=== PATIENT | female | born 1945 | race Caucasian/White ===

== ENCOUNTER 2017-07-22 10:47 | Inpatient (IN) | payer MEDICAID, MEDICARE ==
[~2017-07-22] VITALS: Ht 157.5 cm; Wt 49.9 kg
[2017-07-22 10:51] VITALS: BP 92/54
--- NOTE | 2017-07-22 11:03 | Emergency Room Report ---
History of Present Illness General Chief Complaint: Generalized Weakness Source: Medical Record, EMS Present Illness HPI 71-year-old female coming from alf history of diabetes, COPD, hypertension, schizoaffective disorder, failure to thrive, with PEG tube, brought in for poor oral intake, refusing G-tube feeding, increasing confusion and weakness. Patient is closing eyes, however following commands, not speaking, not able to provide any history. When asked if she is in pain she shakes her head Allergies: Coded Allergies: No Known Allergies (Unverified , 01/13/15) Patient History Limited by: medical condition Past Medical History: see triage record Past Surgical History: unable to obtain Pertinent Family History: unable to obtain Last Menstrual Period: na Reviewed Nursing Documentation: PMH: Agreed, PSxH: Agreed Nursing Documentation-PMH Past Medical History: No History, Except For Hx COPD: Yes Hx Diabetes: Yes Hx Gastrointestinal Problems: Yes - GERD, GTUBE, History Of Psychiatric Problem: Yes - depression, schizophrenia, FTT Hx Neurological Problems: Yes - encephalopathy Review of Systems All Other Systems: limited - pt not answering questions Physical Exam Vital Signs Date Time Temp Pulse Resp B/P (MAP) Pulse Ox O2 Delivery O2 Flow Rate FiO2 07/22/17 10:39 97.9 80 18 96/61 95 Room Air Sp02 EP Interpretation: reviewed, normal General Appearance: non-toxic, other - Elderly thin chronically ill female, not in acute distress, appears tired Head: normocephalic, atraumatic Eyes: bilateral eye normal inspection, bilateral eye PERRL, bilateral eye EOMI ENT: normal ENT inspection, normal pharynx, dry mucus membranes Neck: normal inspection, full range of motion, supple Respiratory: normal inspection, lungs clear, normal breath sounds, no respiratory distress, no retraction, no wheezing, chest symmetrical Cardiovascular #1: normal inspection, regular rate, rhythm, no edema, normal capillary refill Cardiovascular #2: 2+ radial (R), 2+ radial (L) Gastrointestinal: normal inspection, non tender, soft, non-distended, no guarding, other - +peg tube in place with black residue Musculoskeletal: normal inspection, back normal, normal range of motion, non- tender, other - anterior aspect R knee witha brasino Neurologic: motor strength/tone normal, sensory intact, other - Patient answering questions with yes and no, however not speaking not providing any history, not cooperative with neurological exam Skin: normal inspection, normal color, no rash, warm/dry, normal turgor Medical Decision Making Diagnostic Impression: Primary Impression: Dehydration Additional Impression: Failure to thrive ER Course 71-year-old female, increased confusion, altered mental status, refusing oral intake at alf DDX: Failure to thrive, dehydration, electrolyte disturbance, infectious, UTI/ pneumonia Plan: Obtain labs, ua, EKG, CXR IV fluids ER course: Patient has been monitored during ED stay, borderline hypotensive with map of 65 , given IV fluid BP improved Disposition: Patient is to be admitted to med surg D/W hospitalist Dr Sukh Chu who has accepted patient for admission Please note that this Emergency Department Report was dictated using PredPolpreparer technology software, occasionally this can lead to erroneous entry secondary to interpretation by the dictation equipment. EKG Diagnostic Results EP Interpretation: Yes Rate: normal Rhythm: NSR ST Segments: No acute changes ASA given to patient: No Rhythm Strip EP Interpretation: Yes Rate: 81 Rhythm: NSR, no PVCs, no ectopy Chest X-ray CXR: Ordered: Yes 1 view Indication: Altered mental status EP interpretation: Yes Interpretation: No consolidation, no effusion, no PTX, no acute cardiopulmonary disease Impression: No acute disease Electronically signed by Lindsay Bonds MD Laboratory Tests Test 07/22/17 11:45 07/22/17 12:15 White Blood Count 11.7 K/UL (4.8-10.8) H Red Blood Count 4.69 M/UL (4.20-5.40) Hemoglobin 14.2 G/DL (12.0-16.0) Hematocrit 44.9 % (37.0-47.0) Mean Corpuscular Volume 96 FL (80-99) Mean Corpuscular Hemoglobin 30.3 PG (27.0-31.0) Mean Corpuscular Hemoglobin Concent 31.7 G/DL (32.0-36.0) L Red Cell Distribution Width 13.0 % (11.6-14.8) Platelet Count 397 K/UL (150-450) Mean Platelet Volume 6.0 FL (6.5-10.1) L Neutrophils (%) (Auto) 65.1 % (45.0-75.0) Lymphocytes (%) (Auto) 27.6 % (20.0-45.0) Monocytes (%) (Auto) 6.8 % (1.0-10.0) Eosinophils (%) (Auto) 0.0 % (0.0-3.0) Basophils (%) (Auto) 0.5 % (0.0-2.0) Prothrombin Time 10.5 SEC (9.30-11.50) Prothrombin Time INR 1.0 (0.9-1.1) PTT 26 SEC (23-33) Sodium Level 146 MMOL/L (136-145) H Potassium Level 4.0 MMOL/L (3.5-5.1) Chloride Level 107 MMOL/L (98-107) Carbon Dioxide Level 23 MMOL/L (21-32) Anion Gap 17 mmol/L (5-15) H Blood Urea Nitrogen 10 mg/dL (7-18) Creatinine 0.6 MG/DL (0.55-1.30) Estimate Glomerular Filtration Rate > 60 mL/min (>60) Glucose Level 121 MG/DL (74-106) H Lactic Acid Level 0.70 mmol/L (0.66-2.22) Calcium Level 9.5 MG/DL (8.5-10.1) Total Bilirubin 0.6 MG/DL (0.2-1.0) Aspartate Amino Transferase (AST) 10 U/L (15-37) L Alanine Aminotransferase (ALT) 13 U/L (12-78) Alkaline Phosphatase 80 U/L (46-116) Total Creatine Kinase 16 U/L (26-308) L Creatine Kinase MB < 0.5 NG/ML (0.0-3.6) Creatine Kinase MB Relative Index 3.1 Troponin I 0.017 ng/mL (0.000-0.056) Total Protein 7.1 G/DL (6.4-8.2) Albumin 3.3 G/DL (3.4-5.0) L Globulin 3.8 g/dL Albumin/Globulin Ratio 0.9 (1.0-2.7) L Urine Color Yellow Urine Appearance Clear Urine pH 6 (4.5-8.0) Urine Specific [place] 1.025 (1.005-1.035) Urine Protein 2+ (NEGATIVE) H Urine Glucose (UA) Negative (NEGATIVE) Urine Ketones 4+ (NEGATIVE) H Urine Occult Blood Negative (NEGATIVE) Urine Nitrite Negative (NEGATIVE) Urine Bilirubin 1+ (NEGATIVE) H Urine Ictotest Negative Urine Urobilinogen 1 MG/DL (0.0-1.0) H Urine Leukocyte Esterase 1+ (NEGATIVE) H Urine RBC 2-4 /HPF (0 - 2) H Urine WBC 2-4 /HPF (0 - 2) Urine Squamous Epithelial Cells Few /LPF (NONE/OCC) Urine Bacteria Few /HPF (NONE) Urine Mucus Many /LPF (NONE/OCC) H Last Vital Signs Date Time Temp Pulse Resp B/P (MAP) Pulse Ox O2 Delivery O2 Flow Rate FiO2 07/22/17 10:51 86 17 92/54 92 Room Air 07/22/17 10:39 97.9 Disposition: ADMITTED INPATIENT Condition: Serious AurelianooLindsay M.D. Jul 22, 2017 11:03
[2017-07-22] MEDS ORDERED: LORazepam Inj 2mg/ml 1ml IM ONE (11:30)
--- NOTE | 2017-07-22 11:54 | Diagnostic Imaging Report ---
Indication: Chest pain Technique: One view of the chest Comparison: 01/13/2015 Findings: There is some atelectasis at both lung bases. Left hemidiaphragm remains elevated. There is slight blunting of left costophrenic angle. The right pleural space and remainder of the lungs are clear. Normal heart size. There is a gastrostomy Impression: Bilateral basilar atelectasis Possible small left pleural effusion
[2017-07-22 12:16] LABS: BASOPHILS % (AUTO) 0.5 % (0.0-2.0); LYMPHOCYTES % (AUTO) 27.6 % (20.0-45.0); MEAN CORPUSCULAR HEMOGLOBIN 30.3 PG (27.0-31.0); MEAN CORPUSCULAR HGB CONC 31.7 G/DL (32.0-36.0); MEAN CORPUSCULAR VOLUME 96 FL (80-99); MONOCYTES % (AUTO) 6.8 % (1.0-10.0); NEUTROPHILS % (AUTO) 65.1 % (45.0-75.0); PLATELET COUNT 397 K/UL (150-450); RED BLOOD COUNT 4.69 M/UL (4.20-5.40); WHITE BLOOD COUNT 11.7 K/UL (4.8-10.8)
[2017-07-22 12:27] LABS: APPEARANCE,URINE CLEAR; KETONES,URINE 4+ (NEGATIVE); LEUKOCYTE ESTERASE ,URINE 1+ (NEGATIVE); NITRITE,URINE NEGATIVE (NEGATIVE); PH,URINE 6 (4.5-8.0); PROTEIN,URINE 2+ (NEGATIVE); UROBILINOGEN,URINE 1 MG/DL (0.0-1.0)
[2017-07-22 12:28] LABS: PROTHROMBIN TIME 10.5 SEC (9.30-11.50)
[2017-07-22 12:40] LABS: BACTERIA,URINE FEW /HPF; ICTOTEST NEGATIVE; MUCUS,URINE MANY /LPF (NONE/OCC); SQUAMOUS EPITHELIAL CELL,UR FEW /LPF (NONE/OCC)
[2017-07-22 12:42] LABS: ALANINE AMINOTRANSFERASE 13 U/L (12-78); ANION GAP 17 mmol/L (5-15); ASPARTATE AMINO TRANSFERASE 10 U/L (15-37); CALCIUM 9.5 MG/DL (8.5-10.1); CARBON DIOXIDE 23 MMOL/L (21-32); CHLORIDE 107 MMOL/L (98-107); CKMB < 0.5 NG/ML (0.0-3.6); CREATININE 0.6 MG/DL (0.55-1.30); GLOMERULAR FILTRATION RATE > 60 mL/min (>60); SODIUM 146 MMOL/L (136-145)
[2017-07-22 12:43] LABS: ALBUMIN/GLOBULIN RATIO 0.9 (1.0-2.7); TOTAL PROTEIN 7.1 G/DL (6.4-8.2)
[2017-07-22] MEDS ORDERED: Mylanta II UD 30ml ORAL PRN (13:15)
[2017-07-22] MEDS ORDERED: Miralax 17gm pkt ORAL PRN (13:15)
[2017-07-22] MEDS ORDERED: Morphine Sulfate 2mg/ml Inj IVP PRN (13:15)
[2017-07-22] MEDS ORDERED: Ketorolac 30mg Inj IV PRN (13:15)
[2017-07-22] MEDS ORDERED: Nitroglycerin Subl 0.4mg tab SL PRN (13:15)
[2017-07-22] MEDS ORDERED: AMLODIPINE BESYL5 MG GT (13:21)
[2017-07-22 13:36] VITALS: BP 116/60
[2017-07-22] MEDS ORDERED: ASPIRIN81 MG GT (13:46)
[2017-07-22] MEDS ORDERED: BENZTROPINE MESY1 MG GT (13:46)
[2017-07-22] MEDS ORDERED: GLUCERNA 1.5 C237 ML GT (13:49)
[2017-07-22] MEDS ORDERED: GEODON20 MG GT (13:49)
[2017-07-22] MEDS ORDERED: CLOZARIL25 MG GT (13:49)
[2017-07-22] MEDS ORDERED: INVEGA SUS117 MG/0.7 IM (13:50)
[2017-07-22 14:00] VITALS: BP 104/51
[2017-07-22] MEDS ORDERED: LIPITOR20 MG GT (14:03)
[2017-07-22] MEDS ORDERED: MAGNESIUM OXID500 M2 GT (14:03)
[2017-07-22] MEDS ORDERED: LORAZEPAM1 MG GT (14:03)
[2017-07-22] MEDS ORDERED: METFORMIN HCL1000 M1 GT (14:03)
[2017-07-22] MEDS ORDERED: MIRTAZAPINE7.5 MG GT (14:03)
[2017-07-22] MEDS ORDERED: MULTIVITAMINS1 EA13 GT (14:03)
[2017-07-22] MEDS ORDERED: ZYPREXA5 MG GT (14:06)
[2017-07-22] MEDS ORDERED: TEMAZEPAM7.5 MG GT (14:06)
[2017-07-22] MEDS ORDERED: NOVOLOG100 UNITS1 (14:06)
[2017-07-22] MEDS ORDERED: PRILOSEC10 M1 GT (14:06)
[2017-07-22] MEDS ORDERED: POLYETHYLENE GL17 GM GT (14:06)
[2017-07-22] MEDS ORDERED: D5 1/2NS 1,000 ML IV SCH (15:45)
[2017-07-22 15:57] VITALS: BP 114/95
[2017-07-22] MEDS: NovoLOG Insulin Flexpen SUBQ SCH ×2 (16:17→21:00)
--- NOTE | 2017-07-22 16:28 | GI Initial Consult Note ---
Paez,Yvette Lavon N.P. 07/22/17 1628: History of Present Illness General Date patient seen: Jul 22, 2017 Time patient seen: 16:19 Reason for Hospitalization: Generalized Weakness Referring physician: XAVI LOPEZ Reason for Consultation: FTT Present Illness HPI 71-year-old female coming from shelter history of diabetes, COPD, hypertension, schizoaffective disorder, failure to thrive, with PEG tube, brought in for poor oral intake, refusing G-tube feeding, increasing confusion and weakness. Patient is closing eyes, however following commands, not speaking, not able to provide any history. When asked if she is in pain she shakes her head. GI consulted for FTT/Gtube mgmt. HPI as noted above. Pt seen on floor, awake alert NAD with no active s/sx of N/V/D. Presents today with leukocytosis and hypoalbuminemia. Currently NPO + IVFs. Home Meds Reported Medications Temazepam (TEMAZEPAM*) 7.5 Mg Capsule, 7.5 MG GT BEDTIME, #30 CAP 0 Refills 07/22/17 Polyethylene Glycol 3350* (POLYETHYLENE GLYCOL 3350*) 17 Gm Powd.pack, 17 GM GT DAILY, PACKET 07/22/17 Omeprazole Magnesium (PRILOSEC) 10 Mg Suspdr.pkt, 20.6 MG GT DAILY, PACKET 07/22/17 Olanzapine* (ZYPREXA*) 5 Mg Tablet, 5 MG GT DAILY, TAB 07/22/17 Insulin Aspart (Novolog Flexpen) 100 Unit/1 Ml Insuln.pen 07/22/17 Multivitamin with Minerals (Multivitamins with Minerals) 1 Each Tablet, 1 TAB GT DAILY, TAB 07/22/17 Mirtazapine* (MIRTAZAPINE*) 7.5 Mg Tablet, 7.5 MG GT BEDTIME, TAB 07/22/17 Metformin Hcl* (METFORMIN HCL*) 1,000 Mg Tablet, 1000 MG GT BID, TAB 07/22/17 Magnesium Oxide (MAGNESIUM OXIDE) 500 Mg Capsule, 400 MG GT BID, CAP 07/22/17 Lorazepam* (LORAZEPAM*) 1 Mg Tablet, 1 MG GT Q6HR, TAB 07/22/17 Atorvastatin Calcium* (LIPITOR*) 20 Mg Tablet, 20 MG GT BEDTIME, TAB 07/22/17 Paliperidone Palmitate (Invega Sustenna) 117 Mg/0.75 Ml Syringe, 117 MG IM, EA 07/22/17 Nut.tx.gluc.intoler,Lac-Fr,Soy (Glucerna 1.5 Yo) 237 Ml Liquid, 237 ML GT FIVE TIMES A DAY, ML 07/22/17 Ziprasidone Hcl* (GEODON*) 20 Mg Capsule, 20 MG GT DAILY, #30 CAP 0 Refills 07/22/17 Clozapine* (CLOZARIL*) 25 Mg Tablet, 50 MG GT BID, TAB 07/22/17 Benztropine Mesylate* (BENZTROPINE MESYLATE*) 1 Mg Tablet, 1 MG GT BID, TAB 07/22/17 Aspirin* (ASPIRIN*) 81 Mg Tab.chew, 81 MG GT DAILY, TAB 07/22/17 Amlodipine Besylate* (AMLODIPINE BESYLATE*) 5 Mg Tablet, 5 MG GT DAILY, TAB 07/22/17 Med list reviewed/reconciled: Yes Allergies: Coded Allergies: No Known Allergies (Unverified , 01/13/15) Patient History Limited by: medical condition History Provided By: Medical Record PMH Narrative Limited by: medical condition Past Medical History: see triage record Past Surgical History: unable to obtain Pertinent Family History: unable to obtain Last Menstrual Period: na Reviewed Nursing Documentation: PMH: Agreed, PSxH: Agreed Nursing Documentation-PMH Past Medical History: No History, Except For Hx COPD: Yes Hx Diabetes: Yes Hx Gastrointestinal Problems: Yes - GERD, GTUBE, History Of Psychiatric Problem: Yes - depression, schizophrenia, FTT Hx Neurological Problems: Yes - encephalopathy Review of Systems All Other Systems: limited Physical Exam Vital Signs Date Time Temp Pulse Resp B/P (MAP) Pulse Ox O2 Delivery O2 Flow Rate FiO2 07/22/17 10:39 97.9 80 18 96/61 95 Room Air Sp02 EP Interpretation: reviewed, normal Labs Laboratory Tests Test 07/22/17 11:45 07/22/17 12:15 White Blood Count 11.7 K/UL (4.8-10.8) H Red Blood Count 4.69 M/UL (4.20-5.40) Hemoglobin 14.2 G/DL (12.0-16.0) Hematocrit 44.9 % (37.0-47.0) Mean Corpuscular Volume 96 FL (80-99) Mean Corpuscular Hemoglobin 30.3 PG (27.0-31.0) Mean Corpuscular Hemoglobin Concent 31.7 G/DL (32.0-36.0) L Red Cell Distribution Width 13.0 % (11.6-14.8) Platelet Count 397 K/UL (150-450) Mean Platelet Volume 6.0 FL (6.5-10.1) L Neutrophils (%) (Auto) 65.1 % (45.0-75.0) Lymphocytes (%) (Auto) 27.6 % (20.0-45.0) Monocytes (%) (Auto) 6.8 % (1.0-10.0) Eosinophils (%) (Auto) 0.0 % (0.0-3.0) Basophils (%) (Auto) 0.5 % (0.0-2.0) Prothrombin Time 10.5 SEC (9.30-11.50) Prothromb Time International Ratio 1.0 (0.9-1.1) Activated Partial Thromboplast Time 26 SEC (23-33) Sodium Level 146 MMOL/L (136-145) H Potassium Level 4.0 MMOL/L (3.5-5.1) Chloride Level 107 MMOL/L (98-107) Carbon Dioxide Level 23 MMOL/L (21-32) Anion Gap 17 mmol/L (5-15) H Blood Urea Nitrogen 10 mg/dL (7-18) Creatinine 0.6 MG/DL (0.55-1.30) Estimat Glomerular Filtration Rate > 60 mL/min (>60) Glucose Level 121 MG/DL (74-106) H Lactic Acid Level 0.70 mmol/L (0.66-2.22) Calcium Level 9.5 MG/DL (8.5-10.1) Total Bilirubin 0.6 MG/DL (0.2-1.0) Aspartate Amino Transf (AST/SGOT) 10 U/L (15-37) L Alanine Aminotransferase (ALT/SGPT) 13 U/L (12-78) Alkaline Phosphatase 80 U/L (46-116) Total Creatine Kinase 16 U/L (26-308) L Creatine Kinase MB < 0.5 NG/ML (0.0-3.6) Creatine Kinase MB Relative Index 3.1 Troponin I 0.017 ng/mL (0.000-0.056) Total Protein 7.1 G/DL (6.4-8.2) Albumin 3.3 G/DL (3.4-5.0) L Globulin 3.8 g/dL Albumin/Globulin Ratio 0.9 (1.0-2.7) L Urine Color Yellow Urine Appearance Clear Urine pH 6 (4.5-8.0) Urine Specific [place] 1.025 (1.005-1.035) Urine Protein 2+ (NEGATIVE) H Urine Glucose (UA) Negative (NEGATIVE) Urine Ketones 4+ (NEGATIVE) H Urine Occult Blood Negative (NEGATIVE) Urine Nitrite Negative (NEGATIVE) Urine Bilirubin 1+ (NEGATIVE) H Urine Ictotest Negative Urine Urobilinogen 1 MG/DL (0.0-1.0) H Urine Leukocyte Esterase 1+ (NEGATIVE) H Urine RBC 2-4 /HPF (0 - 2) H Urine WBC 2-4 /HPF (0 - 2) Urine Squamous Epithelial Cells Few /LPF (NONE/OCC) Urine Bacteria Few /HPF (NONE) Urine Mucus Many /LPF (NONE/OCC) H General Appearance: alert Head: normocephalic EENT: PERRL/EOMI, normal ENT inspection Neck: supple Respiratory: normal breath sounds, no respiratory distress Cardiovascular: normal rate Gastrointestinal: normal inspection, non tender, soft, normal bowel sounds, non -distended, gt - C/D/I Rectal: deferred Genitourinary: no CVA tenderness Musculoskeletal: normal inspection, back normal Neurologic: normal inspection, alert Skin: normal inspection, normal color, no rash, warm/dry, palpation normal, well hydrated Lymphatic: normal inspection, no adenopathy Current Medications Current Medications Medications (Trade) Dose Ordered Sig/Cami Route PRN Reason Start Time Stop Time Status Last Admin Dose Admin Acetaminophen (Tylenol) 650 mg Q4H PRN ORAL fever 07/22/17 13:15 08/21/17 13:14 Al Hydroxide/Mg Hydroxide (Mylanta II) 30 ml Q6H PRN ORAL dyspepsia 07/22/17 13:15 08/21/17 13:14 Clozapine (Clozaril) 50 mg DAILY ORAL 07/23/17 09:00 07/30/17 08:59 UNV Dextrose (Dextrose 50%) STAT PRN IV Hypoglycemia 07/22/17 13:15 08/21/17 13:14 Dextrose/Sodium Chloride 1,000 ml @ 50 mls/hr Q20H IV 07/22/17 15:45 08/21/17 15:44 07/22/17 15:48 Diphenhydramine HCl (Benadryl) 25 mg Q6H PRN ORAL Itching/Pruritis 07/22/17 13:15 08/21/17 13:14 Heparin Sodium (Porcine) (Heparin 5000 units/ml) 5,000 units EVERY 12 HOURS SUBQ 07/22/17 21:00 08/21/17 20:59 Insulin Aspart (NovoLOG) BEFORE MEALS AND HS SUBQ 07/22/17 16:30 08/21/17 16:29 Ketorolac Tromethamine (Toradol 30mg) 30 mg Q6H PRN IV moderate pain 4-6 07/22/17 13:15 07/27/17 13:14 Morphine Sulfate (Morphine Sulfate) 2 mg Q4H PRN IVP severe Pain (Pain Scale 7-10) 07/22/17 13:15 07/29/17 13:14 Nitroglycerin (Ntg) 0.4 mg Q5M X 3 DOSES PRN SL Prn Chest Pain 07/22/17 13:15 08/21/17 13:14 Olanzapine (ZyPREXA) 2.5 mg BID ORAL 07/22/17 18:00 08/21/17 17:59 Ondansetron HCl (Zofran) 4 mg Q6H PRN IVP Nausea & Vomiting 07/22/17 13:15 08/21/17 13:14 Polyethylene Glycol (Miralax) 17 gm HSPRN PRN ORAL Constipation 07/22/17 13:15 08/21/17 13:14 Temazepam (Restoril) 15 mg HSPRN PRN ORAL Insomnia 07/22/17 13:15 07/29/17 13:14 GI: Plan Problems: (1) Gastrostomy tube in place (2) Failure to thrive (3) Dehydration (4) Nausea and vomiting in adult patient (5) Nausea in adult patient Plan symptomatic treatment ordered ST evaluation calorie count x 48 hours push PO, will consider Marinol GTFs per dietary abx fu labs Discussed with Dr. Willis. Thank you for this patient referral, we will follow. PETER WILLIS 07/23/17 1518: History of Present Illness General Reason for Hospitalization: Generalized Weakness Present Illness Home Meds Reported Medications Temazepam (TEMAZEPAM*) 7.5 Mg Capsule, 7.5 MG GT BEDTIME, #30 CAP 0 Refills 07/22/17 Polyethylene Glycol 3350* (POLYETHYLENE GLYCOL 3350*) 17 Gm Powd.pack, 17 GM GT DAILY, PACKET 07/22/17 Omeprazole Magnesium (PRILOSEC) 10 Mg Suspdr.pkt, 20.6 MG GT DAILY, PACKET 07/22/17 Olanzapine* (ZYPREXA*) 5 Mg Tablet, 5 MG GT DAILY, TAB 07/22/17 Insulin Aspart (Novolog Flexpen) 100 Unit/1 Ml Insuln.pen 07/22/17 Multivitamin with Minerals (Multivitamins with Minerals) 1 Each Tablet, 1 TAB GT DAILY, TAB 07/22/17 Mirtazapine* (MIRTAZAPINE*) 7.5 Mg Tablet, 7.5 MG GT BEDTIME, TAB 07/22/17 Metformin Hcl* (METFORMIN HCL*) 1,000 Mg Tablet, 1000 MG GT BID, TAB 07/22/17 Magnesium Oxide (MAGNESIUM OXIDE) 500 Mg Capsule, 400 MG GT BID, CAP 07/22/17 Lorazepam* (LORAZEPAM*) 1 Mg Tablet, 1 MG GT Q6HR, TAB 07/22/17 Atorvastatin Calcium* (LIPITOR*) 20 Mg Tablet, 20 MG GT BEDTIME, TAB 07/22/17 Paliperidone Palmitate (Invega Sustenna) 117 Mg/0.75 Ml Syringe, 117 MG IM, EA 07/22/17 Nut.tx.gluc.intoler,Lac-Fr,Soy (Glucerna 1.5 Yo) 237 Ml Liquid, 237 ML GT FIVE TIMES A DAY, ML 07/22/17 Ziprasidone Hcl* (GEODON*) 20 Mg Capsule, 20 MG GT DAILY, #30 CAP 0 Refills 07/22/17 Clozapine* (CLOZARIL*) 25 Mg Tablet, 50 MG GT BID, TAB 07/22/17 Benztropine Mesylate* (BENZTROPINE MESYLATE*) 1 Mg Tablet, 1 MG GT BID, TAB 07/22/17 Aspirin* (ASPIRIN*) 81 Mg Tab.chew, 81 MG GT DAILY, TAB 07/22/17 Amlodipine Besylate* (AMLODIPINE BESYLATE*) 5 Mg Tablet, 5 MG GT DAILY, TAB 07/22/17 Allergies: Coded Allergies: No Known Allergies (Unverified , 01/13/15) Patient History Social History Narrative The patient was seen and examined at bedside and all new and available data was reviewed in the patients chart. I agree with the above findings, impression and plan. (Patient seen earlier today. Signature stamp does not reflect patient encounter time.). - MD Jeannine [facility]seY[facility] Lavon N.PGhada Jul 22, 2017 16:28 PETER WILLIS Jul 23, 2017 15:18
[2017-07-22] MEDS ORDERED: OLANZapine 2.5mg tab ORAL SCH (18:00)
[2017-07-22] MEDS: Heparin 5000 units/ml inj SUBQ SCH (21:00)
--- NOTE | 2017-07-22 21:51 | Consultation ---
History of Present Illness General Date patient seen: Jul 22, 2017 Chief Complaint: Generalized Weakness Referring physician: XAVI LOPEZ Reason for Consultation: FTT Present Illness HPI 71-year-old female coming from [facility] history of diabetes, COPD, hypertension, schizoaffective disorder, failure to thrive, with PEG tube, brought in for poor oral intake, refusing G-tube feeding, increasing confusion and weakness. She is admitted for worsening delirium. Allergies: Coded Allergies: No Known Allergies (Unverified , 01/13/15) Medication History Scheduled Amlodipine Besylate* (Amlodipine Besylate*), 5 MG GT DAILY, (Reported) Aspirin* (Aspirin*), 81 MG GT DAILY, (Reported) Atorvastatin Calcium* (Lipitor*), 20 MG GT BEDTIME, (Reported) Benztropine Mesylate* (Benztropine Mesylate*), 1 MG GT BID, (Reported) Clozapine* (Clozaril*), 50 MG GT BID, (Reported) Lorazepam* (Lorazepam*), 1 MG GT Q6HR, (Reported) Magnesium Oxide (Magnesium Oxide), 400 MG GT BID, (Reported) Metformin Hcl* (Metformin Hcl*), 1,000 MG GT BID, (Reported) Mirtazapine* (Mirtazapine*), 7.5 MG GT BEDTIME, (Reported) Multivitamin with Minerals (Multivitamins with Minerals), 1 TAB GT DAILY, ( Reported) Nut.tx.gluc.intoler,Lac-Fr,Soy (Glucerna 1.5 Yo), 237 ML GT FIVE TIMES A DAY, ( Reported) Olanzapine* (Zyprexa*), 5 MG GT DAILY, (Reported) Omeprazole Magnesium (Prilosec), 20.6 MG GT DAILY, (Reported) Polyethylene Glycol 3350* (Polyethylene Glycol 3350*), 17 GM GT DAILY, (Reported ) Temazepam (Temazepam*), 7.5 MG GT BEDTIME, (Reported) Ziprasidone Hcl* (Geodon*), 20 MG GT DAILY, (Reported) Miscellaneous Medications Insulin Aspart (Novolog Flexpen), (Reported) Paliperidone Palmitate (Invega Sustenna), 117 MG IM, (Reported) Patient History Healthcare decision maker N Resuscitation status Full Code Advanced Directive on File Past Medical/Surgical History Past Medical/Surgical History: (1) Gastrostomy tube in place Review of Systems All Other Systems: negative except mentioned in HPI Physical Exam General Appearance: WD/WN, no apparent distress Lines, tubes and drains: peripheral HEENT: normocephalic, atraumatic Neck: non-tender, normal alignment Respiratory/Chest: chest wall non-tender, lungs clear Breasts: no masses Cardiovascular/Chest: normal peripheral pulses, normal rate Abdomen: normal bowel sounds, non tender Genitourinary/Rectal: normal genital exam Last 24 Hour Vital Signs Date Time Temp Pulse Resp B/P (MAP) Pulse Ox O2 Delivery O2 Flow Rate FiO2 07/22/17 15:57 97.3 99 18 114/95 95 Room Air 07/22/17 14:00 98.2 91 18 104/51 96 Room Air 07/22/17 13:45 98.9 92 15 116/60 95 Room Air 07/22/17 13:36 92 15 116/60 95 Room Air 07/22/17 11:10 98.9 07/22/17 10:51 86 17 92/54 92 Room Air 07/22/17 10:39 97.9 80 18 96/61 95 Room Air Intake and Output 07/22/17 07/23/17 18:59 06:59 Intake Total 2360 ml Output Total 300 ml Balance 2060 ml Intake Oral 360 ml IV Total 2000 ml Output Urine Total 300 ml # Voids 1 Laboratory Tests Test 07/22/17 11:45 07/22/17 12:15 White Blood Count 11.7 K/UL (4.8-10.8) H Red Blood Count 4.69 M/UL (4.20-5.40) Hemoglobin 14.2 G/DL (12.0-16.0) Hematocrit 44.9 % (37.0-47.0) Mean Corpuscular Volume 96 FL (80-99) Mean Corpuscular Hemoglobin 30.3 PG (27.0-31.0) Mean Corpuscular Hemoglobin Concent 31.7 G/DL (32.0-36.0) L Red Cell Distribution Width 13.0 % (11.6-14.8) Platelet Count 397 K/UL (150-450) Mean Platelet Volume 6.0 FL (6.5-10.1) L Neutrophils (%) (Auto) 65.1 % (45.0-75.0) Lymphocytes (%) (Auto) 27.6 % (20.0-45.0) Monocytes (%) (Auto) 6.8 % (1.0-10.0) Eosinophils (%) (Auto) 0.0 % (0.0-3.0) Basophils (%) (Auto) 0.5 % (0.0-2.0) Prothrombin Time 10.5 SEC (9.30-11.50) Prothromb Time International Ratio 1.0 (0.9-1.1) Activated Partial Thromboplast Time 26 SEC (23-33) Sodium Level 146 MMOL/L (136-145) H Potassium Level 4.0 MMOL/L (3.5-5.1) Chloride Level 107 MMOL/L (98-107) Carbon Dioxide Level 23 MMOL/L (21-32) Anion Gap 17 mmol/L (5-15) H Blood Urea Nitrogen 10 mg/dL (7-18) Creatinine 0.6 MG/DL (0.55-1.30) Estimat Glomerular Filtration Rate > 60 mL/min (>60) Glucose Level 121 MG/DL (74-106) H Lactic Acid Level 0.70 mmol/L (0.66-2.22) Calcium Level 9.5 MG/DL (8.5-10.1) Total Bilirubin 0.6 MG/DL (0.2-1.0) Aspartate Amino Transf (AST/SGOT) 10 U/L (15-37) L Alanine Aminotransferase (ALT/SGPT) 13 U/L (12-78) Alkaline Phosphatase 80 U/L (46-116) Total Creatine Kinase 16 U/L (26-308) L Creatine Kinase MB < 0.5 NG/ML (0.0-3.6) Creatine Kinase MB Relative Index 3.1 Troponin I 0.017 ng/mL (0.000-0.056) Total Protein 7.1 G/DL (6.4-8.2) Albumin 3.3 G/DL (3.4-5.0) L Globulin 3.8 g/dL Albumin/Globulin Ratio 0.9 (1.0-2.7) L Urine Color Yellow Urine Appearance Clear Urine pH 6 (4.5-8.0) Urine Specific [place] 1.025 (1.005-1.035) Urine Protein 2+ (NEGATIVE) H Urine Glucose (UA) Negative (NEGATIVE) Urine Ketones 4+ (NEGATIVE) H Urine Occult Blood Negative (NEGATIVE) Urine Nitrite Negative (NEGATIVE) Urine Bilirubin 1+ (NEGATIVE) H Urine Ictotest Negative Urine Urobilinogen 1 MG/DL (0.0-1.0) H Urine Leukocyte Esterase 1+ (NEGATIVE) H Urine RBC 2-4 /HPF (0 - 2) H Urine WBC 2-4 /HPF (0 - 2) Urine Squamous Epithelial Cells Few /LPF (NONE/OCC) Urine Bacteria Few /HPF (NONE) Urine Mucus Many /LPF (NONE/OCC) H Height (Feet): 5 Height (Inches): 2.00 Weight (Pounds): 110 Medications Current Medications Medications (Trade) Dose Ordered Sig/Cami Route PRN Reason Start Time Stop Time Status Last Admin Dose Admin Acetaminophen (Tylenol) 650 mg Q4H PRN ORAL fever 07/22/17 13:15 08/21/17 13:14 Al Hydroxide/Mg Hydroxide (Mylanta II) 30 ml Q6H PRN ORAL dyspepsia 07/22/17 13:15 08/21/17 13:14 Clozapine (Clozaril) 50 mg BID ORAL 07/22/17 21:00 07/29/17 20:59 Dextrose (Dextrose 50%) STAT PRN IV Hypoglycemia 07/22/17 13:15 08/21/17 13:14 Dextrose/Sodium Chloride 1,000 ml @ 50 mls/hr Q20H IV 07/22/17 15:45 08/21/17 15:44 07/22/17 15:48 Diphenhydramine HCl (Benadryl) 25 mg Q6H PRN ORAL Itching/Pruritis 07/22/17 13:15 08/21/17 13:14 Heparin Sodium (Porcine) (Heparin 5000 units/ml) 5,000 units EVERY 12 HOURS SUBQ 07/22/17 21:00 08/21/17 20:59 Insulin Aspart (NovoLOG) BEFORE MEALS AND HS SUBQ 07/22/17 16:30 08/21/17 16:29 Ketorolac Tromethamine (Toradol 30mg) 30 mg Q6H PRN IV moderate pain 4-6 07/22/17 13:15 07/27/17 13:14 Lansoprazole (Prevacid) 30 mg BID GT 07/22/17 18:00 08/21/17 17:59 07/22/17 18:20 Morphine Sulfate (Morphine Sulfate) 2 mg Q4H PRN IVP severe Pain (Pain Scale 7-10) 07/22/17 13:15 07/29/17 13:14 Nitroglycerin (Ntg) 0.4 mg Q5M X 3 DOSES PRN SL Prn Chest Pain 07/22/17 13:15 08/21/17 13:14 Olanzapine (ZyPREXA) 2.5 mg BID ORAL 07/22/17 18:00 08/21/17 17:59 07/22/17 17:30 Ondansetron HCl (Zofran) 4 mg Q6H PRN IVP Nausea & Vomiting 07/22/17 13:15 08/21/17 13:14 Polyethylene Glycol (Miralax) 17 gm HSPRN PRN ORAL Constipation 07/22/17 13:15 08/21/17 13:14 Temazepam (Restoril) 15 mg HSPRN PRN ORAL Insomnia 07/22/17 13:15 07/29/17 13:14 Assessment/Plan Problem List: (1) Failure to thrive SNOMED: 38904244 (2) Nausea in adult patient ICD Codes: R11.0 - Nausea SNOMED: 346639173 (3) Pyuria ICD Codes: N39.0 - Urinary tract infection, site not specified SNOMED: 7693181, 626702484, 210013179 (4) Dehydration ICD Codes: E86.0 - Dehydration SNOMED: 08711460 Assessment/Plan GI and psych evaluation check electrolytes dvt prophyalxis Iv fluiids check urine cultures. BURAK RUANO Jul 22, 2017 21:51
--- NOTE | 2017-07-22 22:22 | Infectious Diseases Prog Note ---
Assessment/Plan Problems: (1) Sepsis Assessment & Plan: Due to UTI? Reactive? (2) Pyuria Assessment & Plan: Rule-out UTI. Empiric cefepime. Follow-up UCx. (3) Dehydration (4) Failure to thrive Subjective Allergies: Coded Allergies: No Known Allergies (Unverified , 01/13/15) Objective Vital Signs Last 24 Hour Vital Signs Date Time Temp Pulse Resp B/P (MAP) Pulse Ox O2 Delivery O2 Flow Rate FiO2 07/22/17 15:57 97.3 99 18 114/95 95 Room Air 07/22/17 14:00 98.2 91 18 104/51 96 Room Air 07/22/17 13:45 98.9 92 15 116/60 95 Room Air 07/22/17 13:36 92 15 116/60 95 Room Air 07/22/17 11:10 98.9 07/22/17 10:51 86 17 92/54 92 Room Air 07/22/17 10:39 97.9 80 18 96/61 95 Room Air Height (Feet): 5 Height (Inches): 2.00 Weight (Pounds): 110 Laboratory Tests Test 07/22/17 11:45 07/22/17 12:15 White Blood Count 11.7 K/UL (4.8-10.8) H Red Blood Count 4.69 M/UL (4.20-5.40) Hemoglobin 14.2 G/DL (12.0-16.0) Hematocrit 44.9 % (37.0-47.0) Mean Corpuscular Volume 96 FL (80-99) Mean Corpuscular Hemoglobin 30.3 PG (27.0-31.0) Mean Corpuscular Hemoglobin Concent 31.7 G/DL (32.0-36.0) L Red Cell Distribution Width 13.0 % (11.6-14.8) Platelet Count 397 K/UL (150-450) Mean Platelet Volume 6.0 FL (6.5-10.1) L Neutrophils (%) (Auto) 65.1 % (45.0-75.0) Lymphocytes (%) (Auto) 27.6 % (20.0-45.0) Monocytes (%) (Auto) 6.8 % (1.0-10.0) Eosinophils (%) (Auto) 0.0 % (0.0-3.0) Basophils (%) (Auto) 0.5 % (0.0-2.0) Prothrombin Time 10.5 SEC (9.30-11.50) Prothromb Time International Ratio 1.0 (0.9-1.1) Activated Partial Thromboplast Time 26 SEC (23-33) Sodium Level 146 MMOL/L (136-145) H Potassium Level 4.0 MMOL/L (3.5-5.1) Chloride Level 107 MMOL/L (98-107) Carbon Dioxide Level 23 MMOL/L (21-32) Anion Gap 17 mmol/L (5-15) H Blood Urea Nitrogen 10 mg/dL (7-18) Creatinine 0.6 MG/DL (0.55-1.30) Estimat Glomerular Filtration Rate > 60 mL/min (>60) Glucose Level 121 MG/DL (74-106) H Lactic Acid Level 0.70 mmol/L (0.66-2.22) Calcium Level 9.5 MG/DL (8.5-10.1) Total Bilirubin 0.6 MG/DL (0.2-1.0) Aspartate Amino Transf (AST/SGOT) 10 U/L (15-37) L Alanine Aminotransferase (ALT/SGPT) 13 U/L (12-78) Alkaline Phosphatase 80 U/L (46-116) Total Creatine Kinase 16 U/L (26-308) L Creatine Kinase MB < 0.5 NG/ML (0.0-3.6) Creatine Kinase MB Relative Index 3.1 Troponin I 0.017 ng/mL (0.000-0.056) Total Protein 7.1 G/DL (6.4-8.2) Albumin 3.3 G/DL (3.4-5.0) L Globulin 3.8 g/dL Albumin/Globulin Ratio 0.9 (1.0-2.7) L Urine Color Yellow Urine Appearance Clear Urine pH 6 (4.5-8.0) Urine Specific [place] 1.025 (1.005-1.035) Urine Protein 2+ (NEGATIVE) H Urine Glucose (UA) Negative (NEGATIVE) Urine Ketones 4+ (NEGATIVE) H Urine Occult Blood Negative (NEGATIVE) Urine Nitrite Negative (NEGATIVE) Urine Bilirubin 1+ (NEGATIVE) H Urine Ictotest Negative Urine Urobilinogen 1 MG/DL (0.0-1.0) H Urine Leukocyte Esterase 1+ (NEGATIVE) H Urine RBC 2-4 /HPF (0 - 2) H Urine WBC 2-4 /HPF (0 - 2) Urine Squamous Epithelial Cells Few /LPF (NONE/OCC) Urine Bacteria Few /HPF (NONE) Urine Mucus Many /LPF (NONE/OCC) H Current Medications Medications (Trade) Dose Ordered Sig/Cami Route PRN Reason Start Time Stop Time Status Last Admin Dose Admin Acetaminophen (Tylenol) 650 mg Q4H PRN ORAL fever 07/22/17 13:15 08/21/17 13:14 Al Hydroxide/Mg Hydroxide (Mylanta II) 30 ml Q6H PRN ORAL dyspepsia 07/22/17 13:15 08/21/17 13:14 Clozapine (Clozaril) 50 mg BID ORAL 07/22/17 21:00 07/29/17 20:59 Dextrose (Dextrose 50%) STAT PRN IV Hypoglycemia 07/22/17 13:15 08/21/17 13:14 Dextrose/Sodium Chloride 1,000 ml @ 50 mls/hr Q20H IV 07/22/17 15:45 08/21/17 15:44 07/22/17 15:48 Diphenhydramine HCl (Benadryl) 25 mg Q6H PRN ORAL Itching/Pruritis 07/22/17 13:15 08/21/17 13:14 Heparin Sodium (Porcine) (Heparin 5000 units/ml) 5,000 units EVERY 12 HOURS SUBQ 07/22/17 21:00 08/21/17 20:59 Insulin Aspart (NovoLOG) BEFORE MEALS AND HS SUBQ 07/22/17 16:30 08/21/17 16:29 Ketorolac Tromethamine (Toradol 30mg) 30 mg Q6H PRN IV moderate pain 4-6 07/22/17 13:15 07/27/17 13:14 Lansoprazole (Prevacid) 30 mg BID GT 07/22/17 18:00 08/21/17 17:59 07/22/17 18:20 Morphine Sulfate (Morphine Sulfate) 2 mg Q4H PRN IVP severe Pain (Pain Scale 7-10) 07/22/17 13:15 07/29/17 13:14 Nitroglycerin (Ntg) 0.4 mg Q5M X 3 DOSES PRN SL Prn Chest Pain 07/22/17 13:15 08/21/17 13:14 Olanzapine (ZyPREXA) 2.5 mg BID ORAL 07/22/17 18:00 08/21/17 17:59 07/22/17 17:30 Ondansetron HCl (Zofran) 4 mg Q6H PRN IVP Nausea & Vomiting 07/22/17 13:15 08/21/17 13:14 Polyethylene Glycol (Miralax) 17 gm HSPRN PRN ORAL Constipation 07/22/17 13:15 08/21/17 13:14 Temazepam (Restoril) 15 mg HSPRN PRN ORAL Insomnia 07/22/17 13:15 07/29/17 13:14 NOEL DAY Jul 22, 2017 22:22
--- NOTE | 2017-07-22 22:55 | Consultation ---
History of Present Illness General Chief Complaint: Generalized Weakness Referring physician: XAVI LOPEZ Reason for Consultation: FTT Present Illness HPI 71-year-old female coming from [facility] history of diabetes, COPD, hypertension, schizoaffective disorder, failure to thrive, with PEG tube, brought in for poor oral intake, refusing G-tube feeding, increasing confusion and weakness. the pt is unable to understand, process nor communicate rationally. the pt lacks capacity to make decisions Allergies: Coded Allergies: No Known Allergies (Unverified , 01/13/15) Medication History Scheduled Amlodipine Besylate* (Amlodipine Besylate*), 5 MG GT DAILY, (Reported) Aspirin* (Aspirin*), 81 MG GT DAILY, (Reported) Atorvastatin Calcium* (Lipitor*), 20 MG GT BEDTIME, (Reported) Benztropine Mesylate* (Benztropine Mesylate*), 1 MG GT BID, (Reported) Clozapine* (Clozaril*), 50 MG GT BID, (Reported) Lorazepam* (Lorazepam*), 1 MG GT Q6HR, (Reported) Magnesium Oxide (Magnesium Oxide), 400 MG GT BID, (Reported) Metformin Hcl* (Metformin Hcl*), 1,000 MG GT BID, (Reported) Mirtazapine* (Mirtazapine*), 7.5 MG GT BEDTIME, (Reported) Multivitamin with Minerals (Multivitamins with Minerals), 1 TAB GT DAILY, ( Reported) Nut.tx.gluc.intoler,Lac-Fr,Soy (Glucerna 1.5 Yo), 237 ML GT FIVE TIMES A DAY, ( Reported) Olanzapine* (Zyprexa*), 5 MG GT DAILY, (Reported) Omeprazole Magnesium (Prilosec), 20.6 MG GT DAILY, (Reported) Polyethylene Glycol 3350* (Polyethylene Glycol 3350*), 17 GM GT DAILY, (Reported ) Temazepam (Temazepam*), 7.5 MG GT BEDTIME, (Reported) Ziprasidone Hcl* (Geodon*), 20 MG GT DAILY, (Reported) Miscellaneous Medications Insulin Aspart (Novolog Flexpen), (Reported) Paliperidone Palmitate (Invega Sustenna), 117 MG IM, (Reported) Patient History History Provided By: Patient, Medical Record, PMD Healthcare decision maker N Resuscitation status Full Code Advanced Directive on File Review of Systems Psychiatric: Reports: depressed feelings, emotional problems, hallucinations Physical Exam General Appearance: no apparent distress, confused, thin Neurologic: disoriented, depressed affect Last 24 Hour Vital Signs Date Time Temp Pulse Resp B/P (MAP) Pulse Ox O2 Delivery O2 Flow Rate FiO2 07/22/17 15:57 97.3 99 18 114/95 95 Room Air 07/22/17 14:00 98.2 91 18 104/51 96 Room Air 07/22/17 13:45 98.9 92 15 116/60 95 Room Air 07/22/17 13:36 92 15 116/60 95 Room Air 07/22/17 11:10 98.9 07/22/17 10:51 86 17 92/54 92 Room Air 07/22/17 10:39 97.9 80 18 96/61 95 Room Air Intake and Output 07/22/17 07/23/17 19:00 07:00 Intake Total 2360 ml Output Total 300 ml Balance 2060 ml Intake Oral 360 ml IV Total 2000 ml Output Urine Total 300 ml # Voids 1 Laboratory Tests Test 07/22/17 11:45 07/22/17 12:15 White Blood Count 11.7 K/UL (4.8-10.8) H Red Blood Count 4.69 M/UL (4.20-5.40) Hemoglobin 14.2 G/DL (12.0-16.0) Hematocrit 44.9 % (37.0-47.0) Mean Corpuscular Volume 96 FL (80-99) Mean Corpuscular Hemoglobin 30.3 PG (27.0-31.0) Mean Corpuscular Hemoglobin Concent 31.7 G/DL (32.0-36.0) L Red Cell Distribution Width 13.0 % (11.6-14.8) Platelet Count 397 K/UL (150-450) Mean Platelet Volume 6.0 FL (6.5-10.1) L Neutrophils (%) (Auto) 65.1 % (45.0-75.0) Lymphocytes (%) (Auto) 27.6 % (20.0-45.0) Monocytes (%) (Auto) 6.8 % (1.0-10.0) Eosinophils (%) (Auto) 0.0 % (0.0-3.0) Basophils (%) (Auto) 0.5 % (0.0-2.0) Prothrombin Time 10.5 SEC (9.30-11.50) Prothromb Time International Ratio 1.0 (0.9-1.1) Activated Partial Thromboplast Time 26 SEC (23-33) Sodium Level 146 MMOL/L (136-145) H Potassium Level 4.0 MMOL/L (3.5-5.1) Chloride Level 107 MMOL/L (98-107) Carbon Dioxide Level 23 MMOL/L (21-32) Anion Gap 17 mmol/L (5-15) H Blood Urea Nitrogen 10 mg/dL (7-18) Creatinine 0.6 MG/DL (0.55-1.30) Estimat Glomerular Filtration Rate > 60 mL/min (>60) Glucose Level 121 MG/DL (74-106) H Lactic Acid Level 0.70 mmol/L (0.66-2.22) Calcium Level 9.5 MG/DL (8.5-10.1) Total Bilirubin 0.6 MG/DL (0.2-1.0) Aspartate Amino Transf (AST/SGOT) 10 U/L (15-37) L Alanine Aminotransferase (ALT/SGPT) 13 U/L (12-78) Alkaline Phosphatase 80 U/L (46-116) Total Creatine Kinase 16 U/L (26-308) L Creatine Kinase MB < 0.5 NG/ML (0.0-3.6) Creatine Kinase MB Relative Index 3.1 Troponin I 0.017 ng/mL (0.000-0.056) Total Protein 7.1 G/DL (6.4-8.2) Albumin 3.3 G/DL (3.4-5.0) L Globulin 3.8 g/dL Albumin/Globulin Ratio 0.9 (1.0-2.7) L Urine Color Yellow Urine Appearance Clear Urine pH 6 (4.5-8.0) Urine Specific [place] 1.025 (1.005-1.035) Urine Protein 2+ (NEGATIVE) H Urine Glucose (UA) Negative (NEGATIVE) Urine Ketones 4+ (NEGATIVE) H Urine Occult Blood Negative (NEGATIVE) Urine Nitrite Negative (NEGATIVE) Urine Bilirubin 1+ (NEGATIVE) H Urine Ictotest Negative Urine Urobilinogen 1 MG/DL (0.0-1.0) H Urine Leukocyte Esterase 1+ (NEGATIVE) H Urine RBC 2-4 /HPF (0 - 2) H Urine WBC 2-4 /HPF (0 - 2) Urine Squamous Epithelial Cells Few /LPF (NONE/OCC) Urine Bacteria Few /HPF (NONE) Urine Mucus Many /LPF (NONE/OCC) H Height (Feet): 5 Height (Inches): 2.00 Weight (Pounds): 110 Medications Current Medications Medications (Trade) Dose Ordered Sig/Cami Route PRN Reason Start Time Stop Time Status Last Admin Dose Admin Acetaminophen (Tylenol) 650 mg Q4H PRN ORAL fever 07/22/17 13:15 08/21/17 13:14 Al Hydroxide/Mg Hydroxide (Mylanta II) 30 ml Q6H PRN ORAL dyspepsia 07/22/17 13:15 08/21/17 13:14 Cefepime HCl 2 gm/ Dextrose 110 ml @ 220 mls/hr Q24H IVPB 07/22/17 23:00 07/29/17 22:59 Clozapine (Clozaril) 50 mg BID ORAL 07/22/17 21:00 07/29/17 20:59 Dextrose (Dextrose 50%) STAT PRN IV Hypoglycemia 07/22/17 13:15 08/21/17 13:14 Dextrose/Sodium Chloride 1,000 ml @ 50 mls/hr Q20H IV 07/22/17 15:45 08/21/17 15:44 07/22/17 15:48 Diphenhydramine HCl (Benadryl) 25 mg Q6H PRN ORAL Itching/Pruritis 07/22/17 13:15 08/21/17 13:14 Heparin Sodium (Porcine) (Heparin 5000 units/ml) 5,000 units EVERY 12 HOURS SUBQ 07/22/17 21:00 08/21/17 20:59 Insulin Aspart (NovoLOG) BEFORE MEALS AND HS SUBQ 07/22/17 16:30 08/21/17 16:29 Ketorolac Tromethamine (Toradol 30mg) 30 mg Q6H PRN IV moderate pain 4-6 07/22/17 13:15 07/27/17 13:14 Lansoprazole (Prevacid) 30 mg BID GT 07/22/17 18:00 08/21/17 17:59 07/22/17 18:20 Morphine Sulfate (Morphine Sulfate) 2 mg Q4H PRN IVP severe Pain (Pain Scale 7-10) 07/22/17 13:15 07/29/17 13:14 Nitroglycerin (Ntg) 0.4 mg Q5M X 3 DOSES PRN SL Prn Chest Pain 07/22/17 13:15 08/21/17 13:14 Olanzapine (ZyPREXA) 2.5 mg BID ORAL 07/22/17 18:00 08/21/17 17:59 07/22/17 17:30 Ondansetron HCl (Zofran) 4 mg Q6H PRN IVP Nausea & Vomiting 07/22/17 13:15 08/21/17 13:14 Polyethylene Glycol (Miralax) 17 gm HSPRN PRN ORAL Constipation 07/22/17 13:15 08/21/17 13:14 Temazepam (Restoril) 15 mg HSPRN PRN ORAL Insomnia 07/22/17 13:15 07/29/17 13:14 Assessment/Plan Status: unchanged Assessment/Plan encephalopathy failure to thrive -the pt lacks capacity to make any decisions -start low dose of olanzapine Maryann Henley M.D. Jul 22, 2017 22:55
[2017-07-22] MEDS ORDERED: Cefepime HCl 2 GM in D5W 110 ML IVPB SCH (23:00)
[2017-07-22 23:17] VITALS: BP 120/74
--- NOTE | 2017-07-23 00:45 | History and Physical Report ---
DATE OF ADMISSION: 07/22/2017 TIME: 1 p.m. CONSULTANTS: 1. Uday Rico MD 2. Ana Casey MD 3. Yariel Rothman MD 4. Wisam Hardin MD CHIEF COMPLAINT: Failure to thrive, weakness, dehydration, encephalopathy. BRIEF HISTORY: The patient is a 71-year-old female from [facility], presented with above-mentioned diagnoses for several weeks, not eating well, not drinking well either. The patient diagnosed with the above and admitted to the medical floor for further treatment. Currently, calm in bed in ER, not talking much. PAST MEDICAL HISTORY: Diabetes and encephalopathy. PAST SURGICAL HISTORY: G-tube. MEDICATIONS: Include heparin, NovoLog, Tylenol, morphine, Restoril, Zofran, MiraLAX, Mylanta, and Toradol. ALLERGIES: Denies. SOCIAL HISTORY: No smoking. No alcohol. No intravenous drug abuse. FAMILY HISTORY: Noncontributory. REVIEW OF SYSTEMS: Unavailable. PHYSICAL EXAMINATION: GENERAL: Calm in bed, oriented x1, no acute distress. VITAL SIGNS: Temperature 98 degrees, pulse 86, respirations 17, and blood pressure 92/54. CARDIOVASCULAR: No murmur. LUNGS: Poor air exchange. ABDOMEN: Bowel sounds are positive. Nontender and nondistended. EXTREMITIES: No cyanosis, clubbing, or edema. NEUROLOGIC: The patient moves all extremities. Slightly weak. LABORATORY AND DIAGNOSTIC DATA: White count 11.7. BMP shows sodium 146, glucose 121. AST 10. Albumin 3.3. INR is 1.0 and PTT is 26. Urinalysis shows 1+ leukocyte esterase. ASSESSMENT: 1. Urinary tract infection. 2. Failure to thrive. 3. Weakness. 4. Leukocytosis. 5. Malnutrition. 6. Dehydration. 7. Sepsis. 8. Encephalopathy. 9. Diabetes. PLAN: Continue pre-medications. OT/PT. Dietary followup. IV fluids. Antibiotics per Infectious Disease. Resume home medications. Blood sugar control. Dietary followup. CBC and BMP in the morning. Dr. Casey, Dr. Rico, Dr. Rothman, Dr. Hardin, and Dr. Malhotra to consult. Sukh Chu D.O. DR: SHAZIA JOB#: [id number] CC:
[2017-07-23] MEDS: NovoLOG Insulin Flexpen SUBQ SCH ×4 (06:27→21:37)
[2017-07-23 06:51] LABS: PROTHROMBIN TIME 10.9 SEC (9.30-11.50)
[2017-07-23 07:06] LABS: BASOPHILS % (AUTO) 0.5 % (0.0-2.0); LYMPHOCYTES % (AUTO) 28.2 % (20.0-45.0); MEAN CORPUSCULAR HEMOGLOBIN 32.4 PG (27.0-31.0); MEAN CORPUSCULAR HGB CONC 34.5 G/DL (32.0-36.0); MEAN CORPUSCULAR VOLUME 94 FL (80-99); MEAN PLATELET VOLUME 6.3 FL (6.5-10.1); MONOCYTES % (AUTO) 7.6 % (1.0-10.0); NEUTROPHILS % (AUTO) 63.8 % (45.0-75.0); PLATELET COUNT 333 K/UL (150-450); RED BLOOD COUNT 3.89 M/UL (4.20-5.40); RED CELL DISTRIBUTION WIDTH 12.7 % (11.6-14.8); WHITE BLOOD COUNT 8.9 K/UL (4.8-10.8)
[2017-07-23 07:21] LABS: ALANINE AMINOTRANSFERASE 12 U/L (12-78); ALBUMIN/GLOBULIN RATIO 0.8 (1.0-2.7); AMYLASE 25 U/L (25-115); ANION GAP 12 mmol/L (5-15); ASPARTATE AMINO TRANSFERASE 8 U/L (15-37); CALCIUM 8.6 MG/DL (8.5-10.1); CARBON DIOXIDE 23 MMOL/L (21-32); CHLORIDE 107 MMOL/L (98-107); CREATININE 0.5 MG/DL (0.55-1.30); GLOMERULAR FILTRATION RATE > 60 mL/min (>60); LIPASE 121 U/L (73-393); POTASSIUM 2.9 MMOL/L (3.5-5.1); SODIUM 142 MMOL/L (136-145); THYROID STIMULATING HORMONE 1.361 uiU/mL (0.360-3.740); TOTAL PROTEIN 6.2 G/DL (6.4-8.2)
[2017-07-23 08:14] VITALS: BP 123/68
[2017-07-23] MEDS: Heparin 5000 units/ml inj SUBQ SCH ×2 (08:16→21:38)
--- NOTE | 2017-07-23 08:24 | General Progress Note ---
Progress Note Progress Note patient seen and examined full note dictated DENA HAN Jul 23, 2017 08:24
--- NOTE | 2017-07-23 09:30 | Consultation ---
DATE OF CONSULTATION: 07/22/2017 HISTORY: The patient is a 71-year-old female patient. She was admitted secondary to moods of secondary to altered mental status and failure to thrive. Apparently, the patient was , has disorganized thought process has been having changes in her cognition, has declined below her baseline. Presentation at bedside today . She has been on the same medications and she has been able to understand command and responds to questioning throughout the interview. [facility] SOCIAL HISTORY: She is financially supported by [employer]. . SUBSTANCE ABUSE HISTORY: Denies drug or alcohol use. MENTAL STATUS EXAMINATION: This is a 71-year-old female, psychomotor retardation, is depressed, restricted, affect is flat. Thought process is disorganized and illogical. Thought content paranoid delusion. Insight and judgment is poor. DIAGNOSES: 1. Paranoid schizophrenia, acute exacerbation. 2. . PLAN: She was treated with current regimen of Zyprexa 2.5 mg . Encourage to , paranoid schizophrenia . Chart reviewed and discussed with staff. Yariel Rothman M.D. DR: DELIA JOB#: [id number] CC:
[2017-07-23] MEDS: 1/2NS w/KCl 20mEq 1000ml 1,000 ML IV SCH (09:45)
--- NOTE | 2017-07-23 10:31 | Diagnostic Imaging Report ---
Indication: ABD PAIN abnormal liver function tests Technique: Payan-scale and duplex images of the upper abdomen were obtained Comparison: None Findings: Gallbladder is unremarkable, without stones, wall thickening, nor pericholecystic fluid. Sonographic Mariscal's sign is negative. Common bile duct measures 4 mm in diameter. No intrahepatic biliary ductal dilatation. Liver demonstrates normal echogenicity, no focal abnormality. Portal vein and hepatic veins are patent. Pancreas is unremarkable. The spleen demonstrates a 16 mm cyst. It is normal in size Left kidney measures 9.8 cm in length. Right kidney measures 10.5 cm length. Both kidneys demonstrate normal echogenicity. There is no hydronephrosis. No focal abnormality . Non-aneurysmal abdominal aorta . Impression: Negative for gallstones, dilated ducts, or other significant abnormalities Incidental finding 16 mm splenic cyst
[2017-07-23 11:51] LABS: HEMOGLOBIN A1C 6.5 % (4.3-6.0)
[2017-07-23 12:26] VITALS: BP 128/73
--- NOTE | 2017-07-23 12:32 | Wound Care Consultation ---
Wound Assessment Wound Assessment #1: Wound Present on Admission: Yes New Wound: No Status Change of Wound: No Wound Location Body Site Modif: left Wound Location Body Site: buttocks Wound Type: pressure ulcer Talya Test: Does not Talya Pressure Ulcer Stage: II Wound Thickness: Partial Thickness Wound Length: 2.0 Wound Width: 1.8 Wound Depth: 0.1 Percent of Wound [place]/Red: 100 Wound Drainage Description: Serosanguineous Wound Drainage Amount: Scant Wound Drainage Odor: None/Absent Tissue Surrounding Wound: Intact Wound General Appearance: Reddened, Draining Wound Assessment #2: Wound Number: 2 Wound Present on Admission: Yes New Wound: No Status Change of Wound: No Wound Location Body Site Modif: left, lower Wound Location Body Site: knee Wound Type: traumatic injury Talya Test: Does not Talya Traumatic Injury Wounds: Skin Tear Wound Thickness: Partial Thickness Wound Length: 2.0 Wound Width: 2.0 Wound Depth: 0.1 Percent of Wound [place]/Red: 100 Wound Drainage Description: Serosanguineous Wound Drainage Amount: Scant Wound Drainage Odor: None/Absent Tissue Surrounding Wound: Erythemic Wound General Appearance: Reddened Wound Assessment #3: Wound Number: 3 Wound Present on Admission: Yes New Wound: No Status Change of Wound: No Wound Location Body Site Modif: right, lower Wound Location Body Site: knee Wound Type: traumatic injury Talya Test: Does not Talya Traumatic Injury Wounds: Skin Tear Wound Thickness: Partial Thickness Wound Length: 2.0 Wound Width: 2.0 Percent of Wound [place]/Red: 100 Wound Drainage Amount: None Wound Drainage Odor: None/Absent Tissue Surrounding Wound: Intact Wound General Appearance: Reddened Wound Comment #1 Left buttock stage II pressure ulcer #2 Left lower knee skin tear #2 Right lower knee skin tear Recommendation -Left buttock stage II pressure ulcer, Left lower knee skin tear and Right lower knee skin tear Cleanse with saline pat dry apply Triad cream cover with Bordered gauze daily and PRN soiled/dislodged -Keep clean and dry -Turn and reposition -Low air loss SPR mattress -Optimize nutrition -Offload both heels -Assess and f/u accordingly for any changes SALMA ELAM RN Jul 23, 2017 12:32
[2017-07-23] MEDS: Vancomycin 750mg/NS 250ml IVPB SCH (13:51)
--- NOTE | 2017-07-23 14:20 | GI Progress Note ---
Assessment/Plan Problems: (1) Gastrostomy tube in place ICD Codes: Z93.1 - Gastrostomy status SNOMED: 819383791, 845669487 (2) Nausea in adult patient ICD Codes: R11.0 - Nausea SNOMED: 279014182 (3) Failure to thrive SNOMED: 95575932 (4) Dehydration ICD Codes: E86.0 - Dehydration SNOMED: 61491504 Status: stable Status Narrative Discussed with Dr. Hardin. Assessment/Plan ST evaluation noted >> SOFT CHEWABLE DIET AND THIN LIQUIDS symptomatic treatment adv diet CCHO LOW calorie count x 48 hours push PO, will consider Marinol GTFs per dietary abx fu labs Subjective Subjective limited Objective Last 24 Hour Vital Signs Date Time Temp Pulse Resp B/P (MAP) Pulse Ox O2 Delivery O2 Flow Rate FiO2 07/23/17 12:26 97.3 86 20 128/73 95 Room Air 07/23/17 08:14 97.5 77 20 123/68 94 Room Air 07/22/17 23:17 96.4 79 20 120/74 94 Room Air 07/22/17 15:57 97.3 99 18 114/95 95 Room Air Intake and Output 07/23/17 07/24/17 19:00 07:00 # Voids 2 Laboratory Tests Test 07/23/17 06:10 White Blood Count 8.9 K/UL (4.8-10.8) Red Blood Count 3.89 M/UL (4.20-5.40) L Hemoglobin 12.6 G/DL (12.0-16.0) Hematocrit 36.5 % (37.0-47.0) L Mean Corpuscular Volume 94 FL (80-99) Mean Corpuscular Hemoglobin 32.4 PG (27.0-31.0) H Mean Corpuscular Hemoglobin Concent 34.5 G/DL (32.0-36.0) Red Cell Distribution Width 12.7 % (11.6-14.8) Platelet Count 333 K/UL (150-450) Mean Platelet Volume 6.3 FL (6.5-10.1) L Neutrophils (%) (Auto) 63.8 % (45.0-75.0) Lymphocytes (%) (Auto) 28.2 % (20.0-45.0) Monocytes (%) (Auto) 7.6 % (1.0-10.0) Eosinophils (%) (Auto) 0.0 % (0.0-3.0) Basophils (%) (Auto) 0.5 % (0.0-2.0) Prothrombin Time 10.9 SEC (9.30-11.50) Prothromb Time International Ratio 1.0 (0.9-1.1) Activated Partial Thromboplast Time 27 SEC (23-33) Sodium Level 142 MMOL/L (136-145) Potassium Level 2.9 MMOL/L (3.5-5.1) L Chloride Level 107 MMOL/L (98-107) Carbon Dioxide Level 23 MMOL/L (21-32) Anion Gap 12 mmol/L (5-15) Blood Urea Nitrogen 5 mg/dL (7-18) L Creatinine 0.5 MG/DL (0.55-1.30) L Estimat Glomerular Filtration Rate > 60 mL/min (>60) Glucose Level 161 MG/DL (74-106) H Hemoglobin A1c 6.5 % (4.3-6.0) H Calcium Level 8.6 MG/DL (8.5-10.1) Magnesium Level 1.4 MG/DL (1.8-2.4) L Total Bilirubin 0.5 MG/DL (0.2-1.0) Aspartate Amino Transf (AST/SGOT) 8 U/L (15-37) L Alanine Aminotransferase (ALT/SGPT) 12 U/L (12-78) Alkaline Phosphatase 67 U/L (46-116) Total Protein 6.2 G/DL (6.4-8.2) L Albumin 2.7 G/DL (3.4-5.0) L Globulin 3.5 g/dL Albumin/Globulin Ratio 0.8 (1.0-2.7) L Amylase Level 25 U/L (25-115) Lipase 121 U/L (73-393) Thyroid Stimulating Hormone (TSH) 1.361 uiU/mL (0.360-3.740) Height (Feet): 5 Height (Inches): 2.00 Weight (Pounds): 110 General Appearance: WD/WN, no apparent distress, alert, confused Cardiovascular: normal rate Respiratory/Chest: normal breath sounds, no respiratory distress Abdominal Exam: normal bowel sounds, non tender, soft, GT site - c/d/i Yvette Paez N.P. Jul 23, 2017 14:20
--- NOTE | 2017-07-23 14:30 | General Progress Note ---
Assessment/Plan Problem List: (1) Dehydration ICD Codes: E86.0 - Dehydration SNOMED: 57713994 (2) Failure to thrive SNOMED: 08077796 (3) Nausea and vomiting in adult patient ICD Codes: R11.0 - Nausea SNOMED: 20200274 (4) Nausea in adult patient ICD Codes: R11.0 - Nausea SNOMED: 789343260 (5) Gastrostomy tube in place ICD Codes: Z93.1 - Gastrostomy status SNOMED: 400711217, 503419459 (6) Pyuria ICD Codes: N39.0 - Urinary tract infection, site not specified SNOMED: 0164887, 320328429, 171643670 Status: stable, progressing Assessment/Plan ot pt diet abx cbc bmp am Subjective Constitutional: Reports: weakness Allergies: Coded Allergies: No Known Allergies (Unverified , 01/13/15) All Systems: reviewed and negative except above Subjective sl confused in bed Objective Last 24 Hour Vital Signs Date Time Temp Pulse Resp B/P (MAP) Pulse Ox O2 Delivery O2 Flow Rate FiO2 07/23/17 12:26 97.3 86 20 128/73 95 Room Air 07/23/17 08:14 97.5 77 20 123/68 94 Room Air 07/22/17 23:17 96.4 79 20 120/74 94 Room Air 07/22/17 15:57 97.3 99 18 114/95 95 Room Air Intake and Output 07/23/17 07/24/17 19:00 07:00 # Voids 2 Laboratory Tests 07/23/17 06:10: White Blood Count 8.9, Red Blood Count 3.89L, Hemoglobin 12.6, Hematocrit 36.5L , Mean Corpuscular Volume 94, Mean Corpuscular Hemoglobin 32.4H, Mean Corpuscular Hemoglobin Concent 34.5, Red Cell Distribution Width 12.7, Platelet Count 333, Mean Platelet Volume 6.3L, Neutrophils (%) (Auto) 63.8, Lymphocytes ( %) (Auto) 28.2, Monocytes (%) (Auto) 7.6, Eosinophils (%) (Auto) 0.0, Basophils (%) (Auto) 0.5, Prothrombin Time 10.9, Prothromb Time International Ratio 1.0, Activated Partial Thromboplast Time 27, Sodium Level 142, Potassium Level 2.9L, Chloride Level 107, Carbon Dioxide Level 23, Anion Gap 12, Blood Urea Nitrogen 5L, Creatinine 0.5L, Estimat Glomerular Filtration Rate > 60, Glucose Level 161H , Hemoglobin A1c 6.5H, Calcium Level 8.6, Magnesium Level 1.4L, Total Bilirubin 0.5, Aspartate Amino Transf (AST/SGOT) 8L, Alanine Aminotransferase (ALT/SGPT) 12, Alkaline Phosphatase 67, Total Protein 6.2L, Albumin 2.7L, Globulin 3.5, Albumin/Globulin Ratio 0.8L, Amylase Level 25, Lipase 121, Thyroid Stimulating Hormone (TSH) 1.361 Height (Feet): 5 Height (Inches): 2.00 Weight (Pounds): 110 General Appearance: confused EENT: normal ENT inspection Neck: normal alignment Cardiovascular: normal peripheral pulses, normal rate, regular rhythm Respiratory/Chest: chest wall non-tender, lungs clear, normal breath sounds Abdomen: normal bowel sounds, non tender, soft Extremities: normal inspection Edema: no edema noted Arm (L), no edema noted Arm (R), no edema noted Leg (L), no edema noted Leg (R), no edema noted Pedal (L), no edema noted Pedal (R), no edema noted Generalized Neurologic: motor weakness Skin: normal pigmentation, warm/dry XAVI LOPEZ Jul 23, 2017 14:30
[2017-07-23 16:01] VITALS: BP 124/73
--- NOTE | 2017-07-23 16:14 | Pulmonology Progress Note ---
Assessment/Plan Problems: (1) Bacteremia (2) Failure to thrive (3) Nausea in adult patient (4) Pyuria (5) Dehydration (6) Gastrostomy tube in place Assessment/Plan abx, check cultures f/uGI and cardio recommendations Subjective ROS Limited/Unobtainable: No Constitutional: Reports: no symptoms HEENT: Repors: no symptoms Allergies: Coded Allergies: No Known Allergies (Unverified , 01/13/15) Objective Last 24 Hour Vital Signs Date Time Temp Pulse Resp B/P (MAP) Pulse Ox O2 Delivery O2 Flow Rate FiO2 07/23/17 16:01 98.0 79 20 124/73 95 Room Air 07/23/17 12:26 97.3 86 20 128/73 95 Room Air 07/23/17 08:14 97.5 77 20 123/68 94 Room Air 07/22/17 23:17 96.4 79 20 120/74 94 Room Air Intake and Output 07/23/17 07/24/17 19:00 07:00 # Voids 3 General Appearance: WD/WN HEENT: normocephalic Respiratory/Chest: chest wall non-tender, normal breath sounds Breasts: no masses Cardiovascular: normal rate Abdomen: normal bowel sounds, soft, non tender, non distended Genitourinary: normal external genitalia Extremities: no cyanosis Skin: no ulcers Neurologic/Psychiatric: chief port director II-XII grossly normal, no motor/sensory deficits Microbiology Date/Time Source Procedure Growth Status 07/22/17 11:55 Blood Blood Culture - Preliminary Resulted Laboratory Tests 07/23/17 06:10: White Blood Count 8.9, Red Blood Count 3.89L, Hemoglobin 12.6, Hematocrit 36.5L , Mean Corpuscular Volume 94, Mean Corpuscular Hemoglobin 32.4H, Mean Corpuscular Hemoglobin Concent 34.5, Red Cell Distribution Width 12.7, Platelet Count 333, Mean Platelet Volume 6.3L, Neutrophils (%) (Auto) 63.8, Lymphocytes ( %) (Auto) 28.2, Monocytes (%) (Auto) 7.6, Eosinophils (%) (Auto) 0.0, Basophils (%) (Auto) 0.5, Prothrombin Time 10.9, Prothromb Time International Ratio 1.0, Activated Partial Thromboplast Time 27, Sodium Level 142, Potassium Level 2.9L, Chloride Level 107, Carbon Dioxide Level 23, Anion Gap 12, Blood Urea Nitrogen 5L, Creatinine 0.5L, Estimat Glomerular Filtration Rate > 60, Glucose Level 161H , Hemoglobin A1c 6.5H, Calcium Level 8.6, Magnesium Level 1.4L, Total Bilirubin 0.5, Aspartate Amino Transf (AST/SGOT) 8L, Alanine Aminotransferase (ALT/SGPT) 12, Alkaline Phosphatase 67, Total Protein 6.2L, Albumin 2.7L, Globulin 3.5, Albumin/Globulin Ratio 0.8L, Amylase Level 25, Lipase 121, Thyroid Stimulating Hormone (TSH) 1.361 Current Medications Medications (Trade) Dose Ordered Sig/Cami Route PRN Reason Start Time Stop Time Status Last Admin Dose Admin Acetaminophen (Tylenol) 650 mg Q4H PRN ORAL fever 07/22/17 13:15 08/21/17 13:14 Al Hydroxide/Mg Hydroxide (Mylanta II) 30 ml Q6H PRN ORAL dyspepsia 07/22/17 13:15 08/21/17 13:14 Cefepime HCl 2 gm/ Sodium Chloride 110 ml @ 220 mls/hr Q24H IVPB 07/23/17 23:00 07/29/17 22:59 Clozapine (Clozaril) 50 mg BID ORAL 07/22/17 21:00 07/29/17 20:59 07/23/17 08:16 Dextrose (Dextrose 50%) STAT PRN IV Hypoglycemia 07/22/17 13:15 08/21/17 13:14 Diphenhydramine HCl (Benadryl) 25 mg Q6H PRN ORAL Itching/Pruritis 07/22/17 13:15 08/21/17 13:14 Heparin Sodium (Porcine) (Heparin 5000 units/ml) 5,000 units EVERY 12 HOURS SUBQ 07/22/17 21:00 08/21/17 20:59 07/23/17 08:16 Insulin Aspart (NovoLOG) BEFORE MEALS AND HS SUBQ 07/22/17 16:30 08/21/17 16:29 07/23/17 11:14 Ketorolac Tromethamine (Toradol 30mg) 30 mg Q6H PRN IV moderate pain 4-6 07/22/17 13:15 07/27/17 13:14 Lansoprazole (Prevacid) 30 mg BID GT 07/22/17 18:00 08/21/17 17:59 07/23/17 08:16 Morphine Sulfate (Morphine Sulfate) 2 mg Q4H PRN IVP severe Pain (Pain Scale 7-10) 07/22/17 13:15 07/29/17 13:14 Nitroglycerin (Ntg) 0.4 mg Q5M X 3 DOSES PRN SL Prn Chest Pain 07/22/17 13:15 08/21/17 13:14 Olanzapine (ZyPREXA) 5 mg BEDTIME ORAL 07/23/17 21:00 08/21/17 17:59 Ondansetron HCl (Zofran) 4 mg Q6H PRN IVP Nausea & Vomiting 07/22/17 13:15 08/21/17 13:14 Polyethylene Glycol (Miralax) 17 gm HSPRN PRN ORAL Constipation 07/22/17 13:15 08/21/17 13:14 Potassium Chloride (K-Dur) 40 meq TWICE A DAY ORAL 07/23/17 09:30 07/24/17 09:29 07/23/17 09:02 Sodium 1,000 ml @ 50 mls/hr Q20H IV 07/23/17 10:00 08/22/17 09:59 07/23/17 09:45 Temazepam (Restoril) 15 mg HSPRN PRN ORAL Insomnia 07/22/17 13:15 07/29/17 13:14 Vancomycin HCl (Vanco rx to dose) 1 ea DAILY PRN MISC Per rx protocol 07/23/17 12:00 08/22/17 11:59 Vancomycin/Sodium Chloride 250 ml @ 166.667 mls/hr Q12H IVPB 07/23/17 13:00 07/28/17 12:59 07/23/17 13:51 BURAK RUANO Jul 23, 2017 16:14
--- NOTE | 2017-07-23 16:48 | Infectious Diseases Prog Note ---
Assessment/Plan Problems: (1) Sepsis Assessment & Plan: Resolved. Due to UTI probably. (2) Pyuria Assessment & Plan: Rule-out UTI. Empiric cefepime. Follow-up UCx. (3) Dehydration (4) Failure to thrive (5) Positive blood culture Assessment & Plan: GPC in one set. Could be contaminant. Start vancomycin IV for now. Subjective Allergies: Coded Allergies: No Known Allergies (Unverified , 01/13/15) Objective Vital Signs Last 24 Hour Vital Signs Date Time Temp Pulse Resp B/P (MAP) Pulse Ox O2 Delivery O2 Flow Rate FiO2 07/23/17 16:01 98.0 79 20 124/73 95 Room Air 07/23/17 12:26 97.3 86 20 128/73 95 Room Air 07/23/17 08:14 97.5 77 20 123/68 94 Room Air 07/22/17 23:17 96.4 79 20 120/74 94 Room Air Height (Feet): 5 Height (Inches): 2.00 Weight (Pounds): 110 Microbiology Date/Time Source Procedure Growth Status 07/22/17 11:55 Blood Blood Culture - Preliminary Resulted Laboratory Tests Test 07/23/17 06:10 White Blood Count 8.9 K/UL (4.8-10.8) Red Blood Count 3.89 M/UL (4.20-5.40) L Hemoglobin 12.6 G/DL (12.0-16.0) Hematocrit 36.5 % (37.0-47.0) L Mean Corpuscular Volume 94 FL (80-99) Mean Corpuscular Hemoglobin 32.4 PG (27.0-31.0) H Mean Corpuscular Hemoglobin Concent 34.5 G/DL (32.0-36.0) Red Cell Distribution Width 12.7 % (11.6-14.8) Platelet Count 333 K/UL (150-450) Mean Platelet Volume 6.3 FL (6.5-10.1) L Neutrophils (%) (Auto) 63.8 % (45.0-75.0) Lymphocytes (%) (Auto) 28.2 % (20.0-45.0) Monocytes (%) (Auto) 7.6 % (1.0-10.0) Eosinophils (%) (Auto) 0.0 % (0.0-3.0) Basophils (%) (Auto) 0.5 % (0.0-2.0) Prothrombin Time 10.9 SEC (9.30-11.50) Prothromb Time International Ratio 1.0 (0.9-1.1) Activated Partial Thromboplast Time 27 SEC (23-33) Sodium Level 142 MMOL/L (136-145) Potassium Level 2.9 MMOL/L (3.5-5.1) L Chloride Level 107 MMOL/L (98-107) Carbon Dioxide Level 23 MMOL/L (21-32) Anion Gap 12 mmol/L (5-15) Blood Urea Nitrogen 5 mg/dL (7-18) L Creatinine 0.5 MG/DL (0.55-1.30) L Estimat Glomerular Filtration Rate > 60 mL/min (>60) Glucose Level 161 MG/DL (74-106) H Hemoglobin A1c 6.5 % (4.3-6.0) H Calcium Level 8.6 MG/DL (8.5-10.1) Magnesium Level 1.4 MG/DL (1.8-2.4) L Total Bilirubin 0.5 MG/DL (0.2-1.0) Aspartate Amino Transf (AST/SGOT) 8 U/L (15-37) L Alanine Aminotransferase (ALT/SGPT) 12 U/L (12-78) Alkaline Phosphatase 67 U/L (46-116) Total Protein 6.2 G/DL (6.4-8.2) L Albumin 2.7 G/DL (3.4-5.0) L Globulin 3.5 g/dL Albumin/Globulin Ratio 0.8 (1.0-2.7) L Amylase Level 25 U/L (25-115) Lipase 121 U/L (73-393) Thyroid Stimulating Hormone (TSH) 1.361 uiU/mL (0.360-3.740) Current Medications Medications (Trade) Dose Ordered Sig/Cami Route PRN Reason Start Time Stop Time Status Last Admin Dose Admin Acetaminophen (Tylenol) 650 mg Q4H PRN ORAL fever 07/22/17 13:15 08/21/17 13:14 Al Hydroxide/Mg Hydroxide (Mylanta II) 30 ml Q6H PRN ORAL dyspepsia 07/22/17 13:15 08/21/17 13:14 Cefepime HCl 2 gm/ Sodium Chloride 110 ml @ 220 mls/hr Q24H IVPB 07/23/17 23:00 07/29/17 22:59 Clozapine (Clozaril) 50 mg BID ORAL 07/22/17 21:00 07/29/17 20:59 07/23/17 08:16 Dextrose (Dextrose 50%) STAT PRN IV Hypoglycemia 07/22/17 13:15 08/21/17 13:14 Diphenhydramine HCl (Benadryl) 25 mg Q6H PRN ORAL Itching/Pruritis 07/22/17 13:15 08/21/17 13:14 Heparin Sodium (Porcine) (Heparin 5000 units/ml) 5,000 units EVERY 12 HOURS SUBQ 07/22/17 21:00 08/21/17 20:59 07/23/17 08:16 Insulin Aspart (NovoLOG) BEFORE MEALS AND HS SUBQ 07/22/17 16:30 08/21/17 16:29 07/23/17 11:14 Ketorolac Tromethamine (Toradol 30mg) 30 mg Q6H PRN IV moderate pain 4-6 07/22/17 13:15 07/27/17 13:14 Lansoprazole (Prevacid) 30 mg BID GT 07/22/17 18:00 08/21/17 17:59 07/23/17 08:16 Morphine Sulfate (Morphine Sulfate) 2 mg Q4H PRN IVP severe Pain (Pain Scale 7-10) 07/22/17 13:15 07/29/17 13:14 Nitroglycerin (Ntg) 0.4 mg Q5M X 3 DOSES PRN SL Prn Chest Pain 07/22/17 13:15 08/21/17 13:14 Olanzapine (ZyPREXA) 5 mg BEDTIME ORAL 07/23/17 21:00 08/21/17 17:59 Ondansetron HCl (Zofran) 4 mg Q6H PRN IVP Nausea & Vomiting 07/22/17 13:15 08/21/17 13:14 Polyethylene Glycol (Miralax) 17 gm HSPRN PRN ORAL Constipation 07/22/17 13:15 08/21/17 13:14 Potassium Chloride (K-Dur) 40 meq TWICE A DAY ORAL 07/23/17 09:30 07/24/17 09:29 07/23/17 09:02 Sodium 1,000 ml @ 50 mls/hr Q20H IV 07/23/17 10:00 08/22/17 09:59 07/23/17 09:45 Temazepam (Restoril) 15 mg HSPRN PRN ORAL Insomnia 07/22/17 13:15 07/29/17 13:14 Vancomycin HCl (Vanco rx to dose) 1 ea DAILY PRN MISC Per rx protocol 07/23/17 12:00 08/22/17 11:59 Vancomycin/Sodium Chloride 250 ml @ 166.667 mls/hr Q12H IVPB 07/23/17 13:00 07/28/17 12:59 07/23/17 13:51 NOEL DAY Jul 23, 2017 16:48
[2017-07-23 19:28] VITALS: BP 132/74
[2017-07-23] MEDS: Cefepime HCl 2 GM in NS 110 ML IVPB SCH (22:43)
[2017-07-23 23:26] VITALS: BP 124/72
[2017-07-24] MEDS: Vancomycin 750mg/NS 250ml IVPB SCH ×2 (01:44→13:00)
[2017-07-24 03:36] VITALS: BP 154/88
--- NOTE | 2017-07-24 04:15 | Consultation ---
DATE OF CONSULTATION: 07/23/2017 NEPHROLOGY CONSULTATION CONSULTING PHYSICIAN: Ana Casey M.D. REFERRING PHYSICIAN: Sukh Chu D.O. REASON FOR CONSULTATION: Hypernatremia, electrolyte imbalance, and malnutrition. HISTORY OF PRESENT ILLNESS: The patient is a 71-year-old female with past medical history significant for history of hypertension, dyslipidemia, history of schizophrenia, and history of GERD, who was sent as referral to [facility] emergency room for evaluation of failure to thrive. Apparently, the patient does have a PEG placement, but she refused G-tube feeding and also any oral feeding. The patient was in the ER, found to have an abnormal electrolyte, consequently was admitted and I was called for management of renal disease and electrolyte imbalance. PAST MEDICAL HISTORY: 1. Hypertension. 2. Diabetes. 3. Dyslipidemia. 4. History of schizoaffective disorder. 5. History of failure to thrive. PAST SURGICAL HISTORY: History of G-tube placement. MEDICATIONS: At home are includin. Amlodipine 5 mg p.o. daily. 2. Aspirin 81 mg p.o. daily. 3. Atorvastatin 20 mg p.o. daily. 4. Clozapine 50 mg p.o. daily. 5. Lorazepam 1 mg p.r.n. 6. Magnesium oxide p.r.n. 7. Metformin 1000 mg p.o. daily. 8. Mirtazapine 7.5 mg at bedtime. 9. MVI one tablet p.o. daily. 10. Olanzapine or Zyprexa 5 mg p.o. daily. 11. Omeprazole 20 mg p.o. at bedtime. 12. Temazepam 7.5 mg at bedtime. 13. Geodon 20 mg p.o. at bedtime. ALLERGIES: No known drug allergies. FAMILY HISTORY: Noncontributory. REVIEW OF SYSTEMS: GENERAL: She complained of generalized weakness. Denies any fever, chills, or night sweats. HEAD AND NECK: Denies any dysphagia, odynophagia, blurry vision, headache, or neck stiffness. PULMONARY: No shortness of breath, cough, or sputum. CARDIOVASCULAR: Denies any chest pain or palpitations. GASTROINTESTINAL: Denies any nausea, vomiting, decreased appetite, or decreased oral intake. GENITOURINARY: No dysuria, frequency, or hematuria. MUSCULOSKELETAL: She denies any weakness or numbness. PHYSICAL EXAMINATION: VITAL SIGNS: The patient has temperature of 97, pulse rate of 91, respiratory rate of 18, and blood pressure of 114/95. HEAD AND NECK: No JVP. No LAD. No thyromegaly. Extraocular movements intact. Pupils are reactive to light and accommodation. LUNGS: Clear to auscultation. CARDIAC: Regular rate and rhythm. S1 and S2. No murmur. No rub. ABDOMEN: Soft. G-tube is in place. Bowel sounds positive. EXTREMITIES: No edema. No clubbing. No cyanosis. LABORATORY AND DIAGNOSTIC DATA: The patient has WBC count of 8.9, hemoglobin of 12.6, and platelets of 333. Chemistry on admission revealed sodium of 146, potassium of 4, chloride 107, bicarbonate 23, BUN of 10, creatinine of 0.6, and glucose of 121. Calcium 9.1. AST of 10, ALT of 13, and alkaline phosphatase of 80. Albumin of 3.3. Globulin of 7.1. Urine revealed specific gravity of 1.025, protein 2+, ketones 4+, bilirubin 1+, leukocyte esterase 1+, WBC of 2 to 4, and RBCs 2 to 4. ASSESSMENT: 1. Hypernatremia. 2. Hypokalemia. 3. Failure to thrive. 4. History of diabetes. 5. History of palpitations, are well controlled at this time. PLAN: Plan for patient is to obtain a random urine [id number] ratio to calculate the proteinuria. Start the patient on IV fluids. Start the patient on feeding and swallowing evaluation. Monitoring renal function and electrolytes closely. Replace electrolytes as needed. Again, I would like to thank, Dr. Sukh Chu, for allowing me to participate in the care of this patient. Ana Casey M.D. DR: ELMER JOB#: [id number] CC:
[2017-07-24] MEDS: NovoLOG Insulin Flexpen SUBQ SCH ×4 (06:46→21:46)
[2017-07-24] MEDS: 1/2NS w/KCl 20mEq 1000ml 1,000 ML IV SCH (06:48)
--- NOTE | 2017-07-24 07:55 | General Progress Note ---
Assessment/Plan Problem List: (1) Dehydration ICD Codes: E86.0 - Dehydration SNOMED: 70224757 (2) Failure to thrive SNOMED: 50427488 (3) Nausea and vomiting in adult patient ICD Codes: R11.0 - Nausea SNOMED: 88294275 (4) Nausea in adult patient ICD Codes: R11.0 - Nausea SNOMED: 344702473 (5) Gastrostomy tube in place ICD Codes: Z93.1 - Gastrostomy status SNOMED: 318330343, 176785374 (6) Pyuria ICD Codes: N39.0 - Urinary tract infection, site not specified SNOMED: 8992118, 088351355, 126852728 Status: stable, progressing, tolerating diet Assessment/Plan ot pt diet abx cbc bmp am Subjective Constitutional: Reports: weakness Allergies: Coded Allergies: No Known Allergies (Unverified , 01/13/15) All Systems: reviewed and negative except above Subjective sl confused in bed Objective Last 24 Hour Vital Signs Date Time Temp Pulse Resp B/P (MAP) Pulse Ox O2 Delivery O2 Flow Rate FiO2 07/24/17 03:36 97.3 94 18 154/88 95 Room Air 07/23/17 23:26 96.0 83 20 124/72 99 Room Air 07/23/17 19:28 96.8 100 20 132/74 95 Room Air 07/23/17 16:01 98.0 79 20 124/73 95 Room Air 07/23/17 12:26 97.3 86 20 128/73 95 Room Air 07/23/17 08:14 97.5 77 20 123/68 94 Room Air Height (Feet): 5 Height (Inches): 2.00 Weight (Pounds): 110 General Appearance: lethargic EENT: normal ENT inspection Neck: normal alignment Cardiovascular: normal peripheral pulses, normal rate, regular rhythm Respiratory/Chest: chest wall non-tender, lungs clear, normal breath sounds Abdomen: normal bowel sounds, non tender, soft Extremities: normal inspection Edema: no edema noted Arm (L), no edema noted Arm (R), no edema noted Leg (L), no edema noted Leg (R), no edema noted Pedal (L), no edema noted Pedal (R), no edema noted Generalized Neurologic: motor weakness Skin: normal pigmentation, warm/dry XAVI LOPEZ Jul 24, 2017 07:55
--- NOTE | 2017-07-24 08:29 | Nephrology Progress Note ---
Assessment/Plan Assessment 1. Hypernatremia. 2. Hypokalemia. 3. Failure to thrive. 4. History of diabetes. Plan plan to continue ivf monitoring renal function avoid NSAID replace electrolyte as schedule Subjective ROS Limited/Unobtainable: Yes Constitutional: Reports: no symptoms HEENT: Reports: no symptoms Genitourinary: Reports: no symptoms Neurologic/Psychiatric: Reports: no symptoms Objective Objective Last 24 Hour Vital Signs Date Time Temp Pulse Resp B/P (MAP) Pulse Ox O2 Delivery O2 Flow Rate FiO2 07/24/17 03:36 97.3 94 18 154/88 95 Room Air 07/23/17 23:26 96.0 83 20 124/72 99 Room Air 07/23/17 19:28 96.8 100 20 132/74 95 Room Air 07/23/17 16:01 98.0 79 20 124/73 95 Room Air 07/23/17 12:26 97.3 86 20 128/73 95 Room Air Height (Feet): 5 Height (Inches): 2.00 Weight (Pounds): 110 Objective HEAD AND NECK: No JVP. No LAD. No thyromegaly. Extraocular movements intact. Pupils are reactive to light and accommodation. LUNGS: Clear to auscultation. CARDIAC: Regular rate and rhythm. S1 and S2. No murmur. No rub. ABDOMEN: Soft. G-tube is in place. Bowel sounds positive. EXTREMITIES: No edema. No clubbing. No cyanosis. DENA HAN Jul 24, 2017 08:29
[2017-07-24 08:32] VITALS: BP 134/70
--- NOTE | 2017-07-24 08:58 | Diagnostic Imaging Report ---
APPROVED REPORT CPT Code: 20161 Present Symptoms Comments: R/O DVT BILATERAL: Imaging reveals a patent deep venous system bilaterally. There is no evidence of thrombus within the femoral, popliteal or tibial segments. The greater saphenous veins are also within normal limits. Doppler indicates normal spontaneous flow within these segments.
[2017-07-24] MEDS: Heparin 5000 units/ml inj SUBQ SCH ×2 (09:18→20:36)
--- NOTE | 2017-07-24 11:37 | GI Progress Note ---
Assessment/Plan Problems: (1) Gastrostomy tube in place ICD Codes: Z93.1 - Gastrostomy status SNOMED: 529683303, 441570464 (2) Nausea in adult patient ICD Codes: R11.0 - Nausea SNOMED: 918980388 (3) Failure to thrive SNOMED: 02527497 (4) Dehydration ICD Codes: E86.0 - Dehydration SNOMED: 47890976 Status: stable, unchanged Status Narrative Discussed with Dr. Hardin. Assessment/Plan ST evaluation noted >> SOFT CHEWABLE DIET AND THIN LIQUIDS symptomatic treatment GT clogged, will change today adv diet CCHO LOW calorie count x 48 hours push PO, will consider Marinol GTFs per dietary abx fu labs The patient was seen and examined at bedside and all new and available data was reviewed in the patients chart. I agree with the above findings, impression and plan. (Patient seen earlier today. Signature stamp does not reflect patient encounter time.). - Herbert Hardin MD Subjective Subjective limited Objective Last 24 Hour Vital Signs Date Time Temp Pulse Resp B/P (MAP) Pulse Ox O2 Delivery O2 Flow Rate FiO2 07/24/17 08:32 98.2 81 20 134/70 94 Room Air 07/24/17 03:36 97.3 94 18 154/88 95 Room Air 07/23/17 23:26 96.0 83 20 124/72 99 Room Air 07/23/17 19:28 96.8 100 20 132/74 95 Room Air 07/23/17 16:01 98.0 79 20 124/73 95 Room Air 07/23/17 12:26 97.3 86 20 128/73 95 Room Air Height (Feet): 5 Height (Inches): 2.00 Weight (Pounds): 110 General Appearance: WD/WN, no apparent distress, alert, confused Cardiovascular: normal rate Respiratory/Chest: normal breath sounds, no respiratory distress Abdominal Exam: normal bowel sounds, non tender, soft, GT site Extremities: normal range of motion, non-tender Yvette Paez N.PGhada Jul 24, 2017 11:37 PETER HARDIN Jul 25, 2017 06:50
[2017-07-24 12:47] VITALS: BP 131/78
[2017-07-24 15:22] LABS: BASOPHILS % (AUTO) 0.5 % (0.0-2.0); LYMPHOCYTES % (AUTO) 20.7 % (20.0-45.0); MEAN CORPUSCULAR HEMOGLOBIN 31.4 PG (27.0-31.0); MEAN CORPUSCULAR HGB CONC 33.1 G/DL (32.0-36.0); MEAN CORPUSCULAR VOLUME 95 FL (80-99); MEAN PLATELET VOLUME 6.6 FL (6.5-10.1); MONOCYTES % (AUTO) 5.7 % (1.0-10.0); PLATELET COUNT 360 K/UL (150-450); RED CELL DISTRIBUTION WIDTH 12.8 % (11.6-14.8); WHITE BLOOD COUNT 8.2 K/UL (4.8-10.8)
--- NOTE | 2017-07-24 15:24 | Cardiology Report ---
APPROVED REPORT EKG Measurement Heart [id number] Normal sinus rhythm Normal ECG
[2017-07-24 15:51] LABS: ANION GAP 10 mmol/L (5-15); CALCIUM 9.5 MG/DL (8.5-10.1); CARBON DIOXIDE 26 MMOL/L (21-32); CHLORIDE 104 MMOL/L (98-107); CREATININE 0.5 MG/DL (0.55-1.30); GLOMERULAR FILTRATION RATE > 60 mL/min (>60); POTASSIUM 4.8 MMOL/L (3.5-5.1); SODIUM 140 MMOL/L (136-145)
[2017-07-24 16:00] VITALS: BP 127/80
[2017-07-24] MEDS ORDERED: Miralax 17gm pkt GT PRN (16:45)
[2017-07-24] MEDS ORDERED: Mylanta II UD 30ml GT PRN (16:45)
--- NOTE | 2017-07-24 18:33 | Pulmonology Progress Note ---
Assessment/Plan Problems: (1) Bacteremia (2) Failure to thrive (3) Nausea in adult patient (4) Pyuria (5) Dehydration (6) Gastrostomy tube in place Assessment/Plan abx, check cultures f/uGI and cardio recommendations repeat cultures check electrolytes advance diet, GI following Subjective ROS Limited/Unobtainable: No Constitutional: Reports: no symptoms HEENT: Repors: no symptoms Respiratory: Reports: no symptoms Allergies: Coded Allergies: No Known Allergies (Unverified , 01/13/15) Objective Last 24 Hour Vital Signs Date Time Temp Pulse Resp B/P (MAP) Pulse Ox O2 Delivery O2 Flow Rate FiO2 07/24/17 16:00 97.2 76 18 127/80 96 Room Air 07/24/17 12:47 97.9 82 20 131/78 99 Room Air 07/24/17 08:32 98.2 81 20 134/70 94 Room Air 07/24/17 03:36 97.3 94 18 154/88 95 Room Air 07/23/17 23:26 96.0 83 20 124/72 99 Room Air 07/23/17 19:28 96.8 100 20 132/74 95 Room Air Intake and Output 07/24/17 07/25/17 19:00 07:00 Intake Total 450 ml Balance 450 ml IV Total 450 ml # Voids 2 General Appearance: WD/WN HEENT: normocephalic, atraumatic Respiratory/Chest: chest wall non-tender, lungs clear Breasts: no masses Cardiovascular: normal peripheral pulses Abdomen: normal bowel sounds, soft, non tender 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 Microbiology Date/Time Source Procedure Growth Status 07/22/17 11:55 Blood Blood Culture - Preliminary Staphylococcus Sp Coag Neg Resulted 07/22/17 11:45 Blood Blood Culture - Preliminary Staphylococcus Sp Coag Neg Resulted 07/22/17 14:05 Nasal Nares MRSA Culture - Preliminary Resulted 07/22/17 14:05 Rectum VRE Culture - Final Enterococcus Faecalis - Vre Complete Laboratory Tests 07/24/17 14:20: White Blood Count 8.2, Red Blood Count 4.20, Hemoglobin 13.2, Hematocrit 39.9, Mean Corpuscular Volume 95, Mean Corpuscular Hemoglobin 31.4H, Mean Corpuscular Hemoglobin Concent 33.1, Red Cell Distribution Width 12.8, Platelet Count 360, Mean Platelet Volume 6.6, Neutrophils (%) (Auto) 73.0, Lymphocytes (%) (Auto) 20.7, Monocytes (%) (Auto) 5.7, Eosinophils (%) (Auto) 0.0, Basophils (%) (Auto ) 0.5, Sodium Level 140, Potassium Level 4.8#, Chloride Level 104, Carbon Dioxide Level 26, Anion Gap 10, Blood Urea Nitrogen 12, Creatinine 0.5L, Estimat Glomerular Filtration Rate > 60, Glucose Level 178H, Calcium Level 9.5, Vancomycin Level Trough 8.3 Current Medications Medications (Trade) Dose Ordered Sig/Cami Route PRN Reason Start Time Stop Time Status Last Admin Dose Admin Acetaminophen (Tylenol) 650 mg Q4H PRN ORAL fever 07/22/17 13:15 08/21/17 13:14 Al Hydroxide/Mg Hydroxide (Mylanta II) 30 ml Q6H PRN GT dyspepsia 07/24/17 16:45 08/21/17 13:14 Cefepime HCl 2 gm/ Sodium Chloride 110 ml @ 220 mls/hr Q24H IVPB 07/23/17 23:00 07/29/17 22:59 07/23/17 22:43 Clozapine (Clozaril) 50 mg BID ORAL 07/22/17 21:00 07/29/17 20:59 07/24/17 08:55 Dextrose (Dextrose 50%) STAT PRN IV Hypoglycemia 07/22/17 13:15 08/21/17 13:14 Diphenhydramine HCl (Benadryl) 25 mg Q6H PRN ORAL Itching/Pruritis 07/22/17 13:15 08/21/17 13:14 Heparin Sodium (Porcine) (Heparin 5000 units/ml) 5,000 units EVERY 12 HOURS SUBQ 07/22/17 21:00 08/21/17 20:59 07/24/17 09:18 Insulin Aspart (NovoLOG) BEFORE MEALS AND HS SUBQ 07/22/17 16:30 08/21/17 16:29 07/24/17 17:19 Ketorolac Tromethamine (Toradol 30mg) 30 mg Q6H PRN IV moderate pain 4-6 07/22/17 13:15 07/27/17 13:14 Lansoprazole (Prevacid) 30 mg BID GT 07/22/17 18:00 08/21/17 17:59 07/24/17 08:54 Morphine Sulfate (Morphine Sulfate) 2 mg Q4H PRN IVP severe Pain (Pain Scale 7-10) 07/22/17 13:15 07/29/17 13:14 Nitroglycerin (Ntg) 0.4 mg Q5M X 3 DOSES PRN SL Prn Chest Pain 07/22/17 13:15 08/21/17 13:14 Olanzapine (ZyPREXA) 5 mg BEDTIME GT 07/24/17 21:00 08/21/17 17:59 Ondansetron HCl (Zofran) 4 mg Q6H PRN IVP Nausea & Vomiting 07/22/17 13:15 08/21/17 13:14 Polyethylene Glycol (Miralax) 17 gm HSPRN PRN GT Constipation 07/24/17 16:45 08/21/17 13:14 Sodium 1,000 ml @ 50 mls/hr Q20H IV 07/23/17 10:00 08/22/17 09:59 07/24/17 06:48 Temazepam (Restoril) 15 mg HSPRN PRN GT Insomnia 07/24/17 16:45 07/29/17 13:14 BURAK RUANO Jul 24, 2017 18:33
[2017-07-24 19:51] VITALS: BP 112/68
--- NOTE | 2017-07-24 22:56 | Infectious Diseases Prog Note ---
Assessment/Plan Problems: (1) Sepsis Assessment & Plan: Due to UTI? Reactive? Resolved. (2) Pyuria Assessment & Plan: Rule-out UTI. Empiric cefepime. Follow-up UCx - not done? Repeat UA. (3) Dehydration (4) Failure to thrive (5) Positive blood culture Assessment & Plan: CoNS in both sets. No indwelling IV. Could still be contaminant. Patient refusing vancomycin IV. Will try to get repeat BCx first. Subjective Allergies: Coded Allergies: No Known Allergies (Unverified , 01/13/15) Objective Vital Signs Last 24 Hour Vital Signs Date Time Temp Pulse Resp B/P (MAP) Pulse Ox O2 Delivery O2 Flow Rate FiO2 07/24/17 19:51 97.3 73 18 112/68 96 Room Air 07/24/17 16:00 97.2 76 18 127/80 96 Room Air 07/24/17 12:47 97.9 82 20 131/78 99 Room Air 07/24/17 08:32 98.2 81 20 134/70 94 Room Air 07/24/17 03:36 97.3 94 18 154/88 95 Room Air 07/23/17 23:26 96.0 83 20 124/72 99 Room Air Height (Feet): 5 Height (Inches): 2.00 Weight (Pounds): 110 Microbiology Date/Time Source Procedure Growth Status 07/22/17 11:55 Blood Blood Culture - Preliminary Staphylococcus Sp Coag Neg Resulted 07/22/17 11:45 Blood Blood Culture - Preliminary Staphylococcus Sp Coag Neg Resulted 07/22/17 14:05 Nasal Nares MRSA Culture - Preliminary Resulted 07/22/17 14:05 Rectum VRE Culture - Final Enterococcus Faecalis - Vre Complete Laboratory Tests Test 07/24/17 14:20 White Blood Count 8.2 K/UL (4.8-10.8) Red Blood Count 4.20 M/UL (4.20-5.40) Hemoglobin 13.2 G/DL (12.0-16.0) Hematocrit 39.9 % (37.0-47.0) Mean Corpuscular Volume 95 FL (80-99) Mean Corpuscular Hemoglobin 31.4 PG (27.0-31.0) H Mean Corpuscular Hemoglobin Concent 33.1 G/DL (32.0-36.0) Red Cell Distribution Width 12.8 % (11.6-14.8) Platelet Count 360 K/UL (150-450) Mean Platelet Volume 6.6 FL (6.5-10.1) Neutrophils (%) (Auto) 73.0 % (45.0-75.0) Lymphocytes (%) (Auto) 20.7 % (20.0-45.0) Monocytes (%) (Auto) 5.7 % (1.0-10.0) Eosinophils (%) (Auto) 0.0 % (0.0-3.0) Basophils (%) (Auto) 0.5 % (0.0-2.0) Sodium Level 140 MMOL/L (136-145) Potassium Level 4.8 MMOL/L (3.5-5.1) # Chloride Level 104 MMOL/L (98-107) Carbon Dioxide Level 26 MMOL/L (21-32) Anion Gap 10 mmol/L (5-15) Blood Urea Nitrogen 12 mg/dL (7-18) Creatinine 0.5 MG/DL (0.55-1.30) L Estimat Glomerular Filtration Rate > 60 mL/min (>60) Glucose Level 178 MG/DL (74-106) H Calcium Level 9.5 MG/DL (8.5-10.1) Vancomycin Level Trough 8.3 ug/mL (5.0-12.0) Current Medications Medications (Trade) Dose Ordered Sig/Cami Route PRN Reason Start Time Stop Time Status Last Admin Dose Admin Acetaminophen (Tylenol) 650 mg Q4H PRN ORAL fever 07/22/17 13:15 08/21/17 13:14 Al Hydroxide/Mg Hydroxide (Mylanta II) 30 ml Q6H PRN GT dyspepsia 07/24/17 16:45 08/21/17 13:14 Cefepime HCl 2 gm/ Sodium Chloride 110 ml @ 220 mls/hr Q24H IVPB 07/23/17 23:00 07/29/17 22:59 07/23/17 22:43 Clozapine (Clozaril) 50 mg BID ORAL 07/22/17 21:00 07/29/17 20:59 07/24/17 18:37 Dextrose (Dextrose 50%) STAT PRN IV Hypoglycemia 07/22/17 13:15 08/21/17 13:14 Diphenhydramine HCl (Benadryl) 25 mg Q6H PRN ORAL Itching/Pruritis 07/22/17 13:15 08/21/17 13:14 Heparin Sodium (Porcine) (Heparin 5000 units/ml) 5,000 units EVERY 12 HOURS SUBQ 07/22/17 21:00 08/21/17 20:59 07/24/17 20:36 Insulin Aspart (NovoLOG) BEFORE MEALS AND HS SUBQ 07/22/17 16:30 08/21/17 16:29 07/24/17 21:46 Ketorolac Tromethamine (Toradol 30mg) 30 mg Q6H PRN IV moderate pain 4-6 07/22/17 13:15 07/27/17 13:14 Lansoprazole (Prevacid) 30 mg BID GT 07/22/17 18:00 08/21/17 17:59 07/24/17 18:37 Morphine Sulfate (Morphine Sulfate) 2 mg Q4H PRN IVP severe Pain (Pain Scale 7-10) 07/22/17 13:15 07/29/17 13:14 Nitroglycerin (Ntg) 0.4 mg Q5M X 3 DOSES PRN SL Prn Chest Pain 07/22/17 13:15 08/21/17 13:14 Olanzapine (ZyPREXA) 5 mg BEDTIME GT 07/24/17 21:00 08/21/17 17:59 07/24/17 20:36 Ondansetron HCl (Zofran) 4 mg Q6H PRN IVP Nausea & Vomiting 07/22/17 13:15 08/21/17 13:14 Polyethylene Glycol (Miralax) 17 gm HSPRN PRN GT Constipation 07/24/17 16:45 08/21/17 13:14 Sodium 1,000 ml @ 50 mls/hr Q20H IV 07/23/17 10:00 08/22/17 09:59 07/24/17 06:48 Temazepam (Restoril) 15 mg HSPRN PRN GT Insomnia 07/24/17 16:45 07/29/17 13:14 NOEL DAY Jul 24, 2017 22:56
[2017-07-24] MEDS: Cefepime HCl 2 GM in NS 110 ML IVPB SCH (23:19)
[2017-07-25] VITALS: BP 110/69
[2017-07-25] MEDS: 1/2NS w/KCl 20mEq 1000ml 1,000 ML IV SCH ×2 (01:26→13:14)
[2017-07-25 04:00] VITALS: BP 106/59
[2017-07-25] MEDS: NovoLOG Insulin Flexpen SUBQ SCH ×4 (06:00→20:33)
--- NOTE | 2017-07-25 06:53 | General Progress Note ---
Assessment/Plan Problem List: (1) Dehydration ICD Codes: E86.0 - Dehydration SNOMED: 36873247 (2) Failure to thrive SNOMED: 41630851 (3) Nausea and vomiting in adult patient ICD Codes: R11.0 - Nausea SNOMED: 25567117 (4) Nausea in adult patient ICD Codes: R11.0 - Nausea SNOMED: 739118436 (5) Gastrostomy tube in place ICD Codes: Z93.1 - Gastrostomy status SNOMED: 534224823, 059964807 (6) Pyuria ICD Codes: N39.0 - Urinary tract infection, site not specified SNOMED: 2509467, 803844159, 522073083 Status: stable, progressing, tolerating diet Assessment/Plan ot pt diet abx gi cleared dc to snf Subjective Constitutional: Reports: weakness Allergies: Coded Allergies: No Known Allergies (Unverified , 01/13/15) All Systems: reviewed and negative except above Subjective sl confused in bed Objective Last 24 Hour Vital Signs Date Time Temp Pulse Resp B/P (MAP) Pulse Ox O2 Delivery O2 Flow Rate FiO2 07/25/17 04:00 96.8 80 18 106/59 93 Room Air 07/25/17 00:00 97.9 83 20 110/69 94 Room Air 07/24/17 19:51 97.3 73 18 112/68 96 Room Air 07/24/17 16:00 97.2 76 18 127/80 96 Room Air 07/24/17 12:47 97.9 82 20 131/78 99 Room Air 07/24/17 08:32 98.2 81 20 134/70 94 Room Air Laboratory Tests 07/24/17 14:20: White Blood Count 8.2, Red Blood Count 4.20, Hemoglobin 13.2, Hematocrit 39.9, Mean Corpuscular Volume 95, Mean Corpuscular Hemoglobin 31.4H, Mean Corpuscular Hemoglobin Concent 33.1, Red Cell Distribution Width 12.8, Platelet Count 360, Mean Platelet Volume 6.6, Neutrophils (%) (Auto) 73.0, Lymphocytes (%) (Auto) 20.7, Monocytes (%) (Auto) 5.7, Eosinophils (%) (Auto) 0.0, Basophils (%) (Auto ) 0.5, Sodium Level 140, Potassium Level 4.8#, Chloride Level 104, Carbon Dioxide Level 26, Anion Gap 10, Blood Urea Nitrogen 12, Creatinine 0.5L, Estimat Glomerular Filtration Rate > 60, Glucose Level 178H, Calcium Level 9.5, Vancomycin Level Trough 8.3 Height (Feet): 5 Height (Inches): 2.00 Weight (Pounds): 110 General Appearance: lethargic EENT: normal ENT inspection Neck: normal alignment Cardiovascular: normal peripheral pulses, normal rate, regular rhythm Respiratory/Chest: chest wall non-tender, lungs clear, normal breath sounds Abdomen: normal bowel sounds, non tender, soft Extremities: normal inspection Edema: no edema noted Arm (L), no edema noted Arm (R), no edema noted Leg (L), no edema noted Leg (R), no edema noted Pedal (L), no edema noted Pedal (R), no edema noted Generalized Neurologic: responsive, motor weakness Skin: normal pigmentation, warm/dry XAVI LOPEZ Jul 25, 2017 06:53
--- NOTE | 2017-07-25 07:50 | Nephrology Progress Note ---
Assessment/Plan Assessment 1. Hypernatremia. 2. Hypokalemia. 3. Failure to thrive. 4. History of diabetes. Plan plan to continue ivf monitoring renal function avoid NSAID replace electrolyte as schedule Subjective ROS Limited/Unobtainable: Yes Constitutional: Reports: no symptoms HEENT: Reports: no symptoms Genitourinary: Reports: no symptoms Neurologic/Psychiatric: Reports: no symptoms Subjective no acute events over night Objective Objective Last 24 Hour Vital Signs Date Time Temp Pulse Resp B/P (MAP) Pulse Ox O2 Delivery O2 Flow Rate FiO2 07/25/17 04:00 96.8 80 18 106/59 93 Room Air 07/25/17 00:00 97.9 83 20 110/69 94 Room Air 07/24/17 19:51 97.3 73 18 112/68 96 Room Air 07/24/17 16:00 97.2 76 18 127/80 96 Room Air 07/24/17 12:47 97.9 82 20 131/78 99 Room Air 07/24/17 08:32 98.2 81 20 134/70 94 Room Air Laboratory Tests 07/24/17 14:20: White Blood Count 8.2, Red Blood Count 4.20, Hemoglobin 13.2, Hematocrit 39.9, Mean Corpuscular Volume 95, Mean Corpuscular Hemoglobin 31.4H, Mean Corpuscular Hemoglobin Concent 33.1, Red Cell Distribution Width 12.8, Platelet Count 360, Mean Platelet Volume 6.6, Neutrophils (%) (Auto) 73.0, Lymphocytes (%) (Auto) 20.7, Monocytes (%) (Auto) 5.7, Eosinophils (%) (Auto) 0.0, Basophils (%) (Auto ) 0.5, Sodium Level 140, Potassium Level 4.8#, Chloride Level 104, Carbon Dioxide Level 26, Anion Gap 10, Blood Urea Nitrogen 12, Creatinine 0.5L, Estimat Glomerular Filtration Rate > 60, Glucose Level 178H, Calcium Level 9.5, Vancomycin Level Trough 8.3 Height (Feet): 5 Height (Inches): 2.00 Weight (Pounds): 110 Objective HEAD AND NECK: No JVP. No LAD. No thyromegaly. Extraocular movements intact. Pupils are reactive to light and accommodation. LUNGS: Clear to auscultation. CARDIAC: Regular rate and rhythm. S1 and S2. No murmur. No rub. ABDOMEN: Soft. G-tube is in place. Bowel sounds positive. EXTREMITIES: No edema. No clubbing. No cyanosis. DENA HAN Jul 25, 2017 07:50
[2017-07-25 08:02] VITALS: BP 113/63
[2017-07-25] MEDS: Heparin 5000 units/ml inj SUBQ SCH ×2 (10:26→20:35)
[2017-07-25] MEDS ORDERED: Tubing IV Secondary IV ONE (10:35)
--- NOTE | 2017-07-25 10:37 | GI Progress Note ---
Assessment/Plan Problems: (1) Gastrostomy tube in place ICD Codes: Z93.1 - Gastrostomy status SNOMED: 395299232, 489612877 (2) Nausea in adult patient ICD Codes: R11.0 - Nausea SNOMED: 737600139 (3) Failure to thrive SNOMED: 76961170 (4) Dehydration ICD Codes: E86.0 - Dehydration SNOMED: 67047592 Status: stable Status Narrative Discussed with Dr. Hardin. Assessment/Plan ST evaluation noted >> SOFT CHEWABLE DIET AND THIN LIQUIDS okay for DC per GI standpoint symptomatic treatment GT changed, tolerating feeding well adv diet CCHO LOW for oral grat calorie count x 48 hours push PO, will consider Marinol GTFs per dietary abx fu labs The patient was seen and examined at bedside and all new and available data was reviewed in the patients chart. I agree with the above findings, impression and plan. (Patient seen earlier today. Signature stamp does not reflect patient encounter time.). - Herbert Hardin MD Subjective Subjective limited Objective Last 24 Hour Vital Signs Date Time Temp Pulse Resp B/P (MAP) Pulse Ox O2 Delivery O2 Flow Rate FiO2 07/25/17 08:02 98.2 84 19 113/63 95 Room Air 07/25/17 04:00 96.8 80 18 106/59 93 Room Air 07/25/17 00:00 97.9 83 20 110/69 94 Room Air 07/24/17 19:51 97.3 73 18 112/68 96 Room Air 07/24/17 16:00 97.2 76 18 127/80 96 Room Air 07/24/17 12:47 97.9 82 20 131/78 99 Room Air Laboratory Tests Test 07/24/17 14:20 White Blood Count 8.2 K/UL (4.8-10.8) Red Blood Count 4.20 M/UL (4.20-5.40) Hemoglobin 13.2 G/DL (12.0-16.0) Hematocrit 39.9 % (37.0-47.0) Mean Corpuscular Volume 95 FL (80-99) Mean Corpuscular Hemoglobin 31.4 PG (27.0-31.0) H Mean Corpuscular Hemoglobin Concent 33.1 G/DL (32.0-36.0) Red Cell Distribution Width 12.8 % (11.6-14.8) Platelet Count 360 K/UL (150-450) Mean Platelet Volume 6.6 FL (6.5-10.1) Neutrophils (%) (Auto) 73.0 % (45.0-75.0) Lymphocytes (%) (Auto) 20.7 % (20.0-45.0) Monocytes (%) (Auto) 5.7 % (1.0-10.0) Eosinophils (%) (Auto) 0.0 % (0.0-3.0) Basophils (%) (Auto) 0.5 % (0.0-2.0) Sodium Level 140 MMOL/L (136-145) Potassium Level 4.8 MMOL/L (3.5-5.1) # Chloride Level 104 MMOL/L (98-107) Carbon Dioxide Level 26 MMOL/L (21-32) Anion Gap 10 mmol/L (5-15) Blood Urea Nitrogen 12 mg/dL (7-18) Creatinine 0.5 MG/DL (0.55-1.30) L Estimat Glomerular Filtration Rate > 60 mL/min (>60) Glucose Level 178 MG/DL (74-106) H Calcium Level 9.5 MG/DL (8.5-10.1) Vancomycin Level Trough 8.3 ug/mL (5.0-12.0) Height (Feet): 5 Height (Inches): 2.00 Weight (Pounds): 110 General Appearance: WD/WN, no apparent distress, alert, thin Cardiovascular: normal rate Respiratory/Chest: normal breath sounds, no respiratory distress Abdominal Exam: normal bowel sounds, non tender, soft, GT site - c/d/i Yvette Paez NMariela Jul 25, 2017 10:37 PETER HARDIN Jul 26, 2017 09:35
[2017-07-25] MEDS ORDERED: D5 1/2NS 1000ml IV ONE (10:59)
[2017-07-25 11:48] VITALS: BP 120/67
[2017-07-25] MEDS ORDERED: ZOFRAN4 M1 GT (12:33)
[2017-07-25] MEDS ORDERED: ZYPREXA7.5 MG GT (12:33)
[2017-07-25] MEDS ORDERED: NOVOLOG100 UNITS1 (12:34)
[2017-07-25] MEDS ORDERED: CLOZARIL25 MG ORAL (12:38)
[2017-07-25] MEDS ORDERED: MIRALAX17 G2 ORAL (12:43)
[2017-07-25] MEDS ORDERED: TEMAZEPAM15 MG ORAL (12:49)
[2017-07-25 16:00] VITALS: BP 123/83
[2017-07-25] MEDS ORDERED: Heparin 2000 units/Ns 1000ml INJ PRN (16:00)
[2017-07-25] MEDS ORDERED: Lidocaine 1% Plain 30 ml INJ PRN (16:00)
--- NOTE | 2017-07-25 17:05 | Infectious Diseases Prog Note ---
Assessment/Plan Problems: (1) Sepsis Assessment & Plan: due to coag negative staph which grew out of four bottles , most likely real, will restart antibiotics , and order PICC line, will repeat blood culture to confirm clearance , will treat for four weeks with vancomycin (2) Failure to thrive Assessment & Plan: will screen for HIV, and syphilis, recommend dietary consult and nutritional support (3) Pyuria Assessment & Plan: S/P cefepime treatment, no culture was done will repeat UA (4) Dehydration Assessment & Plan: continue IVF for hydration Subjective ROS Limited/Unobtainable: Yes Allergies: Coded Allergies: No Known Allergies (Unverified , 01/13/15) Subjective she was awake and up in bed, nonverbal, dosen't follow commands .afebrile, NAD Objective Vital Signs Last 24 Hour Vital Signs Date Time Temp Pulse Resp B/P (MAP) Pulse Ox O2 Delivery O2 Flow Rate FiO2 07/25/17 16:00 97.1 118 19 123/83 95 Room Air 07/25/17 11:48 98.4 82 19 120/67 95 Room Air 07/25/17 08:02 98.2 84 19 113/63 95 Room Air 07/25/17 04:00 96.8 80 18 106/59 93 Room Air 07/25/17 00:00 97.9 83 20 110/69 94 Room Air 07/24/17 19:51 97.3 73 18 112/68 96 Room Air Height (Feet): 5 Height (Inches): 2.00 Weight (Pounds): 110 General Appearance: WD/WN, no acute distress HEENT: normocephalic, atraumatic, anicteric, mucous membranes moist, PERRL Respiratory/Chest: chest wall non-tender, lungs clear, normal breath sounds, no respiratory distress, no accessory muscle use Cardiovascular: normal peripheral pulses, normal rate, regular rhythm, no gallop/murmur, no JVD Abdomen: normal bowel sounds, soft, non tender, no organomegaly, non distended , no mass Extremities: no cyanosis, no clubbing Skin: no rash, no lesions, no ulcers Current Medications Medications (Trade) Dose Ordered Sig/Cami Route PRN Reason Start Time Stop Time Status Last Admin Dose Admin Acetaminophen (Tylenol) 650 mg Q4H PRN ORAL fever 07/22/17 13:15 08/21/17 13:14 Al Hydroxide/Mg Hydroxide (Mylanta II) 30 ml Q6H PRN GT dyspepsia 07/24/17 16:45 08/21/17 13:14 Chlorhexidine Gluconate (Silvia-Hex 2%) 1 applic DAILY@2000 TOPIC 07/25/17 20:00 08/24/17 19:59 Clozapine (Clozaril) 50 mg BID ORAL 07/22/17 21:00 07/29/17 20:59 07/25/17 10:27 Dextrose (Dextrose 50%) STAT PRN IV Hypoglycemia 07/22/17 13:15 08/21/17 13:14 Diphenhydramine HCl (Benadryl) 25 mg Q6H PRN ORAL Itching/Pruritis 07/22/17 13:15 08/21/17 13:14 Heparin Sodium (Porcine) (Heparin 5000 units/ml) 5,000 units EVERY 12 HOURS SUBQ 07/22/17 21:00 08/21/17 20:59 07/25/17 10:26 Heparin Sodium/ Sodium Chloride (Heparin 2000 units/Ns 1000ml premix) 2,000 unit NEEDED PRN INJ for line flush 07/25/17 16:00 Insulin Aspart (NovoLOG) BEFORE MEALS AND HS SUBQ 07/22/17 16:30 08/21/17 16:29 07/25/17 12:05 Ketorolac Tromethamine (Toradol 30mg) 30 mg Q6H PRN IV moderate pain 4-6 07/22/17 13:15 07/27/17 13:14 Lansoprazole (Prevacid) 30 mg BID GT 07/22/17 18:00 08/21/17 17:59 07/25/17 10:26 Lidocaine HCl (Xylocaine 1% 30ml) 30 ml NEEDED PRN INJ for line flush 07/25/17 16:00 Morphine Sulfate (Morphine Sulfate) 2 mg Q4H PRN IVP severe Pain (Pain Scale 7-10) 07/22/17 13:15 07/29/17 13:14 Nitroglycerin (Ntg) 0.4 mg Q5M X 3 DOSES PRN SL Prn Chest Pain 07/22/17 13:15 08/21/17 13:14 Olanzapine (ZyPREXA) 5 mg BEDTIME GT 07/24/17 21:00 08/21/17 17:59 07/24/17 20:36 Ondansetron HCl (Zofran) 4 mg Q6H PRN IVP Nausea & Vomiting 07/22/17 13:15 08/21/17 13:14 Polyethylene Glycol (Miralax) 17 gm HSPRN PRN GT Constipation 07/24/17 16:45 08/21/17 13:14 Sodium 1,000 ml @ 50 mls/hr Q20H IV 07/23/17 10:00 08/22/17 09:59 07/25/17 13:14 Temazepam (Restoril) 15 mg HSPRN PRN GT Insomnia 07/24/17 16:45 07/29/17 13:14 Vancomycin HCl (Vanco rx to dose) 1 ea DAILYPRN PRN MISC Per rx protocol 07/25/17 14:30 08/24/17 14:29 Vancomycin HCl 1 gm/Sodium Chloride 250 ml @ 166.667 mls/hr Q24H IVPB 07/25/17 16:00 07/30/17 15:59 07/25/17 16:03 Safia De Leon M.D. Jul 25, 2017 17:05
--- NOTE | 2017-07-25 17:46 | Pulmonology Progress Note ---
Assessment/Plan Problems: (1) Bacteremia (2) Failure to thrive (3) Nausea in adult patient (4) Pyuria (5) Dehydration (6) Gastrostomy tube in place Assessment/Plan iv abx by Id repeat cultures check electrolytes advance diet, GI following check electrolytes Subjective ROS Limited/Unobtainable: No Constitutional: Reports: no symptoms HEENT: Repors: no symptoms Respiratory: Reports: no symptoms Allergies: Coded Allergies: No Known Allergies (Unverified , 01/13/15) Objective Last 24 Hour Vital Signs Date Time Temp Pulse Resp B/P (MAP) Pulse Ox O2 Delivery O2 Flow Rate FiO2 07/25/17 16:00 97.1 118 19 123/83 95 Room Air 07/25/17 11:48 98.4 82 19 120/67 95 Room Air 07/25/17 08:02 98.2 84 19 113/63 95 Room Air 07/25/17 04:00 96.8 80 18 106/59 93 Room Air 07/25/17 00:00 97.9 83 20 110/69 94 Room Air 07/24/17 19:51 97.3 73 18 112/68 96 Room Air Intake and Output 07/25/17 07/26/17 19:00 07:00 Intake Total 500 ml Balance 500 ml IV Total 200 ml Tube Feeding 300 ml # Voids 2 General Appearance: WD/WN HEENT: normocephalic, atraumatic Respiratory/Chest: chest wall non-tender, normal breath sounds Abdomen: normal bowel sounds, soft, non tender Genitourinary: normal external genitalia Extremities: no cyanosis Neurologic/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: 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 grossly normal, no motor/sensory deficits Lymphatic: no neck adenopathy Current Medications Medications (Trade) Dose Ordered Sig/Cami Route PRN Reason Start Time Stop Time Status Last Admin Dose Admin Acetaminophen (Tylenol) 650 mg Q4H PRN ORAL fever 07/22/17 13:15 08/21/17 13:14 Al Hydroxide/Mg Hydroxide (Mylanta II) 30 ml Q6H PRN GT dyspepsia 07/24/17 16:45 08/21/17 13:14 Chlorhexidine Gluconate (Silvia-Hex 2%) 1 applic DAILY@1999 TOPIC 07/25/17 20:00 08/24/17 19:59 Clozapine (Clozaril) 50 mg BID ORAL 07/22/17 21:00 07/29/17 20:59 07/25/17 10:27 Dextrose (Dextrose 50%) STAT PRN IV Hypoglycemia 07/22/17 13:15 08/21/17 13:14 Diphenhydramine HCl (Benadryl) 25 mg Q6H PRN ORAL Itching/Pruritis 07/22/17 13:15 08/21/17 13:14 Heparin Sodium (Porcine) (Heparin 5000 units/ml) 5,000 units EVERY 12 HOURS SUBQ 07/22/17 21:00 08/21/17 20:59 07/25/17 10:26 Heparin Sodium/ Sodium Chloride (Heparin 2000 units/Ns 1000ml premix) 2,000 unit NEEDED PRN INJ for line flush 07/25/17 16:00 Insulin Aspart (NovoLOG) BEFORE MEALS AND HS SUBQ 07/22/17 16:30 08/21/17 16:29 07/25/17 17:35 Ketorolac Tromethamine (Toradol 30mg) 30 mg Q6H PRN IV moderate pain 4-6 07/22/17 13:15 07/27/17 13:14 Lansoprazole (Prevacid) 30 mg BID GT 07/22/17 18:00 08/21/17 17:59 07/25/17 10:26 Lidocaine HCl (Xylocaine 1% 30ml) 30 ml NEEDED PRN INJ for line flush 07/25/17 16:00 Morphine Sulfate (Morphine Sulfate) 2 mg Q4H PRN IVP severe Pain (Pain Scale 7-10) 07/22/17 13:15 07/29/17 13:14 Nitroglycerin (Ntg) 0.4 mg Q5M X 3 DOSES PRN SL Prn Chest Pain 07/22/17 13:15 08/21/17 13:14 Olanzapine (ZyPREXA) 5 mg BEDTIME GT 07/24/17 21:00 08/21/17 17:59 07/24/17 20:36 Ondansetron HCl (Zofran) 4 mg Q6H PRN IVP Nausea & Vomiting 07/22/17 13:15 08/21/17 13:14 Polyethylene Glycol (Miralax) 17 gm HSPRN PRN GT Constipation 07/24/17 16:45 08/21/17 13:14 Sodium 1,000 ml @ 50 mls/hr Q20H IV 07/23/17 10:00 08/22/17 09:59 07/25/17 13:14 Temazepam (Restoril) 15 mg HSPRN PRN GT Insomnia 07/24/17 16:45 07/29/17 13:14 Vancomycin HCl (Vanco rx to dose) 1 ea DAILYPRN PRN MISC Per rx protocol 07/25/17 14:30 08/24/17 14:29 Vancomycin HCl 1 gm/Sodium Chloride 250 ml @ 166.667 mls/hr Q24H IVPB 07/25/17 16:00 07/30/17 15:59 07/25/17 16:03 BURAK RUANO Jul 25, 2017 17:46
[2017-07-25 18:08] LABS: LYMPHOCYTES % (AUTO) 32.9 % (20.0-45.0); MEAN CORPUSCULAR HEMOGLOBIN 30.1 PG (27.0-31.0); MEAN CORPUSCULAR VOLUME 97 FL (80-99); MEAN PLATELET VOLUME 5.8 FL (6.5-10.1); MONOCYTES % (AUTO) 5.4 % (1.0-10.0); NEUTROPHILS % (AUTO) 60.7 % (45.0-75.0); PLATELET COUNT 350 K/UL (150-450); RED BLOOD COUNT 4.18 M/UL (4.20-5.40); RED CELL DISTRIBUTION WIDTH 12.8 % (11.6-14.8); WHITE BLOOD COUNT 7.6 K/UL (4.8-10.8)
[2017-07-25 18:20] LABS: ANION GAP 11 mmol/L (5-15); CALCIUM 9.6 MG/DL (8.5-10.1); CARBON DIOXIDE 27 MMOL/L (21-32); CHLORIDE 105 MMOL/L (98-107); CREATININE 0.5 MG/DL (0.55-1.30); GLOMERULAR FILTRATION RATE > 60 mL/min (>60); POTASSIUM 4.5 MMOL/L (3.5-5.1); SODIUM 142 MMOL/L (136-145)
[2017-07-25 20:00] VITALS: BP 137/70
[2017-07-25] MEDS ORDERED: Dyna-Hex 2% Top Sol 2oz TOPIC SCH (20:00)
--- NOTE | 2017-07-25 20:25 | General Progress Note ---
Assessment/Plan Status: stable, progressing Subjective Neurologic/Psychiatric: Reports: anxiety, depressed, emotional problems Allergies: Coded Allergies: No Known Allergies (Unverified , 01/13/15) Objective Last 24 Hour Vital Signs Date Time Temp Pulse Resp B/P (MAP) Pulse Ox O2 Delivery O2 Flow Rate FiO2 07/25/17 16:00 97.1 118 19 123/83 95 Room Air 07/25/17 11:48 98.4 82 19 120/67 95 Room Air 07/25/17 08:02 98.2 84 19 113/63 95 Room Air 07/25/17 04:00 96.8 80 18 106/59 93 Room Air 07/25/17 00:00 97.9 83 20 110/69 94 Room Air Intake and Output 07/25/17 07/26/17 19:00 07:00 Intake Total 1080 ml Balance 1080 ml Free Water 100 ml IV Total 500 ml Tube Feeding 480 ml # Voids 2 Laboratory Tests 07/25/17 18:00: White Blood Count 7.6, Red Blood Count 4.18L, Hemoglobin 12.6, Hematocrit 40.5, Mean Corpuscular Volume 97, Mean Corpuscular Hemoglobin 30.1, Mean Corpuscular Hemoglobin Concent 31.0L, Red Cell Distribution Width 12.8, Platelet Count 350, Mean Platelet Volume 5.8L, Neutrophils (%) (Auto) 60.7, Lymphocytes (%) (Auto) 32.9, Monocytes (%) (Auto) 5.4, Eosinophils (%) (Auto) 0.0, Basophils (%) (Auto ) 1.0, Sodium Level 142, Potassium Level 4.5, Chloride Level 105, Carbon Dioxide Level 27, Anion Gap 11, Blood Urea Nitrogen 14, Creatinine 0.5L, Estimat Glomerular Filtration Rate > 60, Glucose Level 199H, Calcium Level 9.6 Height (Feet): 5 Height (Inches): 2.00 Weight (Pounds): 110 General Appearance: WD/WN, no apparent distress, alert Neurologic: responsive, disoriented, depressed affect Maryann Henley M.D. Jul 25, 2017 20:25
--- NOTE | 2017-07-25 22:16 | Consultation ---
DATE OF CONSULTATION: 07/23/2017 PSYCHOTHERAPY CONSULTATION PROGRESS NOTE TREATING ATTENDING PHYSICIAN: Sukh Chu D.O. HISTORY OF PRESENT ILLNESS: This patient is a 71-year-old female patient. The patient is from [facility]. The patient was initially brought into the hospital for failure to thrive, weakness, and dehydration. The patient was very helpless and hopeless, poorly motivated, and depressed. For the reasons, she is referred for psychotherapeutic services. The patient has been very disorganized recently. This clinician assessed the patient. The patient is able to indicate that she has been feeling slightly depressed however was very confused and disorganized. She do not know why she was brought into the hospital. There is no indication of suicidal or homicidal thoughts of ideation. There is no indication of auditory or visual hallucinations at this time. The patient is depressed and disorganized. PAST MEDICAL HISTORY: Includes a history of diabetes and encephalopathy. ALLERGIES: The patient has no known drug allergies. SUBSTANCE ABUSE HISTORY: There is no indication of alcohol use, illicit substance use, or smoking cigarettes. PSYCHIATRIC HISTORY: The patient has a history of mental illness including schizophrenia. The patient has been treated with psychotropic medications in the past. SOCIAL HISTORY: The patient is a 71-year-old female patient from [facility], financially sustained through [email or web address]. MENTAL STATUS EXAMINATION: The patient is alert and oriented x1 to person. Mood is dysphoric. Affect is blunted. Thought process is disorganized. The patient has poor attention and concentration. PLAN: This clinician assessed this patient. Assessed the patient's mental status. Encouraging the patient to participate in treatment milieu, reality orientation, and coping skills. Continue with medication management and behavioral management. This clinician has reviewed the patient's chart and discussed the treatment with treatment team. Kaia Dorantes PsyD. : SACHIN JOB#: [id number] CC:
[2017-07-25 23:36] LABS: APPEARANCE,URINE CLEAR; KETONES,URINE NEGATIVE (NEGATIVE); LEUKOCYTE ESTERASE ,URINE NEGATIVE (NEGATIVE); NITRITE,URINE NEGATIVE (NEGATIVE); PH,URINE 8 (4.5-8.0); PROTEIN,URINE NEGATIVE (NEGATIVE); UROBILINOGEN,URINE NORMAL MG/DL (0.0-1.0)
[2017-07-25 23:43] LABS: RBC,URINE 0-2 /HPF (0 - 2); WBC,URINE 0-2 /HPF (0 - 2)
[2017-07-25 23:44] LABS: BACTERIA,URINE OCCASIONAL /HPF; SQUAMOUS EPITHELIAL CELL,UR OCCASIONAL /LPF (NONE/OCC)
[2017-07-26] VITALS: BP 112/52
[2017-07-26 03:59] VITALS: BP 133/68
[2017-07-26] MEDS: NovoLOG Insulin Flexpen SUBQ SCH ×3 (06:16→17:26)
[2017-07-26 08:00] VITALS: BP 103/66
[2017-07-26] MEDS: Heparin 5000 units/ml inj SUBQ SCH (08:41)
[2017-07-26] MEDS: 1/2NS w/KCl 20mEq 1000ml 1,000 ML IV SCH (08:45)
--- NOTE | 2017-07-26 10:21 | GI Progress Note ---
Assessment/Plan Problems: (1) Gastrostomy tube in place ICD Codes: Z93.1 - Gastrostomy status SNOMED: 437594003, 078293625 (2) Nausea in adult patient ICD Codes: R11.0 - Nausea SNOMED: 224357186 (3) Failure to thrive SNOMED: 89285255 (4) Dehydration ICD Codes: E86.0 - Dehydration SNOMED: 54143095 Status: stable, unchanged Status Narrative Discussed with Dr. Hardin. Assessment/Plan ST evaluation noted >> SOFT CHEWABLE DIET AND THIN LIQUIDS okay for DC per GI standpoint symptomatic treatment GT changed, tolerating feeding well adv diet CCHO LOW for oral grat calorie count x 48 hours push PO, will consider Marinol GTFs per dietary abx fu labs The patient was seen and examined at bedside and all new and available data was reviewed in the patients chart. I agree with the above findings, impression and plan. (Patient seen earlier today. Signature stamp does not reflect patient encounter time.). - Herbert Hardin MD Subjective Subjective limited Objective Last 24 Hour Vital Signs Date Time Temp Pulse Resp B/P (MAP) Pulse Ox O2 Delivery O2 Flow Rate FiO2 07/26/17 08:00 97.3 81 19 103/66 95 Room Air 07/26/17 03:59 98.6 90 20 133/68 95 07/26/17 01:30 89 94 Room Air 07/26/17 00:00 97.3 87 18 112/52 91 07/25/17 20:00 97.5 92 18 137/70 97 Room Air 07/25/17 16:00 97.1 118 19 123/83 95 Room Air 07/25/17 11:48 98.4 82 19 120/67 95 Room Air Laboratory Tests Test 07/25/17 18:00 07/25/17 20:45 White Blood Count 7.6 K/UL (4.8-10.8) Red Blood Count 4.18 M/UL (4.20-5.40) L Hemoglobin 12.6 G/DL (12.0-16.0) Hematocrit 40.5 % (37.0-47.0) Mean Corpuscular Volume 97 FL (80-99) Mean Corpuscular Hemoglobin 30.1 PG (27.0-31.0) Mean Corpuscular Hemoglobin Concent 31.0 G/DL (32.0-36.0) L Red Cell Distribution Width 12.8 % (11.6-14.8) Platelet Count 350 K/UL (150-450) Mean Platelet Volume 5.8 FL (6.5-10.1) L Neutrophils (%) (Auto) 60.7 % (45.0-75.0) Lymphocytes (%) (Auto) 32.9 % (20.0-45.0) Monocytes (%) (Auto) 5.4 % (1.0-10.0) Eosinophils (%) (Auto) 0.0 % (0.0-3.0) Basophils (%) (Auto) 1.0 % (0.0-2.0) Sodium Level 142 MMOL/L (136-145) Potassium Level 4.5 MMOL/L (3.5-5.1) Chloride Level 105 MMOL/L (98-107) Carbon Dioxide Level 27 MMOL/L (21-32) Anion Gap 11 mmol/L (5-15) Blood Urea Nitrogen 14 mg/dL (7-18) Creatinine 0.5 MG/DL (0.55-1.30) L Estimat Glomerular Filtration Rate > 60 mL/min (>60) Glucose Level 199 MG/DL (74-106) H Calcium Level 9.6 MG/DL (8.5-10.1) Urine Color Pale yellow Urine Appearance Clear Urine pH 8 (4.5-8.0) Urine Specific [place] 1.010 (1.005-1.035) Urine Protein Negative (NEGATIVE) Urine Glucose (UA) Negative (NEGATIVE) Urine Ketones Negative (NEGATIVE) Urine Occult Blood Negative (NEGATIVE) Urine Nitrite Negative (NEGATIVE) Urine Bilirubin Negative (NEGATIVE) Urine Urobilinogen Normal MG/DL (0.0-1.0) Urine Leukocyte Esterase Negative (NEGATIVE) Urine RBC 0-2 /HPF (0 - 2) Urine WBC 0-2 /HPF (0 - 2) Urine Squamous Epithelial Cells Occasional /LPF Urine Bacteria Occasional /HPF (NONE) Height (Feet): 5 Height (Inches): 2.00 Weight (Pounds): 110 General Appearance: no apparent distress, alert, confused Cardiovascular: normal rate Respiratory/Chest: normal breath sounds, no respiratory distress Abdominal Exam: normal bowel sounds, non tender, soft, GT site - c/d/i Yvette Paez N.P. Jul 26, 2017 10:21 PETER HARDIN Jul 26, 2017 13:34
[2017-07-26 12:00] VITALS: BP 124/75
--- NOTE | 2017-07-26 12:51 | Nephrology Progress Note ---
Assessment/Plan Assessment 1. Hypernatremia. 2. Hypokalemia. 3. Failure to thrive. 4. History of diabetes. Plan plan to continue ivf monitoring renal function avoid NSAID replace electrolyte as schedule Subjective ROS Limited/Unobtainable: Yes Constitutional: Reports: no symptoms HEENT: Reports: no symptoms Genitourinary: Reports: no symptoms Neurologic/Psychiatric: Reports: no symptoms Subjective no acute events over night Objective Objective Last 24 Hour Vital Signs Date Time Temp Pulse Resp B/P (MAP) Pulse Ox O2 Delivery O2 Flow Rate FiO2 07/26/17 12:00 97.3 89 18 124/75 98 Room Air 07/26/17 08:00 97.3 81 19 103/66 95 Room Air 07/26/17 03:59 98.6 90 20 133/68 95 07/26/17 01:30 89 94 Room Air 07/26/17 00:00 97.3 87 18 112/52 91 07/25/17 20:00 97.5 92 18 137/70 97 Room Air 07/25/17 16:00 97.1 118 19 123/83 95 Room Air Intake and Output 07/26/17 07/27/17 19:00 07:00 Intake Total 50 ml Balance 50 ml IV Total 50 ml Laboratory Tests 07/25/17 18:00: White Blood Count 7.6, Red Blood Count 4.18L, Hemoglobin 12.6, Hematocrit 40.5, Mean Corpuscular Volume 97, Mean Corpuscular Hemoglobin 30.1, Mean Corpuscular Hemoglobin Concent 31.0L, Red Cell Distribution Width 12.8, Platelet Count 350, Mean Platelet Volume 5.8L, Neutrophils (%) (Auto) 60.7, Lymphocytes (%) (Auto) 32.9, Monocytes (%) (Auto) 5.4, Eosinophils (%) (Auto) 0.0, Basophils (%) (Auto ) 1.0, Sodium Level 142, Potassium Level 4.5, Chloride Level 105, Carbon Dioxide Level 27, Anion Gap 11, Blood Urea Nitrogen 14, Creatinine 0.5L, Estimat Glomerular Filtration Rate > 60, Glucose Level 199H, Calcium Level 9.6 07/25/17 20:45: Urine Color Pale yellow, Urine Appearance Clear, Urine pH 8, Urine Specific [place] 1.010, Urine Protein Negative, Urine Glucose (UA) Negative, Urine Ketones Negative, Urine Occult Blood Negative, Urine Nitrite Negative, Urine Bilirubin Negative, Urine Urobilinogen Normal, Urine Leukocyte Esterase Negative , Urine RBC 0-2, Urine WBC 0-2, Urine Squamous Epithelial Cells Occasional, Urine Bacteria Occasional Height (Feet): 5 Height (Inches): 2.00 Weight (Pounds): 110 Objective HEAD AND NECK: No JVP. No LAD. No thyromegaly. Extraocular movements intact. Pupils are reactive to light and accommodation. LUNGS: Clear to auscultation. CARDIAC: Regular rate and rhythm. S1 and S2. No murmur. No rub. ABDOMEN: Soft. G-tube is in place. Bowel sounds positive. EXTREMITIES: No edema. No clubbing. No cyanosis. DENA HAN Jul 26, 2017 12:51
--- NOTE | 2017-07-26 13:45 | Diagnostic Imaging Report ---
Indications: Needs long-term IV access Technique: Ultrasound confirms patent compressible left basilic vein. Total sterile technique, including sterile probe cover and sterile gel, hat, mask,, sterile gown, large sterile drape, and preparation with 2% chlorhexidine utilized. Local anesthesia with 1% lidocaine. Under real-time ultrasound guidance, puncture basilic vein using 21-gauge needle, documented and archived, passage 0.018 guidewire under direct fluoroscopy, which was used to determine appropriate catheter length, exchange for 5 Chinese peel-away sheath. 5 Chinese Bard dual-lumen power PICC cut to 39 cm. It was inserted through the peel-away sheath. Peel-away sheath and guidewire removed. Catheter fixed to the skin. Both catheter ports aspirated and flushed. Patient tolerated procedure well, without immediate complication. Digital radiograph documents satisfactory catheter tip position, at the cavoatrial junction. Total fluoroscopy time 0.3 minutes. Total dose area product 4.8 dGycm2 Impression: Successful placement of left PICC under sonographic and fluoroscopic guidance, as described above.
--- NOTE | 2017-07-26 14:40 | Pulmonology Progress Note ---
Assessment/Plan Assessment/Plan ASSESSMENT likely sepsis bacteremia with SCON pyuria, possible UTI dehydration dysphagia, G tube COPD Hx of HTN DM schizoaffective disorder L buttock st 2 POA e/lyte imbalance ( hypo K, hypo Mg) PLAN OF CARE MS floor gentle IVF monitor renal parameters, lytes avoid nephrotoxics abx , ID follows blood cx + SCON, likely real as per ID surveillance blood cx - as per ID guidance PICC done today will need 4 wks of abx as per ID recommendations O2 HHN prn CXR + basilar atelectasis, no other changes abd US unremarkable venous Duplex BLE negative BS management with SS of insulin, DVT GI prophylaxis psych follows psych medication regimen was optimized as per psych- patient lacks the capacity to make informed decision, has DPOA, started on Zyprexa bowel regimen PT/OT/ST strict aspiration precautions, GT feeding, CT changed GI follows monitor tolerance swallow eval done, diet as per ST recommendations with aspiration precautions GI recommends symptomatic treatment push po wound care as per wound nurse recommendations case discussed and evaluated by supervising physician Subjective Allergies: Coded Allergies: No Known Allergies (Unverified , 01/13/15) Subjective s/p PICC placement earlier this am afebrile, no signs of respiratory distress Objective Last 24 Hour Vital Signs Date Time Temp Pulse Resp B/P (MAP) Pulse Ox O2 Delivery O2 Flow Rate FiO2 07/26/17 12:00 97.3 89 18 124/75 98 Room Air 07/26/17 08:00 97.3 81 19 103/66 95 Room Air 07/26/17 03:59 98.6 90 20 133/68 95 07/26/17 01:30 89 94 Room Air 07/26/17 00:00 97.3 87 18 112/52 91 07/25/17 20:00 97.5 92 18 137/70 97 Room Air 07/25/17 16:00 97.1 118 19 123/83 95 Room Air Intake and Output 07/26/17 07/27/17 19:00 07:00 Intake Total 540 ml Balance 540 ml Free Water 100 ml IV Total 200 ml Tube Feeding 240 ml General Appearance: no acute distress, other - bedridden female HEENT: normocephalic, atraumatic, anicteric Respiratory/Chest: lungs clear, no respiratory distress, no accessory muscle use Cardiovascular: normal peripheral pulses, normal rate, no JVD Abdomen: normal bowel sounds, soft, non tender, other - G tube Extremities: no edema Neurologic/Psychiatric: abnormal gait - bedridden , alert, responsive Musculoskeletal: atrophy - BLE Laboratory Tests 07/25/17 18:00: White Blood Count 7.6, Red Blood Count 4.18L, Hemoglobin 12.6, Hematocrit 40.5, Mean Corpuscular Volume 97, Mean Corpuscular Hemoglobin 30.1, Mean Corpuscular Hemoglobin Concent 31.0L, Red Cell Distribution Width 12.8, Platelet Count 350, Mean Platelet Volume 5.8L, Neutrophils (%) (Auto) 60.7, Lymphocytes (%) (Auto) 32.9, Monocytes (%) (Auto) 5.4, Eosinophils (%) (Auto) 0.0, Basophils (%) (Auto ) 1.0, Sodium Level 142, Potassium Level 4.5, Chloride Level 105, Carbon Dioxide Level 27, Anion Gap 11, Blood Urea Nitrogen 14, Creatinine 0.5L, Estimat Glomerular Filtration Rate > 60, Glucose Level 199H, Calcium Level 9.6 07/25/17 20:45: Urine Color Pale yellow, Urine Appearance Clear, Urine pH 8, Urine Specific [place] 1.010, Urine Protein Negative, Urine Glucose (UA) Negative, Urine Ketones Negative, Urine Occult Blood Negative, Urine Nitrite Negative, Urine Bilirubin Negative, Urine Urobilinogen Normal, Urine Leukocyte Esterase Negative , Urine RBC 0-2, Urine WBC 0-2, Urine Squamous Epithelial Cells Occasional, Urine Bacteria Occasional Current Medications Medications (Trade) Dose Ordered Sig/Cami Route PRN Reason Start Time Stop Time Status Last Admin Dose Admin Acetaminophen (Tylenol) 650 mg Q4H PRN ORAL fever 07/22/17 13:15 08/21/17 13:14 Al Hydroxide/Mg Hydroxide (Mylanta II) 30 ml Q6H PRN GT dyspepsia 07/24/17 16:45 08/21/17 13:14 Chlorhexidine Gluconate (Silvia-Hex 2%) 1 applic DAILY@1999 TOPIC 07/25/17 20:00 08/24/17 19:59 Clozapine (Clozaril) 50 mg BID ORAL 07/22/17 21:00 07/29/17 20:59 07/26/17 08:41 Dextrose (Dextrose 50%) STAT PRN IV Hypoglycemia 07/22/17 13:15 08/21/17 13:14 Diphenhydramine HCl (Benadryl) 25 mg Q6H PRN ORAL Itching/Pruritis 07/22/17 13:15 08/21/17 13:14 Heparin Sodium (Porcine) (Heparin 5000 units/ml) 5,000 units EVERY 12 HOURS SUBQ 07/22/17 21:00 08/21/17 20:59 07/25/17 20:35 Insulin Aspart (NovoLOG) BEFORE MEALS AND HS SUBQ 07/22/17 16:30 08/21/17 16:29 07/26/17 11:58 Ketorolac Tromethamine (Toradol 30mg) 30 mg Q6H PRN IV moderate pain 4-6 07/22/17 13:15 07/27/17 13:14 Lansoprazole (Prevacid) 30 mg BID GT 07/22/17 18:00 08/21/17 17:59 07/26/17 08:38 Morphine Sulfate (Morphine Sulfate) 2 mg Q4H PRN IVP severe Pain (Pain Scale 7-10) 07/22/17 13:15 07/29/17 13:14 Nitroglycerin (Ntg) 0.4 mg Q5M X 3 DOSES PRN SL Prn Chest Pain 07/22/17 13:15 08/21/17 13:14 Olanzapine (ZyPREXA) 5 mg BEDTIME GT 07/24/17 21:00 08/21/17 17:59 07/25/17 20:32 Ondansetron HCl (Zofran) 4 mg Q6H PRN IVP Nausea & Vomiting 07/22/17 13:15 08/21/17 13:14 Polyethylene Glycol (Miralax) 17 gm HSPRN PRN GT Constipation 07/24/17 16:45 08/21/17 13:14 Sodium 1,000 ml @ 50 mls/hr Q20H IV 07/23/17 10:00 08/22/17 09:59 07/26/17 08:45 Temazepam (Restoril) 15 mg HSPRN PRN GT Insomnia 07/24/17 16:45 07/29/17 13:14 Vancomycin HCl (Vanco rx to dose) 1 ea DAILYPRN PRN MISC Per rx protocol 07/25/17 14:30 08/24/17 14:29 Vancomycin HCl 1 gm/Sodium Chloride 250 ml @ 166.667 mls/hr Q24H IVPB 07/25/17 16:00 07/30/17 15:59 07/25/17 16:03 Kayode (Yang)Cesilia NP Jul 26, 2017 14:40
--- NOTE | 2017-07-26 15:32 | General Progress Note ---
Assessment/Plan Problem List: (1) Failure to thrive SNOMED: 72766044 (2) Dehydration ICD Codes: E86.0 - Dehydration SNOMED: 96044613 (3) Sepsis ICD Codes: A41.9 - Sepsis, unspecified organism SNOMED: 67602253 Status: progressing Assessment/Plan afebrile vitals stable FTT obs sepsis abx per id dehyration improved Subjective ROS Limited/Unobtainable: Yes Allergies: Coded Allergies: No Known Allergies (Unverified , 01/13/15) Objective Last 24 Hour Vital Signs Date Time Temp Pulse Resp B/P (MAP) Pulse Ox O2 Delivery O2 Flow Rate FiO2 07/26/17 12:00 97.3 89 18 124/75 98 Room Air 07/26/17 08:00 97.3 81 19 103/66 95 Room Air 07/26/17 03:59 98.6 90 20 133/68 95 07/26/17 01:30 89 94 Room Air 07/26/17 00:00 97.3 87 18 112/52 91 07/25/17 20:00 97.5 92 18 137/70 97 Room Air 07/25/17 16:00 97.1 118 19 123/83 95 Room Air Intake and Output 07/26/17 07/27/17 19:00 07:00 Intake Total 540 ml Balance 540 ml Free Water 100 ml IV Total 200 ml Tube Feeding 240 ml Laboratory Tests 07/25/17 18:00: White Blood Count 7.6, Red Blood Count 4.18L, Hemoglobin 12.6, Hematocrit 40.5, Mean Corpuscular Volume 97, Mean Corpuscular Hemoglobin 30.1, Mean Corpuscular Hemoglobin Concent 31.0L, Red Cell Distribution Width 12.8, Platelet Count 350, Mean Platelet Volume 5.8L, Neutrophils (%) (Auto) 60.7, Lymphocytes (%) (Auto) 32.9, Monocytes (%) (Auto) 5.4, Eosinophils (%) (Auto) 0.0, Basophils (%) (Auto ) 1.0, Sodium Level 142, Potassium Level 4.5, Chloride Level 105, Carbon Dioxide Level 27, Anion Gap 11, Blood Urea Nitrogen 14, Creatinine 0.5L, Estimat Glomerular Filtration Rate > 60, Glucose Level 199H, Calcium Level 9.6 07/25/17 20:45: Urine Color Pale yellow, Urine Appearance Clear, Urine pH 8, Urine Specific [place] 1.010, Urine Protein Negative, Urine Glucose (UA) Negative, Urine Ketones Negative, Urine Occult Blood Negative, Urine Nitrite Negative, Urine Bilirubin Negative, Urine Urobilinogen Normal, Urine Leukocyte Esterase Negative , Urine RBC 0-2, Urine WBC 0-2, Urine Squamous Epithelial Cells Occasional, Urine Bacteria Occasional Height (Feet): 5 Height (Inches): 2.00 Weight (Pounds): 110 General Appearance: confused Respiratory/Chest: lungs clear Abdomen: soft Alexa Dudley MD Jul 26, 2017 15:32
[2017-07-26 16:00] VITALS: BP 117/75
--- NOTE | 2017-07-26 16:04 | Infectious Diseases Prog Note ---
Assessment/Plan Problems: (1) Sepsis Assessment & Plan: due to coag negative staph which grew out of four bottles , most likely real, repeated blood culture to confirm clearance is pending , will treat for four weeks with vancomycin, EOT 08/22/17 (2) Failure to thrive Assessment & Plan: screening for HIV, and syphilis are pending, recommend dietary consult and nutritional support (3) Pyuria Assessment & Plan: S/P cefepime treatment, no culture was done will repeat UA (4) Dehydration Assessment & Plan: continue IVF for hydration Subjective ROS Limited/Unobtainable: Yes Allergies: Coded Allergies: No Known Allergies (Unverified , 01/13/15) Subjective she was awake and up in bed, nonverbal, dosen't follow commands .afebrile, NAD, father and caregiver at the bedside Objective Vital Signs Last 24 Hour Vital Signs Date Time Temp Pulse Resp B/P (MAP) Pulse Ox O2 Delivery O2 Flow Rate FiO2 07/26/17 12:00 97.3 89 18 124/75 98 Room Air 07/26/17 08:00 97.3 81 19 103/66 95 Room Air 07/26/17 03:59 98.6 90 20 133/68 95 07/26/17 01:30 89 94 Room Air 07/26/17 00:00 97.3 87 18 112/52 91 07/25/17 20:00 97.5 92 18 137/70 97 Room Air 07/25/17 16:00 97.1 118 19 123/83 95 Room Air Height (Feet): 5 Height (Inches): 2.00 Weight (Pounds): 110 General Appearance: WD/WN, no acute distress HEENT: normocephalic, atraumatic, anicteric, mucous membranes moist Respiratory/Chest: chest wall non-tender, lungs clear, normal breath sounds, no respiratory distress, no accessory muscle use Cardiovascular: normal peripheral pulses, normal rate, regular rhythm, no gallop/murmur, no JVD Abdomen: normal bowel sounds, soft, non tender, no organomegaly, non distended , no mass, no scars Extremities: no cyanosis, no clubbing Skin: no rash, no lesions, no ulcers Neurologic/Psychiatric: alert, oriented x 3 Lymphatic: no neck adenopathy, no groin adenopathy Laboratory Tests Test 07/25/17 18:00 07/25/17 20:45 White Blood Count 7.6 K/UL (4.8-10.8) Red Blood Count 4.18 M/UL (4.20-5.40) L Hemoglobin 12.6 G/DL (12.0-16.0) Hematocrit 40.5 % (37.0-47.0) Mean Corpuscular Volume 97 FL (80-99) Mean Corpuscular Hemoglobin 30.1 PG (27.0-31.0) Mean Corpuscular Hemoglobin Concent 31.0 G/DL (32.0-36.0) L Red Cell Distribution Width 12.8 % (11.6-14.8) Platelet Count 350 K/UL (150-450) Mean Platelet Volume 5.8 FL (6.5-10.1) L Neutrophils (%) (Auto) 60.7 % (45.0-75.0) Lymphocytes (%) (Auto) 32.9 % (20.0-45.0) Monocytes (%) (Auto) 5.4 % (1.0-10.0) Eosinophils (%) (Auto) 0.0 % (0.0-3.0) Basophils (%) (Auto) 1.0 % (0.0-2.0) Sodium Level 142 MMOL/L (136-145) Potassium Level 4.5 MMOL/L (3.5-5.1) Chloride Level 105 MMOL/L (98-107) Carbon Dioxide Level 27 MMOL/L (21-32) Anion Gap 11 mmol/L (5-15) Blood Urea Nitrogen 14 mg/dL (7-18) Creatinine 0.5 MG/DL (0.55-1.30) L Estimat Glomerular Filtration Rate > 60 mL/min (>60) Glucose Level 199 MG/DL (74-106) H Calcium Level 9.6 MG/DL (8.5-10.1) Urine Color Pale yellow Urine Appearance Clear Urine pH 8 (4.5-8.0) Urine Specific [place] 1.010 (1.005-1.035) Urine Protein Negative (NEGATIVE) Urine Glucose (UA) Negative (NEGATIVE) Urine Ketones Negative (NEGATIVE) Urine Occult Blood Negative (NEGATIVE) Urine Nitrite Negative (NEGATIVE) Urine Bilirubin Negative (NEGATIVE) Urine Urobilinogen Normal MG/DL (0.0-1.0) Urine Leukocyte Esterase Negative (NEGATIVE) Urine RBC 0-2 /HPF (0 - 2) Urine WBC 0-2 /HPF (0 - 2) Urine Squamous Epithelial Cells Occasional /LPF Urine Bacteria Occasional /HPF (NONE) Current Medications Medications (Trade) Dose Ordered Sig/Cami Route PRN Reason Start Time Stop Time Status Last Admin Dose Admin Acetaminophen (Tylenol) 650 mg Q4H PRN ORAL fever 07/22/17 13:15 08/21/17 13:14 Al Hydroxide/Mg Hydroxide (Mylanta II) 30 ml Q6H PRN GT dyspepsia 07/24/17 16:45 08/21/17 13:14 Chlorhexidine Gluconate (Silvia-Hex 2%) 1 applic DAILY@1999 TOPIC 07/25/17 20:00 08/24/17 19:59 Clozapine (Clozaril) 50 mg BID ORAL 07/22/17 21:00 07/29/17 20:59 07/26/17 08:41 Dextrose (Dextrose 50%) STAT PRN IV Hypoglycemia 07/22/17 13:15 08/21/17 13:14 Diphenhydramine HCl (Benadryl) 25 mg Q6H PRN ORAL Itching/Pruritis 07/22/17 13:15 08/21/17 13:14 Heparin Sodium (Porcine) (Heparin 5000 units/ml) 5,000 units EVERY 12 HOURS SUBQ 07/22/17 21:00 08/21/17 20:59 07/25/17 20:35 Insulin Aspart (NovoLOG) BEFORE MEALS AND HS SUBQ 07/22/17 16:30 08/21/17 16:29 07/26/17 11:58 Ketorolac Tromethamine (Toradol 30mg) 30 mg Q6H PRN IV moderate pain 4-6 07/22/17 13:15 07/27/17 13:14 Lansoprazole (Prevacid) 30 mg BID GT 07/22/17 18:00 08/21/17 17:59 07/26/17 08:38 Morphine Sulfate (Morphine Sulfate) 2 mg Q4H PRN IVP severe Pain (Pain Scale 7-10) 07/22/17 13:15 07/29/17 13:14 Nitroglycerin (Ntg) 0.4 mg Q5M X 3 DOSES PRN SL Prn Chest Pain 07/22/17 13:15 08/21/17 13:14 Olanzapine (ZyPREXA) 5 mg BEDTIME GT 07/24/17 21:00 08/21/17 17:59 07/25/17 20:32 Ondansetron HCl (Zofran) 4 mg Q6H PRN IVP Nausea & Vomiting 07/22/17 13:15 08/21/17 13:14 Polyethylene Glycol (Miralax) 17 gm HSPRN PRN GT Constipation 07/24/17 16:45 08/21/17 13:14 Sodium 1,000 ml @ 50 mls/hr Q20H IV 07/23/17 10:00 08/22/17 09:59 07/26/17 08:45 Temazepam (Restoril) 15 mg HSPRN PRN GT Insomnia 07/24/17 16:45 07/29/17 13:14 Vancomycin HCl (Vanco rx to dose) 1 ea DAILYPRN PRN MISC Per rx protocol 07/25/17 14:30 08/24/17 14:29 Vancomycin HCl 1 gm/Sodium Chloride 250 ml @ 166.667 mls/hr Q24H IVPB 07/25/17 16:00 07/30/17 15:59 07/26/17 15:29 Safia De Leon M.D. Jul 26, 2017 16:04
[2017-07-26] MEDS ORDERED: VANCOMYCIN1 GM IV (16:42)
[2017-07-26] MEDS ORDERED: Morphine Sulfate 4mg/ml Inj IVP PRN (17:45)
--- NOTE | 2017-07-29 10:46 | Discharge Summary ---
Discharge Summary Hospital Course Date of Admission Jul 22, 2017 at 12:30 Date of Discharge Jul 26, 2017 at 21:33 Admitting Diagnosis ams/confusion/failure to thrive HPI Miri Cm is a 71 year old female who was admitted on Jul 22, 2017 at 12:30 for Altered Mental Status/Confusion,Failure To Thrive Hospital Course dc summary #[id number] Discharge Medications Continued Medications: Amlodipine Besylate* (Amlodipine Besylate*) 5 Mg Tablet 5 MG GT DAILY, TAB Aspirin* (Aspirin*) 81 Mg Tab.chew 81 MG GT DAILY, TAB Clozapine* (Clozaril*) 25 Mg Tablet 50 MG GT BID, TAB Insulin Aspart (Novolog Flexpen) 100 Unit/1 Ml Insuln.pen Nut.tx.gluc.intoler,Lac-Fr,Soy (Glucerna 1.5 Yo) 237 Ml Liquid 237 ML GT FIVE TIMES A DAY, ML Olanzapine (Zyprexa) 7.5 Mg Tablet 5 MG GT BEDTIME, #30 TAB 0 Refills Ondansetron (Zofran) 4 Mg Tablet 4 MG GT Q4HR PRN for Nausea & Vomiting, TAB Temazepam (Temazepam*) 15 Mg Capsule 15 MG ORAL BEDTIME PRN for Insomnia, #30 CAP 0 Refills Vancomycin Hcl (Vancomycin) 1 Gm Vial 1 GM IV Q24H for PHARMACY TO DOSE for 28 Days, VIAL Discharge Discharge Disposition Patient was discharged to SNF/Subacute Facility(03) Discharge Diagnoses: Kayode (Yang)Cesilia NP Jul 29, 2017 10:46
--- NOTE | 2017-07-29 23:15 | Discharge Summary 2 SIG ---
DATE OF ADMISSION: 07/22/2017 DATE OF DISCHARGE: 07/26/2017 REASON FOR ADMISSION: 71-year-old female with history of diabetes, COPD, hypertension, schizoaffective disorder, and failure to thrive, [facility] for poor oral intake, refusing G-tube feeding, increasing confusion, and weakness. In the emergency department, chest x-ray was negative. EKG showed normal sinus rhythm. WBC- 11.7. Hemoglobin and hematocrit were stable. Sodium - 146. Troponin negative. Urinalysis with pyuria, possible UTI. Vital signs were stable. No fever. The patient was admitted for dehydration and failure to thrive. HOSPITAL STAY: The patient was admitted. GI, Infectious Diseases, Pulmonology, Nephrology, and Psychiatry consults were requested. The patient was started on the IV fluids. The patient was started on empiric antibiotic as per Infectious Disease management. Blood culture /4 showed Staph coag-negative. Repeated 3/4 showed Staph coag-negative. Repeated blood culture again demonstrated Staph coagulase-negative /, per Infectious Disease conclusion- likely real. The patient will need vancomycin until 2016. PICC line was placed prior to discharge. Urine culture was negative. The patient status post empiric treatment for UTI. Last set of the blood culture from 07/26/2017 was negative. To reiterate, vancom[facility] 08/22/2017, total of four weeks. The patient was on gentle IV fluids. Renal parameters and electrolytes were closely monitored. Electrolytes were replaced as needed. Plaster Caster followed. Nephrotoxics were avoided. Supplemental oxygen provided as needed to keep saturation above 92%. Pulmonary toilet was ordered on as needed basis, no signs of COPD exacerbation. Chest x-ray revealed bibasilar atelectasis, but no other changes. Venous duplex of bilateral lower extremities was negative. Psychiatrists closely followed. Psychiatric medication regimen was optimized. As per psychiatrist, the patient lacks the capacity to make informed decision. 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 The patient was started on low dose of Zyprexa as per psychiatrist's recommendation. GI closely followed. Abdominal ultrasound was unremarkable. Bowel regimen was instituted. Strict aspiration precautions were maintained. The patient was on G-tube feeding. G-tube was changed. Tolerance of tube feeing was monitored. Swallow evaluation was done. Diet started as recommended by speech therapist for quality of life with strict aspiration/reflux precaution, after swallow evaluation was done. GI recommended symptomatic treatment, and push oral fluids. Blood sugar was managed with sliding scale of insulin. Patient was normotensive , no need for antihypertensive during the admission. DVT and GI prophylaxis provided. The patient was working with physical, occupational, and speech therapists. Wound care was provided as per wound care nurse recommendation. The patient had a left buttock stage II, present on admission. The patient was stable for discharge. FINAL DIAGNOSES: 1. Sepsis with bacteremia with Staphylococcus coagulase-negative. 2. Pyuria, possible urinary tract infection, status post treatment. 3. Dehydration. 4. Encephalopathy. 5. Dysphagia, gastrostomy tube. 6. Chronic obstructive pulmonary disease. 7. History of hypertension. 8. Diabetes 9. Schizoaffective disorder. 10. Electrolyte imbalance (hypokalemia, hypomagnesemia). 11. Left buttock stage II, present on admission. DISCHARGE MEDICATIONS: See medication reconciliation list. DISCHARGE INSTRUCTIONS: The [facility]; follow up with medical doctor at the facility. Sukh Chu D.O. Cesilia MaceNyu Langone Orthopedic HospitalAvinash NGhadaPGhada DR: Crispin JOB#: [id number] CC: TIM
== END 2017-07-26 21:33 | DRG 720 ==
LOC: EDBD 10:47 → EMR 11:18 → 4W 12:30 → EDBEDREQ 12:37 → 4W 07-24 10:20
PROC: 02HV33Z Insertion of Infusion Device into Superior Vena Cava, Percutaneous Approach (ICD-10-PCS; principal; 2017-07-26)
PROC: B548ZZA Ultrasonography of Superior Vena Cava, Guidance (ICD-10-PCS; 2017-07-26)
DX: A41.1 Sepsis due to other specified staphylococcus (principal); G93.40 Encephalopathy, unspecified; L89.322 Pressure ulcer of left buttock, stage 2; E46 Unspecified protein-calorie malnutrition; E87.0 Hyperosmolality and hypernatremia; N39.0 Urinary tract infection, site not specified; J44.9 Chronic obstructive pulmonary disease, unspecified; R13.10 Dysphagia, unspecified; R62.7 Adult failure to thrive; E86.0 Dehydration; I10 Essential (primary) hypertension; F20.0 Paranoid schizophrenia; E78.5 Hyperlipidemia, unspecified; K21.9 Gastro-esophageal reflux disease without esophagitis; E87.6 Hypokalemia; Z68.20 Body mass index [BMI] 20.0-20.9, adult; Z93.1 Gastrostomy status; Z79.82 Long term (current) use of aspirin; E83.42 Hypomagnesemia
CPT/HCPCS: 36415; 36569; 71010; 76700; 76937; 80048; 80053; 80202; 81001; 81003; 82150; 82550; 82553; 82962; 83036; 83605; 83690; 83735; 84443; 84484; 85025; 85610; 85730; 87040; 87081; 87181; 92610; 93005; 93970; 99285; J1815; J8499

== ENCOUNTER 2017-10-30 19:31 | Inpatient (IN) | payer MEDICAID, MEDICARE ==
[~2017-10-30] VITALS: Ht 165.1 cm; Wt 59.0 kg
[~2017-10-30 19:31] MED LIST: AMLODIPINE BESYL5 MG GT; ASPIRIN81 MG GT; BENZTROPINE MESY1 MG GT; CLOZARIL25 MG GT; CLOZARIL25 MG ORAL; GEODON20 MG GT; GLUCERNA 1.5 C237 ML GT; INVEGA SUS117 MG/0.7 IM; LIPITOR20 MG GT; LORAZEPAM1 MG GT; MAGNESIUM OXID500 M2 GT; METFORMIN HCL1000 M1 GT; MIRALAX17 G2 ORAL; MIRTAZAPINE7.5 MG GT; MULTIVITAMINS1 EA13 GT; NOVOLOG100 UNITS1; POLYETHYLENE GL17 GM GT; PRILOSEC10 M1 GT; TEMAZEPAM15 MG ORAL; TEMAZEPAM7.5 MG GT; VANCOMYCIN1 GM IV; ZOFRAN4 M1 GT; ZYPREXA5 MG GT; ZYPREXA7.5 MG GT
[2017-10-30 19:55] VITALS: BP 127/84
[2017-10-30] MEDS ORDERED: Neosporin Oint Ud Pkt TOP ONE (21:15)
[2017-10-30] MEDS ORDERED: Tetanus/Diptheria/Pertussis Vaccine 0.5ml Syr IM ONE (21:15)
--- NOTE | 2017-10-30 22:12 | Emergency Room Report ---
History of Present Illness General Chief Complaint: Multiple Trauma/Fall Source: Medical Record, EMS Present Illness HPI Patient is sent to the emergency department because of multiple falls. The patient has schizophrenia and is unable to answer questions. She sustained damage to her lower extremities. It's unknown whether she's had head trauma also. Apparently she has been pulling at her G tube also. Unknown if patient is ambulatory. H/O diabetes. No further history available. Allergies: Coded Allergies: No Known Allergies (Unverified , 01/13/15) Patient History Limited by: medical condition Past Medical History: see triage record Past Surgical History: other - g tube Social History Narrative SNF Last Menstrual Period: na Now: No Reviewed Nursing Documentation: PMH: Agreed, PSxH: Agreed Nursing Documentation-PMH Hx Hypertension: Yes Hx COPD: Yes Hx Diabetes: Yes - DM type 2 Review of Systems All Other Systems: limited Physical Exam Vital Signs Date Time Temp Pulse Resp B/P (MAP) Pulse Ox O2 Delivery O2 Flow Rate FiO2 10/30/17 19:22 97.9 91 18 127/84 95 Room Air Sp02 EP Interpretation: reviewed, normal General Appearance: no apparent distress, alert, other - ebulic Head: normocephalic Eyes: bilateral eye normal inspection, bilateral eye PERRL ENT: moist mucus membranes Neck: supple Respiratory: lungs clear, normal breath sounds Cardiovascular #1: regular rate, rhythm Cardiovascular #2: 2+ radial (R) Gastrointestinal: normal inspection, normal bowel sounds, non tender, no mass, non-distended, other - g tube Musculoskeletal: back normal, no calf tenderness, pelvis stable, other - extensor contractures of LE, decreased ROM, no deformity of injured areas (tibia ) Neurologic: alert, sensory intact, motor weakness - LE Psychiatric: depressed affect, other - occasionally will nod "yes" and "no" Skin: warm/dry, abrasions - anterior tibia below knees Medical Decision Making Diagnostic Impression: Primary Impression: Multiple falls Additional Impressions: Failure to thrive Qualified Codes: R62.7 - Adult failure to thrive Multiple leg contusions Qualified Codes: S80.10XA - Contusion of unspecified lower leg, initial encounter Fecal impaction UTI (urinary tract infection) Qualified Codes: N30.00 - Acute cystitis without hematuria Diabetes Qualified Codes: E11.8 - Type 2 diabetes mellitus with unspecified complications; Z79.4 - jail (current) use of insulin Schizophrenia Qualified Codes: F20.9 - Schizophrenia, unspecified ER Course Patient presents with h/o falls with abrasions below knees. Ddx: contusions, abrasions, fractures amongst others. Xrays indicated. Difficult assessment as patient not communicating. CT of head indicated as possible head trauma. In addition, labs and UA also indicated. Xrays without fx - fecal impaction. CBC and CMP normal except for elevated glucose, BUN and CO2. Pyuria. EKG no injury. CT head without injury, + involutional changes. (UA late return with Rocephin ordered on floor.) Patient needs admission to hospital as uncertain how she fell, uncontrolled diabetes and treatment of UTI. Admit med Dr. Lopez (Dr. Rico writing orders). Laboratory Tests Test 10/30/17 00:20 10/30/17 23:00 10/31/17 00:20 Urine Opiates Screen Pending Urine Barbiturates Screen Pending Phencyclidine (PCP) Screen Pending Urine Amphetamines Screen Pending Urine Benzodiazepines Screen Pending Urine Cocaine Screen Pending Urine Marijuana (THC) Screen Pending White Blood Count 6.8 K/UL (4.8-10.8) Red Blood Count 4.55 M/UL (4.20-5.40) Hemoglobin 13.4 G/DL (12.0-16.0) Hematocrit 41.7 % (37.0-47.0) Mean Corpuscular Volume 92 FL (80-99) Mean Corpuscular Hemoglobin 29.6 PG (27.0-31.0) Mean Corpuscular Hemoglobin Concent 32.2 G/DL (32.0-36.0) Red Cell Distribution Width 13.0 % (11.6-14.8) Platelet Count 394 K/UL (150-450) Mean Platelet Volume 6.9 FL (6.5-10.1) Neutrophils (%) (Auto) 54.1 % (45.0-75.0) Lymphocytes (%) (Auto) 37.6 % (20.0-45.0) Monocytes (%) (Auto) 7.2 % (1.0-10.0) Eosinophils (%) (Auto) 0.0 % (0.0-3.0) Basophils (%) (Auto) 1.0 % (0.0-2.0) Prothrombin Time 12.2 SEC (9.30-11.50) H Prothrombin Time INR 1.2 (0.9-1.1) H PTT 27 SEC (23-33) Sodium Level 143 MMOL/L (136-145) Potassium Level 4.1 MMOL/L (3.5-5.1) Chloride Level 104 MMOL/L (98-107) Carbon Dioxide Level 33 MMOL/L (21-32) H Anion Gap 6 mmol/L (5-15) Blood Urea Nitrogen 19 mg/dL (7-18) H Creatinine 0.6 MG/DL (0.55-1.30) Estimate Glomerular Filtration Rate mL/min (>60) Glucose Level 183 MG/DL (74-106) H Calcium Level 10.0 MG/DL (8.5-10.1) Total Bilirubin 0.6 MG/DL (0.2-1.0) Aspartate Amino Transferase (AST) 22 U/L (15-37) Alanine Aminotransferase (ALT) 24 U/L (12-78) Alkaline Phosphatase 80 U/L (46-116) Total Creatine Kinase 252 U/L (26-308) Troponin I 0.008 ng/mL (0.000-0.056) Pro-B-Type Natriuretic Peptide 115 pg/mL (0-125) Total Protein 7.0 G/DL (6.4-8.2) Albumin 3.2 G/DL (3.4-5.0) L Globulin 3.8 g/dL Albumin/Globulin Ratio 0.8 (1.0-2.7) L Salicylates Level 0.7 ug/mL (2.8-20) L Acetaminophen Level < 2 MCG/ML (10-30) L Serum Alcohol < 3 mg/dL Urine Color Pending Urine Appearance Pending Urine pH Pending Urine Specific [place] Pending Urine Protein Pending Urine Glucose (UA) Pending Urine Ketones Pending Urine Occult Blood Pending Urine Nitrite Pending Urine Bilirubin Pending Urine Urobilinogen Pending Urine Leukocyte Esterase Pending EKG Diagnostic Results Rate: normal Rhythm: NSR ST Segments: no acute changes Rhythm Strip Diag. Results EP Interpretation: yes Rhythm: NSR, no PVC's, no ectopy Chest X-Ray Diagnostic Results Chest X-Ray Diagnostic Results : Chest X-Ray Ordered: Yes # of Views/Limited/Complete: 1 View Indication: Other Interpretation: no consolidation, no effusion, no pneumothorax, other - poor insp Impression: Other Electronically Signed by: Electronically signed by Lenny Cheng MD Other X-Ray Diagnostic Results Other X-Ray Diagnostic Results #1: X-Ray ordered: pelvis # of Views/Limited Vs Complete: 1 View Indication: Other EP Interpretation: Yes Interpretation: no dislocation, no fractures, no sbo, other - fecal impaction Impression: Other Electronically Signed by: Electronically signed by Lenny Cheng MD Other X-Ray Diagnostic Results #2: X-Ray ordered: tib fib L # of Views/Limited Vs Complete: 4 View Indication: Other EP Interpretation: Yes Interpretation: no dislocation, no soft tissue swelling, no fractures Impression: No acute disease Electronically Signed by: Electronically signed by Lenny Cheng MD Other X-Ray Diagnostic Results #3: X-Ray ordered: tib fib R # of Views/Limited Vs Complete: 4 View Indication: Other EP Interpretation: Yes Interpretation: no dislocation, no soft tissue swelling, no fractures Impression: No acute disease Electronically Signed by: Electronically signed by Lenny Cheng MD Last Vital Signs Date Time Temp Pulse Resp B/P (MAP) Pulse Ox O2 Delivery O2 Flow Rate FiO2 10/30/17 19:55 97.9 18 127/84 95 Room Air 10/30/17 19:22 91 Status: improved Disposition: ADMITTED INPATIENT Condition: Serious Referrals: XAVI LOPEZ (PCP) Lenny Cheng M.D. Oct 30, 2017 22:12
[2017-10-30] MEDS ORDERED: Zolpidem 5mg tab ORAL PRN (22:30)
[2017-10-30] MEDS ORDERED: LORazepam Inj 2mg/ml 1ml IV PRN (22:30)
[2017-10-30] MEDS ORDERED: Mylanta II UD 30ml ORAL PRN (22:30)
[2017-10-30] MEDS ORDERED: Miralax 17gm pkt ORAL PRN (22:30)
[2017-10-30] MEDS ORDERED: Morphine Sulfate 2mg/ml Inj IVP PRN (22:30)
[2017-10-30 23:17] LABS: HEMATOCRIT 41.7 % (37.0-47.0); HEMOGLOBIN 13.4 G/DL (12.0-16.0); LYMPHOCYTES % (AUTO) 37.6 % (20.0-45.0); MEAN CORPUSCULAR VOLUME 92 FL (80-99); MONOCYTES % (AUTO) 7.2 % (1.0-10.0); NEUTROPHILS % (AUTO) 54.1 % (45.0-75.0); PLATELET COUNT 394 K/UL (150-450); RED BLOOD COUNT 4.55 M/UL (4.20-5.40); WHITE BLOOD COUNT 6.8 K/UL (4.8-10.8)
[2017-10-30 23:31] LABS: INR 1.2 (0.9-1.1)
[2017-10-30 23:33] LABS: ANION GAP 6 mmol/L (5-15); BLOOD UREA NITROGEN 19 mg/dL (7-18); CARBON DIOXIDE 33 MMOL/L (21-32); CHLORIDE 104 MMOL/L (98-107); CREATININE 0.6 MG/DL (0.55-1.30); POTASSIUM 4.1 MMOL/L (3.5-5.1); SODIUM 143 MMOL/L (136-145)
[2017-10-30 23:44] LABS: ALANINE AMINOTRANSFERASE 24 U/L (12-78); ALBUMIN 3.2 G/DL (3.4-5.0); ALBUMIN/GLOBULIN RATIO 0.8 (1.0-2.7); ALKALINE PHOSPHATASE 80 U/L (46-116); ASPARTATE AMINO TRANSFERASE 22 U/L (15-37); BILIRUBIN,TOTAL 0.6 MG/DL (0.2-1.0); CREATINE KINASE 252 U/L (26-308)
[2017-10-31 00:53] LABS: BILIRUBIN, URINE NEGATIVE (NEGATIVE); COLOR,URINE PALE YELLOW; GLUCOSE, URINE (UA) NEGATIVE (NEGATIVE); KETONES,URINE NEGATIVE (NEGATIVE); NITRITE,URINE NEGATIVE (NEGATIVE); PH,URINE 7 (4.5-8.0); PROTEIN,URINE NEGATIVE (NEGATIVE); UROBILINOGEN,URINE NORMAL MG/DL (0.0-1.0)
[2017-10-31 01:10] LABS: APPEARANCE,URINE SLIGHTLY CLOUDY
[2017-10-31 01:11] LABS: LEUKOCYTE ESTERASE ,URINE 3+ (NEGATIVE)
[2017-10-31 01:20] VITALS: BP 112/65
[2017-10-31 04:00] VITALS: BP 94/64
[2017-10-31] MEDS ORDERED: cefTRIAXone 1 GM in D5W 55 ML IVPB ONE (05:00)
[2017-10-31] MEDS: NovoLOG Insulin Flexpen SUBQ SCH ×4 (06:24→20:42)
[2017-10-31 08:00] VITALS: BP 121/75
[2017-10-31] MEDS: Aspirin Baby 81mg GT SCH (08:39)
[2017-10-31] MEDS: Heparin 5000 units/ml inj SUBQ SCH ×2 (08:41→20:41)
--- NOTE | 2017-10-31 08:55 | Diagnostic Imaging Report ---
Indication: Trauma Technique: Continuous helical CT scanning of the head was performed utilizing automated exposure control without intravenous contrast material. Axial and coronal reconstructions were obtained. Comparison: None CT dose: Total DLP 1368.69 mGycm; CTDI vol 70.38 mGy Findings: There is no acute intracranial hemorrhage, mass effect or cortical edema. There is a chronic lacunar infarct in the left basal ganglia. The ventricles, cisterns and sulci are prominent consistent with atrophy. Periventricular hypoattenuation is seen, a nonspecific finding. Mastoid air cells are clear. There is an air-fluid level in the left maxillary sinus. No focal lesions of the bony calvarium or soft tissues of the scalp are seen. IMPRESSION: No evidence of acute intracranial hemorrhage, mass effect or cortical edema. No skull fracture. Chronic lacunar infarct in the left basal ganglia. Atrophy and nonspecific periventricular hypoattenuation suggestive of chronic ischemic microvascular changes. Left maxillary sinus disease. This corresponds with the statrad preliminary report. The CT scanner at [facility] is accredited by the [employer] and the scans are performed using protocols designed to limit radiation exposure to as low as reasonably achievable to attain images of sufficient resolution adequate for diagnostic evaluation.
[2017-10-31] MEDS: OLANZapine 2.5mg tab GT SCH (08:57)
--- NOTE | 2017-10-31 08:57 | Diagnostic Imaging Report ---
Indication: , Technique: XRAY Leg Lower Tib Fib 2v L Comparison: None Findings: There is no acute fracture or dislocation. Partially imaged knee and ankle joints are grossly preserved. No focal soft tissue defect is appreciated. No radiopaque foreign body seen. Impression: No evidence of acute fracture or dislocation.
--- NOTE | 2017-10-31 08:59 | Diagnostic Imaging Report ---
Indication: Trauma Technique: XRAY Leg Lower Tib Fib 2v R Comparison: None. Correlation made to left leg radiographs. Findings: There is no acute fracture or dislocation. Partially imaged knee and ankle joints are grossly preserved. Some degenerative changes noted at the talonavicular joint. No focal soft tissue defect is appreciated. No radiopaque foreign body seen. Impression: No evidence of acute fracture or dislocation.
--- NOTE | 2017-10-31 09:02 | Diagnostic Imaging Report ---
Indication: Pain, trauma Technique: XRAY Pelvis 1v Comparison: None Findings: There is no acute fracture or dislocation. Symphysis pubis is maintained. Degenerative change of the lumbar spine partially visualized. Copious stool is noted expanding the rectum. These findings are concerning for fecal impaction. Impression: No evidence of acute fracture or dislocation. Findings suggesting fecal impaction. Correlate clinically. This corresponds with the preliminary interpretation of the treating ER clinician, as documented in the electronic medical record.
--- NOTE | 2017-10-31 09:04 | Diagnostic Imaging Report ---
Indication: Trauma Technique: XRAY Chest 1v Comparison: 07/22/2017 Findings: Heart size and mediastinal contours are stable. There is persistent elevation of the left hemidiaphragm and streaky left basilar atelectasis/scarring. Minimal atelectasis at the right base. There is unchanged blunting of the left costophrenic sulcus, likely chronic. No definite pneumothorax. No acute osseous abnormality is seen. Impression: Streaky bibasilar atelectasis. No acute osseous abnormality.
[2017-10-31 10:50] LABS: HEMATOCRIT 37.2 % (37.0-47.0); HEMOGLOBIN 12.3 G/DL (12.0-16.0); LYMPHOCYTES % (AUTO) 30.8 % (20.0-45.0); MEAN CORPUSCULAR VOLUME 92 FL (80-99); MONOCYTES % (AUTO) 8.5 % (1.0-10.0); NEUTROPHILS % (AUTO) 59.7 % (45.0-75.0); PLATELET COUNT 366 K/UL (150-450); RED BLOOD COUNT 4.04 M/UL (4.20-5.40); RED CELL DISTRIBUTION WIDTH 13.1 % (11.6-14.8); WHITE BLOOD COUNT 6.7 K/UL (4.8-10.8)
[2017-10-31 10:57] LABS: ALANINE AMINOTRANSFERASE 21 U/L (12-78); ALBUMIN 2.8 G/DL (3.4-5.0); ALBUMIN/GLOBULIN RATIO 0.7 (1.0-2.7); ALKALINE PHOSPHATASE 68 U/L (46-116); ANION GAP 4 mmol/L (5-15); ASPARTATE AMINO TRANSFERASE 25 U/L (15-37); BILIRUBIN,TOTAL 0.7 MG/DL (0.2-1.0); BLOOD UREA NITROGEN 17 mg/dL (7-18); CALCIUM 9.5 MG/DL (8.5-10.1); CARBON DIOXIDE 32 MMOL/L (21-32); CHLORIDE 105 MMOL/L (98-107); CHOLESTEROL 145 MG/DL (< 200); CREATININE 0.7 MG/DL (0.55-1.30); HDL CHOLESTEROL 63 MG/DL (40-60); POTASSIUM 3.7 MMOL/L (3.5-5.1); SODIUM 141 MMOL/L (136-145); TRIGLYCERIDES 148 MG/DL (30-150)
[2017-10-31 12:00] VITALS: BP 115/75
--- NOTE | 2017-10-31 13:44 | GI Initial Consult Note ---
Paez,Yvette Lavon N.P. 10/31/17 1344: History of Present Illness General Date patient seen: Oct 31, 2017 Time patient seen: 13:40 Reason for Hospitalization: Multiple Trauma/Fall Referring physician: XAVI LOPEZ Reason for Consultation: FTT Present Illness HPI Patient is sent to the emergency department because of multiple falls. The patient has schizophrenia and is unable to answer questions. She sustained damage to her lower extremities. It's unknown whether she's had head trauma also. Apparently she has been pulling at her G tube also. Unknown if patient is ambulatory. H/O diabetes. No further history available. GI consulted for FTT/Gtube mgmt. 71-year-old female coming from [facility] history of diabetes, COPD, hypertension, schizoaffective disorder, failure to thrive, with PEG tube, brought in for poor oral intake, refusing G-tube feeding , increasing confusion and weakness. Patient is closing eyes, however following commands, not speaking, not able to provide any history. When asked if she is in pain she shakes her head. Home Meds Reported Medications Vancomycin Hcl (Vancomycin) 1 Gm Vial, 1 GM IV Q24H for PHARMACY TO DOSE for 28 Days, VIAL 07/26/17 Temazepam (TEMAZEPAM*) 15 Mg Capsule, 15 MG ORAL BEDTIME Y for Insomnia, #30 CAP 0 Refills 07/25/17 Polyethylene Glycol 3350* (MIRALAX*) 17 Gm Powd.pack, 17 GM ORAL BEDTIME Y for Constipation, PACKET 07/25/17 Insulin Aspart (Novolog Flexpen) 100 Unit/1 Ml Insuln.pen 07/25/17 Ondansetron (Zofran) 4 Mg Tablet, 4 MG GT Q4HR Y for Nausea & Vomiting, TAB 07/25/17 Olanzapine (ZYPREXA) 7.5 Mg Tablet, 5 MG GT BEDTIME, #30 TAB 0 Refills 07/25/17 Temazepam (TEMAZEPAM*) 7.5 Mg Capsule, 7.5 MG GT BEDTIME, #30 CAP 0 Refills 07/22/17 Polyethylene Glycol 3350* (POLYETHYLENE GLYCOL 3350*) 17 Gm Powd.pack, 17 GM GT DAILY, PACKET 07/22/17 Omeprazole Magnesium (PRILOSEC) 10 Mg Suspdr.pkt, 20.6 MG GT DAILY, PACKET 07/22/17 Olanzapine* (ZYPREXA*) 5 Mg Tablet, 5 MG GT DAILY, TAB 07/22/17 Insulin Aspart (Novolog Flexpen) 100 Unit/1 Ml Insuln.pen 07/22/17 Multivitamin with Minerals (Multivitamins with Minerals) 1 Each Tablet, 1 TAB GT DAILY, TAB 07/22/17 Mirtazapine* (MIRTAZAPINE*) 7.5 Mg Tablet, 7.5 MG GT BEDTIME, TAB 07/22/17 Metformin Hcl* (METFORMIN HCL*) 1,000 Mg Tablet, 1000 MG GT BID, TAB 07/22/17 Magnesium Oxide (MAGNESIUM OXIDE) 500 Mg Capsule, 400 MG GT BID, CAP 07/22/17 Lorazepam* (LORAZEPAM*) 1 Mg Tablet, 1 MG GT Q6HR, TAB 07/22/17 Atorvastatin Calcium* (LIPITOR*) 20 Mg Tablet, 20 MG GT BEDTIME, TAB 07/22/17 Paliperidone Palmitate (Invega Sustenna) 117 Mg/0.75 Ml Syringe, 117 MG IM, EA 07/22/17 Nut.tx.gluc.intoler,Lac-Fr,Soy (Glucerna 1.5 Yo) 237 Ml Liquid, 237 ML GT FIVE TIMES A DAY, ML 07/22/17 Ziprasidone Hcl* (GEODON*) 20 Mg Capsule, 20 MG GT DAILY, #30 CAP 0 Refills 07/22/17 Benztropine Mesylate* (BENZTROPINE MESYLATE*) 1 Mg Tablet, 1 MG GT BID, TAB 07/22/17 Aspirin* (ASPIRIN*) 81 Mg Tab.chew, 81 MG GT DAILY, TAB 07/22/17 Amlodipine Besylate* (AMLODIPINE BESYLATE*) 5 Mg Tablet, 5 MG GT DAILY, TAB 07/22/17 Discontinued Reported Medications Clozapine* (CLOZARIL*) 25 Mg Tablet, 50 MG ORAL EVERY 12 HOURS, TAB 07/25/17 Clozapine* (CLOZARIL*) 25 Mg Tablet, 50 MG GT BID, TAB 07/22/17 Med list reviewed/reconciled: Yes Allergies: Coded Allergies: No Known Allergies (Unverified , 01/13/15) Patient History Limited by: medical condition History Provided By: Medical Record PMH Narrative Limited by: medical condition Past Medical History: see triage record Past Surgical History: other - g tube Social History Narrative SNF Last Menstrual Period: na Now: No Reviewed Nursing Documentation: PMH: Agreed, PSxH: Agreed Nursing Documentation-PMH Hx Hypertension: Yes Hx COPD: Yes Hx Diabetes: Yes - DM type 2 Review of Systems All Other Systems: limited Physical Exam Vital Signs Date Time Temp Pulse Resp B/P (MAP) Pulse Ox O2 Delivery O2 Flow Rate FiO2 10/30/17 19:22 97.9 91 18 127/84 95 Room Air Sp02 EP Interpretation: reviewed, normal Labs Laboratory Tests Test 10/30/17 23:00 10/31/17 00:20 10/31/17 09:15 White Blood Count 6.8 K/UL (4.8-10.8) 6.7 K/UL (4.8-10.8) Red Blood Count 4.55 M/UL (4.20-5.40) 4.04 M/UL (4.20-5.40) L Hemoglobin 13.4 G/DL (12.0-16.0) 12.3 G/DL (12.0-16.0) Hematocrit 41.7 % (37.0-47.0) 37.2 % (37.0-47.0) Mean Corpuscular Volume 92 FL (80-99) 92 FL (80-99) Mean Corpuscular Hemoglobin 29.6 PG (27.0-31.0) 30.4 PG (27.0-31.0) Mean Corpuscular Hemoglobin Concent 32.2 G/DL (32.0-36.0) 32.9 G/DL (32.0-36.0) Red Cell Distribution Width 13.0 % (11.6-14.8) 13.1 % (11.6-14.8) Platelet Count 394 K/UL (150-450) 366 K/UL (150-450) Mean Platelet Volume 6.9 FL (6.5-10.1) 6.8 FL (6.5-10.1) Neutrophils (%) (Auto) 54.1 % (45.0-75.0) 59.7 % (45.0-75.0) Lymphocytes (%) (Auto) 37.6 % (20.0-45.0) 30.8 % (20.0-45.0) Monocytes (%) (Auto) 7.2 % (1.0-10.0) 8.5 % (1.0-10.0) Eosinophils (%) (Auto) 0.0 % (0.0-3.0) 0.0 % (0.0-3.0) Basophils (%) (Auto) 1.0 % (0.0-2.0) 1.0 % (0.0-2.0) Prothrombin Time 12.2 SEC (9.30-11.50) H Prothromb Time International Ratio 1.2 (0.9-1.1) H Activated Partial Thromboplast Time 27 SEC (23-33) Sodium Level 143 MMOL/L (136-145) 141 MMOL/L (136-145) Potassium Level 4.1 MMOL/L (3.5-5.1) 3.7 MMOL/L (3.5-5.1) Chloride Level 104 MMOL/L (98-107) 105 MMOL/L (98-107) Carbon Dioxide Level 33 MMOL/L (21-32) H 32 MMOL/L (21-32) Anion Gap 6 mmol/L (5-15) 4 mmol/L (5-15) L Blood Urea Nitrogen 19 mg/dL (7-18) H 17 mg/dL (7-18) Creatinine 0.6 MG/DL (0.55-1.30) 0.7 MG/DL (0.55-1.30) Estimat Glomerular Filtration Rate mL/min (>60) mL/min (>60) Glucose Level 183 MG/DL (74-106) H 200 MG/DL (74-106) H Calcium Level 10.0 MG/DL (8.5-10.1) 9.5 MG/DL (8.5-10.1) Total Bilirubin 0.6 MG/DL (0.2-1.0) 0.7 MG/DL (0.2-1.0) Aspartate Amino Transf (AST/SGOT) 22 U/L (15-37) 25 U/L (15-37) Alanine Aminotransferase (ALT/SGPT) 24 U/L (12-78) 21 U/L (12-78) Alkaline Phosphatase 80 U/L (46-116) 68 U/L (46-116) Total Creatine Kinase 252 U/L (26-308) Troponin I 0.008 ng/mL (0.000-0.056) Pro-B-Type Natriuretic Peptide 115 pg/mL (0-125) Total Protein 7.0 G/DL (6.4-8.2) 6.6 G/DL (6.4-8.2) Albumin 3.2 G/DL (3.4-5.0) L 2.8 G/DL (3.4-5.0) L Globulin 3.8 g/dL 3.8 g/dL Albumin/Globulin Ratio 0.8 (1.0-2.7) L 0.7 (1.0-2.7) L Salicylates Level 0.7 ug/mL (2.8-20) L Acetaminophen Level < 2 MCG/ML (10-30) L Serum Alcohol < 3 mg/dL Urine Color Pale yellow Urine Appearance Slightly cloudy Urine pH 7 (4.5-8.0) Urine Specific [place] 1.005 (1.005-1.035) Urine Protein Negative (NEGATIVE) Urine Glucose (UA) Negative (NEGATIVE) Urine Ketones Negative (NEGATIVE) Urine Occult Blood Negative (NEGATIVE) Urine Nitrite Negative (NEGATIVE) Urine Bilirubin Negative (NEGATIVE) Urine Urobilinogen Normal MG/DL (0.0-1.0) Urine Leukocyte Esterase 3+ (NEGATIVE) H Urine RBC 2-4 /HPF (0 - 2) H Urine WBC Tntc /HPF (0 - 2) H Urine Squamous Epithelial Cells Moderate /LPF (NONE/OCC) H Urine Bacteria Moderate /HPF (NONE) H Triglycerides Level 148 MG/DL (30-150) Cholesterol Level 145 MG/DL (< 200) LDL Cholesterol 68 mg/dL (<100) HDL Cholesterol 63 MG/DL (40-60) H Cholesterol/HDL Ratio 2.3 (3.3-4.4) L General Appearance: well appearing, no apparent distress, thin Head: normocephalic EENT: PERRL/EOMI, normal ENT inspection Neck: supple Respiratory: normal breath sounds, no respiratory distress Cardiovascular: normal rate Gastrointestinal: normal inspection, non tender, soft, normal bowel sounds, non -distended Rectal: deferred Genitourinary: no CVA tenderness Musculoskeletal: normal inspection, back normal Neurologic: alert Skin: normal inspection, normal color, no rash, warm/dry, palpation normal, well hydrated Lymphatic: normal inspection, no adenopathy Current Medications Current Medications Medications (Trade) Dose Ordered Sig/Cami Route PRN Reason Start Time Stop Time Status Last Admin Dose Admin Acetaminophen (Tylenol) 650 mg Q4H PRN ORAL fever 10/30/17 22:30 11/29/17 22:29 Al Hydroxide/Mg Hydroxide (Mylanta II) 30 ml Q6H PRN ORAL dyspepsia 10/30/17 22:30 11/29/17 22:29 Amlodipine Besylate (Norvasc) 5 mg DAILY GT 10/31/17 09:00 11/30/17 08:59 10/31/17 08:51 Aspirin (ASA) 81 mg DAILY GT 10/31/17 09:00 11/30/17 08:59 10/31/17 08:39 Atorvastatin Calcium (Lipitor) 20 mg BEDTIME GT 10/31/17 21:00 11/30/17 20:59 Clozapine (Clozaril) 50 mg BID ORAL 10/31/17 09:00 11/07/17 08:59 UNV Dextrose (Dextrose 50%) STAT PRN IV Hypoglycemia 10/30/17 22:30 11/29/17 22:29 Heparin Sodium (Porcine) (Heparin 5000 units/ml) 5,000 units EVERY 12 HOURS SUBQ 10/31/17 09:00 11/30/17 08:59 10/31/17 08:41 Insulin Aspart (NovoLOG) BEFORE MEALS AND HS SUBQ 10/31/17 06:30 11/30/17 06:29 10/31/17 12:14 Lorazepam (Ativan 2mg/ml 1ml) 0.5 mg Q4H PRN IV For Anxiety 10/30/17 22:30 11/06/17 22:29 Mirtazapine (Remeron) 7.5 mg BEDTIME GT 10/31/17 21:00 11/30/17 20:59 Morphine Sulfate (Morphine Sulfate) 1 mg EVERY 4 HOURS PRN IVP For Pain 10/30/17 22:30 11/06/17 22:29 Olanzapine (ZyPREXA) 5 mg DAILY GT 10/31/17 09:00 11/30/17 08:59 10/31/17 08:57 Ondansetron HCl (Zofran) 4 mg Q6H PRN IVP Nausea & Vomiting 10/30/17 22:30 11/29/17 22:29 Polyethylene Glycol (Miralax) 17 gm HSPRN PRN ORAL Constipation 10/30/17 22:30 11/29/17 22:29 Zolpidem Tartrate (Ambien) 5 mg HSPRN PRN ORAL Insomnia 10/30/17 22:30 11/06/17 22:29 GI: Plan Problems: (1) Multiple falls (2) Fecal impaction (3) Failure to thrive (4) Diabetes Plan symptomatic treatment / supportive care will have fu ST evaluation >> last time patient passed on SOFT CHEWABLE DIET AND THIN LIQUIDS symptomatic treatment calorie count x 48 hours push PO, will consider Marinol GTFs per dietary abx fu labs Discussed with Dr. Willis. Thank you for this patient referral, we will follow. PETER WILLIS 10/31/17 1519: History of Present Illness General Reason for Hospitalization: Multiple Trauma/Fall Present Illness Home Meds Reported Medications Vancomycin Hcl (Vancomycin) 1 Gm Vial, 1 GM IV Q24H for PHARMACY TO DOSE for 28 Days, VIAL 07/26/17 Temazepam (TEMAZEPAM*) 15 Mg Capsule, 15 MG ORAL BEDTIME Y for Insomnia, #30 CAP 0 Refills 07/25/17 Polyethylene Glycol 3350* (MIRALAX*) 17 Gm Powd.pack, 17 GM ORAL BEDTIME Y for Constipation, PACKET 07/25/17 Insulin Aspart (Novolog Flexpen) 100 Unit/1 Ml Insuln.pen 07/25/17 Ondansetron (Zofran) 4 Mg Tablet, 4 MG GT Q4HR Y for Nausea & Vomiting, TAB 07/25/17 Olanzapine (ZYPREXA) 7.5 Mg Tablet, 5 MG GT BEDTIME, #30 TAB 0 Refills 07/25/17 Temazepam (TEMAZEPAM*) 7.5 Mg Capsule, 7.5 MG GT BEDTIME, #30 CAP 0 Refills 07/22/17 Polyethylene Glycol 3350* (POLYETHYLENE GLYCOL 3350*) 17 Gm Powd.pack, 17 GM GT DAILY, PACKET 07/22/17 Omeprazole Magnesium (PRILOSEC) 10 Mg Suspdr.pkt, 20.6 MG GT DAILY, PACKET 07/22/17 Olanzapine* (ZYPREXA*) 5 Mg Tablet, 5 MG GT DAILY, TAB 07/22/17 Insulin Aspart (Novolog Flexpen) 100 Unit/1 Ml Insuln.pen 07/22/17 Multivitamin with Minerals (Multivitamins with Minerals) 1 Each Tablet, 1 TAB GT DAILY, TAB 07/22/17 Mirtazapine* (MIRTAZAPINE*) 7.5 Mg Tablet, 7.5 MG GT BEDTIME, TAB 07/22/17 Metformin Hcl* (METFORMIN HCL*) 1,000 Mg Tablet, 1000 MG GT BID, TAB 07/22/17 Magnesium Oxide (MAGNESIUM OXIDE) 500 Mg Capsule, 400 MG GT BID, CAP 07/22/17 Lorazepam* (LORAZEPAM*) 1 Mg Tablet, 1 MG GT Q6HR, TAB 07/22/17 Atorvastatin Calcium* (LIPITOR*) 20 Mg Tablet, 20 MG GT BEDTIME, TAB 07/22/17 Paliperidone Palmitate (Invega Sustenna) 117 Mg/0.75 Ml Syringe, 117 MG IM, EA 07/22/17 Nut.tx.gluc.intoler,Lac-Fr,Soy (Glucerna 1.5 Yo) 237 Ml Liquid, 237 ML GT FIVE TIMES A DAY, ML 07/22/17 Ziprasidone Hcl* (GEODON*) 20 Mg Capsule, 20 MG GT DAILY, #30 CAP 0 Refills 07/22/17 Benztropine Mesylate* (BENZTROPINE MESYLATE*) 1 Mg Tablet, 1 MG GT BID, TAB 07/22/17 Aspirin* (ASPIRIN*) 81 Mg Tab.chew, 81 MG GT DAILY, TAB 07/22/17 Amlodipine Besylate* (AMLODIPINE BESYLATE*) 5 Mg Tablet, 5 MG GT DAILY, TAB 07/22/17 Discontinued Reported Medications Clozapine* (CLOZARIL*) 25 Mg Tablet, 50 MG ORAL EVERY 12 HOURS, TAB 07/25/17 Clozapine* (CLOZARIL*) 25 Mg Tablet, 50 MG GT BID, TAB 07/22/17 Allergies: Coded Allergies: No Known Allergies (Unverified , 01/13/15) GI: Plan Plan The patient was seen and examined at bedside and all new and available data was reviewed in the patients chart. I agree with the above findings, impression and plan. (Patient seen earlier today. Signature stamp does not reflect patient encounter time.). - MD Jeannine Varg[facility]seCo[facility] Lavon N.PGhada Oct 31, 2017 13:44 PETER WILLIS Oct 31, 2017 15:19
--- NOTE | 2017-10-31 14:51 | Neurology Progress Note ---
Objective Physical Exam Last Vital Signs Date Time Temp Pulse Resp B/P (MAP) Pulse Ox O2 Delivery O2 Flow Rate FiO2 10/31/17 12:00 98.3 69 20 115/75 98 Room Air Laboratory Tests Test 10/30/17 23:00 10/31/17 00:20 10/31/17 09:15 White Blood Count 6.8 K/UL (4.8-10.8) 6.7 K/UL (4.8-10.8) Red Blood Count 4.55 M/UL (4.20-5.40) 4.04 M/UL (4.20-5.40) L Hemoglobin 13.4 G/DL (12.0-16.0) 12.3 G/DL (12.0-16.0) Hematocrit 41.7 % (37.0-47.0) 37.2 % (37.0-47.0) Mean Corpuscular Volume 92 FL (80-99) 92 FL (80-99) Mean Corpuscular Hemoglobin 29.6 PG (27.0-31.0) 30.4 PG (27.0-31.0) Mean Corpuscular Hemoglobin Concent 32.2 G/DL (32.0-36.0) 32.9 G/DL (32.0-36.0) Red Cell Distribution Width 13.0 % (11.6-14.8) 13.1 % (11.6-14.8) Platelet Count 394 K/UL (150-450) 366 K/UL (150-450) Mean Platelet Volume 6.9 FL (6.5-10.1) 6.8 FL (6.5-10.1) Neutrophils (%) (Auto) 54.1 % (45.0-75.0) 59.7 % (45.0-75.0) Lymphocytes (%) (Auto) 37.6 % (20.0-45.0) 30.8 % (20.0-45.0) Monocytes (%) (Auto) 7.2 % (1.0-10.0) 8.5 % (1.0-10.0) Eosinophils (%) (Auto) 0.0 % (0.0-3.0) 0.0 % (0.0-3.0) Basophils (%) (Auto) 1.0 % (0.0-2.0) 1.0 % (0.0-2.0) Prothrombin Time 12.2 SEC (9.30-11.50) H Prothromb Time International Ratio 1.2 (0.9-1.1) H Activated Partial Thromboplast Time 27 SEC (23-33) Sodium Level 143 MMOL/L (136-145) 141 MMOL/L (136-145) Potassium Level 4.1 MMOL/L (3.5-5.1) 3.7 MMOL/L (3.5-5.1) Chloride Level 104 MMOL/L (98-107) 105 MMOL/L (98-107) Carbon Dioxide Level 33 MMOL/L (21-32) H 32 MMOL/L (21-32) Anion Gap 6 mmol/L (5-15) 4 mmol/L (5-15) L Blood Urea Nitrogen 19 mg/dL (7-18) H 17 mg/dL (7-18) Creatinine 0.6 MG/DL (0.55-1.30) 0.7 MG/DL (0.55-1.30) Estimat Glomerular Filtration Rate mL/min (>60) mL/min (>60) Glucose Level 183 MG/DL (74-106) H 200 MG/DL (74-106) H Calcium Level 10.0 MG/DL (8.5-10.1) 9.5 MG/DL (8.5-10.1) Total Bilirubin 0.6 MG/DL (0.2-1.0) 0.7 MG/DL (0.2-1.0) Aspartate Amino Transf (AST/SGOT) 22 U/L (15-37) 25 U/L (15-37) Alanine Aminotransferase (ALT/SGPT) 24 U/L (12-78) 21 U/L (12-78) Alkaline Phosphatase 80 U/L (46-116) 68 U/L (46-116) Total Creatine Kinase 252 U/L (26-308) Troponin I 0.008 ng/mL (0.000-0.056) Pro-B-Type Natriuretic Peptide 115 pg/mL (0-125) Total Protein 7.0 G/DL (6.4-8.2) 6.6 G/DL (6.4-8.2) Albumin 3.2 G/DL (3.4-5.0) L 2.8 G/DL (3.4-5.0) L Globulin 3.8 g/dL 3.8 g/dL Albumin/Globulin Ratio 0.8 (1.0-2.7) L 0.7 (1.0-2.7) L Salicylates Level 0.7 ug/mL (2.8-20) L Acetaminophen Level < 2 MCG/ML (10-30) L Serum Alcohol < 3 mg/dL Urine Color Pale yellow Urine Appearance Slightly cloudy Urine pH 7 (4.5-8.0) Urine Specific [place] 1.005 (1.005-1.035) Urine Protein Negative (NEGATIVE) Urine Glucose (UA) Negative (NEGATIVE) Urine Ketones Negative (NEGATIVE) Urine Occult Blood Negative (NEGATIVE) Urine Nitrite Negative (NEGATIVE) Urine Bilirubin Negative (NEGATIVE) Urine Urobilinogen Normal MG/DL (0.0-1.0) Urine Leukocyte Esterase 3+ (NEGATIVE) H Urine RBC 2-4 /HPF (0 - 2) H Urine WBC Tntc /HPF (0 - 2) H Urine Squamous Epithelial Cells Moderate /LPF (NONE/OCC) H Urine Bacteria Moderate /HPF (NONE) H Triglycerides Level 148 MG/DL (30-150) Cholesterol Level 145 MG/DL (< 200) LDL Cholesterol 68 mg/dL (<100) HDL Cholesterol 63 MG/DL (40-60) H Cholesterol/HDL Ratio 2.3 (3.3-4.4) L Impression/Recommendations Recommendations #[id number] IRINEO IBRAHIM Oct 31, 2017 14:51
[2017-10-31 16:00] VITALS: BP 123/65
--- NOTE | 2017-10-31 18:36 | Consultation ---
History of Present Illness General Date patient seen: Oct 31, 2017 Chief Complaint: Multiple Trauma/Fall Referring physician: XAVI LOPEZ Reason for Consultation: FTT Present Illness HPI 72 year old female with hx of psychosis, HTN, DM, extrapyramidal symptoms presented to ER with CC of multiple falls. The patient has schizophrenia and is unable to answer questions. She sustained damage to her lower extremities. Apparently she has been pulling at her G tube also. She is not answering any questions. Has visible bruises on her both knees. Allergies: Coded Allergies: No Known Allergies (Unverified , 01/13/15) Medication History Scheduled Amlodipine Besylate* (Amlodipine Besylate*), 5 MG GT DAILY, (Reported) Aspirin* (Aspirin*), 81 MG GT DAILY, (Reported) Atorvastatin Calcium* (Lipitor*), 20 MG GT BEDTIME, (Reported) Benztropine Mesylate* (Benztropine Mesylate*), 1 MG GT BID, (Reported) Lorazepam* (Lorazepam*), 1 MG GT Q6HR, (Reported) Magnesium Oxide (Magnesium Oxide), 400 MG GT BID, (Reported) Metformin Hcl* (Metformin Hcl*), 1,000 MG GT BID, (Reported) Mirtazapine* (Mirtazapine*), 7.5 MG GT BEDTIME, (Reported) Multivitamin with Minerals (Multivitamins with Minerals), 1 TAB GT DAILY, ( Reported) Nut.tx.gluc.intoler,Lac-Fr,Soy (Glucerna 1.5 Yo), 237 ML GT FIVE TIMES A DAY, ( Reported) Olanzapine (Zyprexa), 5 MG GT BEDTIME, (Reported) Olanzapine* (Zyprexa*), 5 MG GT DAILY, (Reported) Omeprazole Magnesium (Prilosec), 20.6 MG GT DAILY, (Reported) Polyethylene Glycol 3350* (Polyethylene Glycol 3350*), 17 GM GT DAILY, (Reported ) Temazepam (Temazepam*), 7.5 MG GT BEDTIME, (Reported) Vancomycin Hcl (Vancomycin), 1 GM IV Q24H, (Reported) Ziprasidone Hcl* (Geodon*), 20 MG GT DAILY, (Reported) Scheduled PRN Ondansetron (Zofran), 4 MG GT Q4HR PRN for Nausea & Vomiting, (Reported) Polyethylene Glycol 3350* (Miralax*), 17 GM ORAL BEDTIME PRN for Constipation, ( Reported) Temazepam (Temazepam*), 15 MG ORAL BEDTIME PRN for Insomnia, (Reported) Miscellaneous Medications Insulin Aspart (Novolog Flexpen), (Reported) Insulin Aspart (Novolog Flexpen), (Reported) Paliperidone Palmitate (Invega Sustenna), 117 MG IM, (Reported) Discontinued Medications Clozapine* (Clozaril*), 50 MG GT BID, (Reported) Discontinued Reason: Pt stopped taking med Clozapine* (Clozaril*), 50 MG ORAL EVERY 12 HOURS, (Reported) Discontinued Reason: Pt stopped taking med Patient History Healthcare decision maker sister in law Resuscitation status Full Code Advanced Directive on File No Past Medical/Surgical History Past Medical/Surgical History: (1) Gastrostomy tube in place (2) Diabetes (3) Schizophrenia Review of Systems All Other Systems: negative except mentioned in HPI Physical Exam General Appearance: cachetic Lines, tubes and drains: peripheral HEENT: normocephalic, atraumatic Neck: non-tender, normal alignment Respiratory/Chest: chest wall non-tender, lungs clear Breasts: no masses Cardiovascular/Chest: normal peripheral pulses Abdomen: normal bowel sounds, hyperactive bowel sounds Last 24 Hour Vital Signs Date Time Temp Pulse Resp B/P (MAP) Pulse Ox O2 Delivery O2 Flow Rate FiO2 10/31/17 16:00 98.2 75 20 123/65 96 10/31/17 16:00 Room Air 10/31/17 12:00 98.3 69 20 115/75 98 Room Air 10/31/17 08:51 69 121/75 10/31/17 08:00 97.7 69 20 121/75 99 10/31/17 08:00 Room Air 10/31/17 04:00 98.1 70 18 94/64 93 10/31/17 01:20 98.3 73 20 112/65 96 Room Air 10/31/17 00:00 137/69 10/30/17 19:55 97.9 18 127/84 95 Room Air 10/30/17 19:22 97.9 91 18 127/84 95 Room Air Intake and Output 10/30/17 10/31/17 19:00 07:00 Intake Total 230 ml Balance 230 ml Intake Free Water 100 ml Tube Feeding 130 ml # Voids 1 # Bowel Movements 1 Laboratory Tests Test 10/30/17 23:00 10/31/17 00:20 10/31/17 09:15 White Blood Count 6.8 K/UL (4.8-10.8) 6.7 K/UL (4.8-10.8) Red Blood Count 4.55 M/UL (4.20-5.40) 4.04 M/UL (4.20-5.40) L Hemoglobin 13.4 G/DL (12.0-16.0) 12.3 G/DL (12.0-16.0) Hematocrit 41.7 % (37.0-47.0) 37.2 % (37.0-47.0) Mean Corpuscular Volume 92 FL (80-99) 92 FL (80-99) Mean Corpuscular Hemoglobin 29.6 PG (27.0-31.0) 30.4 PG (27.0-31.0) Mean Corpuscular Hemoglobin Concent 32.2 G/DL (32.0-36.0) 32.9 G/DL (32.0-36.0) Red Cell Distribution Width 13.0 % (11.6-14.8) 13.1 % (11.6-14.8) Platelet Count 394 K/UL (150-450) 366 K/UL (150-450) Mean Platelet Volume 6.9 FL (6.5-10.1) 6.8 FL (6.5-10.1) Neutrophils (%) (Auto) 54.1 % (45.0-75.0) 59.7 % (45.0-75.0) Lymphocytes (%) (Auto) 37.6 % (20.0-45.0) 30.8 % (20.0-45.0) Monocytes (%) (Auto) 7.2 % (1.0-10.0) 8.5 % (1.0-10.0) Eosinophils (%) (Auto) 0.0 % (0.0-3.0) 0.0 % (0.0-3.0) Basophils (%) (Auto) 1.0 % (0.0-2.0) 1.0 % (0.0-2.0) Prothrombin Time 12.2 SEC (9.30-11.50) H Prothromb Time International Ratio 1.2 (0.9-1.1) H Activated Partial Thromboplast Time 27 SEC (23-33) Sodium Level 143 MMOL/L (136-145) 141 MMOL/L (136-145) Potassium Level 4.1 MMOL/L (3.5-5.1) 3.7 MMOL/L (3.5-5.1) Chloride Level 104 MMOL/L (98-107) 105 MMOL/L (98-107) Carbon Dioxide Level 33 MMOL/L (21-32) H 32 MMOL/L (21-32) Anion Gap 6 mmol/L (5-15) 4 mmol/L (5-15) L Blood Urea Nitrogen 19 mg/dL (7-18) H 17 mg/dL (7-18) Creatinine 0.6 MG/DL (0.55-1.30) 0.7 MG/DL (0.55-1.30) Estimat Glomerular Filtration Rate mL/min (>60) mL/min (>60) Glucose Level 183 MG/DL (74-106) H 200 MG/DL (74-106) H Calcium Level 10.0 MG/DL (8.5-10.1) 9.5 MG/DL (8.5-10.1) Total Bilirubin 0.6 MG/DL (0.2-1.0) 0.7 MG/DL (0.2-1.0) Aspartate Amino Transf (AST/SGOT) 22 U/L (15-37) 25 U/L (15-37) Alanine Aminotransferase (ALT/SGPT) 24 U/L (12-78) 21 U/L (12-78) Alkaline Phosphatase 80 U/L (46-116) 68 U/L (46-116) Total Creatine Kinase 252 U/L (26-308) Troponin I 0.008 ng/mL (0.000-0.056) Pro-B-Type Natriuretic Peptide 115 pg/mL (0-125) Total Protein 7.0 G/DL (6.4-8.2) 6.6 G/DL (6.4-8.2) Albumin 3.2 G/DL (3.4-5.0) L 2.8 G/DL (3.4-5.0) L Globulin 3.8 g/dL 3.8 g/dL Albumin/Globulin Ratio 0.8 (1.0-2.7) L 0.7 (1.0-2.7) L Salicylates Level 0.7 ug/mL (2.8-20) L Acetaminophen Level < 2 MCG/ML (10-30) L Serum Alcohol < 3 mg/dL Urine Color Pale yellow Urine Appearance Slightly cloudy Urine pH 7 (4.5-8.0) Urine Specific [place] 1.005 (1.005-1.035) Urine Protein Negative (NEGATIVE) Urine Glucose (UA) Negative (NEGATIVE) Urine Ketones Negative (NEGATIVE) Urine Occult Blood Negative (NEGATIVE) Urine Nitrite Negative (NEGATIVE) Urine Bilirubin Negative (NEGATIVE) Urine Urobilinogen Normal MG/DL (0.0-1.0) Urine Leukocyte Esterase 3+ (NEGATIVE) H Urine RBC 2-4 /HPF (0 - 2) H Urine WBC Tntc /HPF (0 - 2) H Urine Squamous Epithelial Cells Moderate /LPF (NONE/OCC) H Urine Bacteria Moderate /HPF (NONE) H Triglycerides Level 148 MG/DL (30-150) Cholesterol Level 145 MG/DL (< 200) LDL Cholesterol 68 mg/dL (<100) HDL Cholesterol 63 MG/DL (40-60) H Cholesterol/HDL Ratio 2.3 (3.3-4.4) L Height (Feet): 5 Height (Inches): 5.00 Weight (Pounds): 130 Medications Current Medications Medications (Trade) Dose Ordered Sig/Cami Route PRN Reason Start Time Stop Time Status Last Admin Dose Admin Acetaminophen (Tylenol) 650 mg Q4H PRN ORAL fever 10/30/17 22:30 11/29/17 22:29 Al Hydroxide/Mg Hydroxide (Mylanta II) 30 ml Q6H PRN ORAL dyspepsia 10/30/17 22:30 11/29/17 22:29 Amlodipine Besylate (Norvasc) 5 mg DAILY GT 10/31/17 09:00 11/30/17 08:59 10/31/17 08:51 Aspirin (ASA) 81 mg DAILY GT 10/31/17 09:00 11/30/17 08:59 10/31/17 08:39 Atorvastatin Calcium (Lipitor) 20 mg BEDTIME GT 10/31/17 21:00 11/30/17 20:59 Clozapine (Clozaril) 50 mg BID ORAL 10/31/17 09:00 11/07/17 08:59 UNV Dextrose (Dextrose 50%) STAT PRN IV Hypoglycemia 10/30/17 22:30 11/29/17 22:29 Heparin Sodium (Porcine) (Heparin 5000 units/ml) 5,000 units EVERY 12 HOURS SUBQ 10/31/17 09:00 11/30/17 08:59 10/31/17 08:41 Insulin Aspart (NovoLOG) BEFORE MEALS AND HS SUBQ 10/31/17 06:30 11/30/17 06:29 10/31/17 18:15 Lorazepam (Ativan 2mg/ml 1ml) 0.5 mg Q4H PRN IV For Anxiety 10/30/17 22:30 11/06/17 22:29 Mirtazapine (Remeron) 7.5 mg BEDTIME GT 10/31/17 21:00 11/30/17 20:59 Morphine Sulfate (Morphine Sulfate) 1 mg EVERY 4 HOURS PRN IVP For Pain 10/30/17 22:30 11/06/17 22:29 Olanzapine (ZyPREXA) 5 mg DAILY GT 10/31/17 09:00 11/30/17 08:59 10/31/17 08:57 Ondansetron HCl (Zofran) 4 mg Q6H PRN IVP Nausea & Vomiting 10/30/17 22:30 11/29/17 22:29 Polyethylene Glycol (Miralax) 17 gm HSPRN PRN ORAL Constipation 10/30/17 22:30 11/29/17 22:29 Zolpidem Tartrate (Ambien) 5 mg HSPRN PRN ORAL Insomnia 10/30/17 22:30 11/06/17 22:29 Assessment/Plan Problem List: (1) Multiple falls ICD Codes: R29.6 - Repeated falls SNOMED: 595663862 (2) Gastrostomy tube in place ICD Codes: Z93.1 - Gastrostomy status SNOMED: 642922349, 290431843 (3) Schizophrenia ICD Codes: F20.9 - Schizophrenia, unspecified SNOMED: 34042547 Qualifiers: Qualified Codes: F20.9 - Schizophrenia, unspecified (4) Diabetes ICD Codes: E11.9 - Type 2 diabetes mellitus without complications SNOMED: 90177269 Qualifiers: Qualified Codes: E11.8 - Type 2 diabetes mellitus with unspecified complications; Z79.4 - jail (current) use of insulin Assessment/Plan neuro evaluation wound care siding scale gtube feeding dvt prophylaxis symptomatic treatment. BURAK RUANO Oct 31, 2017 18:36
[2017-10-31 20:00] VITALS: BP 109/57
[2017-11-01] VITALS: BP 113/62
[2017-11-01 04:00] VITALS: BP 116/60
[2017-11-01] MEDS: NovoLOG Insulin Flexpen SUBQ SCH ×3 (06:02→17:49)
--- NOTE | 2017-11-01 07:43 | Pulmonology Progress Note ---
Assessment/Plan Assessment/Plan ASSESSMENT Fecal impaction multiple falls multiple leg contusions Strep UTI schizophrenia COPD chronic lacunar infarct L ganglia DM HTN PLAN OF CARE MS floor abx, urine cx + Strep ( colony count only 20-30), fup with ID recs for further management ; if need abx CT head no acute intracranial pathology neuro follows X ray B T/F and pelvis/hip no acute fracture or dislocation X ray pelvis+ fecal impaction intensive bowel regimen GI follows symptomatic treatment / supportive care ST evaluation - last time patient passed on soft chewable diet with thin liqudis calorie count x 48 hours push PO strict aspiration precautions, GT feeding Fall precautions PT eval and Rx BP management with CCB BS management with SS of insulin psych eval as per PMD discretion O2 HHN prn case discussed and evaluated by supervising physician Subjective Allergies: Coded Allergies: No Known Allergies (Unverified , 01/13/15) All Systems: reviewed and negative except above - afebrile, Subjective afebrile no leucocytosis no signs of resp distress weak Objective Last 24 Hour Vital Signs Date Time Temp Pulse Resp B/P (MAP) Pulse Ox O2 Delivery O2 Flow Rate FiO2 11/01/17 04:00 97.1 79 20 116/60 96 Room Air 11/01/17 00:00 97.5 69 20 113/62 98 10/31/17 20:00 97.9 77 20 109/57 96 10/31/17 16:00 98.2 75 20 123/65 96 10/31/17 16:00 Room Air 10/31/17 12:00 98.3 69 20 115/75 98 Room Air 10/31/17 08:51 69 121/75 10/31/17 08:00 97.7 69 20 121/75 99 10/31/17 08:00 Room Air Intake and Output 10/31/17 11/01/17 19:00 07:00 Intake Total 980 ml 1300 ml Balance 980 ml 1300 ml Intake Free Water 200 ml 520 ml Tube Feeding 780 ml 780 ml # Voids 3 # Bowel Movements 1 General Appearance: WD/WN, other - bedridden, chronically ill looking female HEENT: normocephalic, atraumatic Respiratory/Chest: lungs clear Cardiovascular: normal rate Abdomen: soft, non tender, other - G tube Extremities: no edema Neurologic/Psychiatric: abnormal gait, alert, responsive Laboratory Tests 10/31/17 09:15: White Blood Count 6.7, Red Blood Count 4.04L, Hemoglobin 12.3, Hematocrit 37.2, Mean Corpuscular Volume 92, Mean Corpuscular Hemoglobin 30.4, Mean Corpuscular Hemoglobin Concent 32.9, Red Cell Distribution Width 13.1, Platelet Count 366, Mean Platelet Volume 6.8, Neutrophils (%) (Auto) 59.7, Lymphocytes (%) (Auto) 30.8, Monocytes (%) (Auto) 8.5, Eosinophils (%) (Auto) 0.0, Basophils (%) (Auto ) 1.0, Sodium Level 141, Potassium Level 3.7, Chloride Level 105, Carbon Dioxide Level 32, Anion Gap 4L, Blood Urea Nitrogen 17, Creatinine 0.7, Estimat Glomerular Filtration Rate , Glucose Level 200H, Calcium Level 9.5, Total Bilirubin 0.7, Aspartate Amino Transf (AST/SGOT) 25, Alanine Aminotransferase ( ALT/SGPT) 21, Alkaline Phosphatase 68, Total Protein 6.6, Albumin 2.8L, Globulin 3.8, Albumin/Globulin Ratio 0.7L, Triglycerides Level 148, Cholesterol Level 145, LDL Cholesterol 68, HDL Cholesterol 63H, Cholesterol/HDL Ratio 2.3L Current Medications Medications (Trade) Dose Ordered Sig/Cami Route PRN Reason Start Time Stop Time Status Last Admin Dose Admin Acetaminophen (Tylenol) 650 mg Q4H PRN ORAL fever 10/30/17 22:30 11/29/17 22:29 Al Hydroxide/Mg Hydroxide (Mylanta II) 30 ml Q6H PRN ORAL dyspepsia 10/30/17 22:30 11/29/17 22:29 Amlodipine Besylate (Norvasc) 5 mg DAILY GT 10/31/17 09:00 11/30/17 08:59 10/31/17 08:51 Aspirin (ASA) 81 mg DAILY GT 10/31/17 09:00 11/30/17 08:59 10/31/17 08:39 Atorvastatin Calcium (Lipitor) 20 mg BEDTIME GT 10/31/17 21:00 11/30/17 20:59 10/31/17 20:39 Clozapine (Clozaril) 50 mg BID ORAL 10/31/17 09:00 11/07/17 08:59 UNV Dextrose (Dextrose 50%) STAT PRN IV Hypoglycemia 10/30/17 22:30 11/29/17 22:29 Heparin Sodium (Porcine) (Heparin 5000 units/ml) 5,000 units EVERY 12 HOURS SUBQ 10/31/17 09:00 11/30/17 08:59 10/31/17 20:41 Insulin Aspart (NovoLOG) BEFORE MEALS AND HS SUBQ 10/31/17 06:30 11/30/17 06:29 11/01/17 06:02 Lorazepam (Ativan 2mg/ml 1ml) 0.5 mg Q4H PRN IV For Anxiety 10/30/17 22:30 11/06/17 22:29 Mirtazapine (Remeron) 7.5 mg BEDTIME GT 10/31/17 21:00 11/30/17 20:59 10/31/17 20:39 Morphine Sulfate (Morphine Sulfate) 1 mg EVERY 4 HOURS PRN IVP For Pain 10/30/17 22:30 11/06/17 22:29 Olanzapine (ZyPREXA) 5 mg DAILY GT 10/31/17 09:00 11/30/17 08:59 10/31/17 08:57 Ondansetron HCl (Zofran) 4 mg Q6H PRN IVP Nausea & Vomiting 10/30/17 22:30 11/29/17 22:29 Polyethylene Glycol (Miralax) 17 gm HSPRN PRN ORAL Constipation 10/30/17 22:30 11/29/17 22:29 Zolpidem Tartrate (Ambien) 5 mg HSPRN PRN ORAL Insomnia 10/30/17 22:30 11/06/17 22:29 Cesilia Headley NP ([facility]) Nov 01, 2017 07:43
[2017-11-01 08:00] VITALS: BP 108/63
[2017-11-01 09:38] VITALS: BP 104/60
[2017-11-01] MEDS: Aspirin Baby 81mg GT SCH (09:43)
[2017-11-01] MEDS: OLANZapine 2.5mg tab GT SCH (09:43)
[2017-11-01] MEDS: cefTRIAXone 1 GM in NS 55 ML IVPB SCH (09:44)
[2017-11-01] MEDS: Heparin 5000 units/ml inj SUBQ SCH ×2 (09:48→22:20)
[2017-11-01 10:47] LABS: BASOPHILS % (AUTO) 0.6 % (0.0-2.0); EOSINOPHILS % (AUTO) 0.1 % (0.0-3.0); HEMATOCRIT 38.8 % (37.0-47.0); HEMOGLOBIN 12.8 G/DL (12.0-16.0); LYMPHOCYTES % (AUTO) 22.4 % (20.0-45.0); MEAN CORPUSCULAR VOLUME 92 FL (80-99); MONOCYTES % (AUTO) 3.7 % (1.0-10.0); NEUTROPHILS % (AUTO) 73.2 % (45.0-75.0); PLATELET COUNT 351 K/UL (150-450); RED BLOOD COUNT 4.22 M/UL (4.20-5.40); WHITE BLOOD COUNT 9.9 K/UL (4.8-10.8)
[2017-11-01 11:14] LABS: ANION GAP 9 mmol/L (5-15); BLOOD UREA NITROGEN 18 mg/dL (7-18); CALCIUM 9.5 MG/DL (8.5-10.1); CARBON DIOXIDE 29 MMOL/L (21-32); CHLORIDE 106 MMOL/L (98-107); CREATININE 0.8 MG/DL (0.55-1.30); POTASSIUM 4.2 MMOL/L (3.5-5.1); SODIUM 144 MMOL/L (136-145)
--- NOTE | 2017-11-01 11:30 | General Progress Note ---
Assessment/Plan Problem List: (1) Malnutrition ICD Codes: E46 - Unspecified protein-calorie malnutrition SNOMED: 01067959 (2) HTN (hypertension) ICD Codes: I10 - Essential (primary) hypertension SNOMED: 28736004 (3) Sepsis ICD Codes: A41.9 - Sepsis, unspecified organism SNOMED: 86303509 (4) UTI (urinary tract infection) ICD Codes: N39.0 - Urinary tract infection, site not specified SNOMED: 09353085 Qualifiers: Qualified Codes: N30.00 - Acute cystitis without hematuria (5) Schizophrenia ICD Codes: F20.9 - Schizophrenia, unspecified SNOMED: 29353653 Qualifiers: Qualified Codes: F20.9 - Schizophrenia, unspecified (6) Diabetes ICD Codes: E11.9 - Type 2 diabetes mellitus without complications SNOMED: 22313320 Qualifiers: Qualified Codes: E11.8 - Type 2 diabetes mellitus with unspecified complications; Z79.4 - skilled nursing (current) use of insulin (7) Multiple falls ICD Codes: R29.6 - Repeated falls SNOMED: 596533846 Status: unchanged Assessment/Plan ot pt diet abx bp bs control cbc bmp am Subjective Constitutional: Reports: weakness Allergies: Coded Allergies: No Known Allergies (Unverified , 01/13/15) All Systems: reviewed and negative except above Subjective sleepy calm Objective Last 24 Hour Vital Signs Date Time Temp Pulse Resp B/P (MAP) Pulse Ox O2 Delivery O2 Flow Rate FiO2 11/01/17 09:38 104/60 11/01/17 09:00 71 104/60 11/01/17 08:00 Room Air 11/01/17 08:00 97.7 75 20 108/63 96 11/01/17 04:00 97.1 79 20 116/60 96 Room Air 11/01/17 00:00 97.5 69 20 113/62 98 10/31/17 20:00 97.9 77 20 109/57 96 10/31/17 16:00 98.2 75 20 123/65 96 10/31/17 16:00 Room Air 10/31/17 12:00 98.3 69 20 115/75 98 Room Air Intake and Output 10/31/17 11/01/17 19:00 07:00 Intake Total 980 ml 1300 ml Balance 980 ml 1300 ml Intake Free Water 200 ml 520 ml Tube Feeding 780 ml 780 ml # Voids 3 # Bowel Movements 1 Laboratory Tests 11/01/17 10:10: White Blood Count 9.9, Red Blood Count 4.22, Hemoglobin 12.8, Hematocrit 38.8, Mean Corpuscular Volume 92, Mean Corpuscular Hemoglobin 30.3, Mean Corpuscular Hemoglobin Concent 33.0, Red Cell Distribution Width 13.0, Platelet Count 351, Mean Platelet Volume 6.5, Neutrophils (%) (Auto) 73.2, Lymphocytes (%) (Auto) 22.4, Monocytes (%) (Auto) 3.7, Eosinophils (%) (Auto) 0.1, Basophils (%) (Auto ) 0.6, Sodium Level 144, Potassium Level 4.2, Chloride Level 106, Carbon Dioxide Level 29, Anion Gap 9, Blood Urea Nitrogen 18, Creatinine 0.8, Estimat Glomerular Filtration Rate , Glucose Level 212H, Calcium Level 9.5 Height (Feet): 5 Height (Inches): 5.00 Weight (Pounds): 130 General Appearance: lethargic, confused EENT: normal ENT inspection Neck: normal alignment Cardiovascular: normal peripheral pulses, normal rate, regular rhythm Respiratory/Chest: chest wall non-tender, lungs clear, normal breath sounds Abdomen: normal bowel sounds, non tender, soft Extremities: normal inspection Edema: no edema noted Arm (L), no edema noted Arm (R), no edema noted Leg (L), no edema noted Leg (R), no edema noted Pedal (L), no edema noted Pedal (R), no edema noted Generalized Neurologic: motor weakness Skin: normal pigmentation, warm/dry XAVI LOPEZ Nov 01, 2017 11:29
--- NOTE | 2017-11-01 11:32 | GI Progress Note ---
Assessment/Plan Problems: (1) Malnutrition ICD Codes: E46 - Unspecified protein-calorie malnutrition SNOMED: 76243670 (2) Gastrostomy tube in place ICD Codes: Z93.1 - Gastrostomy status SNOMED: 510451189, 974953606 (3) HTN (hypertension) ICD Codes: I10 - Essential (primary) hypertension SNOMED: 27584253 (4) Fecal impaction ICD Codes: K56.41 - Fecal impaction SNOMED: 99935894 (5) Failure to thrive SNOMED: 62087994 Qualifiers: Qualified Codes: R62.7 - Adult failure to thrive (6) Schizophrenia ICD Codes: F20.9 - Schizophrenia, unspecified SNOMED: 15812728 Qualifiers: Qualified Codes: F20.9 - Schizophrenia, unspecified (7) Diabetes ICD Codes: E11.9 - Type 2 diabetes mellitus without complications SNOMED: 57824325 Qualifiers: Qualified Codes: E11.8 - Type 2 diabetes mellitus with unspecified complications; Z79.4 - retirement (current) use of insulin Status: stable Status Narrative Discussed with Dr. Hardin. Assessment/Plan symptomatic treatment / supportive care fu ST evaluation >> last time patient passed on SOFT CHEWABLE DIET AND THIN LIQUIDS - pt refuses to eat symptomatic treatment calorie count x 48 hours push PO, will consider Marinol GTFs per dietary abx fu labs The patient was seen and examined at bedside and all new and available data was reviewed in the patients chart. I agree with the above findings, impression and plan. (Patient seen earlier today. Signature stamp does not reflect patient encounter time.). - Herbert Hardin MD Subjective Subjective refusing to eat, states she has tube feeding Objective Last 24 Hour Vital Signs Date Time Temp Pulse Resp B/P (MAP) Pulse Ox O2 Delivery O2 Flow Rate FiO2 11/01/17 09:38 104/60 11/01/17 09:00 71 104/60 11/01/17 08:00 Room Air 11/01/17 08:00 97.7 75 20 108/63 96 11/01/17 04:00 97.1 79 20 116/60 96 Room Air 11/01/17 00:00 97.5 69 20 113/62 98 10/31/17 20:00 97.9 77 20 109/57 96 10/31/17 16:00 98.2 75 20 123/65 96 10/31/17 16:00 Room Air 10/31/17 12:00 98.3 69 20 115/75 98 Room Air Intake and Output 10/31/17 11/01/17 19:00 07:00 Intake Total 980 ml 1300 ml Balance 980 ml 1300 ml Intake Free Water 200 ml 520 ml Tube Feeding 780 ml 780 ml # Voids 3 # Bowel Movements 1 Laboratory Tests Test 11/01/17 10:10 White Blood Count 9.9 K/UL (4.8-10.8) Red Blood Count 4.22 M/UL (4.20-5.40) Hemoglobin 12.8 G/DL (12.0-16.0) Hematocrit 38.8 % (37.0-47.0) Mean Corpuscular Volume 92 FL (80-99) Mean Corpuscular Hemoglobin 30.3 PG (27.0-31.0) Mean Corpuscular Hemoglobin Concent 33.0 G/DL (32.0-36.0) Red Cell Distribution Width 13.0 % (11.6-14.8) Platelet Count 351 K/UL (150-450) Mean Platelet Volume 6.5 FL (6.5-10.1) Neutrophils (%) (Auto) 73.2 % (45.0-75.0) Lymphocytes (%) (Auto) 22.4 % (20.0-45.0) Monocytes (%) (Auto) 3.7 % (1.0-10.0) Eosinophils (%) (Auto) 0.1 % (0.0-3.0) Basophils (%) (Auto) 0.6 % (0.0-2.0) Sodium Level 144 MMOL/L (136-145) Potassium Level 4.2 MMOL/L (3.5-5.1) Chloride Level 106 MMOL/L (98-107) Carbon Dioxide Level 29 MMOL/L (21-32) Anion Gap 9 mmol/L (5-15) Blood Urea Nitrogen 18 mg/dL (7-18) Creatinine 0.8 MG/DL (0.55-1.30) Estimat Glomerular Filtration Rate mL/min (>60) Glucose Level 212 MG/DL (74-106) H Calcium Level 9.5 MG/DL (8.5-10.1) Height (Feet): 5 Height (Inches): 5.00 Weight (Pounds): 130 General Appearance: alert Cardiovascular: normal rate Respiratory/Chest: normal breath sounds, no respiratory distress Abdominal Exam: site - c/d/i Yvette Paez N.P. Nov 01, 2017 11:32 PETER HARDIN Nov 04, 2017 06:33
--- NOTE | 2017-11-01 12:44 | Infectious Diseases Prog Note ---
Assessment/Plan Assessment/Plan A; Pyuria/ UTI Multiple falls DM type 2 Schizoaffective disorder P; Continue Rocephin will f/u UC Subjective ROS Limited/Unobtainable: Yes Musculoskeletal: Reports: no symptoms Allergies: Coded Allergies: No Known Allergies (Unverified , 01/13/15) Objective Vital Signs Last 24 Hour Vital Signs Date Time Temp Pulse Resp B/P (MAP) Pulse Ox O2 Delivery O2 Flow Rate FiO2 11/01/17 09:38 104/60 11/01/17 09:00 71 104/60 11/01/17 08:00 Room Air 11/01/17 08:00 97.7 75 20 108/63 96 11/01/17 04:00 97.1 79 20 116/60 96 Room Air 11/01/17 00:00 97.5 69 20 113/62 98 10/31/17 20:00 97.9 77 20 109/57 96 10/31/17 16:00 98.2 75 20 123/65 96 10/31/17 16:00 Room Air Height (Feet): 5 Height (Inches): 5.00 Weight (Pounds): 130 General Appearance: no acute distress HEENT: mucous membranes moist Respiratory/Chest: lungs clear Cardiovascular: normal rate Abdomen: soft, non tender, other - GT feeding Extremities: no edema Skin: ulcers, other - scabs on knees Neurologic/Psychiatric: alert, responsive Microbiology Date/Time Source Procedure Growth Status 10/31/17 00:20 Urine,Clean Catch Urine Culture - Preliminary Streptococcus Species Resulted Laboratory Tests Test 11/01/17 10:10 White Blood Count 9.9 K/UL (4.8-10.8) Red Blood Count 4.22 M/UL (4.20-5.40) Hemoglobin 12.8 G/DL (12.0-16.0) Hematocrit 38.8 % (37.0-47.0) Mean Corpuscular Volume 92 FL (80-99) Mean Corpuscular Hemoglobin 30.3 PG (27.0-31.0) Mean Corpuscular Hemoglobin Concent 33.0 G/DL (32.0-36.0) Red Cell Distribution Width 13.0 % (11.6-14.8) Platelet Count 351 K/UL (150-450) Mean Platelet Volume 6.5 FL (6.5-10.1) Neutrophils (%) (Auto) 73.2 % (45.0-75.0) Lymphocytes (%) (Auto) 22.4 % (20.0-45.0) Monocytes (%) (Auto) 3.7 % (1.0-10.0) Eosinophils (%) (Auto) 0.1 % (0.0-3.0) Basophils (%) (Auto) 0.6 % (0.0-2.0) Sodium Level 144 MMOL/L (136-145) Potassium Level 4.2 MMOL/L (3.5-5.1) Chloride Level 106 MMOL/L (98-107) Carbon Dioxide Level 29 MMOL/L (21-32) Anion Gap 9 mmol/L (5-15) Blood Urea Nitrogen 18 mg/dL (7-18) Creatinine 0.8 MG/DL (0.55-1.30) Estimat Glomerular Filtration Rate mL/min (>60) Glucose Level 212 MG/DL (74-106) H Calcium Level 9.5 MG/DL (8.5-10.1) Current Medications Medications (Trade) Dose Ordered Sig/Cami Route PRN Reason Start Time Stop Time Status Last Admin Dose Admin Acetaminophen (Tylenol) 650 mg Q4H PRN ORAL fever 10/30/17 22:30 11/29/17 22:29 Al Hydroxide/Mg Hydroxide (Mylanta II) 30 ml Q6H PRN ORAL dyspepsia 10/30/17 22:30 11/29/17 22:29 Amlodipine Besylate (Norvasc) 5 mg DAILY GT 10/31/17 09:00 11/30/17 08:59 10/31/17 08:51 Aspirin (ASA) 81 mg DAILY GT 10/31/17 09:00 11/30/17 08:59 11/01/17 09:43 Atorvastatin Calcium (Lipitor) 20 mg BEDTIME GT 10/31/17 21:00 11/30/17 20:59 10/31/17 20:39 Ceftriaxone Sodium 1 gm/ Sodium Chloride 55 ml @ 110 mls/hr Q24H IVPB 11/01/17 09:00 11/08/17 08:59 11/01/17 09:44 Clozapine (Clozaril) 50 mg BID ORAL 10/31/17 09:00 11/07/17 08:59 UNV Dextrose (Dextrose 50%) STAT PRN IV Hypoglycemia 10/30/17 22:30 11/29/17 22:29 Heparin Sodium (Porcine) (Heparin 5000 units/ml) 5,000 units EVERY 12 HOURS SUBQ 10/31/17 09:00 11/30/17 08:59 11/01/17 09:48 Insulin Aspart (NovoLOG) BEFORE MEALS AND HS SUBQ 10/31/17 06:30 11/30/17 06:29 11/01/17 11:55 Lorazepam (Ativan 2mg/ml 1ml) 0.5 mg Q4H PRN IV For Anxiety 10/30/17 22:30 11/06/17 22:29 Mirtazapine (Remeron) 7.5 mg BEDTIME GT 10/31/17 21:00 11/30/17 20:59 10/31/17 20:39 Morphine Sulfate (Morphine Sulfate) 1 mg EVERY 4 HOURS PRN IVP For Pain 10/30/17 22:30 11/06/17 22:29 Olanzapine (ZyPREXA) 5 mg DAILY GT 10/31/17 09:00 11/30/17 08:59 11/01/17 09:43 Ondansetron HCl (Zofran) 4 mg Q6H PRN IVP Nausea & Vomiting 10/30/17 22:30 11/29/17 22:29 Polyethylene Glycol (Miralax) 17 gm HSPRN PRN ORAL Constipation 10/30/17 22:30 11/29/17 22:29 Zolpidem Tartrate (Ambien) 5 mg HSPRN PRN ORAL Insomnia 10/30/17 22:30 11/06/17 22:29 STACY HOLM Nov 01, 2017 12:44
--- NOTE | 2017-11-01 12:56 | History and Physical Report ---
DATE OF ADMISSION: 10/30/2017 APPROXIMATE TIME: 1 p.m. CONSULTANTS: 1. Dr. Malhotra. 2. Uday Rico M.D. 3. Yariel Rothman M.D. 4. Elier Pham M.D. 5. Wisam Hardin M.D. CHIEF COMPLAINT: Fall, urinary tract infection, failure to thrive, diabetes. BRIEF HISTORY: The patient is a 72-year-old female from [facility] presented with above-mentioned diagnosis, admitted to medical floor for further treatment. Currently sleeping in bed, confused, not talking much. REVIEW OF SYSTEMS: Unavailable. PAST MEDICAL HISTORY: Hypertension, diabetes, encephalopathy, schizophrenia, failure to thrive. PAST SURGICAL HISTORY: . MEDICATIONS: Include Lipitor, Remeron, Norvasc, aspirin, Clozaril, Zyprexa, heparin, ceftriaxone, Tylenol, morphine, MiraLAX. ALLERGIES: Denies. SOCIAL HISTORY: No smoking. No alcohol. No intravenous drug abuse. FAMILY HISTORY: Noncontributory. PHYSICAL EXAMINATION: GENERAL: Lethargic in bed, refusing to answer questions. VITAL SIGNS: Temperature 98, pulse 69, respiratory rate 20, blood pressure 115/75. CARDIOVASCULAR: No murmur. LUNGS: Poor exchange. ABDOMEN: Bowel sounds distant. EXTREMITIES: No cyanosis, clubbing, or edema. NEUROLOGIC: The patient moves all Extremities, slightly weak. LABORATORY AND DIAGNOSTIC DATA: CBC is normal. BMP shows glucose 200, albumin 2.8, otherwise normal. INR is 1.2 and PTT is 27. Urinalysis shows 3+ leukocyte esterase. ASSESSMENT: 1. Fall. 2. Urinary tract infection. 3. Sepsis. 4. Failure to thrive. 5. Diabetes. 6. Hypertension. 7. Encephalopathy. 8. Malnutrition. PLAN: 1. Continue premeds. 2. Blood pressure and blood sugar control. 3. OT/PT. 4. Dietary followup. 5. Antibiotics per Infectious Disease. 6. CBC and BMP in the morning. 7. We will continue to follow the patient medically. Sukh Chu D.O. DR: Yoel JOB#: [id number] CC:
--- NOTE | 2017-11-01 12:56 | Consultation ---
DATE OF CONSULTATION: 10/31/2017 INFECTIOUS DISEASE CONSULTATION CONSULTING PHYSICIAN: Nate Asif M.D. REFERRING PHYSICIAN: Sukh Chu D.O. REASON FOR CONSULT: Pyuria, UTI. HISTORY OF PRESENT ILLNESS: The patient is a 72-year-old white female, who is a [facility] resident, admitted last night because of multiple falls. She had abrasion and wound in both knees. Had no fever or other systemic symptoms. She is a poor historian and does not speak. PAST MEDICAL HISTORY: Significant for major depression, extrapyramidal movement disorder, schizoaffective, gastroesophageal reflux disease, diabetes mellitus type 2, and status post G-tube placement. ALLERGIES: No known drug allergy. MEDICATIONS: Atorvastatin, mirtazapine, amlodipine, aspirin, clozapine, olanzapine, heparin, insulin, Tylenol, morphine, MiraLAX, gets a dose of Rocephin, Zofran, and Mylanta. SOCIAL HISTORY: long term resident with full mental status. No other history is obtainable. PHYSICAL EXAMINATION: VITAL SIGNS: Temperature 98.3, pulse 69, and blood pressure 111/75. GENERAL APPEARANCE: Seems to be thin. No acute distress. HEAD AND NECK: [place] conjunctiva. HEART: S1 and S2, regular. LUNGS: Clear. ABDOMEN: Soft. Has G-tube. Nontender. EXTREMITIES: Has no edema. Multiple ulcers in both knees. None of them have discharge. LABORATORY AND DIAGNOSTIC DATA: Sodium 141, potassium 3.7, chloride 105, bicarb 32, BUN 17, creatinine 0.7, and glucose 200. Albumin 2.8. WBC 6.7, hemoglobin 12.3, hematocrit 37.2, and platelets are 366,000. Chest x-ray showed bibasilar atelectasis. Head CT, chronic lacunar infarct in left basal ganglia. Left maxillary sinus disease. Had x-ray of pelvis that did not show any fracture or dislocation. A tibia-fibula x-ray that was negative for fracture. Urine showed WBC too numerous to count, bacteria moderate, and leukocytosis 3+. IMPRESSION: Pyuria, may have urinary tract infection. The patient has diabetes mellitus type 2, multiple falls, schizoaffective disorders and depression, and extrapyramidal movement disorder. RECOMMENDATION: We will continue with ceftriaxone. We will follow up the cultures. At the end of my exam, I thank Dr. Sukh Chu for involving me in the care of this patient. Nate Asif M.D. DR: GUERO JOB#: [id number] CC:
[2017-11-01 15:51] VITALS: BP 117/49
[2017-11-01] MEDS ORDERED: NS 500ML ONE (19:09)
[2017-11-01] MEDS ORDERED: Tubing IV Secondary IV ONE (19:09)
--- NOTE | 2017-11-01 20:20 | Wound Care Consultation ---
Wound Assessment Wound Assessment : Wound Number: 1 Wound Present on Admission: Yes New Wound: No Status Change of Wound: No Wound Location Body Site Modif: left, right, anterior Wound Location Body Site: knee Wound Type: scab Talya Test: Does not Talya Wound Thickness: Full Thickness Percent of Wound Keys/Red: 100 Wound Drainage Amount: None Wound Drainage Odor: None/Absent Tissue Surrounding Wound: Erythemic Wound General Appearance: Reddened Wound Comment #1 S/p fall traumatic wounds on left and right knee. Appears to be drying at this time. Recommendation -Leave area open to air -Monitor for s/s of infection - F/u accordingly for any changes on the sites. SALMA ELAM RN Nov 01, 2017 20:20
--- NOTE | 2017-11-01 21:00 | Consultation ---
DATE OF CONSULTATION: 10/31/2017 NEUROLOGICAL CONSULTATION CONSULTING PHYSICIAN: Elier Pham M.D. REQUESTING PHYSICIAN: Sukh Chu D.O. HISTORY OF PRESENT ILLNESS: This is a 72-year-old female seen in neurological consultation to evaluate significant changes in mental status, inability to ambulate with frequent falls. The patient is a resident of nursing facility where she was described as having multiple falls with multiple bruises to her knees. In addition, she displayed inappropriate behavior by pulling the G-tube out. Her vital signs on admission were stable. She was afebrile. Her initial assessment included normal CBC, mild coagulopathy with INR of 1.2. Urinalysis with WBCs too numerous to count, leukocyte esterase of 2+. Toxicology panel was negative. Chemistry panel was unremarkable except BUN of 19, carbon dioxide of 33. Normal troponin and BNP and unremarkable lipid panel. Normal CBC study. Imaging, the patient had a CT scan of the brain obtained. This revealed disease, periventricular hypoattenuation, , and left maxillary sinus disease. Since admission until present, there were no further paroxysmal events. The patient stayed bedridden. She has a sitter in her room. PAST MEDICAL HISTORY: The patient has a history of hypertension, hyperlipidemia, history of extrapyramidal movement disorder, failure to thrive, diabetes, and schizophrenia. MEDICATIONS: Prior to admission, she was on amlodipine, aspirin, atorvastatin, benztropine, insulin, lorazepam p.r.n., magnesium oxide supplement, metformin, mirtazapine, olanzapine, omeprazole, temazepam, and Geodon. ALLERGIES: None reported. SOCIAL HISTORY: The patient indicated she was born in [facility], left to [facility] in 1960[facility]. She has no children. No close family. She is single. No history of alcohol or drug abuse. Nonsmoker. FAMILY HISTORY: Noncontributory. REVIEW OF SYMPTOMS: The patient indicated that last year, she was unable to ambulate due to weakness in her lower extremities. In addition, she had lost appetite and does not want to eat. She started with a G-tube feeding. Denies headache or dizziness. No chest pain. No palpitations. No respiratory problems. Denies abdominal pain or discomfort. No urine or bowel incontinence. Unaware of having strokes or seizures. PHYSICAL EXAMINATION: GENERAL: A well-developed, somewhat cachectic female, not in acute distress, lying comfortably in bed. VITAL SIGNS: Stable. Blood pressure 115/75, temperature 98.3. HEENT: Head, normocephalic. No evidence of injuries. Eyes, ears, and throat are clear. NECK: Supple. No meningeal signs. MUSCULOSKELETAL: Unremarkable. There are no deformities. There are several bruises on her knees. Peripheral pulses 1+ and symmetric. MENTAL STATUS: The patient is alert, oriented to her name, age, new medical issues treated for. She was able to follow simple commands. She has a poor verbal response, mainly yes and no, but maintained good eye contact. CRANIAL NERVE II: Pupils, 2 mm responding to light and accommodation. Extraocular movements intact. No nystagmus. CRANIAL NERVE V: Normal corneal responses. CRANIAL NERVE VII: No facial asymmetry. CRANIAL NERVE VIII: Normal hearing. CRANIAL NERVES IX THROUGH XII: Tongue is in midline. Symmetric palate elevation. MOTOR EXAMINATION: Slight diffuse rigidity, able to lift arms against the gravity, able to move both lower extremities and bend her knees. She was able to lift her lower extremities about 10 degrees above flat level. Reduced strength of 4/5 in both lower extremities. Deep tendon reflexes 1+ bilaterally with absent both ankle jerks. Plantar responses flexor. SENSORY EXAMINATION: Withdrawing all limbs to pinprick sensation. GAIT: Not tested. IMPRESSION: 1. 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 2. Chronic psychiatric disorder with refusal to eat or ambulate. 3. Cachexia. 4. Hypertension. 5. Diabetes type 2. RECOMMENDATIONS: 1. The patient continue with symptomatic treatment for proper control of high blood pressure and diabetes. 2. She is on multiple psychotropics and psychiatry evaluation will be advised to streamline her treatment. 3. We will get PT/OT, try mobility protocol. 4. Continue aspirin 81 mg daily. Thank you for allowing me to see this interesting patient in neurological consultation. Elier Pham M.D. DR: BHUPINDER JOB#: [id number] CC:
[2017-11-02] VITALS: BP 117/63
[2017-11-02] MEDS: NovoLOG Insulin Flexpen SUBQ SCH ×4 (00:22→17:53)
[2017-11-02 04:00] VITALS: BP 134/65
[2017-11-02 07:52] LABS: BASOPHILS % (AUTO) 0.8 % (0.0-2.0); HEMATOCRIT 34.8 % (37.0-47.0); HEMOGLOBIN 11.5 G/DL (12.0-16.0); LYMPHOCYTES % (AUTO) 32.9 % (20.0-45.0); MEAN CORPUSCULAR VOLUME 92 FL (80-99); MONOCYTES % (AUTO) 6.8 % (1.0-10.0); NEUTROPHILS % (AUTO) 59.5 % (45.0-75.0); PLATELET COUNT 312 K/UL (150-450); RED BLOOD COUNT 3.81 M/UL (4.20-5.40); RED CELL DISTRIBUTION WIDTH 12.7 % (11.6-14.8); WHITE BLOOD COUNT 7.3 K/UL (4.8-10.8)
[2017-11-02 08:13] LABS: ANION GAP 5 mmol/L (5-15); BLOOD UREA NITROGEN 19 mg/dL (7-18); CALCIUM 9.2 MG/DL (8.5-10.1); CARBON DIOXIDE 30 MMOL/L (21-32); CHLORIDE 107 MMOL/L (98-107); CREATININE 0.7 MG/DL (0.55-1.30); POTASSIUM 4.2 MMOL/L (3.5-5.1); SODIUM 142 MMOL/L (136-145)
--- NOTE | 2017-11-02 08:41 | General Progress Note ---
Assessment/Plan Problem List: (1) HTN (hypertension) ICD Codes: I10 - Essential (primary) hypertension SNOMED: 87390319 (2) Gastrostomy tube in place ICD Codes: Z93.1 - Gastrostomy status SNOMED: 012202268, 008486232 (3) Malnutrition ICD Codes: E46 - Unspecified protein-calorie malnutrition SNOMED: 12240923 (4) Multiple falls ICD Codes: R29.6 - Repeated falls SNOMED: 995957049 (5) Fecal impaction ICD Codes: K56.41 - Fecal impaction SNOMED: 69232802 (6) Schizophrenia ICD Codes: F20.9 - Schizophrenia, unspecified SNOMED: 08903076 Qualifiers: Qualified Codes: F20.9 - Schizophrenia, unspecified (7) Diabetes ICD Codes: E11.9 - Type 2 diabetes mellitus without complications SNOMED: 53333036 Qualifiers: Qualified Codes: E11.8 - Type 2 diabetes mellitus with unspecified complications; Z79.4 - intermediate designer (current) use of insulin Assessment/Plan symptomatic treatment / supportive care fu ST evaluation >> last time patient passed on SOFT CHEWABLE DIET AND THIN LIQUIDS - pt refuses to eat symptomatic treatment calorie count push PO, l GTFs abx fu labs anemia work up Subjective ROS Limited/Unobtainable: Yes Allergies: Coded Allergies: No Known Allergies (Unverified , 01/13/15) Objective Last 24 Hour Vital Signs Date Time Temp Pulse Resp B/P (MAP) Pulse Ox O2 Delivery O2 Flow Rate FiO2 11/02/17 04:00 97.5 76 19 134/65 94 Room Air 11/02/17 00:00 98.0 77 20 117/63 96 11/01/17 20:07 80 11/01/17 15:51 97.9 110 23 117/49 97 Room Air 11/01/17 09:38 104/60 11/01/17 09:00 71 104/60 Intake and Output 11/01/17 11/02/17 19:00 07:00 Intake Total 1045 ml 830 ml Balance 1045 ml 830 ml Intake Free Water 200 ml 180 ml Tube Feeding 845 ml 650 ml # Voids 1 Laboratory Tests 11/01/17 10:10: White Blood Count 9.9, Red Blood Count 4.22, Hemoglobin 12.8, Hematocrit 38.8, Mean Corpuscular Volume 92, Mean Corpuscular Hemoglobin 30.3, Mean Corpuscular Hemoglobin Concent 33.0, Red Cell Distribution Width 13.0, Platelet Count 351, Mean Platelet Volume 6.5, Neutrophils (%) (Auto) 73.2, Lymphocytes (%) (Auto) 22.4, Monocytes (%) (Auto) 3.7, Eosinophils (%) (Auto) 0.1, Basophils (%) (Auto ) 0.6, Sodium Level 144, Potassium Level 4.2, Chloride Level 106, Carbon Dioxide Level 29, Anion Gap 9, Blood Urea Nitrogen 18, Creatinine 0.8, Estimat Glomerular Filtration Rate , Glucose Level 212H, Calcium Level 9.5 11/02/17 06:35: White Blood Count 7.3, Red Blood Count 3.81L, Hemoglobin 11.5L, Hematocrit 34.8L , Mean Corpuscular Volume 92, Mean Corpuscular Hemoglobin 30.1, Mean Corpuscular Hemoglobin Concent 32.9, Red Cell Distribution Width 12.7, Platelet Count 312, Mean Platelet Volume 6.8, Neutrophils (%) (Auto) 59.5, Lymphocytes (% ) (Auto) 32.9, Monocytes (%) (Auto) 6.8, Eosinophils (%) (Auto) 0.0, Basophils ( %) (Auto) 0.8 Height (Feet): 5 Height (Inches): 5.00 Weight (Pounds): 130 General Appearance: no apparent distress EENT: normal ENT inspection Neck: supple Cardiovascular: normal rate Respiratory/Chest: decreased breath sounds Abdomen: normal bowel sounds, non tender, soft Extremities: non-tender PETER WILLIS Nov 02, 2017 08:41
--- NOTE | 2017-11-02 08:54 | Pulmonology Progress Note ---
Assessment/Plan Assessment/Plan ASSESSMENT Fecal impaction multiple falls multiple leg contusions Strep UTI schizophrenia COPD chronic lacunar infarct L ganglia DM HTN PLAN OF CARE MS floor abx, urine cx + Strep ( colony count only 20-30), fup with ID recs for further management ; if need abx CT head no acute intracranial pathology neuro follows X ray B T/F and pelvis/hip no acute fracture or dislocation X ray pelvis+ fecal impaction intensive bowel regimen GI follows symptomatic treatment / supportive care ST evaluation - last time patient passed on soft chewable diet with thin liqudis calorie count x 48 hours push PO strict aspiration precautions, GT feeding Fall precautions PT eval and Rx BP management with CCB BS management with SS of insulin psych eval as per PMD discretion O2 HHN prn case discussed and evaluated by supervising physician Subjective Allergies: Coded Allergies: No Known Allergies (Unverified , 01/13/15) Subjective afebrile no leucocytosis no signs of resp distress weak Objective Last 24 Hour Vital Signs Date Time Temp Pulse Resp B/P (MAP) Pulse Ox O2 Delivery O2 Flow Rate FiO2 11/02/17 04:00 97.5 76 19 134/65 94 Room Air 11/02/17 00:00 98.0 77 20 117/63 96 11/01/17 20:07 80 11/01/17 15:51 97.9 110 23 117/49 97 Room Air 11/01/17 09:38 104/60 11/01/17 09:00 71 104/60 Intake and Output 11/01/17 11/02/17 19:00 07:00 Intake Total 1045 ml 830 ml Balance 1045 ml 830 ml Intake Free Water 200 ml 180 ml Tube Feeding 845 ml 650 ml # Voids 1 Objective General Appearance: WD/WN, other - bedridden, chronically ill looking female HEENT: normocephalic, atraumatic Respiratory/Chest: lungs clear Cardiovascular: normal rate Abdomen: soft, non tender, G tube Extremities: no edema, traumatic wounds L and R knee, drying Neurologic/Psychiatric: abnormal gait, alert, responsive Microbiology Date/Time Source Procedure Growth Status 10/31/17 00:20 Urine,Clean Catch Urine Culture - Preliminary Streptococcus Species Resulted Laboratory Tests 11/01/17 10:10: White Blood Count 9.9, Red Blood Count 4.22, Hemoglobin 12.8, Hematocrit 38.8, Mean Corpuscular Volume 92, Mean Corpuscular Hemoglobin 30.3, Mean Corpuscular Hemoglobin Concent 33.0, Red Cell Distribution Width 13.0, Platelet Count 351, Mean Platelet Volume 6.5, Neutrophils (%) (Auto) 73.2, Lymphocytes (%) (Auto) 22.4, Monocytes (%) (Auto) 3.7, Eosinophils (%) (Auto) 0.1, Basophils (%) (Auto ) 0.6, Sodium Level 144, Potassium Level 4.2, Chloride Level 106, Carbon Dioxide Level 29, Anion Gap 9, Blood Urea Nitrogen 18, Creatinine 0.8, Estimat Glomerular Filtration Rate , Glucose Level 212H, Calcium Level 9.5 11/02/17 06:15: Sodium Level 142, Potassium Level 4.2, Chloride Level 107, Carbon Dioxide Level 30, Anion Gap 5, Blood Urea Nitrogen 19H, Creatinine 0.7, Estimat Glomerular Filtration Rate , Glucose Level 170H, Calcium Level 9.2 11/02/17 06:35: White Blood Count 7.3, Red Blood Count 3.81L, Hemoglobin 11.5L, Hematocrit 34.8L , Mean Corpuscular Volume 92, Mean Corpuscular Hemoglobin 30.1, Mean Corpuscular Hemoglobin Concent 32.9, Red Cell Distribution Width 12.7, Platelet Count 312, Mean Platelet Volume 6.8, Neutrophils (%) (Auto) 59.5, Lymphocytes (% ) (Auto) 32.9, Monocytes (%) (Auto) 6.8, Eosinophils (%) (Auto) 0.0, Basophils ( %) (Auto) 0.8 Current Medications Medications (Trade) Dose Ordered Sig/Cami Route PRN Reason Start Time Stop Time Status Last Admin Dose Admin Acetaminophen (Tylenol) 650 mg Q4H PRN ORAL fever 10/30/17 22:30 11/29/17 22:29 Al Hydroxide/Mg Hydroxide (Mylanta II) 30 ml Q6H PRN ORAL dyspepsia 10/30/17 22:30 11/29/17 22:29 Amlodipine Besylate (Norvasc) 5 mg DAILY GT 10/31/17 09:00 11/30/17 08:59 10/31/17 08:51 Aspirin (ASA) 81 mg DAILY GT 10/31/17 09:00 11/30/17 08:59 11/01/17 09:43 Atorvastatin Calcium (Lipitor) 20 mg BEDTIME GT 10/31/17 21:00 11/30/17 20:59 11/01/17 22:18 Ceftriaxone Sodium 1 gm/ Sodium Chloride 55 ml @ 110 mls/hr Q24H IVPB 11/01/17 09:00 11/08/17 08:59 11/01/17 09:44 Clozapine (Clozaril) 50 mg BID ORAL 10/31/17 09:00 11/07/17 08:59 UNV Dextrose (Dextrose 50%) STAT PRN IV Hypoglycemia 10/30/17 22:30 11/29/17 22:29 Heparin Sodium (Porcine) (Heparin 5000 units/ml) 5,000 units EVERY 12 HOURS SUBQ 10/31/17 09:00 11/30/17 08:59 11/01/17 22:20 Insulin Aspart (NovoLOG) Q6HR SUBQ 11/02/17 00:00 12/02/17 00:00 11/02/17 05:37 Lorazepam (Ativan 2mg/ml 1ml) 0.5 mg Q4H PRN IV For Anxiety 10/30/17 22:30 11/06/17 22:29 Mirtazapine (Remeron) 7.5 mg BEDTIME GT 10/31/17 21:00 11/30/17 20:59 11/01/17 22:18 Morphine Sulfate (Morphine Sulfate) 1 mg EVERY 4 HOURS PRN IVP For Pain 10/30/17 22:30 11/06/17 22:29 Olanzapine (ZyPREXA) 5 mg DAILY GT 10/31/17 09:00 11/30/17 08:59 11/01/17 09:43 Ondansetron HCl (Zofran) 4 mg Q6H PRN IVP Nausea & Vomiting 10/30/17 22:30 11/29/17 22:29 Polyethylene Glycol (Miralax) 17 gm HSPRN PRN ORAL Constipation 10/30/17 22:30 11/29/17 22:29 Zolpidem Tartrate (Ambien) 5 mg HSPRN PRN ORAL Insomnia 10/30/17 22:30 11/06/17 22:29 Cesilia Headley NP (Vanchtein) Nov 02, 2017 08:54
--- NOTE | 2017-11-02 09:00 | General Progress Note ---
Assessment/Plan Problem List: (1) Malnutrition ICD Codes: E46 - Unspecified protein-calorie malnutrition SNOMED: 02812707 (2) HTN (hypertension) ICD Codes: I10 - Essential (primary) hypertension SNOMED: 01525255 (3) Sepsis ICD Codes: A41.9 - Sepsis, unspecified organism SNOMED: 11521425 (4) UTI (urinary tract infection) ICD Codes: N39.0 - Urinary tract infection, site not specified SNOMED: 19800078 Qualifiers: Qualified Codes: N30.00 - Acute cystitis without hematuria (5) Schizophrenia ICD Codes: F20.9 - Schizophrenia, unspecified SNOMED: 40894152 Qualifiers: Qualified Codes: F20.9 - Schizophrenia, unspecified (6) Diabetes ICD Codes: E11.9 - Type 2 diabetes mellitus without complications SNOMED: 80462990 Qualifiers: Qualified Codes: E11.8 - Type 2 diabetes mellitus with unspecified complications; Z79.4 - [facility] (current) use of insulin (7) Multiple falls ICD Codes: R29.6 - Repeated falls SNOMED: 898577641 Status: unchanged Assessment/Plan ot pt diet abx bp bs control cbc bmp am dc plan Subjective Constitutional: Reports: weakness Allergies: Coded Allergies: No Known Allergies (Unverified , 01/13/15) All Systems: reviewed and negative except above Subjective sleepy calm Objective Last 24 Hour Vital Signs Date Time Temp Pulse Resp B/P (MAP) Pulse Ox O2 Delivery O2 Flow Rate FiO2 11/02/17 04:00 97.5 76 19 134/65 94 Room Air 11/02/17 00:00 98.0 77 20 117/63 96 11/01/17 20:07 80 11/01/17 15:51 97.9 110 23 117/49 97 Room Air 11/01/17 09:38 104/60 Intake and Output 11/01/17 11/02/17 19:00 07:00 Intake Total 1045 ml 830 ml Balance 1045 ml 830 ml Intake Free Water 200 ml 180 ml Tube Feeding 845 ml 650 ml # Voids 1 Laboratory Tests 11/01/17 10:10: White Blood Count 9.9, Red Blood Count 4.22, Hemoglobin 12.8, Hematocrit 38.8, Mean Corpuscular Volume 92, Mean Corpuscular Hemoglobin 30.3, Mean Corpuscular Hemoglobin Concent 33.0, Red Cell Distribution Width 13.0, Platelet Count 351, Mean Platelet Volume 6.5, Neutrophils (%) (Auto) 73.2, Lymphocytes (%) (Auto) 22.4, Monocytes (%) (Auto) 3.7, Eosinophils (%) (Auto) 0.1, Basophils (%) (Auto ) 0.6, Sodium Level 144, Potassium Level 4.2, Chloride Level 106, Carbon Dioxide Level 29, Anion Gap 9, Blood Urea Nitrogen 18, Creatinine 0.8, Estimat Glomerular Filtration Rate , Glucose Level 212H, Calcium Level 9.5 11/02/17 06:15: Sodium Level 142, Potassium Level 4.2, Chloride Level 107, Carbon Dioxide Level 30, Anion Gap 5, Blood Urea Nitrogen 19H, Creatinine 0.7, Estimat Glomerular Filtration Rate , Glucose Level 170H, Calcium Level 9.2 11/02/17 06:35: White Blood Count 7.3, Red Blood Count 3.81L, Hemoglobin 11.5L, Hematocrit 34.8L , Mean Corpuscular Volume 92, Mean Corpuscular Hemoglobin 30.1, Mean Corpuscular Hemoglobin Concent 32.9, Red Cell Distribution Width 12.7, Platelet Count 312, Mean Platelet Volume 6.8, Neutrophils (%) (Auto) 59.5, Lymphocytes (% ) (Auto) 32.9, Monocytes (%) (Auto) 6.8, Eosinophils (%) (Auto) 0.0, Basophils ( %) (Auto) 0.8 Height (Feet): 5 Height (Inches): 5.00 Weight (Pounds): 130 General Appearance: lethargic EENT: normal ENT inspection Neck: normal alignment Cardiovascular: normal peripheral pulses, normal rate, regular rhythm Respiratory/Chest: chest wall non-tender, lungs clear, normal breath sounds Abdomen: normal bowel sounds, non tender, soft Extremities: normal inspection Edema: no edema noted Arm (L), no edema noted Arm (R), no edema noted Leg (L), no edema noted Leg (R), no edema noted Pedal (L), no edema noted Pedal (R), no edema noted Generalized Neurologic: motor weakness Skin: normal pigmentation, warm/dry XAVI LOPEZ Nov 02, 2017 09:00
[2017-11-02] MEDS: cefTRIAXone 1 GM in NS 55 ML IVPB SCH (10:09)
[2017-11-02] MEDS: Aspirin Baby 81mg GT SCH (10:10)
[2017-11-02] MEDS: Heparin 5000 units/ml inj SUBQ SCH ×2 (10:12→20:31)
[2017-11-02 12:00] VITALS: BP 111/55
[2017-11-02 20:00] VITALS: BP 104/64
[2017-11-03] VITALS: BP 115/74
[2017-11-03] MEDS: NovoLOG Insulin Flexpen SUBQ SCH ×5 (00:05→23:57)
--- NOTE | 2017-11-03 05:34 | General Progress Note ---
Assessment/Plan Problem List: (1) Malnutrition ICD Codes: E46 - Unspecified protein-calorie malnutrition SNOMED: 10947056 (2) HTN (hypertension) ICD Codes: I10 - Essential (primary) hypertension SNOMED: 09917544 (3) Sepsis ICD Codes: A41.9 - Sepsis, unspecified organism SNOMED: 51230727 (4) UTI (urinary tract infection) ICD Codes: N39.0 - Urinary tract infection, site not specified SNOMED: 68024960 Qualifiers: Qualified Codes: N30.00 - Acute cystitis without hematuria (5) Schizophrenia ICD Codes: F20.9 - Schizophrenia, unspecified SNOMED: 42939722 Qualifiers: Qualified Codes: F20.9 - Schizophrenia, unspecified (6) Diabetes ICD Codes: E11.9 - Type 2 diabetes mellitus without complications SNOMED: 79038411 Qualifiers: Qualified Codes: E11.8 - Type 2 diabetes mellitus with unspecified complications; Z79.4 - [facility] (current) use of insulin (7) Multiple falls ICD Codes: R29.6 - Repeated falls SNOMED: 659611642 Status: unchanged Assessment/Plan ot pt diet abx bp bs control cbc bmp am dc plan Subjective Constitutional: Reports: weakness Allergies: Coded Allergies: No Known Allergies (Unverified , 01/13/15) All Systems: reviewed and negative except above Subjective sleepy calm Objective Last 24 Hour Vital Signs Date Time Temp Pulse Resp B/P (MAP) Pulse Ox O2 Delivery O2 Flow Rate FiO2 11/03/17 00:00 97.9 64 18 115/74 97 Room Air 11/02/17 20:00 96.6 60 18 104/64 11/02/17 12:00 97.3 71 18 111/55 96 11/02/17 10:20 69 124/60 Intake and Output 11/02/17 11/03/17 19:00 07:00 Intake Total 65 ml 585 ml Balance 65 ml 585 ml Tube Feeding 65 ml 585 ml # Voids 1 Laboratory Tests 11/02/17 06:15: Sodium Level 142, Potassium Level 4.2, Chloride Level 107, Carbon Dioxide Level 30, Anion Gap 5, Blood Urea Nitrogen 19H, Creatinine 0.7, Estimat Glomerular Filtration Rate , Glucose Level 170H, Calcium Level 9.2 11/02/17 06:35: White Blood Count 7.3, Red Blood Count 3.81L, Hemoglobin 11.5L, Hematocrit 34.8L , Mean Corpuscular Volume 92, Mean Corpuscular Hemoglobin 30.1, Mean Corpuscular Hemoglobin Concent 32.9, Red Cell Distribution Width 12.7, Platelet Count 312, Mean Platelet Volume 6.8, Neutrophils (%) (Auto) 59.5, Lymphocytes (% ) (Auto) 32.9, Monocytes (%) (Auto) 6.8, Eosinophils (%) (Auto) 0.0, Basophils ( %) (Auto) 0.8 Height (Feet): 5 Height (Inches): 5.00 Weight (Pounds): 130 General Appearance: lethargic EENT: normal ENT inspection Neck: normal alignment Cardiovascular: normal peripheral pulses, normal rate, regular rhythm Respiratory/Chest: chest wall non-tender, lungs clear, normal breath sounds Abdomen: normal bowel sounds, non tender, soft Extremities: normal inspection Edema: no edema noted Arm (L), no edema noted Arm (R), no edema noted Leg (L), no edema noted Leg (R), no edema noted Pedal (L), no edema noted Pedal (R), no edema noted Generalized Neurologic: motor weakness Skin: normal pigmentation, warm/dry XAVI LOPEZ Nov 03, 2017 05:34
--- NOTE | 2017-11-03 07:51 | General Progress Note ---
Assessment/Plan Problem List: (1) HTN (hypertension) ICD Codes: I10 - Essential (primary) hypertension SNOMED: 50935102 (2) Gastrostomy tube in place ICD Codes: Z93.1 - Gastrostomy status SNOMED: 298709477, 479453662 (3) Malnutrition ICD Codes: E46 - Unspecified protein-calorie malnutrition SNOMED: 41449626 (4) Multiple falls ICD Codes: R29.6 - Repeated falls SNOMED: 584727863 (5) Fecal impaction ICD Codes: K56.41 - Fecal impaction SNOMED: 02864320 (6) Schizophrenia ICD Codes: F20.9 - Schizophrenia, unspecified SNOMED: 71263404 Qualifiers: Qualified Codes: F20.9 - Schizophrenia, unspecified (7) Diabetes ICD Codes: E11.9 - Type 2 diabetes mellitus without complications SNOMED: 35484545 Qualifiers: Qualified Codes: E11.8 - Type 2 diabetes mellitus with unspecified complications; 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 Assessment/Plan symptomatic treatment / supportive care fu ST evaluation >> last time patient passed on SOFT CHEWABLE DIET AND THIN LIQUIDS - pt refuses to eat symptomatic treatment calorie count GTFs abx fu labs anemia work up Subjective ROS Limited/Unobtainable: Yes Allergies: Coded Allergies: No Known Allergies (Unverified , 01/13/15) Objective Last 24 Hour Vital Signs Date Time Temp Pulse Resp B/P (MAP) Pulse Ox O2 Delivery O2 Flow Rate FiO2 11/03/17 00:00 97.9 64 18 115/74 97 Room Air 11/02/17 20:00 96.6 60 18 104/64 11/02/17 12:00 97.3 71 18 111/55 96 11/02/17 10:20 69 124/60 Intake and Output 11/02/17 11/03/17 19:00 07:00 Intake Total 65 ml 815 ml Balance 65 ml 815 ml Intake Free Water 100 ml Tube Feeding 65 ml 715 ml # Voids 1 Height (Feet): 5 Height (Inches): 5.00 Weight (Pounds): 130 General Appearance: no apparent distress EENT: normal ENT inspection Neck: supple Cardiovascular: normal rate Respiratory/Chest: decreased breath sounds Abdomen: normal bowel sounds, non tender, soft Extremities: non-tender VOSOGHIMEPETER Nov 03, 2017 07:51
[2017-11-03] MEDS: Aspirin Baby 81mg GT SCH (10:31)
[2017-11-03] MEDS: Heparin 5000 units/ml inj SUBQ SCH ×2 (10:34→23:07)
[2017-11-03 12:06] VITALS: BP 102/59
--- NOTE | 2017-11-03 12:59 | Pulmonology Progress Note ---
Assessment/Plan Assessment/Plan ASSESSMENT Fecal impaction multiple falls multiple leg contusions Enterococci UTI schizophrenia COPD chronic lacunar infarct L ganglia DM HTN PLAN OF CARE MS floor abx, urine cx +Enterococci ( colony count only 20-30), fup with ID recs for further management ; if need abx CT head no acute intracranial pathology neuro follows X ray B T/F and pelvis/hip no acute fracture or dislocation X ray pelvis+ fecal impaction intensive bowel regimen GI follows symptomatic treatment / supportive care ST evaluation - last time patient passed on soft chewable diet with thin liqudis calorie count x 48 hours push PO strict aspiration precautions, GT feeding Fall precautions PT eval and Rx BP management with CCB BS management with SS of insulin psych eval as per PMD discretion O2 HHN prn stable from pulm standpoint case discussed and evaluated by supervising physician Subjective Allergies: Coded Allergies: No Known Allergies (Unverified , 01/13/15) Subjective afebrile no leucocytosis no signs of resp distress but weak, deconditioned Objective Last 24 Hour Vital Signs Date Time Temp Pulse Resp B/P (MAP) Pulse Ox O2 Delivery O2 Flow Rate FiO2 11/03/17 12:06 97.9 63 17 102/59 Room Air 11/03/17 00:00 97.9 64 18 115/74 97 Room Air 11/02/17 20:00 96.6 60 18 104/64 Intake and Output 11/02/17 11/03/17 19:00 07:00 Intake Total 65 ml 815 ml Balance 65 ml 815 ml Intake Free Water 100 ml Tube Feeding 65 ml 715 ml # Voids 1 Objective General Appearance: WD/WN, bedridden, chronically ill looking female HEENT: normocephalic, atraumatic Respiratory/Chest: lungs clear Cardiovascular: normal rate Abdomen: soft, non tender, G tube Extremities: no edema, traumatic wounds L and R knee, drying Neurologic/Psychiatric: abnormal gait, alert, responsive Current Medications Medications (Trade) Dose Ordered Sig/Cami Route PRN Reason Start Time Stop Time Status Last Admin Dose Admin Acetaminophen (Tylenol) 650 mg Q4H PRN ORAL fever 10/30/17 22:30 11/29/17 22:29 Al Hydroxide/Mg Hydroxide (Mylanta II) 30 ml Q6H PRN ORAL dyspepsia 10/30/17 22:30 11/29/17 22:29 Amlodipine Besylate (Norvasc) 5 mg DAILY GT 10/31/17 09:00 11/30/17 08:59 11/02/17 10:20 Amoxicillin (Amoxil) 500 mg EVERY 8 HOURS ORAL 11/02/17 22:00 11/09/17 23:59 11/03/17 05:43 Aspirin (ASA) 81 mg DAILY GT 10/31/17 09:00 11/30/17 08:59 11/03/17 10:31 Atorvastatin Calcium (Lipitor) 20 mg BEDTIME GT 10/31/17 21:00 11/30/17 20:59 11/02/17 20:27 Clozapine (Clozaril) 50 mg BID ORAL 10/31/17 09:00 11/07/17 08:59 UNV Dextrose (Dextrose 50%) STAT PRN IV Hypoglycemia 10/30/17 22:30 11/29/17 22:29 Heparin Sodium (Porcine) (Heparin 5000 units/ml) 5,000 units EVERY 12 HOURS SUBQ 10/31/17 09:00 11/30/17 08:59 11/03/17 10:34 Insulin Aspart (NovoLOG) Q6HR SUBQ 11/02/17 00:00 12/02/17 00:00 11/03/17 12:52 Lorazepam (Ativan 2mg/ml 1ml) 0.5 mg Q4H PRN IV For Anxiety 10/30/17 22:30 11/06/17 22:29 Mirtazapine (Remeron) 7.5 mg BEDTIME GT 10/31/17 21:00 11/30/17 20:59 11/01/17 22:18 Morphine Sulfate (Morphine Sulfate) 1 mg EVERY 4 HOURS PRN IVP For Pain 10/30/17 22:30 11/06/17 22:29 Olanzapine (ZyPREXA) 5 mg DAILY GT 11/02/17 10:30 12/02/17 10:29 11/03/17 10:31 Ondansetron HCl (Zofran) 4 mg Q6H PRN IVP Nausea & Vomiting 10/30/17 22:30 11/29/17 22:29 Polyethylene Glycol (Miralax) 17 gm HSPRN PRN ORAL Constipation 10/30/17 22:30 11/29/17 22:29 Zolpidem Tartrate (Ambien) 5 mg HSPRN PRN ORAL Insomnia 10/30/17 22:30 11/06/17 22:29 [facility] ([facility])Cesilia NP Nov 03, 2017 12:59
--- NOTE | 2017-11-03 13:05 | Infectious Diseases Prog Note ---
Assessment/Plan Assessment/Plan A; Pyuria/ UTI with Enterococcus Multiple falls DM type 2 Schizoaffective disorder P; Continue Amoxicillin X 2 days agree with discharge to SNF Subjective ROS Limited/Unobtainable: Yes Allergies: Coded Allergies: No Known Allergies (Unverified , 01/13/15) Objective Vital Signs Last 24 Hour Vital Signs Date Time Temp Pulse Resp B/P (MAP) Pulse Ox O2 Delivery O2 Flow Rate FiO2 11/03/17 12:06 97.9 63 17 102/59 Room Air 11/03/17 00:00 97.9 64 18 115/74 97 Room Air 11/02/17 20:00 96.6 60 18 104/64 Height (Feet): 5 Height (Inches): 5.00 Weight (Pounds): 130 General Appearance: no acute distress HEENT: mucous membranes moist Respiratory/Chest: lungs clear Cardiovascular: normal rate Abdomen: soft, non tender, other - GT feeding Extremities: no edema Skin: ulcers, other - Knees healing Neurologic/Psychiatric: alert, responsive Current Medications Medications (Trade) Dose Ordered Sig/Cami Route PRN Reason Start Time Stop Time Status Last Admin Dose Admin Acetaminophen (Tylenol) 650 mg Q4H PRN ORAL fever 10/30/17 22:30 11/29/17 22:29 Al Hydroxide/Mg Hydroxide (Mylanta II) 30 ml Q6H PRN ORAL dyspepsia 10/30/17 22:30 11/29/17 22:29 Amlodipine Besylate (Norvasc) 5 mg DAILY GT 10/31/17 09:00 11/30/17 08:59 11/02/17 10:20 Amoxicillin (Amoxil) 500 mg EVERY 8 HOURS ORAL 11/02/17 22:00 11/09/17 23:59 11/03/17 13:02 Aspirin (ASA) 81 mg DAILY GT 10/31/17 09:00 11/30/17 08:59 11/03/17 10:31 Atorvastatin Calcium (Lipitor) 20 mg BEDTIME GT 10/31/17 21:00 11/30/17 20:59 11/02/17 20:27 Clozapine (Clozaril) 50 mg BID ORAL 10/31/17 09:00 11/07/17 08:59 UNV Dextrose (Dextrose 50%) STAT PRN IV Hypoglycemia 10/30/17 22:30 11/29/17 22:29 Heparin Sodium (Porcine) (Heparin 5000 units/ml) 5,000 units EVERY 12 HOURS SUBQ 10/31/17 09:00 11/30/17 08:59 11/03/17 10:34 Insulin Aspart (NovoLOG) Q6HR SUBQ 11/02/17 00:00 12/02/17 00:00 11/03/17 12:52 Lorazepam (Ativan 2mg/ml 1ml) 0.5 mg Q4H PRN IV For Anxiety 10/30/17 22:30 11/06/17 22:29 Mirtazapine (Remeron) 7.5 mg BEDTIME GT 10/31/17 21:00 11/30/17 20:59 11/01/17 22:18 Morphine Sulfate (Morphine Sulfate) 1 mg EVERY 4 HOURS PRN IVP For Pain 10/30/17 22:30 11/06/17 22:29 Olanzapine (ZyPREXA) 5 mg DAILY GT 11/02/17 10:30 12/02/17 10:29 11/03/17 10:31 Ondansetron HCl (Zofran) 4 mg Q6H PRN IVP Nausea & Vomiting 10/30/17 22:30 11/29/17 22:29 Polyethylene Glycol (Miralax) 17 gm HSPRN PRN ORAL Constipation 10/30/17 22:30 11/29/17 22:29 Zolpidem Tartrate (Ambien) 5 mg HSPRN PRN ORAL Insomnia 10/30/17 22:30 11/06/17 22:29 STACY HOLM Nov 03, 2017 13:04
[2017-11-03] MEDS ORDERED: NOVOLOG100 UNIT/3 SUBQ (14:35)
[2017-11-03] MEDS ORDERED: AMOXICILLIN500 MG GT (14:35)
[2017-11-03] MEDS ORDERED: CLOZARIL25 MG ORAL (14:36)
[2017-11-03] MEDS ORDERED: AMBIEN5 MG GT (14:37)
[2017-11-03] MEDS ORDERED: ACETAMINOPHEN325 M1 ORAL (14:37)
--- NOTE | 2017-11-03 17:07 | Cardiology Report ---
APPROVED REPORT EKG Measurement Heart [id number] Normal sinus rhythm Normal ECG
[2017-11-03 20:00] VITALS: BP 121/61
--- NOTE | 2017-11-03 23:05 | Consultation ---
DATE OF CONSULTATION: 11/02/2017 HISTORY OF PRESENT ILLNESS: The patient is a 72-year-old female patient. She is admitted to the hospital because she is having episodes of falling down apparently and her cognition has declined below baseline secondary to stress of her medical illness. Thus far, attending physician has requested daily psychiatric consultation at this time, but she does have some mood lability, confusion and disorganized thought process. She has overlying diagnosis of paranoid schizophrenia. So, attending physician has requested daily psychiatric consultation at this time, but she has twice failure to thrive, urinary tract infection, fall and diabetes, those are the reasons why she was admitted to [facility], but because her cognition has declined below baseline secondary to stress of her medical illness, her attending physician has requested daily psychiatric consultation to manage this patient's behavior and to prevent any further decline in her cognition. Since the cognition currently has declined below baseline secondary to stress of her medical illness. MEDICAL HISTORY: She has hypertension, diabetes, encephalopathy, and failure to thrive. PSYCHIATRIC HISTORY: She has overlying history of paranoid schizophrenia and has had psychiatric admissions in the past, but she is still disorganized in detail. ALLERGIES: No known drug allergies. SOCIAL HISTORY: This patient is currently living in [facility]. She is financially supported by [employer] and [employer]. SUBSTANCE ABUSE HISTORY: Denies drug and alcohol use. MENTAL STATUS EXAMINATION: Appearing disheveled. He is irritable and agitated. Affect guarded and restricted. Intellect poor. Mood depressed and anxious. Motor activity, psychomotor agitation. Attention span is poor. Orientation x2. Speech is pressured. Thought processes is disorganized and illogical. Thought content, slight paranoid delusions. Insight and judgment are poor. Memory, 3/3 recall, so she has got poor memory, but her insight and judgment is poor. Attention x2. DIAGNOSIS: Paranoid schizophrenia with acute exacerbation. Medical problems include hypertension, diabetes, urinary tract infection, psychosocial stressors, financial stressors. PLAN: Plan for this patient is I am going to treat this patient with a psychotropic medication regimen consisting of Zyprexa 5 mg per G-tube daily, Remeron 7.5 mg per G-tube at bedtime, Clozaril 50 mg twice a day for psychosis. Provide her with supportive therapy and encourage her to interact appropriately with staff and other patients. Supportive therapy for 15 and 20 minutes provided today. Chart reviewed and discussed with staff. The patient seen and assessed at bedside. Also Ativan 0.5 mg IV q.4 h. p.r.n. anxiety and agitation. Seen and assessed at bedside. Chart reviewed. Discussed with staff. I will continue to follow this patient throughout hospital course per request of Dr. Sukh Chu, seen and assessed at bedside. Chart reviewed. I would to thank, Dr. Sukh Chu for this interesting consultation. The patient seen and assessed at bedside. Yariel Rothman M.D. DR: DELIA JOB#: [id number] CC:
[2017-11-04] VITALS: BP 106/67
--- NOTE | 2017-11-04 01:15 | Progress Note ---
DATE: 11/03/2017 SUBJECTIVE: The patient is a 72-year-old female patient. She is confused and disorganized. Her cognition has declined below baseline. Active auditory hallucinations and paranoid delusions. MENTAL STATUS EXAMINATION: This is a 72-year-old female with psychomotor retardation. Mood is depressed. Affect is guarded and restricted. Intellect poor. Motor activity, psychomotor retardation. Insight and judgment is poor. DIAGNOSIS: Paranoid schizophrenia. PLAN: Plan for this patient is to treat her with Zyprexa 5 mg per G-tube twice a day, Clozaril 50 mg twice a day, Remeron 7.5 mg at bedtime, and Ativan q.4 as needed, and encouraged to interact appropriately with staff. Supportive therapy of 15 to 20 minutes was provided. Chart was reviewed and discussed with staff. Yariel Rothman M.D. DR: MASHA JOB#: [id number] CC:
[2017-11-04 04:00] VITALS: BP 111/68
[2017-11-04] MEDS: NovoLOG Insulin Flexpen SUBQ SCH ×3 (07:22→17:59)
[2017-11-04 07:23] LABS: BASOPHILS % (AUTO) 0.7 % (0.0-2.0); HEMATOCRIT 38.6 % (37.0-47.0); HEMOGLOBIN 13.1 G/DL (12.0-16.0); LYMPHOCYTES % (AUTO) 45.9 % (20.0-45.0); MEAN CORPUSCULAR VOLUME 90 FL (80-99); NEUTROPHILS % (AUTO) 46.4 % (45.0-75.0); PLATELET COUNT 352 K/UL (150-450); RED BLOOD COUNT 4.29 M/UL (4.20-5.40); RED CELL DISTRIBUTION WIDTH 12.3 % (11.6-14.8); WHITE BLOOD COUNT 6.7 K/UL (4.8-10.8)
[2017-11-04 07:37] LABS: ANION GAP 10 mmol/L (5-15); BLOOD UREA NITROGEN 14 mg/dL (7-18); CALCIUM 9.7 MG/DL (8.5-10.1); CARBON DIOXIDE 26 MMOL/L (21-32); CHLORIDE 103 MMOL/L (98-107); CREATININE 0.5 MG/DL (0.55-1.30); POTASSIUM 4.4 MMOL/L (3.5-5.1); SODIUM 139 MMOL/L (136-145)
[2017-11-04 08:48] VITALS: BP 100/53
[2017-11-04] MEDS: Aspirin Baby 81mg GT SCH (09:43)
[2017-11-04] MEDS: Heparin 5000 units/ml inj SUBQ SCH ×2 (09:45→20:12)
[2017-11-04 11:52] VITALS: BP 101/60
--- NOTE | 2017-11-04 11:55 | GI Progress Note ---
Assessment/Plan Problems: (1) Malnutrition ICD Codes: E46 - Unspecified protein-calorie malnutrition SNOMED: 33447772 (2) Gastrostomy tube in place ICD Codes: Z93.1 - Gastrostomy status SNOMED: 077952402, 512229318 (3) HTN (hypertension) ICD Codes: I10 - Essential (primary) hypertension SNOMED: 07010119 (4) Fecal impaction ICD Codes: K56.41 - Fecal impaction SNOMED: 97961387 (5) Failure to thrive SNOMED: 52356645 Qualifiers: Qualified Codes: R62.7 - Adult failure to thrive (6) Schizophrenia ICD Codes: F20.9 - Schizophrenia, unspecified SNOMED: 04819316 Qualifiers: Qualified Codes: F20.9 - Schizophrenia, unspecified (7) Diabetes ICD Codes: E11.9 - Type 2 diabetes mellitus without complications SNOMED: 22760847 Qualifiers: Qualified Codes: E11.8 - Type 2 diabetes mellitus with unspecified complications; Z79.4 - [facility] (current) use of insulin Status: stable Status Narrative Discussed with Dr. Hardin. Assessment/Plan symptomatic treatment / supportive care fu ST evaluation >> last time patient passed on SOFT CHEWABLE DIET AND THIN LIQUIDS - pt refuses to eat symptomatic treatment push PO GTFs per dietary abx fu labs dc planning Subjective Gastrointestinal/Abdominal: Reports: no symptoms Subjective refusing to eat, states she has tube feeding Objective Last 24 Hour Vital Signs Date Time Temp Pulse Resp B/P (MAP) Pulse Ox O2 Delivery O2 Flow Rate FiO2 11/04/17 11:52 97.5 64 18 101/60 96 11/04/17 09:42 Room Air 11/04/17 09:00 61 100/53 11/04/17 08:48 97.3 61 20 100/53 97 11/04/17 04:00 97.9 72 19 111/68 98 11/04/17 00:00 98.5 62 18 106/67 97 11/03/17 20:00 97.3 64 19 121/61 96 11/03/17 12:06 97.9 63 17 102/59 Room Air Intake and Output 11/03/17 11/04/17 19:00 07:00 Intake Total 655 ml 985 ml Balance 655 ml 985 ml Intake Free Water 200 ml 400 ml Tube Feeding 455 ml 585 ml # Voids 2 3 # Bowel Movements 1 Laboratory Tests Test 11/04/17 03:35 White Blood Count 6.7 K/UL (4.8-10.8) Red Blood Count 4.29 M/UL (4.20-5.40) Hemoglobin 13.1 G/DL (12.0-16.0) Hematocrit 38.6 % (37.0-47.0) Mean Corpuscular Volume 90 FL (80-99) Mean Corpuscular Hemoglobin 30.5 PG (27.0-31.0) Mean Corpuscular Hemoglobin Concent 33.9 G/DL (32.0-36.0) Red Cell Distribution Width 12.3 % (11.6-14.8) Platelet Count 352 K/UL (150-450) Mean Platelet Volume 7.2 FL (6.5-10.1) Neutrophils (%) (Auto) 46.4 % (45.0-75.0) Lymphocytes (%) (Auto) 45.9 % (20.0-45.0) H Monocytes (%) (Auto) 7.0 % (1.0-10.0) Eosinophils (%) (Auto) 0.0 % (0.0-3.0) Basophils (%) (Auto) 0.7 % (0.0-2.0) Sodium Level 139 MMOL/L (136-145) Potassium Level 4.4 MMOL/L (3.5-5.1) Chloride Level 103 MMOL/L (98-107) Carbon Dioxide Level 26 MMOL/L (21-32) Anion Gap 10 mmol/L (5-15) Blood Urea Nitrogen 14 mg/dL (7-18) Creatinine 0.5 MG/DL (0.55-1.30) L Estimat Glomerular Filtration Rate mL/min (>60) Glucose Level 111 MG/DL (74-106) H Calcium Level 9.7 MG/DL (8.5-10.1) Height (Feet): 5 Height (Inches): 5.00 Weight (Pounds): 130 General Appearance: WD/WN, no apparent distress, alert Cardiovascular: normal rate Respiratory/Chest: normal breath sounds, no respiratory distress Abdominal Exam: normal bowel sounds, non tender, soft Extremities: non-tender Yvette Paez N.P. Nov 04, 2017 11:55
--- NOTE | 2017-11-04 12:51 | General Progress Note ---
Assessment/Plan Problem List: (1) Malnutrition ICD Codes: E46 - Unspecified protein-calorie malnutrition SNOMED: 93519832 (2) HTN (hypertension) ICD Codes: I10 - Essential (primary) hypertension SNOMED: 42209043 (3) Sepsis ICD Codes: A41.9 - Sepsis, unspecified organism SNOMED: 42015731 (4) UTI (urinary tract infection) ICD Codes: N39.0 - Urinary tract infection, site not specified SNOMED: 03458659 Qualifiers: Qualified Codes: N30.00 - Acute cystitis without hematuria (5) Schizophrenia ICD Codes: F20.9 - Schizophrenia, unspecified SNOMED: 17954150 Qualifiers: Qualified Codes: F20.9 - Schizophrenia, unspecified (6) Diabetes ICD Codes: E11.9 - Type 2 diabetes mellitus without complications SNOMED: 71443064 Qualifiers: Qualified Codes: E11.8 - Type 2 diabetes mellitus with unspecified complications; Z79.4 - nursing home (current) use of insulin (7) Multiple falls ICD Codes: R29.6 - Repeated falls SNOMED: 637689275 Status: unchanged Assessment/Plan ot pt diet abx bp bs control cbc bmp am dc plan Subjective Constitutional: Reports: weakness Allergies: Coded Allergies: No Known Allergies (Unverified , 01/13/15) All Systems: reviewed and negative except above Subjective sleepy calm Objective Last 24 Hour Vital Signs Date Time Temp Pulse Resp B/P (MAP) Pulse Ox O2 Delivery O2 Flow Rate FiO2 11/04/17 12:16 Room Air 11/04/17 11:52 97.5 64 18 101/60 96 11/04/17 09:42 Room Air 11/04/17 09:00 61 100/53 11/04/17 08:48 97.3 61 20 100/53 97 11/04/17 04:00 97.9 72 19 111/68 98 11/04/17 00:00 98.5 62 18 106/67 97 11/03/17 20:00 97.3 64 19 121/61 96 Intake and Output 11/03/17 11/04/17 19:00 07:00 Intake Total 655 ml 985 ml Balance 655 ml 985 ml Intake Free Water 200 ml 400 ml Tube Feeding 455 ml 585 ml # Voids 2 3 # Bowel Movements 1 Laboratory Tests 11/04/17 03:35: White Blood Count 6.7, Red Blood Count 4.29, Hemoglobin 13.1, Hematocrit 38.6, Mean Corpuscular Volume 90, Mean Corpuscular Hemoglobin 30.5, Mean Corpuscular Hemoglobin Concent 33.9, Red Cell Distribution Width 12.3, Platelet Count 352, Mean Platelet Volume 7.2, Neutrophils (%) (Auto) 46.4, Lymphocytes (%) (Auto) 45.9H, Monocytes (%) (Auto) 7.0, Eosinophils (%) (Auto) 0.0, Basophils (%) (Auto ) 0.7, Sodium Level 139, Potassium Level 4.4, Chloride Level 103, Carbon Dioxide Level 26, Anion Gap 10, Blood Urea Nitrogen 14, Creatinine 0.5L, Estimat Glomerular Filtration Rate , Glucose Level 111H, Calcium Level 9.7 Height (Feet): 5 Height (Inches): 5.00 Weight (Pounds): 130 General Appearance: lethargic EENT: normal ENT inspection Neck: normal alignment Cardiovascular: normal peripheral pulses, normal rate, regular rhythm Respiratory/Chest: chest wall non-tender, lungs clear, normal breath sounds Abdomen: normal bowel sounds, non tender, soft Extremities: normal inspection Edema: no edema noted Arm (L), no edema noted Arm (R), no edema noted Leg (L), no edema noted Leg (R), no edema noted Pedal (L), no edema noted Pedal (R), no edema noted Generalized Neurologic: motor weakness Skin: normal pigmentation, warm/dry XAVI LOPEZ Nov 04, 2017 12:51
--- NOTE | 2017-11-04 13:31 | Infectious Diseases Prog Note ---
Assessment/Plan Assessment/Plan A; Pyuria/ UTI with Enterococcus Multiple falls DM type 2 Schizoaffective disorder P; Continue Amoxicillin X 1 day agree with discharge to SNF Subjective ROS Limited/Unobtainable: Yes Allergies: Coded Allergies: No Known Allergies (Unverified , 01/13/15) Objective Vital Signs Last 24 Hour Vital Signs Date Time Temp Pulse Resp B/P (MAP) Pulse Ox O2 Delivery O2 Flow Rate FiO2 11/04/17 12:16 Room Air 11/04/17 11:52 97.5 64 18 101/60 96 11/04/17 09:42 Room Air 11/04/17 09:00 61 100/53 11/04/17 08:48 97.3 61 20 100/53 97 11/04/17 04:00 97.9 72 19 111/68 98 11/04/17 00:00 98.5 62 18 106/67 97 11/03/17 20:00 97.3 64 19 121/61 96 Height (Feet): 5 Height (Inches): 5.00 Weight (Pounds): 130 General Appearance: no acute distress HEENT: mucous membranes moist Respiratory/Chest: lungs clear Cardiovascular: normal rate Abdomen: soft, non tender Extremities: no edema Skin: ulcers, other - knees, healing Neurologic/Psychiatric: other - sleeping Laboratory Tests Test 11/04/17 03:35 White Blood Count 6.7 K/UL (4.8-10.8) Red Blood Count 4.29 M/UL (4.20-5.40) Hemoglobin 13.1 G/DL (12.0-16.0) Hematocrit 38.6 % (37.0-47.0) Mean Corpuscular Volume 90 FL (80-99) Mean Corpuscular Hemoglobin 30.5 PG (27.0-31.0) Mean Corpuscular Hemoglobin Concent 33.9 G/DL (32.0-36.0) Red Cell Distribution Width 12.3 % (11.6-14.8) Platelet Count 352 K/UL (150-450) Mean Platelet Volume 7.2 FL (6.5-10.1) Neutrophils (%) (Auto) 46.4 % (45.0-75.0) Lymphocytes (%) (Auto) 45.9 % (20.0-45.0) H Monocytes (%) (Auto) 7.0 % (1.0-10.0) Eosinophils (%) (Auto) 0.0 % (0.0-3.0) Basophils (%) (Auto) 0.7 % (0.0-2.0) Sodium Level 139 MMOL/L (136-145) Potassium Level 4.4 MMOL/L (3.5-5.1) Chloride Level 103 MMOL/L (98-107) Carbon Dioxide Level 26 MMOL/L (21-32) Anion Gap 10 mmol/L (5-15) Blood Urea Nitrogen 14 mg/dL (7-18) Creatinine 0.5 MG/DL (0.55-1.30) L Estimat Glomerular Filtration Rate mL/min (>60) Glucose Level 111 MG/DL (74-106) H Calcium Level 9.7 MG/DL (8.5-10.1) Current Medications Medications (Trade) Dose Ordered Sig/Cami Route PRN Reason Start Time Stop Time Status Last Admin Dose Admin Acetaminophen (Tylenol) 650 mg Q4H PRN ORAL fever 10/30/17 22:30 11/29/17 22:29 Al Hydroxide/Mg Hydroxide (Mylanta II) 30 ml Q6H PRN ORAL dyspepsia 10/30/17 22:30 11/29/17 22:29 Amlodipine Besylate (Norvasc) 5 mg DAILY GT 10/31/17 09:00 11/30/17 08:59 11/02/17 10:20 Amoxicillin (Amoxil) 500 mg EVERY 8 HOURS ORAL 11/02/17 22:00 11/09/17 23:59 11/04/17 07:20 Aspirin (ASA) 81 mg DAILY GT 10/31/17 09:00 11/30/17 08:59 11/04/17 09:43 Atorvastatin Calcium (Lipitor) 20 mg BEDTIME GT 10/31/17 21:00 11/30/17 20:59 11/03/17 22:51 Clozapine (Clozaril) 50 mg BID ORAL 10/31/17 09:00 11/07/17 08:59 UNV Dextrose (Dextrose 50%) STAT PRN IV Hypoglycemia 10/30/17 22:30 11/29/17 22:29 Heparin Sodium (Porcine) (Heparin 5000 units/ml) 5,000 units EVERY 12 HOURS SUBQ 10/31/17 09:00 11/30/17 08:59 11/04/17 09:45 Insulin Aspart (NovoLOG) Q6HR SUBQ 11/02/17 00:00 12/02/17 00:00 11/04/17 12:24 Lorazepam (Ativan 2mg/ml 1ml) 0.5 mg Q4H PRN IV For Anxiety 10/30/17 22:30 11/06/17 22:29 Mirtazapine (Remeron) 7.5 mg BEDTIME GT 10/31/17 21:00 11/30/17 20:59 11/03/17 22:48 Morphine Sulfate (Morphine Sulfate) 1 mg EVERY 4 HOURS PRN IVP For Pain 10/30/17 22:30 11/06/17 22:29 Olanzapine (ZyPREXA) 5 mg DAILY GT 11/02/17 10:30 12/02/17 10:29 11/04/17 09:43 Ondansetron HCl (Zofran) 4 mg Q6H PRN IVP Nausea & Vomiting 10/30/17 22:30 11/29/17 22:29 Polyethylene Glycol (Miralax) 17 gm HSPRN PRN ORAL Constipation 10/30/17 22:30 11/29/17 22:29 Zolpidem Tartrate (Ambien) 5 mg HSPRN PRN ORAL Insomnia 10/30/17 22:30 11/06/17 22:29 STACY HOLM Nov 04, 2017 13:31
[2017-11-04 16:02] VITALS: BP 103/59
--- NOTE | 2017-11-04 17:52 | Pulmonology Progress Note ---
Assessment/Plan Problems: (1) Multiple falls (2) Gastrostomy tube in place (3) Schizophrenia (4) Diabetes Assessment/Plan improving on oral abx pt/ot dc planning all notes and meds reviewed. Subjective ROS Limited/Unobtainable: No Constitutional: Reports: no symptoms HEENT: Repors: no symptoms Respiratory: Reports: no symptoms Allergies: Coded Allergies: No Known Allergies (Unverified , 01/13/15) Objective Last 24 Hour Vital Signs Date Time Temp Pulse Resp B/P (MAP) Pulse Ox O2 Delivery O2 Flow Rate FiO2 11/04/17 16:02 97.0 67 18 103/59 95 11/04/17 12:16 Room Air 11/04/17 11:52 97.5 64 18 101/60 96 11/04/17 09:42 Room Air 11/04/17 09:00 61 100/53 11/04/17 08:48 97.3 61 20 100/53 97 11/04/17 04:00 97.9 72 19 111/68 98 11/04/17 00:00 98.5 62 18 106/67 97 11/03/17 20:00 97.3 64 19 121/61 96 Intake and Output 11/03/17 11/04/17 19:00 07:00 Intake Total 655 ml 985 ml Balance 655 ml 985 ml Intake Free Water 200 ml 400 ml Tube Feeding 455 ml 585 ml # Voids 2 3 # Bowel Movements 1 Objective General Appearance: WN Lines, tubes and drains: peripheral HEENT: normocephalic, atraumatic Neck: non-tender, normal alignment Respiratory/Chest: chest wall non-tender, lungs clear Cardiovascular/Chest: normal peripheral pulses, normal rate Abdomen: normal bowel sounds, non tender Genitourinary/Rectal: normal genital exam, normal rectal exam Skin Exam: normal pigmentation Laboratory Tests 11/04/17 03:35: White Blood Count 6.7, Red Blood Count 4.29, Hemoglobin 13.1, Hematocrit 38.6, Mean Corpuscular Volume 90, Mean Corpuscular Hemoglobin 30.5, Mean Corpuscular Hemoglobin Concent 33.9, Red Cell Distribution Width 12.3, Platelet Count 352, Mean Platelet Volume 7.2, Neutrophils (%) (Auto) 46.4, Lymphocytes (%) (Auto) 45.9H, Monocytes (%) (Auto) 7.0, Eosinophils (%) (Auto) 0.0, Basophils (%) (Auto ) 0.7, Sodium Level 139, Potassium Level 4.4, Chloride Level 103, Carbon Dioxide Level 26, Anion Gap 10, Blood Urea Nitrogen 14, Creatinine 0.5L, Estimat Glomerular Filtration Rate , Glucose Level 111H, Calcium Level 9.7 Current Medications Medications (Trade) Dose Ordered Sig/Cami Route PRN Reason Start Time Stop Time Status Last Admin Dose Admin Acetaminophen (Tylenol) 650 mg Q4H PRN ORAL fever 10/30/17 22:30 11/29/17 22:29 Al Hydroxide/Mg Hydroxide (Mylanta II) 30 ml Q6H PRN ORAL dyspepsia 10/30/17 22:30 11/29/17 22:29 Amlodipine Besylate (Norvasc) 5 mg DAILY GT 10/31/17 09:00 11/30/17 08:59 11/02/17 10:20 Amoxicillin (Amoxil) 500 mg EVERY 8 HOURS ORAL 11/02/17 22:00 11/09/17 23:59 11/04/17 14:03 Aspirin (ASA) 81 mg DAILY GT 10/31/17 09:00 11/30/17 08:59 11/04/17 09:43 Atorvastatin Calcium (Lipitor) 20 mg BEDTIME GT 10/31/17 21:00 11/30/17 20:59 11/03/17 22:51 Dextrose (Dextrose 50%) STAT PRN IV Hypoglycemia 10/30/17 22:30 11/29/17 22:29 Heparin Sodium (Porcine) (Heparin 5000 units/ml) 5,000 units EVERY 12 HOURS SUBQ 10/31/17 09:00 11/30/17 08:59 11/04/17 09:45 Insulin Aspart (NovoLOG) Q6HR SUBQ 11/02/17 00:00 12/02/17 00:00 11/04/17 12:24 Lorazepam (Ativan 2mg/ml 1ml) 0.5 mg Q4H PRN IV For Anxiety 10/30/17 22:30 11/06/17 22:29 Mirtazapine (Remeron) 7.5 mg BEDTIME GT 10/31/17 21:00 11/30/17 20:59 11/03/17 22:48 Morphine Sulfate (Morphine Sulfate) 1 mg EVERY 4 HOURS PRN IVP For Pain 10/30/17 22:30 11/06/17 22:29 Olanzapine (ZyPREXA) 5 mg DAILY GT 11/02/17 10:30 12/02/17 10:29 11/04/17 09:43 Olanzapine (ZyPREXA) 10 mg QHS GT 11/04/17 21:00 12/04/17 20:59 Ondansetron HCl (Zofran) 4 mg Q6H PRN IVP Nausea & Vomiting 10/30/17 22:30 11/29/17 22:29 Polyethylene Glycol (Miralax) 17 gm HSPRN PRN ORAL Constipation 10/30/17 22:30 11/29/17 22:29 Zolpidem Tartrate (Ambien) 5 mg HSPRN PRN ORAL Insomnia 10/30/17 22:30 11/06/17 22:29 BURAK RUANO Nov 04, 2017 17:52
[2017-11-04 20:00] VITALS: BP 134/63
--- NOTE | 2017-11-04 20:15 | Progress Note ---
DATE: 11/04/2017 SUBJECTIVE: The patient is a 72-year-old female patient syncope. She is confused and disorganized. She had some confusion and disorganized thought process. Her cognition has declined below baseline, that is why her attending has requested daily psychiatric consultation. MENTAL STATUS EXAMINATION: This is a 72-year-old female with psychomotor retardation. Mood is depressed. Affect is guarded and restricted. Thought process, disorganized and illogical. She has auditory hallucinations and paranoid delusions. Insight and judgment is poor. DIAGNOSIS: Paranoid schizophrenia with acute exacerbation, rule out dementia with psychosis. PLAN: Treat her with Zyprexa 5 mg per G-tube daily, Clozaril 50 mg twice a day, and Remeron 7.5 mg at bedtime. Also provided her with 15 to 20 minutes of supportive care and encouraged her to interact appropriately with staff and other patients . Seen and assessed at bedside. Chart has been reviewed and discussed with staff. Yariel Rothman M.D. DR: MOE JOB#: [id number] CC:
[2017-11-05] VITALS: BP 110/57
[2017-11-05] MEDS: NovoLOG Insulin Flexpen SUBQ SCH ×3 (00:09→12:20)
[2017-11-05 04:00] VITALS: BP 121/64
[2017-11-05 08:00] VITALS: BP 120/60
[2017-11-05 09:09] VITALS: BP 121/64
[2017-11-05] MEDS: Aspirin Baby 81mg GT SCH (09:10)
[2017-11-05] MEDS: Heparin 5000 units/ml inj SUBQ SCH (09:15)
[2017-11-05 10:36] LABS: BASOPHILS % (AUTO) 0.7 % (0.0-2.0); HEMATOCRIT 36.6 % (37.0-47.0); HEMOGLOBIN 12.3 G/DL (12.0-16.0); LYMPHOCYTES % (AUTO) 35.2 % (20.0-45.0); MEAN CORPUSCULAR VOLUME 91 FL (80-99); MONOCYTES % (AUTO) 6.2 % (1.0-10.0); NEUTROPHILS % (AUTO) 57.9 % (45.0-75.0); PLATELET COUNT 301 K/UL (150-450); RED BLOOD COUNT 4.02 M/UL (4.20-5.40); RED CELL DISTRIBUTION WIDTH 12.9 % (11.6-14.8); WHITE BLOOD COUNT 5.9 K/UL (4.8-10.8)
[2017-11-05 10:54] LABS: ANION GAP 3 mmol/L (5-15); BLOOD UREA NITROGEN 15 mg/dL (7-18); CALCIUM 9.2 MG/DL (8.5-10.1); CARBON DIOXIDE 28 MMOL/L (21-32); CHLORIDE 105 MMOL/L (98-107); CREATININE 0.6 MG/DL (0.55-1.30); POTASSIUM 4.5 MMOL/L (3.5-5.1); SODIUM 136 MMOL/L (136-145)
--- NOTE | 2017-11-05 12:58 | General Progress Note ---
Assessment/Plan Problem List: (1) Malnutrition ICD Codes: E46 - Unspecified protein-calorie malnutrition SNOMED: 63851425 (2) HTN (hypertension) ICD Codes: I10 - Essential (primary) hypertension SNOMED: 70510031 (3) Sepsis ICD Codes: A41.9 - Sepsis, unspecified organism SNOMED: 64249551 (4) UTI (urinary tract infection) ICD Codes: N39.0 - Urinary tract infection, site not specified SNOMED: 98031099 Qualifiers: Qualified Codes: N30.00 - Acute cystitis without hematuria (5) Schizophrenia ICD Codes: F20.9 - Schizophrenia, unspecified SNOMED: 46136771 Qualifiers: Qualified Codes: F20.9 - Schizophrenia, unspecified (6) Diabetes ICD Codes: E11.9 - Type 2 diabetes mellitus without complications SNOMED: 47155725 Qualifiers: Qualified Codes: E11.8 - Type 2 diabetes mellitus with unspecified complications; Z79.4 - [facility] (current) use of insulin (7) Multiple falls ICD Codes: R29.6 - Repeated falls SNOMED: 274655962 Status: unchanged Assessment/Plan ot pt diet abx bp bs control cbc bmp am dc plan Subjective Constitutional: Reports: weakness Allergies: Coded Allergies: No Known Allergies (Unverified , 01/13/15) All Systems: reviewed and negative except above Subjective sleepy calm Objective Last 24 Hour Vital Signs Date Time Temp Pulse Resp B/P (MAP) Pulse Ox O2 Delivery O2 Flow Rate FiO2 11/05/17 09:09 62 121/64 11/05/17 08:00 96.8 64 19 120/60 98 11/05/17 04:00 97.2 62 20 121/64 96 11/05/17 00:00 96.8 63 20 110/57 97 11/04/17 20:00 97.3 70 19 134/63 95 11/04/17 16:02 97.0 67 18 103/59 95 Intake and Output 11/04/17 11/05/17 19:00 07:00 Intake Total 1210 ml 585 ml Balance 1210 ml 585 ml Intake Oral 0 ml Free Water 430 ml Tube Feeding 780 ml 585 ml # Voids 3 2 Laboratory Tests 11/05/17 10:20: White Blood Count 5.9, Red Blood Count 4.02L, Hemoglobin 12.3, Hematocrit 36.6L , Mean Corpuscular Volume 91, Mean Corpuscular Hemoglobin 30.5, Mean Corpuscular Hemoglobin Concent 33.5, Red Cell Distribution Width 12.9, Platelet Count 301, Mean Platelet Volume 7.1, Neutrophils (%) (Auto) 57.9, Lymphocytes (% ) (Auto) 35.2, Monocytes (%) (Auto) 6.2, Eosinophils (%) (Auto) 0.0, Basophils ( %) (Auto) 0.7, Sodium Level 136, Potassium Level 4.5, Chloride Level 105, Carbon Dioxide Level 28, Anion Gap 3L, Blood Urea Nitrogen 15, Creatinine 0.6, Estimat Glomerular Filtration Rate , Glucose Level 220#H, Calcium Level 9.2 Height (Feet): 5 Height (Inches): 5.00 Weight (Pounds): 130 General Appearance: lethargic EENT: normal ENT inspection Neck: normal alignment Cardiovascular: normal peripheral pulses, normal rate, regular rhythm Respiratory/Chest: chest wall non-tender, lungs clear, normal breath sounds Abdomen: normal bowel sounds, non tender, soft Extremities: normal inspection Edema: no edema noted Arm (L), no edema noted Arm (R), no edema noted Leg (L), no edema noted Leg (R), no edema noted Pedal (L), no edema noted Pedal (R), no edema noted Generalized Neurologic: motor weakness Skin: normal pigmentation, warm/dry XAVI LOPEZ Nov 05, 2017 12:58
--- NOTE | 2017-11-05 15:10 | GI Progress Note ---
Assessment/Plan Problems: (1) Malnutrition ICD Codes: E46 - Unspecified protein-calorie malnutrition SNOMED: 12695253 (2) Gastrostomy tube in place ICD Codes: Z93.1 - Gastrostomy status SNOMED: 737196347, 607653738 (3) HTN (hypertension) ICD Codes: I10 - Essential (primary) hypertension SNOMED: 13967956 (4) Fecal impaction ICD Codes: K56.41 - Fecal impaction SNOMED: 26724807 (5) Failure to thrive SNOMED: 11731398 Qualifiers: Qualified Codes: R62.7 - Adult failure to thrive (6) Schizophrenia ICD Codes: F20.9 - Schizophrenia, unspecified SNOMED: 60469394 Qualifiers: Qualified Codes: F20.9 - Schizophrenia, unspecified (7) Diabetes ICD Codes: E11.9 - Type 2 diabetes mellitus without complications SNOMED: 53221487 Qualifiers: Qualified Codes: E11.8 - Type 2 diabetes mellitus with unspecified complications; Z79.4 - [facility] (current) use of insulin Status: stable Status Narrative Discussed with Dr. Hardin. Assessment/Plan symptomatic treatment / supportive care fu ST evaluation >> last time patient passed on SOFT CHEWABLE DIET AND THIN LIQUIDS - pt refuses to eat symptomatic treatment push PO GTFs per dietary abx fu labs dc planning The patient was seen and examined at bedside and all new and available data was reviewed in the patients chart. I agree with the above findings, impression and plan. (Patient seen earlier today. Signature stamp does not reflect patient encounter time.). - Herbert Hardin MD Subjective Subjective refusing to eat, states she has tube feeding Objective Last 24 Hour Vital Signs Date Time Temp Pulse Resp B/P (MAP) Pulse Ox O2 Delivery O2 Flow Rate FiO2 11/05/17 09:09 62 121/64 11/05/17 08:00 96.8 64 19 120/60 98 11/05/17 04:00 97.2 62 20 121/64 96 11/05/17 00:00 96.8 63 20 110/57 97 11/04/17 20:00 97.3 70 19 134/63 95 11/04/17 16:02 97.0 67 18 103/59 95 Intake and Output 11/04/17 11/05/17 19:00 07:00 Intake Total 1210 ml 585 ml Balance 1210 ml 585 ml Intake Oral 0 ml Free Water 430 ml Tube Feeding 780 ml 585 ml # Voids 3 2 Laboratory Tests Test 11/05/17 10:20 White Blood Count 5.9 K/UL (4.8-10.8) Red Blood Count 4.02 M/UL (4.20-5.40) L Hemoglobin 12.3 G/DL (12.0-16.0) Hematocrit 36.6 % (37.0-47.0) L Mean Corpuscular Volume 91 FL (80-99) Mean Corpuscular Hemoglobin 30.5 PG (27.0-31.0) Mean Corpuscular Hemoglobin Concent 33.5 G/DL (32.0-36.0) Red Cell Distribution Width 12.9 % (11.6-14.8) Platelet Count 301 K/UL (150-450) Mean Platelet Volume 7.1 FL (6.5-10.1) Neutrophils (%) (Auto) 57.9 % (45.0-75.0) Lymphocytes (%) (Auto) 35.2 % (20.0-45.0) Monocytes (%) (Auto) 6.2 % (1.0-10.0) Eosinophils (%) (Auto) 0.0 % (0.0-3.0) Basophils (%) (Auto) 0.7 % (0.0-2.0) Sodium Level 136 MMOL/L (136-145) Potassium Level 4.5 MMOL/L (3.5-5.1) Chloride Level 105 MMOL/L (98-107) Carbon Dioxide Level 28 MMOL/L (21-32) Anion Gap 3 mmol/L (5-15) L Blood Urea Nitrogen 15 mg/dL (7-18) Creatinine 0.6 MG/DL (0.55-1.30) Estimat Glomerular Filtration Rate mL/min (>60) Glucose Level 220 MG/DL (74-106) #H Calcium Level 9.2 MG/DL (8.5-10.1) Height (Feet): 5 Height (Inches): 5.00 Weight (Pounds): 130 General Appearance: alert Cardiovascular: normal rate Respiratory/Chest: normal breath sounds, no respiratory distress Abdominal Exam: site - c/d/Yvette Nelson N.P. Nov 05, 2017 15:10 PETER HARDIN Nov 06, 2017 09:06
--- NOTE | 2017-11-05 16:30 | Progress Note ---
DATE: 11/05/2017 SUBJECTIVE: The patient is a 72-year-old female patient. She is having falling episodes and that was the main reason why she came into the hospital, but she is also having lot of mood lability, agitation, irritability worsened by the stress of her medical illnesses. Her attending has requested daily psychiatric consultation. MENTAL STATUS EXAMINATION: This is a 72-year-old female with psychomotor retardation. Mood is irritable and agitated. Affect is guarded and restricted. Thought process, disorganized and illogical. Denies any current suicidal or homicidal thoughts. Insight and judgment is poor. DIAGNOSIS: Paranoid schizophrenia with acute exacerbation. PLAN: My plan for this patient is to treat her with a medical regimen consisting of Zyprexa 5 mg per G-tube q.a.m. and 10 mg per G-tube q.p.m. to reduce psychosis and mood lability. Also Remeron at a dose of 7.5 mg per G-tube at bedtime. Provided with supportive therapy for 15 to 20 minutes. Encouraged to interact appropriately with staff. Chart was reviewed and discussed with staff. Seen and assessed at bedside. Yariel Rothman M.D. DR: ROVERTO JOB#: [id number] CC:
--- NOTE | 2017-11-05 18:34 | Discharge Summary ---
Discharge Summary Hospital Course Date of Admission Oct 30, 2017 at 21:45 Date of Discharge Nov 05, 2017 at 14:00 Admitting Diagnosis falling episodes HPI Miri Cm is a 72 year old female who was admitted on Oct 30, 2017 at 21:45 for Falling Episodes Hospital Course [id number] Discharge Discharge Disposition Patient was discharged to snf Discharge Diagnoses: Naty Aiken NP Nov 05, 2017 18:34
--- NOTE | 2017-11-05 19:26 | Pulmonology Progress Note ---
Assessment/Plan Problems: (1) Multiple falls (2) Gastrostomy tube in place (3) Schizophrenia (4) Diabetes Assessment/Plan improving on oral abx pt/ot dc planning all notes and meds reviewed. f/u with primary doctor Subjective ROS Limited/Unobtainable: No Allergies: Coded Allergies: No Known Allergies (Unverified , 01/13/15) Objective Last 24 Hour Vital Signs Date Time Temp Pulse Resp B/P (MAP) Pulse Ox O2 Delivery O2 Flow Rate FiO2 11/05/17 09:09 62 121/64 11/05/17 08:00 96.8 64 19 120/60 98 11/05/17 04:00 97.2 62 20 121/64 96 11/05/17 00:00 96.8 63 20 110/57 97 11/04/17 20:00 97.3 70 19 134/63 95 Intake and Output 11/04/17 11/05/17 19:00 07:00 Intake Total 1210 ml 585 ml Balance 1210 ml 585 ml Intake Oral 0 ml Free Water 430 ml Tube Feeding 780 ml 585 ml # Voids 3 2 Objective General Appearance: WN Lines, tubes and drains: peripheral HEENT: normocephalic, atraumatic Neck: non-tender, normal alignment Respiratory/Chest: chest wall non-tender, lungs clear Cardiovascular/Chest: normal peripheral pulses, normal rate Abdomen: normal bowel sounds, non tender Genitourinary/Rectal: normal genital exam, normal rectal exam Skin Exam: normal pigmentation Laboratory Tests 11/05/17 10:20: White Blood Count 5.9, Red Blood Count 4.02L, Hemoglobin 12.3, Hematocrit 36.6L , Mean Corpuscular Volume 91, Mean Corpuscular Hemoglobin 30.5, Mean Corpuscular Hemoglobin Concent 33.5, Red Cell Distribution Width 12.9, Platelet Count 301, Mean Platelet Volume 7.1, Neutrophils (%) (Auto) 57.9, Lymphocytes (% ) (Auto) 35.2, Monocytes (%) (Auto) 6.2, Eosinophils (%) (Auto) 0.0, Basophils ( %) (Auto) 0.7, Sodium Level 136, Potassium Level 4.5, Chloride Level 105, Carbon Dioxide Level 28, Anion Gap 3L, Blood Urea Nitrogen 15, Creatinine 0.6, Estimat Glomerular Filtration Rate , Glucose Level 220#H, Calcium Level 9.2 BURAK RUANO Nov 05, 2017 19:26
--- NOTE | 2017-11-05 23:30 | Consultation ---
DATE OF CONSULTATION: 11/03/2017 PSYCHOTHERAPY CONSULTATION PROGRESS NOTE CONSULTING PHYSICIAN: Kaia Dorantes M.D. TREATING ATTENDING PHYSICIAN: Sukh Chu D.O. HISTORY OF PRESENT ILLNESS: The patient is a 72-year-old female patient diagnosed with paranoid schizophrenia. The patient is admitted to the hospital for failure to thrive. She has been very confused and disorganized and having episodes of nursing facility. The patient became labile, irritable, agitated, and was very confused while in the hospital and for this reason, she is referred for psychotherapeutic services. The patient has been very forgetful, disorganized, altered in mental status, confused, and irritable when this clinician assessed this patient. The patient indicates no suicidal or homicidal thoughts of ideation at this time; however, the patient is very confused and disorganized. PAST MEDICAL HISTORY: Includes history of diabetes and encephalopathy. ALLERGIES: The patient has no known drug allergies. SUBSTANCE ABUSE HISTORY: There is no indication of alcohol use, illicit substance use, or smoking cigarettes. PSYCHIATRIC HISTORY: The patient has a history of paranoid schizophrenia. The patient has been treated with psychotropic medications in the past. SOCIAL HISTORY: The patient is a 72-year-old female patient from a nursing facility, financially sustained through [employer]. MENTAL STATUS EXAMINATION: The patient is alert and oriented to person and her mood is agitated. Affect is blunted. Thought process is disorganized. She has poor attention and concentration. Poor insight, judgment, and impulse control. DIAGNOSIS: Paranoid schizophrenia. PLAN: This clinician assessed this patient. Provide the patient with reality orientation. Provide the patient with supportive psychotherapy. Assessing the patient's confusion and disorganization and encouraging the patient to participate in treatment milieu. The patient is very confused and disorganized and agitated. Continue with behavioral management. This clinician has reviewed the patient's chart and discussed the treatment with treatment team. Kaia Dorantes PsyD. DR: SACHIN JOB#: [id number] CC:
--- NOTE | 2017-11-06 04:30 | Discharge Summary 2 SIG ---
DATE OF ADMISSION: 10/30/2017 DATE OF DISCHARGE: 11/05/2017 CONSULTANTS: 1. Yariel Rothman M.D. 2. Wisam Hardin M.D. 3. Uday Rico M.D. 4. Nate Asif M.D. 5. Elier Pham M.D. BRIEF HOSPITAL COURSE: The patient is a 72-year-old female, who is from [facility], presented to ED secondary to fall and failure to thrive. She has a past medical history significant for hypertension, diabetes, encephalopathy, and schizophrenia. On evaluation at ED, the patient had abrasions on [id number]. X-ray of bilateral tibia-fibula showed no dislocation, no soft tissue swelling, and no fractures. She had a chest x-ray done that showed poor inspiratory effort with no consolidation, no effusion, and no pneumothorax. Pelvic x-ray showed no dislocation, however, showed fecal impaction. Initial troponin was negative. She was then admitted for workup of multiple falls. She was admitted to medical/surgical floor and CT of the head showed no acute intracranial pathology. She was seen by Dr. Phma. The patient had progressive abnormal gait with polyneuropathy in the setting of ischemic cerebrovascular disease and old lacunar strokes. She was given PT, OT, and mobility protocol. She was followed by GI for fecal impaction and was given intensive bowel regimen. She was given MiraLAX. She was followed by Infectious Disease specialist. Urine showed WBC too many to count with moderate bacteria. She was started empirically on ceftriaxone. She underwent speech therapy evaluation. She was encouraged p.o. intake. and continued with G-tube feed with strict aspiration precautions. She has a paranoid schizophrenia with acute exacerbation and was given Zyprexa 5 mg, Remeron 7.5 mg, and Clozaril 50 mg b.i.d. She was placed on Ativan IV p.r.n. anxiety and agitation. Urine culture showed growth of Enterococci. Antibiotic was changed to amoxicillin. She was eventually placed back to [facility]. FINAL DIAGNOSES: 1. Fecal impaction. 2. Enterococci urinary tract infection. 3. Paranoid schizophrenia with acute exacerbation. 4. Multiple falls with leg contusion. 5. Chronic lacunar infarct in the left basal ganglia. 6. Chronic obstructive pulmonary disease. 7. Diabetes mellitus. 8. Hypertension. 9. Gastrostomy tube. 10. Protein-calorie malnutrition. 11. Traumatic wounds on bilateral knees secondary to fall present on admission. DISPOSITION: The patient was discharged to SNF. DISCHARGE MEDICATIONS: Refer to medication list. Sukh Chu D.O. I have been assigned to dictate discharge summary on this account and I was not involved in the patient's management. Naty Aiken N.P. DR: ALONZO JOB#: [id number] CC:
== END 2017-11-05 14:00 | DRG 463 ==
LOC: EDBD 19:31 → EMR 19:45 → 4E 21:45 → EDBEDREQ 22:57 → 4E 11-01 08:02
DX: N39.0 Urinary tract infection, site not specified (principal); E46 Unspecified protein-calorie malnutrition; E11.42 Type 2 diabetes mellitus with diabetic polyneuropathy; G25.9 Extrapyramidal and movement disorder, unspecified; Z43.1 Encounter for attention to gastrostomy; I10 Essential (primary) hypertension; B95.2 Enterococcus as the cause of diseases classified elsewhere; R62.7 Adult failure to thrive; F20.0 Paranoid schizophrenia; R29.6 Repeated falls; K56.41 Fecal impaction; S80.02XA Contusion of left knee, initial encounter; S80.01XA Contusion of right knee, initial encounter; W19.XXXA Unspecified fall, initial encounter; Z86.73 Personal history of transient ischemic attack (TIA), and cerebral infarction without residual deficits; K21.9 Gastro-esophageal reflux disease without esophagitis; Z79.4 Long term (current) use of insulin
CPT/HCPCS: 36415; 70450; 71045; 72170; 80048; 80053; 80061; 80307; 80329; 81003; 82550; 82962; 83880; 84484; 85025; 85610; 85730; 87086; 87181; 90471; 90715; 93005; 97803; 99285; J1815

== ENCOUNTER 2017-11-18 19:32 | Inpatient (IN) | payer MEDICAID, MEDICARE ==
[~2017-11-18] VITALS: Ht 167.6 cm; Wt 61.2 kg
[~2017-11-18 19:32] MED LIST changes: +ACETAMINOPHEN325 M1 ORAL; +AMBIEN5 MG GT; +AMOXICILLIN500 MG GT; +NOVOLOG100 UNIT/3 SUBQ
[2017-11-18] MEDS ORDERED: ZYPREXA2.5 MG ORAL (19:48)
[2017-11-18] MEDS ORDERED: ZYPREXA5 MG ORAL (19:48)
[2017-11-18] MEDS ORDERED: GLUCERNA 1.5 C237 ML GT (19:48)
[2017-11-18 21:20] LABS: HEMATOCRIT 43.7 % (37.0-47.0); HEMOGLOBIN 14.3 G/DL (12.0-16.0); LYMPHOCYTES % (AUTO) 39.1 % (20.0-45.0); MEAN CORPUSCULAR VOLUME 91 FL (80-99); MONOCYTES % (AUTO) 8.1 % (1.0-10.0); NEUTROPHILS % (AUTO) 51.8 % (45.0-75.0); PLATELET COUNT 345 K/UL (150-450); RED BLOOD COUNT 4.82 M/UL (4.20-5.40); RED CELL DISTRIBUTION WIDTH 14.1 % (11.6-14.8); WHITE BLOOD COUNT 7.1 K/UL (4.8-10.8)
[2017-11-18 21:25] LABS: ALANINE AMINOTRANSFERASE 20 U/L (12-78); ALBUMIN 3.6 G/DL (3.4-5.0); ALBUMIN/GLOBULIN RATIO 0.9 (1.0-2.7); ALKALINE PHOSPHATASE 88 U/L (46-116); ANION GAP 4 mmol/L (5-15); ASPARTATE AMINO TRANSFERASE 15 U/L (15-37); BILIRUBIN,TOTAL 0.6 MG/DL (0.2-1.0); BLOOD UREA NITROGEN 16 mg/dL (7-18); CALCIUM 9.8 MG/DL (8.5-10.1); CARBON DIOXIDE 35 MMOL/L (21-32); CHLORIDE 103 MMOL/L (98-107); CREATININE 0.7 MG/DL (0.55-1.30); POTASSIUM 4.5 MMOL/L (3.5-5.1); SODIUM 142 MMOL/L (136-145)
[2017-11-18 21:30] VITALS: BP 101/41
--- NOTE | 2017-11-18 21:32 | Emergency Room Report ---
History of Present Illness General Chief Complaint: Edema Source: Medical Record Present Illness HPI 72-year-old female presents to ED for evaluation. Patient brought in for evaluation of swelling to bilateral legs. 2+ pitting edema. Arrival patient showing no signs of distress. Patient has extensive psychiatric history. Refusing care at nursing facility. Per PMD patient has history of CHF. Was complaining of shortness of breath at the facility. unwillling to provide any initial history at this time here. Denies chest pain. No other aggravating relieving factors. Denies any other associated symptom Allergies: Coded Allergies: No Known Allergies (Unverified , 01/13/15) Patient History Past Medical History: DM, HTN, psych hx Pertinent Family History: none Social History: Denies: smoking, alcohol use, drug use Last Menstrual Period: n/a Now: No Immunizations: UTD Reviewed Nursing Documentation: PMH: Agreed, PSxH: Agreed Nursing Documentation-PMH Hx Cardiac Problems: Yes - hyperlipidemia Hx Hypertension: Yes Hx COPD: Yes Hx Diabetes: Yes - dm2 Hx Gastrointestinal Problems: Yes - Failure to Thrive, UTI, gtube Hx Weakness: Yes Review of Systems All Other Systems: limited Physical Exam Vital Signs Date Time Temp Pulse Resp B/P (MAP) Pulse Ox O2 Delivery O2 Flow Rate FiO2 11/18/17 19:37 94.5 95 20 108/67 98 Room Air 94.5 Sp02 EP Interpretation: reviewed, normal General Appearance: no apparent distress Head: normocephalic Eyes: bilateral eye normal inspection, bilateral eye PERRL ENT: normal ENT inspection Neck: normal inspection Respiratory: chest non-tender, lungs clear, normal breath sounds, speaking full sentences Cardiovascular #1: regular rate, rhythm, no edema Gastrointestinal: normal bowel sounds, non tender, soft, non-distended, no guarding, no rebound Rectal: deferred Genitourinary: no CVA tenderness Musculoskeletal: normal inspection Neurologic: other - psych Psychiatric: other - psych Skin: normal inspection Lymphatic: normal inspection Medical Decision Making Diagnostic Impression: Primary Impression: CHF exacerbation Qualified Codes: I50.9 - Heart failure, unspecified Additional Impression: Shortness of breath ER Course Hospital Course 72-year-old female presents ED complaining of shortness of breath, leg swelling Differential diagnoses include: NM/unstable angina, contusion, muscle strain, PTX, rib fracture Clinical course Patient placed on stretcher. 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 After initial history and physical I ordered labs, EKG, chest x-ray, b/l LE dopplers labs reviewed- no leukocytosis, hemoglobin/hematocrit stable, electrolytes ok, troponins negative, doppler US bilatearl negative for DVT Chest x-ray- large gastric bubble Case discussed with Dr. Lopez and he agreed to accept the patient to his service for further care and support I. I feel this is a highly complex case requiring extensive working including EKG/Rhythm strip, Xray/CT/US, Blood/urine lab work, repeat exams while in ED, and administration of strong opiates/narcotics for pain control, admission to hospital or close patient follow up. Diagnosis - CHF exacerbation, shortness of breath admitted to telemetry in serious condition Labs Test 11/18/17 20:50 White Blood Count 7.1 K/UL (4.8-10.8) Red Blood Count 4.82 M/UL (4.20-5.40) Hemoglobin 14.3 G/DL (12.0-16.0) Hematocrit 43.7 % (37.0-47.0) Mean Corpuscular Volume 91 FL (80-99) Mean Corpuscular Hemoglobin 29.6 PG (27.0-31.0) Mean Corpuscular Hemoglobin Concent 32.6 G/DL (32.0-36.0) Red Cell Distribution Width 14.1 % (11.6-14.8) Platelet Count 345 K/UL (150-450) Mean Platelet Volume 7.1 FL (6.5-10.1) Neutrophils (%) (Auto) 51.8 % (45.0-75.0) Lymphocytes (%) (Auto) 39.1 % (20.0-45.0) Monocytes (%) (Auto) 8.1 % (1.0-10.0) Eosinophils (%) (Auto) 0.0 % (0.0-3.0) Basophils (%) (Auto) 1.0 % (0.0-2.0) Prothrombin Time 10.5 SEC (9.30-11.50) Prothromb Time International Ratio 1.0 (0.9-1.1) Activated Partial Thromboplast Time 25 SEC (23-33) Sodium Level 142 MMOL/L (136-145) Potassium Level 4.5 MMOL/L (3.5-5.1) Chloride Level 103 MMOL/L (98-107) Carbon Dioxide Level 35 MMOL/L (21-32) Anion Gap 4 mmol/L (5-15) Blood Urea Nitrogen 16 mg/dL (7-18) Creatinine 0.7 MG/DL (0.55-1.30) Estimat Glomerular Filtration Rate mL/min (>60) Glucose Level 156 MG/DL (74-106) Calcium Level 9.8 MG/DL (8.5-10.1) Total Bilirubin 0.6 MG/DL (0.2-1.0) Aspartate Amino Transf (AST/SGOT) 15 U/L (15-37) Alanine Aminotransferase (ALT/SGPT) 20 U/L (12-78) Alkaline Phosphatase 88 U/L (46-116) Total Creatine Kinase 81 U/L (26-308) Creatine Kinase MB 1.2 NG/ML (0.0-3.6) Creatine Kinase MB Relative Index 1.4 Troponin I 0.000 ng/mL (0.000-0.056) Pro-B-Type Natriuretic Peptide 31 pg/mL (0-125) Total Protein 7.8 G/DL (6.4-8.2) Albumin 3.6 G/DL (3.4-5.0) Globulin 4.2 g/dL Albumin/Globulin Ratio 0.9 (1.0-2.7) EKG Diagnostic Results Rate: normal Rhythm: NSR ST Segments: no acute changes ASA given to the pt in ED: No Rhythm Strip Diag. Results EP Interpretation: yes Rhythm: NSR, no PVC's, no ectopy Chest X-Ray Diagnostic Results Chest X-Ray Diagnostic Results : Chest X-Ray Ordered: Yes # of Views/Limited/Complete: 1 View Indication: Shortness of Breath EP Interpretation: Yes Interpretation: no consolidation, no effusion, no pneumothorax, other - large gastric bubble Impression: No acute disease Electronically Signed by: Electronically signed by Dimitry Huang MD CT/MRI/US Diagnostic Results CT/MRI/US Diagnostic Results : Imaging Test Ordered: Doppler US Impression bilateral doppler shows no DVT Last Vital Signs Date Time Temp Pulse Resp B/P (MAP) Pulse Ox O2 Delivery O2 Flow Rate FiO2 11/18/17 19:42 95 20 Room Air 11/18/17 19:37 94.5 108/67 98 94.5 Status: improved Disposition: ADMITTED INPATIENT Condition: Serious Referrals: XAVI LOPEZ (PCP) DIMITRY HUANG M.D. Nov 18, 2017 21:32
[2017-11-18 21:50] LABS: CKMB 1.2 NG/ML (0.0-3.6)
[2017-11-18 23:28] VITALS: BP 102/40
[2017-11-19] VITALS: BP 125/74
[2017-11-19] MEDS ORDERED: Albuterol/Ipratropium 3ml neb HHN PRN ×2 (00:45→21:30)
[2017-11-19] MEDS ORDERED: Miralax 17gm pkt ORAL PRN ×2 (00:45→21:30)
[2017-11-19 04:00] VITALS: BP 127/65
[2017-11-19] MEDS: NovoLOG Insulin Flexpen SUBQ SCH ×4 (06:20→22:15)
--- NOTE | 2017-11-19 07:29 | Cardiology Progress Note ---
Assessment/Plan Assessment/Plan The patient is seen and examined, full consult note will be dictated shortly. Objective Last 24 Hour Vital Signs Date Time Temp Pulse Resp B/P (MAP) Pulse Ox O2 Delivery O2 Flow Rate FiO2 11/19/17 04:00 96.8 80 17 127/65 96 11/19/17 04:00 86 11/19/17 00:00 97.7 97 18 125/74 96 Room Air 11/19/17 00:00 97.9 91 16 102/40 96 Room Air 97.9 11/18/17 23:28 91 16 102/40 96 Room Air 11/18/17 21:30 97.9 92 17 101/41 95 Room Air 97.9 11/18/17 19:42 95 20 Room Air 11/18/17 19:37 94.5 95 20 108/67 98 Room Air 94.5 Intake and Output 11/18/17 11/19/17 19:00 07:00 Intake Total 0 ml Balance 0 ml Intake Oral 0 ml # Voids 3 # Bowel Movements 1 Laboratory Tests Test 11/18/17 20:50 White Blood Count 7.1 K/UL (4.8-10.8) Red Blood Count 4.82 M/UL (4.20-5.40) Hemoglobin 14.3 G/DL (12.0-16.0) Hematocrit 43.7 % (37.0-47.0) Mean Corpuscular Volume 91 FL (80-99) Mean Corpuscular Hemoglobin 29.6 PG (27.0-31.0) Mean Corpuscular Hemoglobin Concent 32.6 G/DL (32.0-36.0) Red Cell Distribution Width 14.1 % (11.6-14.8) Platelet Count 345 K/UL (150-450) Mean Platelet Volume 7.1 FL (6.5-10.1) Neutrophils (%) (Auto) 51.8 % (45.0-75.0) Lymphocytes (%) (Auto) 39.1 % (20.0-45.0) Monocytes (%) (Auto) 8.1 % (1.0-10.0) Eosinophils (%) (Auto) 0.0 % (0.0-3.0) Basophils (%) (Auto) 1.0 % (0.0-2.0) Prothrombin Time 10.5 SEC (9.30-11.50) Prothromb Time International Ratio 1.0 (0.9-1.1) Activated Partial Thromboplast Time 25 SEC (23-33) Sodium Level 142 MMOL/L (136-145) Potassium Level 4.5 MMOL/L (3.5-5.1) Chloride Level 103 MMOL/L (98-107) Carbon Dioxide Level 35 MMOL/L (21-32) H Anion Gap 4 mmol/L (5-15) L Blood Urea Nitrogen 16 mg/dL (7-18) Creatinine 0.7 MG/DL (0.55-1.30) Estimat Glomerular Filtration Rate mL/min (>60) Glucose Level 156 MG/DL (74-106) H Calcium Level 9.8 MG/DL (8.5-10.1) Total Bilirubin 0.6 MG/DL (0.2-1.0) Aspartate Amino Transf (AST/SGOT) 15 U/L (15-37) Alanine Aminotransferase (ALT/SGPT) 20 U/L (12-78) Alkaline Phosphatase 88 U/L (46-116) Total Creatine Kinase 81 U/L (26-308) Creatine Kinase MB 1.2 NG/ML (0.0-3.6) Creatine Kinase MB Relative Index 1.4 Troponin I 0.000 ng/mL (0.000-0.056) Pro-B-Type Natriuretic Peptide 31 pg/mL (0-125) Total Protein 7.8 G/DL (6.4-8.2) Albumin 3.6 G/DL (3.4-5.0) Globulin 4.2 g/dL Albumin/Globulin Ratio 0.9 (1.0-2.7) SUSANNAH ARGUETA Nov 19, 2017 07:29
[2017-11-19 08:00] VITALS: BP 108/62
[2017-11-19] MEDS: Benztropine 1mg tab GT SCH ×2 (08:45→17:33)
[2017-11-19] MEDS ORDERED: Heparin 5000 units/ml inj SUBQ SCH (09:00)
[2017-11-19] MEDS ORDERED: OLANZapine 2.5mg tab ORAL SCH (09:00)
[2017-11-19] MEDS ORDERED: Ziprasidone 20mg cap ORAL SCH (09:00)
--- NOTE | 2017-11-19 09:27 | Diagnostic Imaging Report ---
Indication: Shortness of breath Technique: One view of the chest Comparison: 10/30/2017 Findings: The left hemidiaphragm is elevated, as previously. There is left basilar atelectasis. The heart size is normal. The upper mediastinum is unremarkable no acute infiltrates. There is slight blunting of the bilateral costophrenic sulci, small effusions not completely excludable Impression: , Rule out small bilateral pleural effusions Elevated left hemidiaphragm with resultant left basilar atelectasis No acute process otherwise
[2017-11-19 12:00] VITALS: BP 122/88
--- NOTE | 2017-11-19 12:06 | General Progress Note ---
Assessment/Plan Status: unchanged Assessment/Plan encephalopathy agitation risperdal haldol IM ativan po Subjective Date patient seen: Nov 19, 2017 Neurologic/Psychiatric: Reports: anxiety, depressed, emotional problems Allergies: Coded Allergies: No Known Allergies (Unverified , 01/13/15) Subjective coming out of bed. sitter Objective Last 24 Hour Vital Signs Date Time Temp Pulse Resp B/P (MAP) Pulse Ox O2 Delivery O2 Flow Rate FiO2 11/19/17 12:00 97.9 84 19 122/88 96 11/19/17 09:00 80 108/62 11/19/17 08:00 97.6 80 20 108/62 98 11/19/17 08:00 79 11/19/17 04:00 96.8 80 17 127/65 96 11/19/17 04:00 86 11/19/17 00:00 97.7 97 18 125/74 96 Room Air 11/19/17 00:00 97.9 91 16 102/40 96 Room Air 97.9 11/18/17 23:28 91 16 102/40 96 Room Air 11/18/17 21:30 97.9 92 17 101/41 95 Room Air 97.9 11/18/17 19:42 95 20 Room Air 11/18/17 19:37 94.5 95 20 108/67 98 Room Air 94.5 Intake and Output 11/18/17 11/19/17 19:00 07:00 Intake Total 0 ml Balance 0 ml Intake Oral 0 ml # Voids 3 # Bowel Movements 1 Laboratory Tests 11/18/17 20:50: White Blood Count 7.1, Red Blood Count 4.82, Hemoglobin 14.3, Hematocrit 43.7, Mean Corpuscular Volume 91, Mean Corpuscular Hemoglobin 29.6, Mean Corpuscular Hemoglobin Concent 32.6, Red Cell Distribution Width 14.1, Platelet Count 345, Mean Platelet Volume 7.1, Neutrophils (%) (Auto) 51.8, Lymphocytes (%) (Auto) 39.1, Monocytes (%) (Auto) 8.1, Eosinophils (%) (Auto) 0.0, Basophils (%) (Auto ) 1.0, Prothrombin Time 10.5, Prothromb Time International Ratio 1.0, Activated Partial Thromboplast Time 25, Sodium Level 142, Potassium Level 4.5, Chloride Level 103, Carbon Dioxide Level 35H, Anion Gap 4L, Blood Urea Nitrogen 16, Creatinine 0.7, Estimat Glomerular Filtration Rate , Glucose Level 156H, Calcium Level 9.8, Total Bilirubin 0.6, Aspartate Amino Transf (AST/SGOT) 15, Alanine Aminotransferase (ALT/SGPT) 20, Alkaline Phosphatase 88, Total Creatine Kinase 81, Creatine Kinase MB 1.2, Creatine Kinase MB Relative Index 1.4, Troponin I 0.000, Pro-B-Type Natriuretic Peptide 31, Total Protein 7.8, Albumin 3.6, Globulin 4.2, Albumin/Globulin Ratio 0.9L Height (Feet): 5 Height (Inches): 6.00 Weight (Pounds): 135 General Appearance: no apparent distress, alert, agitated Neurologic: alert, oriented x 3, depressed affect Maryann Henley M.D. Nov 19, 2017 12:06
[2017-11-19] MEDS ORDERED: Haloperidol 5mg/ml Inj IM PRN ×2 (13:00→21:30)
[2017-11-19] MEDS ORDERED: LORazepam 1mg tab ORAL PRN ×2 (13:00→21:30)
--- NOTE | 2017-11-19 13:28 | Cardiology Report ---
APPROVED REPORT EXAM: Two-dimensional and M-mode echocardiogram with Doppler and color Doppler. INDICATION Left ventricular function Technically limited and difficult study due to poor acoustical windows. M-mode measurements not obtainable due to cardiac structure. Normal left ventricular chamber size, systolic function and wall motion. Left ventricular ejection fraction estimated to be 55-60%. No evidence of left ventricular hypertrophy. No evidence of pericardial or pleural effusion. All other cardiac chamber sizes are within normal limits. Focal aortic valve sclerosis with adequate cusp excursion. Normal mitral valve leaflets with normal excursion. Mild mitral annulus and aortic root calcification. Pulmonic valve not well visualized. Normal tricuspid valve structure. IVC is normal in size and collapsible with respiration. A color flow and spectral Doppler study was performed and revealed: No aortic regurgitation. No mitral regurgitation. Mitral diastolic velocities suggest reduced left ventricular relaxation c/w diastolic dysfunction grade 1. No tricuspid regurgitation.
--- NOTE | 2017-11-19 15:16 | Cardiology Report ---
APPROVED REPORT EKG Measurement Heart [id number] Normal sinus rhythm Septal infarct, age undetermined Abnormal ECG
[2017-11-19 15:31] LABS: BASOPHILS % (AUTO) 1.3 % (0.0-2.0); HEMATOCRIT 43.8 % (37.0-47.0); HEMOGLOBIN 14.6 G/DL (12.0-16.0); LYMPHOCYTES % (AUTO) 34.5 % (20.0-45.0); MEAN CORPUSCULAR VOLUME 90 FL (80-99); MONOCYTES % (AUTO) 6.3 % (1.0-10.0); NEUTROPHILS % (AUTO) 57.9 % (45.0-75.0); PLATELET COUNT 351 K/UL (150-450); RED BLOOD COUNT 4.88 M/UL (4.20-5.40); RED CELL DISTRIBUTION WIDTH 13.9 % (11.6-14.8); WHITE BLOOD COUNT 6.7 K/UL (4.8-10.8)
[2017-11-19 15:48] LABS: ALANINE AMINOTRANSFERASE 21 U/L (12-78); ALBUMIN 3.6 G/DL (3.4-5.0); ALBUMIN/GLOBULIN RATIO 0.9 (1.0-2.7); ALKALINE PHOSPHATASE 91 U/L (46-116); ANION GAP 9 mmol/L (5-15); ASPARTATE AMINO TRANSFERASE 16 U/L (15-37); BLOOD UREA NITROGEN 12 mg/dL (7-18); CARBON DIOXIDE 30 MMOL/L (21-32); CHLORIDE 103 MMOL/L (98-107); CREATININE 0.6 MG/DL (0.55-1.30); SODIUM 142 MMOL/L (136-145)
[2017-11-19 16:00] VITALS: BP 127/79
--- NOTE | 2017-11-19 16:15 | Consultation ---
DATE OF CONSULTATION: 11/19/2017 CARDIOLOGY CONSULTATION CONSULTING PHYSICIAN: Leonardo Farrell M.D. REFERRING PHYSICIAN: Sukh Chu D.O. REASON FOR CONSULTATION: Management of heart failure. HISTORY OF PRESENT ILLNESS: The patient is a very unfortunate 72-year-old female who presents to the emergency department for evaluation of bilateral lower extremity swelling and possible congestive heart failure. The patient had complaints of shortness of breath at the facility where she resides. Due to her underlying psychiatric history, she was refusing to provide any further history. At the time of arrival at the hospital, she was however chest pain free. The initial blood pressure in the emergency department was 108/67 mmHg and heart rate was 95. The patient was admitted to telemetry for further evaluation and management. PAST MEDICAL HISTORY: Diabetes mellitus, hypertension, psychiatric history, history of congestive heart failure, history of failure to thrive, status post G-tube placement, history of UTI, history of COPD, and history of hyperlipidemia. PAST SURGICAL HISTORY: G-tube placement. MEDICATIONS: List of medication includes acetaminophen 650 mg q.6 h. p.r.n. fever, headaches, and mild pain, amlodipine 5 mg G-tube daily, Amoxil 500 mg G-tube q.8 h., aspirin 81 mg G-tube daily, Lipitor 20 mg G-tube nightly, benztropine mesylate 1 mg G-tube twice daily, clozapine 50 mg G-tube 12 hours, insulin Aspart, lorazepam 1 mg G-tube q.6 h., magnesium oxide 400 mg G-tube twice daily, metformin 1000 mg G-tube twice daily, mirtazapine 7.5 mg G-tube nightly, multivitamin one tablet G-tube daily, Glucerna 1.5 Yo at 237 mL G-tube 5 times a day, Zyprexa 5 mg G-tube nightly, Prilosec 20 mg G-tube daily, Zofran 4 mg G-tube q.4 h. p.r.n. nausea and vomiting, MiraLAX 17 g G-tube daily, temazepam 7.5 mg G-tube nightly, vancomycin 1 g IV piggyback q. for 24 hours, and Ambien 5 mg G-tube nightly p.r.n. insomnia. SOCIAL HISTORY: Denies any tobacco, alcohol, or illicit drug use. FAMILY HISTORY: No premature coronary artery disease in first-degree relatives. REVIEW OF SYSTEMS: A 12-system review done essentially negative. The patient is not communicating verbally with me at this time. PHYSICAL EXAMINATION: VITAL SIGNS: Blood pressure was 108/67, respirations 20, pulse of 95, temperature 94.5 degrees Fahrenheit, and O2 saturation 98%. GENERAL: The patient is a very unfortunate 72-year-old female, who has a flat affect, barely opens her eyes upon verbal communication, does not appear to be in respiratory distress. HEENT: Atraumatic and normocephalic. Anicteric. Pupils are equal, round, and reactive to light and accommodation. Extraocular muscles intact. NECK: JVP is less than 5 cm. No carotid bruit. Carotid upstrokes 2+ bilaterally. CARDIOVASCULAR: Normal S1 and S2. Regular rate and rhythm. No murmurs, gallops, or rubs. PMI is at fourth intercostal space in the midclavicular line. LUNGS: Clear to auscultation bilaterally. ABDOMEN: Soft, nontender, and nondistended. No hepatosplenomegaly. Positive bowel sounds. There is presence of a G-tube. EXTREMITIES: There is 1+ bilateral ankle edema. Both feet were in plantar flexion. DIAGNOSTIC DATA: A 12-lead electrocardiogram showed sinus rhythm with no evidence of ST-segment changes that would suggest ischemia. Chest x-ray showed elevated left hemidiaphragm, results on the left basilar atelectasis, possible small bilateral pleural effusions, no acute cardiopulmonary process. LABORATORY FINDINGS: WBC 7.1, hemoglobin 14.3, hematocrit of 43.7, and platelet count 345. Sodium 142, potassium 4.5, chloride 103, bicarbonate 35, BUN of 16, creatinine 0.7, and glucose 156. Calcium is 9.8. Troponin-I was 0. ProBNP was 31. INR was 1.0. ASSESSMENT AND PLAN: The patient is a very unfortunate 72-year-old female, seen in Cardiology consultation at the request of Dr. Chu. 1. Dyspnea at the nursing facility. At this time, the patient is not communicating, does not appear to be in respiratory distress. There is no evidence of tachypnea. Clinically, she does not appear to be in congestive heart failure either with negative jugular venous distention. From the labs standpoint, beta natriuretic peptide was also within normal limits, somewhat rules out congestive heart failure. I would like to stop a very high dose of Lasix at this time in view of the patient's clinical evidence of dehydration. 2. Altered level of consciousness could be metabolic encephalopathy. We are trying to correct the underlying electrolyte and reassess hemodynamics. We will obtain 2D echocardiography for assessment of left ventricular systolic and diastolic function. 3. Failure to thrive, status post G-tube placement. 4. History of psychiatric disorder. I would like to thank, Dr. Chu for the courtesy of this consultation. Leonardo Farrell M.D. DR: OSCAR JOB#: [id number] CC:
--- NOTE | 2017-11-19 16:40 | Consultation ---
History of Present Illness General Date patient seen: Nov 19, 2017 Time patient seen: 15:30 Chief Complaint: BLE edema Referring physician: dr Zamora Reason for Consultation: dyspnea Present Illness HPI 72 y/old female, resident of the SNF, with PMH of COPD, DM, hypertension, CHF, dysphagia, G tube, psychiatric history,failure to thrive, was sent for evaluation due to dyspnea and BLE edema VSS troponin negative ECG no acute ischemic changes labs unremarkable pro BNP stable CXR with Elevated left hemidiaphragm with resultant left basilar atelectasis No acute process otherwise venous duplex BLE negative patient was admitted for further management Allergies: Coded Allergies: No Known Allergies (Unverified , 01/13/15) Medication History Scheduled Amlodipine Besylate* (Amlodipine Besylate*), 5 MG GT DAILY, (Reported) Amoxicillin* (Amoxil*), 500 MG GT EVERY 8 HOURS, (Reported) Aspirin* (Aspirin*), 81 MG GT DAILY, (Reported) Atorvastatin Calcium* (Lipitor*), 20 MG GT BEDTIME, (Reported) Benztropine Mesylate* (Benztropine Mesylate*), 1 MG GT BID, (Reported) Clozapine* (Clozaril*), 50 MG ORAL EVERY 12 HOURS, (Reported) Insulin Aspart* (Novolog*), 0 SUBQ AC+HS, (Reported) Lorazepam* (Lorazepam*), 1 MG GT Q6HR, (Reported) Magnesium Oxide (Magnesium Oxide), 400 MG GT BID, (Reported) Metformin Hcl* (Metformin Hcl*), 1,000 MG GT BID, (Reported) Mirtazapine* (Mirtazapine*), 7.5 MG GT BEDTIME, (Reported) Multivitamin with Minerals (Multivitamins with Minerals), 1 TAB GT DAILY, ( Reported) Nut.tx.gluc.intoler,Lac-Fr,Soy (Glucerna 1.5 Yo), 237 ML GT FIVE TIMES A DAY, ( Reported) Olanzapine (Zyprexa), 5 MG GT BEDTIME, (Reported) Olanzapine* (Zyprexa*), 5 MG GT DAILY, (Reported) Olanzapine* (Zyprexa*), 2.5 MG ORAL DAILY, (Reported) Olanzapine* (Zyprexa*), 5 MG ORAL HS, (Reported) Omeprazole Magnesium (Prilosec), 20.6 MG GT DAILY, (Reported) Polyethylene Glycol 3350* (Polyethylene Glycol 3350*), 17 GM GT DAILY, (Reported ) Temazepam (Temazepam*), 7.5 MG GT BEDTIME, (Reported) Vancomycin Hcl (Vancomycin), 1 GM IV Q24H, (Reported) Ziprasidone Hcl* (Geodon*), 20 MG GT DAILY, (Reported) Scheduled PRN Acetaminophen* (Acetaminophen 325MG Tablet*), 650 MG ORAL Q6H PRN for Fever/ Headache/Mild Pain, (Reported) Ondansetron (Zofran), 4 MG GT Q4HR PRN for Nausea & Vomiting, (Reported) Polyethylene Glycol 3350* (Miralax*), 17 GM ORAL BEDTIME PRN for Constipation, ( Reported) Temazepam (Temazepam*), 15 MG ORAL BEDTIME PRN for Insomnia, (Reported) Zolpidem Tartrate* (Ambien*), 5 MG GT BEDTIME PRN for Insomnia, (Reported) Miscellaneous Medications Insulin Aspart (Novolog Flexpen), (Reported) Insulin Aspart (Novolog Flexpen), (Reported) Nut.tx.gluc.intoler,Lac-Fr,Soy (Glucerna 1.5 Yo), 237 ML GT, (Reported) Paliperidone Palmitate (Invega Sustenna), 117 MG IM, (Reported) Patient History History Provided By: Medical Record Healthcare decision maker HAYLIE BARR Resuscitation status Full Code Advanced Directive on File Past Medical/Surgical History Past Medical/Surgical History: (1) HTN (hypertension) (2) Malnutrition (3) Gastrostomy tube in place Review of Systems ROS Narrative unable to obtain 2 to AMS Physical Exam Lines, tubes and drains: peripheral HEENT: normocephalic, atraumatic, anicteric, mucous membranes moist, PERRL Neck: supple Respiratory/Chest: lungs clear, no respiratory distress, no accessory muscle use Cardiovascular/Chest: normal rate, regular rhythm - AR on tele , no JVD Abdomen: normal bowel sounds, non tender, soft, feeding tube - G tube Extremities: no calf tenderness, other - + 1 BLE ankle edema Neurologic: alert, responsive, normal mood/affect Musculoskeletal: atrophy - BLE Last 24 Hour Vital Signs Date Time Temp Pulse Resp B/P (MAP) Pulse Ox O2 Delivery O2 Flow Rate FiO2 11/19/17 16:00 97.9 81 20 127/79 98 97.9 11/19/17 12:00 97.9 84 19 122/88 96 11/19/17 12:00 89 11/19/17 09:00 80 108/62 11/19/17 08:00 97.6 80 20 108/62 98 11/19/17 08:00 79 11/19/17 04:00 96.8 80 17 127/65 96 11/19/17 04:00 86 11/19/17 00:00 97.7 97 18 125/74 96 Room Air 11/19/17 00:00 97.9 91 16 102/40 96 Room Air 97.9 11/18/17 23:28 91 16 102/40 96 Room Air 11/18/17 21:30 97.9 92 17 101/41 95 Room Air 97.9 11/18/17 19:42 95 20 Room Air 11/18/17 19:37 94.5 95 20 108/67 98 Room Air 94.5 Intake and Output 11/18/17 11/19/17 19:00 07:00 Intake Total 0 ml Balance 0 ml Intake Oral 0 ml # Voids 3 # Bowel Movements 1 Laboratory Tests Test 11/18/17 20:50 11/19/17 15:00 White Blood Count 7.1 K/UL (4.8-10.8) 6.7 K/UL (4.8-10.8) Red Blood Count 4.82 M/UL (4.20-5.40) 4.88 M/UL (4.20-5.40) Hemoglobin 14.3 G/DL (12.0-16.0) 14.6 G/DL (12.0-16.0) Hematocrit 43.7 % (37.0-47.0) 43.8 % (37.0-47.0) Mean Corpuscular Volume 91 FL (80-99) 90 FL (80-99) Mean Corpuscular Hemoglobin 29.6 PG (27.0-31.0) 29.9 PG (27.0-31.0) Mean Corpuscular Hemoglobin Concent 32.6 G/DL (32.0-36.0) 33.3 G/DL (32.0-36.0) Red Cell Distribution Width 14.1 % (11.6-14.8) 13.9 % (11.6-14.8) Platelet Count 345 K/UL (150-450) 351 K/UL (150-450) Mean Platelet Volume 7.1 FL (6.5-10.1) 7.2 FL (6.5-10.1) Neutrophils (%) (Auto) 51.8 % (45.0-75.0) 57.9 % (45.0-75.0) Lymphocytes (%) (Auto) 39.1 % (20.0-45.0) 34.5 % (20.0-45.0) Monocytes (%) (Auto) 8.1 % (1.0-10.0) 6.3 % (1.0-10.0) Eosinophils (%) (Auto) 0.0 % (0.0-3.0) 0.0 % (0.0-3.0) Basophils (%) (Auto) 1.0 % (0.0-2.0) 1.3 % (0.0-2.0) Prothrombin Time 10.5 SEC (9.30-11.50) Prothromb Time International Ratio 1.0 (0.9-1.1) Activated Partial Thromboplast Time 25 SEC (23-33) Sodium Level 142 MMOL/L (136-145) 142 MMOL/L (136-145) Potassium Level 4.5 MMOL/L (3.5-5.1) 4.0 MMOL/L (3.5-5.1) Chloride Level 103 MMOL/L (98-107) 103 MMOL/L (98-107) Carbon Dioxide Level 35 MMOL/L (21-32) H 30 MMOL/L (21-32) Anion Gap 4 mmol/L (5-15) L 9 mmol/L (5-15) Blood Urea Nitrogen 16 mg/dL (7-18) 12 mg/dL (7-18) Creatinine 0.7 MG/DL (0.55-1.30) 0.6 MG/DL (0.55-1.30) Estimat Glomerular Filtration Rate mL/min (>60) mL/min (>60) Glucose Level 156 MG/DL (74-106) H 153 MG/DL (74-106) H Calcium Level 9.8 MG/DL (8.5-10.1) 10.0 MG/DL (8.5-10.1) Total Bilirubin 0.6 MG/DL (0.2-1.0) 1.0 MG/DL (0.2-1.0) Aspartate Amino Transf (AST/SGOT) 15 U/L (15-37) 16 U/L (15-37) Alanine Aminotransferase (ALT/SGPT) 20 U/L (12-78) 21 U/L (12-78) Alkaline Phosphatase 88 U/L (46-116) 91 U/L (46-116) Total Creatine Kinase 81 U/L (26-308) Creatine Kinase MB 1.2 NG/ML (0.0-3.6) Creatine Kinase MB Relative Index 1.4 Troponin I 0.000 ng/mL (0.000-0.056) 0.000 ng/mL (0.000-0.056) Pro-B-Type Natriuretic Peptide 31 pg/mL (0-125) Total Protein 7.8 G/DL (6.4-8.2) 7.4 G/DL (6.4-8.2) Albumin 3.6 G/DL (3.4-5.0) 3.6 G/DL (3.4-5.0) Globulin 4.2 g/dL 3.8 g/dL Albumin/Globulin Ratio 0.9 (1.0-2.7) L 0.9 (1.0-2.7) L Lipase 150 U/L (73-393) Height (Feet): 5 Height (Inches): 6.00 Weight (Pounds): 135 Medications Current Medications Medications (Trade) Dose Ordered Sig/Cami Route PRN Reason Start Time Stop Time Status Last Admin Dose Admin Acetaminophen (Tylenol) 650 mg Q4H PRN ORAL Fever 11/19/17 00:45 12/19/17 00:44 Albuterol/ Ipratropium (Albuterol/ Ipratropium) 3 ml Q4H PRN HHN Shortness of Breath 11/19/17 00:45 18 00:44 Amlodipine Besylate (Norvasc) 5 mg DAILY GT 11/19/17 09:00 12/19/17 08:59 Atorvastatin Calcium (Lipitor) 20 mg BEDTIME GT 11/19/17 21:00 12/19/17 20:59 Benztropine Mesylate (Cogentin) 1 mg BID GT 11/19/17 09:00 12/19/17 08:59 11/19/17 08:45 Dextrose (Dextrose 50%) STAT PRN IV Hypoglycemia 11/19/17 00:45 12/19/17 00:44 Haloperidol Lactate (Haldol) 10 mg Q6H PRN IM Agitation 11/19/17 13:00 12/19/17 12:59 Heparin Sodium (Porcine) (Heparin 5000 units/ml) 5,000 units EVERY 12 HOURS SUBQ 11/19/17 09:00 12/19/17 08:59 11/19/17 08:47 Insulin Aspart (NovoLOG) BEFORE MEALS AND HS SUBQ 11/19/17 06:30 12/19/17 06:29 11/19/17 16:13 Lorazepam (Ativan) 2 mg Q6H PRN ORAL For Anxiety 11/19/17 13:00 11/26/17 12:59 Mirtazapine (Remeron) 7.5 mg BEDTIME GT 11/19/17 21:00 12/19/17 20:59 Ondansetron HCl (Zofran) 4 mg Q6H PRN IVP Nausea & Vomiting 11/19/17 00:45 12/19/17 00:44 Polyethylene Glycol (Miralax) 17 gm DAILYPRN PRN ORAL Constipation 11/19/17 00:45 12/19/17 00:44 Risperidone (RisperDAL) 1 mg BID GT 11/19/17 18:00 12/19/17 17:59 Temazepam (Restoril) 15 mg HSPRN PRN ORAL Insomnia 11/19/17 00:45 11/26/17 00:44 Assessment/Plan Assessment/Plan ASSESSMENT dyspnea BLE edema COPD acute toxic metabolic encephalopathy (likely due to dehydration) on chronic schizophrenia dehydration dysphagia, G tube DM HTN hx of CHF psychiatric history PLAN OF CARE O2 prn, titrate HHN prn CXR no acute CP pathology, Venous Duplex BLE negative fup with CXR in am elevate BLE clinically not appeared to be in CHF, pro BNP wihin normal limits, CXR not suggestive of CHF no evidence of COPD exacerbation ECHO with pEF 55-60% cardio follows troponin negative serial troponin ordered by cardio ECG no acute ischemic changes, no need for diuretic as per cardio, off diuretic BP management with CCB and optimize as needed continue statin DVT prophylaxis strict aspiration precautions, GT feeding, monitor tolerance psych eval appreciated psych meds as per psych order BS management with SS of insulin bowel regimen supportive care transfer to MS case discussed and evaluated by supervising physician Kayode (Yang)Cesilia NP Nov 19, 2017 16:40
[2017-11-19 20:00] VITALS: BP 118/67
--- NOTE | 2017-11-19 20:00 | Consultation ---
DATE OF CONSULTATION: 11/18/2017 HISTORY OF PRESENT ILLNESS: The patient is a 72-year-old female with the history of schizophrenia, who is being admitted to the hospital for medical stabilization and the patient apparently had a fall several days ago. The patient has been agitated, chewing on her G-tube, warning to come out of the bed, and agitated. Therefore, the sitter was placed for the patient to be observed one-to-one. The patient is now being following redirections. The patient is having poor cognition. Her eyes were closed and the patient is disrupt and refusing to wear any clothes and/or cover herself. She knew her name. She thought [facility]. She knew the city and she knew the year, month, and date. The patient did not answer any other question and was a poor historian and disorganized behavior. PAST PSYCHIATRIC HISTORY: She has a history of paranoid schizophrenia per records. She was unable to provide any further history. PAST MEDICAL HISTORY: Hypertension, diabetic mellitus, and failure to thrive. ALLERGIES: No known drug allergies. SUBSTANCE ABUSE HISTORY: No history of illicit drug use or alcohol. MENTAL STATUS EXAMINATION: The patient is alert, eyes closed, and oriented to self, place, and date. Her mood was agitated. Affect was blunted. Congruent with mood. Eyes were closed. Mood was agitated and anxious. Thought process disorganized. Thought content, no suicidal or homicidal ideations. Speech is within normal length, frequency, and volume. Cognition is impaired. Insight and judgment is impaired. ASSESSMENT: [place] I Schizophrenia by history. [place] II Deferred. [place] III As above. [place] IV Low. [place] V Global assessment of functioning is 40. PLAN: 1. We will the Geodon and discontinue the Zyprexa and start the patient on risperidone 1 mg G-tube b.i.d. 2. We will start the patient on Ativan p.r.n. 3. We will start the patient on Haldol IM and Ativan p.o. p.r.n. 4. Continue the sitter for now. 5. We will continue to follow and readjust the medications. Maryann Henley M.D. DR: GAEL JOB#: [id number] CC:
--- NOTE | 2017-11-19 20:15 | History and Physical Report ---
DATE OF ADMISSION: 11/18/2017 TIME: 2 p.m. CONSULTANTS: 1. dUay Rico M.D. 2. Leonardo Farrell M.D. 3. Yariel Rothman M.D. CHIEF COMPLAINT: Shortness of breath, congestive heart failure exacerbation, edema, encephalopathy, and agitation. BRIEF HISTORY: This is a 72-year-old female from [facility] presents to [facility] with history of increased shortness of breath, diagnosed with congestive heart failure exacerbation, edema, and psych agitation and is admitted to telemetry for further care. Currently, slightly lethargic in bed, slightly confused. No complaint otherwise. PAST MEDICAL HISTORY: Includes hypertension, diabetes, congestive heart failure, and encephalopathy. PAST SURGICAL HISTORY: G-tube. MEDICATIONS: Include Lipitor, Remeron, Risperdal, Haldol, Ativan, Norvasc, Cogentin, heparin, furosemide, Restoril, Tylenol, MiraLAX, and Zofran. ALLERGIES: Denies. SOCIAL HISTORY: No smoking. No alcohol. No intravenous drug abuse. FAMILY HISTORY: Noncontributory. REVIEW OF SYSTEMS: No chest pain. Slight short of breath. No nausea, vomiting, or diarrhea. PHYSICAL EXAMINATION: GENERAL: Slightly confused in bed, oriented x1, and in no acute distress. VITAL SIGNS: Temperature is 97, pulse 84, respirations 19, and blood pressure 123/88. CARDIOVASCULAR: No murmurs. LUNGS: Poor air exchange. ABDOMEN: Bowel sounds positive. Nontender. Nondistended. EXTREMITIES: No cyanosis, clubbing, or edema. NEUROLOGIC: The patient moves all extremities. Slightly weak. LABORATORY AND DIAGNOSTIC DATA: CBC is normal. BMP shows bicarb is 35 and glucose 156. Troponin 0.00. Otherwise, BMP is normal. INR is 1.0. PTT is 25. ASSESSMENT: 1. Shortness of breath. 2. Congestive heart failure exacerbation. 3. Edema. 4. Encephalopathy. 5. Agitation. 6. Diabetes. 7. Hypertension. PLAN: 1. O2 and pulmonary treatment. 2. OT, PT, and dietary followup. 3. Blood pressure and blood sugar control. 4. Psychiatric treatment. 5. Resume home medications back. 6. We will continue to follow this patient medically. 7. CBC and BMP in the morning. Sukh Chu D.O. DR: NIYAH JOB#: [id number] CC:
[2017-11-19] MEDS ORDERED: Atorvastatin 20mg tab GT SCH (21:00)
[2017-11-19] MEDS: Heparin 5000 units/ml inj SUBQ SCH (22:12)
[2017-11-19] MEDS: Atorvastatin 20mg tab GT SCH (22:13)
[2017-11-20] VITALS: BP 131/87
[2017-11-20 04:00] VITALS: BP 119/64
[2017-11-20] MEDS: NovoLOG Insulin Flexpen SUBQ SCH ×4 (06:01→21:31)
[2017-11-20] MEDS: Heparin 5000 units/ml inj SUBQ SCH ×2 (09:00→21:29)
[2017-11-20] MEDS: Benztropine 1mg tab GT SCH ×4 (09:00→17:55)
--- NOTE | 2017-11-20 11:05 | Diagnostic Imaging Report ---
Indication: Dyspnea Technique: XRAY Chest 1v Comparison: 11/18/2017 Findings: Limited exam with low lung volumes. Heart size and mediastinal contours appear stable. There is increased patchy bibasilar airspace opacities. There is decreased blunting of the left costophrenic sulcus. There is no pneumothorax. There is scoliosis and likely degenerative change of the spine. Impression: Limited exam with low lung volumes. Increased patchy bibasilar airspace opacities, possibly atelectasis. Correlate clinically to exclude pneumonia.
[2017-11-20] MEDS ORDERED: LORazepam Inj 2mg/ml 1ml IV PRN (11:30)
[2017-11-20 12:00] VITALS: BP 121/69
--- NOTE | 2017-11-20 14:23 | General Progress Note ---
Assessment/Plan Problem List: (1) Diabetes ICD Codes: E11.9 - Type 2 diabetes mellitus without complications SNOMED: 93156332 (2) Edema ICD Codes: R60.9 - Edema, unspecified SNOMED: 657382211, 151890622 (3) Shortness of breath ICD Codes: R06.02 - Shortness of breath SNOMED: 849366118 (4) CHF exacerbation ICD Codes: I50.9 - Heart failure, unspecified SNOMED: 65364039 Qualifiers: Qualified Codes: I50.9 - Heart failure, unspecified (5) Malnutrition ICD Codes: E46 - Unspecified protein-calorie malnutrition SNOMED: 99682977 (6) HTN (hypertension) ICD Codes: I10 - Essential (primary) hypertension SNOMED: 82721498 (7) Gastrostomy tube in place ICD Codes: Z93.1 - Gastrostomy status SNOMED: 515367528, 496307395 Status: stable, progressing, tolerating diet Assessment/Plan ot pt diet bp bs control psyc tx cbc bmp am Subjective Constitutional: Reports: weakness Allergies: Coded Allergies: No Known Allergies (Unverified , 01/13/15) All Systems: reviewed and negative except above Subjective calm confused Objective Last 24 Hour Vital Signs Date Time Temp Pulse Resp B/P (MAP) Pulse Ox O2 Delivery O2 Flow Rate FiO2 11/20/17 12:00 96.5 77 20 121/69 100 96.5 11/20/17 11:06 71 119/64 11/20/17 04:00 97.5 71 19 119/64 100 97.5 11/20/17 04:00 Room Air 11/20/17 00:00 Room Air 11/20/17 00:00 97.5 85 19 131/87 96 97.5 11/19/17 20:00 98.7 78 18 118/67 99 Room Air 98.7 11/19/17 16:00 97.9 81 20 127/79 98 97.9 11/19/17 16:00 90 Intake and Output 11/19/17 11/20/17 19:00 07:00 Intake Total 240 ml 140 ml Balance 240 ml 140 ml Free Water 90 ml 50 ml Tube Feeding 150 ml 90 ml # Voids 3 3 Laboratory Tests 11/19/17 15:00: White Blood Count 6.7, Red Blood Count 4.88, Hemoglobin 14.6, Hematocrit 43.8, Mean Corpuscular Volume 90, Mean Corpuscular Hemoglobin 29.9, Mean Corpuscular Hemoglobin Concent 33.3, Red Cell Distribution Width 13.9, Platelet Count 351, Mean Platelet Volume 7.2, Neutrophils (%) (Auto) 57.9, Lymphocytes (%) (Auto) 34.5, Monocytes (%) (Auto) 6.3, Eosinophils (%) (Auto) 0.0, Basophils (%) (Auto ) 1.3, Sodium Level 142, Potassium Level 4.0, Chloride Level 103, Carbon Dioxide Level 30, Anion Gap 9, Blood Urea Nitrogen 12, Creatinine 0.6, Estimat Glomerular Filtration Rate , Glucose Level 153H, Calcium Level 10.0, Total Bilirubin 1.0, Aspartate Amino Transf (AST/SGOT) 16, Alanine Aminotransferase ( ALT/SGPT) 21, Alkaline Phosphatase 91, Troponin I 0.000, Total Protein 7.4, Albumin 3.6, Globulin 3.8, Albumin/Globulin Ratio 0.9L, Lipase 150 Height (Feet): 5 Height (Inches): 6.00 Weight (Pounds): 135 General Appearance: lethargic, confused EENT: normal ENT inspection Neck: normal alignment Cardiovascular: normal peripheral pulses, normal rate, regular rhythm Respiratory/Chest: chest wall non-tender, lungs clear, normal breath sounds Abdomen: normal bowel sounds, non tender, soft Extremities: normal inspection Edema: 1+ Arm (L), 1+ Arm (R), 1+ Leg (L), 1+ Leg (R), 1+ Pedal (L), 1+ Pedal ( R), 1+ Generalized Edema: trace edema Neurologic: motor weakness XAVI LOPEZ Nov 20, 2017 14:23
--- NOTE | 2017-11-20 15:07 | Pulmonology Progress Note ---
Assessment/Plan Problems: (1) CHF exacerbation (2) Diabetes (3) HTN (hypertension) (4) Nausea and vomiting in adult patient (5) Gastrostomy tube in place Assessment/Plan symptomatic treatment echo reviewed respiratory treatment titrate fio2 to sat of 92% dvtr porphylaxis psych evaluaton Subjective ROS Limited/Unobtainable: No Constitutional: Reports: no symptoms HEENT: Repors: no symptoms Respiratory: Reports: no symptoms Allergies: Coded Allergies: No Known Allergies (Unverified , 01/13/15) Objective Last 24 Hour Vital Signs Date Time Temp Pulse Resp B/P (MAP) Pulse Ox O2 Delivery O2 Flow Rate FiO2 11/20/17 12:00 96.5 77 20 121/69 100 96.5 11/20/17 11:06 71 119/64 11/20/17 04:00 97.5 71 19 119/64 100 97.5 11/20/17 04:00 Room Air 11/20/17 00:00 Room Air 11/20/17 00:00 97.5 85 19 131/87 96 97.5 11/19/17 20:00 98.7 78 18 118/67 99 Room Air 98.7 11/19/17 16:00 97.9 81 20 127/79 98 97.9 11/19/17 16:00 90 Intake and Output 11/19/17 11/20/17 19:00 07:00 Intake Total 240 ml 140 ml Balance 240 ml 140 ml Free Water 90 ml 50 ml Tube Feeding 150 ml 90 ml # Voids 3 3 Objective General Appearance: no apparent distress, awake, not communicating Lines, tubes and drains: peripheral HEENT: normocephalic, atraumatic, anicteric Neck: non-tender, supple Respiratory/Chest: decreased breath sounds Cardiovascular/Chest: normal rate, regular rhythm - SR with PVC Abdomen: normal bowel sounds, non tender, Gtube in place Neurologic: no motor/sensory deficits, alert, responsive Musculoskeletal: normal muscle bulk General Appearance: cachetic Current Medications Medications (Trade) Dose Ordered Sig/Cami Route PRN Reason Start Time Stop Time Status Last Admin Dose Admin Acetaminophen (Tylenol) 650 mg Q4H PRN ORAL Fever 11/19/17 22:00 12/19/17 21:59 Albuterol/ Ipratropium (Albuterol/ Ipratropium) 3 ml Q4H PRN HHN Shortness of Breath 11/19/17 21:30 11/24/17 21:29 Amlodipine Besylate (Norvasc) 5 mg DAILY GT 11/20/17 09:00 12/19/17 08:59 11/20/17 11:06 Atorvastatin Calcium (Lipitor) 20 mg BEDTIME GT 11/19/17 22:00 12/19/17 21:59 11/19/17 22:13 Benztropine Mesylate (Cogentin) 1 mg BID GT 11/20/17 09:00 12/19/17 08:59 11/20/17 11:05 Dextrose (Dextrose 50%) STAT PRN IV Hypoglycemia 11/19/17 21:30 12/19/17 21:29 Haloperidol Lactate (Haldol) 10 mg Q6H PRN IM Agitation 11/19/17 21:30 12/19/17 21:29 Heparin Sodium (Porcine) (Heparin 5000 units/ml) 5,000 units EVERY 12 HOURS SUBQ 11/19/17 21:30 12/19/17 21:29 11/19/17 22:12 Insulin Aspart (NovoLOG) BEFORE MEALS AND HS SUBQ 11/19/17 22:30 12/19/17 22:29 11/20/17 11:30 Lorazepam (Ativan 2mg/ml 1ml) 2 mg Q6H PRN IV For Anxiety 11/20/17 11:30 11/27/17 11:29 Lorazepam (Ativan) 2 mg Q6H PRN ORAL For Anxiety 11/19/17 21:30 11/26/17 21:29 Mirtazapine (Remeron) 7.5 mg BEDTIME GT 11/19/17 22:00 12/19/17 21:59 11/19/17 22:13 Ondansetron HCl (Zofran) 4 mg Q6H PRN IVP Nausea & Vomiting 11/19/17 21:30 12/19/17 21:29 Polyethylene Glycol (Miralax) 17 gm DAILYPRN PRN ORAL Constipation 11/19/17 21:30 12/19/17 21:29 Risperidone (RisperDAL) 1 mg BID GT 11/20/17 09:00 12/19/17 17:59 11/20/17 11:06 Temazepam (Restoril) 15 mg HSPRN PRN ORAL Insomnia 11/19/17 21:30 11/26/17 21:29 BURAK RUANO Nov 20, 2017 15:07
--- NOTE | 2017-11-20 15:54 | Wound Care Consultation ---
Wound Assessment Wound Assessment #1: Wound Number: 1 Wound Present on Admission: Yes New Wound: No Status Change of Wound: No Wound Location Body Site Modif: left Wound Location Body Site: elbow Wound Type: other - open wound with scab appearing Talya Test: Does not Talya Wound Thickness: Full Thickness Wound Length: 1.5 Wound Width: 1.5 Wound Depth: 0.2 Percent of Wound [place]/Red: 50 Percent of Wound Black/Brown: 50 - scab appearing Wound Drainage Description: Serosanguineous Wound Drainage Amount: Scant Wound Drainage Odor: None/Absent Tissue Surrounding Wound: Erythemic Wound General Appearance: Reddened Wound Assessment #2: Wound Number: 2 Wound Present on Admission: Yes New Wound: No Status Change of Wound: No Wound Location Body Site Modif: left, anterior Wound Location Body Site: knee Wound Type: other - opne scattered wound with scabs appearing Talya Test: Does not Talya Wound Thickness: Partial Thickness Wound Length: 6.0 Wound Width: 4.0 Wound Depth: 0.1 Percent of Wound [place]/Red: 50 Percent of Wound Black/Brown: 50 - dry scabs appearing Wound Drainage Description: Serosanguineous Wound Drainage Amount: Scant Wound Drainage Odor: None/Absent Tissue Surrounding Wound: Erythemic Wound General Appearance: Reddened Wound Assessment #3: Wound Number: 3 Wound Present on Admission: Yes New Wound: No Status Change of Wound: No Wound Location Body Site Modif: right, anterior Wound Location Body Site: knee Wound Type: other - open wound with scab appearing Talya Test: Does not Talya Wound Thickness: Full Thickness Wound Length: 1.5 Wound Width: 1.5 Wound Depth: 0.3 Percent of Wound [place]/Red: 50 Percent of Wound Black/Brown: 50 - scab appearing Wound Drainage Description: Serosanguineous Wound Drainage Amount: Scant Wound Drainage Odor: None/Absent Tissue Surrounding Wound: Erythemic Wound Comment #1 Left elbow open wound with scab appearing #2 Left knee scattered open wounds with scab appearing. #3 Right knee open wound with scab appearing. Recommendation. -Local wound care as ordered. -keep sites clean and dry. -Turn and reposition. -Optimize nutrition. -Assess and notify MD for any further change of condition to skin noted. LINA KIDD Nov 20, 2017 15:54
[2017-11-20 16:02] VITALS: BP 101/68
--- NOTE | 2017-11-20 19:21 | Cardiology Progress Note ---
Assessment/Plan Assessment/Plan 1. Dyspnea at the nursing facility, clinically she does not appear to be in congestive heart failure with LVEF at 55%. From the labs standpoint, beta natriuretic peptide was also within normal limits , somewhat rules out congestive heart failure. 2. Altered level of consciousness could be metabolic encephalopathy. We are trying to correct the underlying electrolyte and reassess hemodynamics. 3. Failure to thrive, status post G-tube placement. 4. History of psychiatric disorder. Subjective Subjective The patient is in a non-telemetry bed. No cardiac events reported. Objective Last 24 Hour Vital Signs Date Time Temp Pulse Resp B/P (MAP) Pulse Ox O2 Delivery O2 Flow Rate FiO2 11/20/17 16:02 98.0 85 21 101/68 97 Room Air 98.0 11/20/17 12:00 96.5 77 20 121/69 100 96.5 11/20/17 11:06 71 119/64 11/20/17 04:00 97.5 71 19 119/64 100 97.5 11/20/17 04:00 Room Air 11/20/17 00:00 Room Air 11/20/17 00:00 97.5 85 19 131/87 96 97.5 11/19/17 20:00 98.7 78 18 118/67 99 Room Air 98.7 Intake and Output 11/19/17 11/20/17 19:00 07:00 Intake Total 240 ml 140 ml Balance 240 ml 140 ml Free Water 90 ml 50 ml Tube Feeding 150 ml 90 ml # Voids 3 3 2D Echo: LVEF 55-60%, Grade I LVDD Objective GENERAL: The patient is a very unfortunate 72-year-old female, who has a flat affect, barely opens her eyes upon verbal communication, does not appear to be in respiratory distress. HEENT: Atraumatic and normocephalic. Anicteric. Pupils are equal, round, and reactive to light and accommodation. Extraocular muscles intact. NECK: JVP is less than 5 cm. No carotid bruit. Carotid upstrokes 2+ bilaterally. CARDIOVASCULAR: Normal S1 and S2. Regular rate and rhythm. No murmurs, gallops, or rubs. PMI is at fourth intercostal space in the midclavicular line. LUNGS: Clear to auscultation bilaterally. ABDOMEN: Soft, nontender, and nondistended. No hepatosplenomegaly. Positive bowel sounds. There is presence of a G-tube. EXTREMITIES: There is 1+ bilateral ankle edema. Both feet were in plantar flexion. SUSANNAH DIAZ Nov 20, 2017 19:21
[2017-11-20 20:14] VITALS: BP 116/65
--- NOTE | 2017-11-20 20:45 | Progress Note ---
DATE: 11/20/2017 SUBJECTIVE: The patient is the same. Eyes are closed. Medication was not administered today due to a clog in G-tube. The patient is not agitated. She is calm. She is able to answer the questions in regards to the name, place and date. However, she is disorganized. MENTAL STATUS EXAMINATION: The patient is alert and oriented times self. She knows she is in the hospital. She knows the year and month. Mood is neutral and agitated. Affect is flat. Thought process, there is a paucity of thought content. Thought content, no suicidal or homicidal ideations. ASSESSMENT: Encephalopathy due to general medical condition and schizophrenia by history. PLAN: We will continue current medications. Mrayann Henley M.D. DR: GAEL JOB#: [id number] CC:
[2017-11-20] MEDS: Atorvastatin 20mg tab GT SCH (21:29)
--- NOTE | 2017-11-20 21:50 | Diagnostic Imaging Report ---
APPROVED REPORT CPT Code: 71913 Present Symptoms Comments: Swelling and pain BILATERAL: Imaging reveals a patent deep venous system bilaterally. There is no evidence of thrombus within the femoral, popliteal or tibial segments. The greater saphenous veins are also within normal limits. Doppler indicates normal spontaneous flow within these segments.
--- NOTE | 2017-11-20 23:45 | Consultation ---
DATE OF CONSULTATION: 11/19/2017 PSYCHOTHERAPY CONSULTATION PROGRESS NOTE CONSULTING PHYSICIAN: Kaia Dorantes M.D. TREATING ATTENDING PHYSICIAN: Sukh Chu D.O. HISTORY OF PRESENT ILLNESS: The patient is a 72-year-old female patient. This patient was admitted to the hospital for congestive heart failure, encephalopathy, and agitation. She is from [place]. The patient is very agitated, irritable, and confused. For these reasons, she was referred for psychotherapeutic services. The patient has been refusing most of the treatment, also refusing care, and has been selective in her future participation in her treatment. This clinician assessed the patient. The patient is very selective in how she answers the questions. Denies suicidal or homicidal thoughts of ideation. However, has been refusing most of her treatment. She states that she does not know why she is in the hospital. She is very confused and disorganized. Remains very agitated. She is with a sitter at this time. The patient is very confused and disorganized. Her anxiety level remained high. The patient has been to be disrobing from [id number] and is difficult to redirect. PAST MEDICAL HISTORY: Includes a history of hypertension, diabetes, chronic obstructive pulmonary disease, and encephalopathy. ALLERGIES: The patient has no known drug allergies. SUBSTANCE ABUSE HISTORY: There is no indication of alcohol use, illicit substance use, or smoking cigarettes. PSYCHIATRIC HISTORY: The patient has a history of mental illness including paranoid schizophrenia. The patient has a history of psychotropic medications in the past. SOCIAL HISTORY: The patient is a 72-year-old female. The patient is presenting from [facility]. Financially sustained through [facility]. MENTAL STATUS EXAMINATION: The patient is alert and oriented to person. Mood is anxious. Affect is congruent. Thought process, disorganized. Thought content, confused. The patient has poor attention and concentration. Poor insight, judgment, and impulse control. DIAGNOSIS: Schizophrenia, paranoid type. PLAN: This clinician assessed the patient. The patient and reality orientation. The patient is provided with supportive psychotherapy. Encouraging the patient to articulate her needs utilizing positive communication skills. Working on increasing the patient's compliance with treatment milieu. Continue with behavioral management. This clinical has reviewed the patient's chart and discussed the treatment with treatment team. Kaia Dorantes PsyD. DR: SACHIN JOB#: [id number] CC:
[2017-11-21] VITALS (8 sets, daily range): BP systolic 92–134; BP diastolic 48–75
[2017-11-21] MEDS: NovoLOG Insulin Flexpen SUBQ SCH ×4 (06:03→20:32)
[2017-11-21 07:30] LABS: BASOPHILS % (AUTO) 0.9 % (0.0-2.0); EOSINOPHILS % (AUTO) 0.1 % (0.0-3.0); HEMATOCRIT 38.7 % (37.0-47.0); LYMPHOCYTES % (AUTO) 33.8 % (20.0-45.0); MEAN CORPUSCULAR VOLUME 91 FL (80-99); MONOCYTES % (AUTO) 8.4 % (1.0-10.0); NEUTROPHILS % (AUTO) 56.9 % (45.0-75.0); PLATELET COUNT 318 K/UL (150-450); RED BLOOD COUNT 4.27 M/UL (4.20-5.40); RED CELL DISTRIBUTION WIDTH 14.3 % (11.6-14.8); WHITE BLOOD COUNT 6.9 K/UL (4.8-10.8)
[2017-11-21 07:48] LABS: ANION GAP 5 mmol/L (5-15); BLOOD UREA NITROGEN 27 mg/dL (7-18); CALCIUM 9.5 MG/DL (8.5-10.1); CARBON DIOXIDE 33 MMOL/L (21-32); CHLORIDE 105 MMOL/L (98-107); CREATININE 0.8 MG/DL (0.55-1.30); POTASSIUM 4.1 MMOL/L (3.5-5.1); SODIUM 143 MMOL/L (136-145)
[2017-11-21] MEDS: Benztropine 1mg tab GT SCH (08:03)
[2017-11-21] MEDS: Heparin 5000 units/ml inj SUBQ SCH ×2 (08:07→20:32)
--- NOTE | 2017-11-21 11:37 | General Progress Note ---
Assessment/Plan Status: stable Assessment/Plan encephalopathy agitation schizophrenia risperdal haldol IM ativan po haldol dec Subjective Neurologic/Psychiatric: Reports: depressed, emotional problems Allergies: Coded Allergies: No Known Allergies (Unverified , 01/13/15) Subjective asleep the pt has. sitter no agitation calm no catatonia Objective Last 24 Hour Vital Signs Date Time Temp Pulse Resp B/P (MAP) Pulse Ox O2 Delivery O2 Flow Rate FiO2 11/21/17 08:08 97.8 83 22 92/50 94 Room Air 97.8 11/21/17 08:03 85 106/75 11/21/17 04:00 97.1 85 19 106/75 95 Room Air 97.1 11/21/17 00:00 97.7 66 20 119/66 98 Room Air 97.7 11/20/17 20:18 79 18 Room Air 11/20/17 20:14 97.9 78 20 116/65 96 Room Air 97.9 11/20/17 16:02 98.0 85 21 101/68 97 Room Air 98.0 11/20/17 12:00 96.5 77 20 121/69 100 96.5 Intake and Output 11/20/17 11/21/17 19:00 07:00 Intake Total 80 ml 610 ml Balance 80 ml 610 ml Free Water 30 ml 60 ml Tube Feeding 50 ml 550 ml # Voids 1 2 Laboratory Tests 11/21/17 06:40: White Blood Count 6.9, Red Blood Count 4.27, Hemoglobin 13.0, Hematocrit 38.7, Mean Corpuscular Volume 91, Mean Corpuscular Hemoglobin 30.4, Mean Corpuscular Hemoglobin Concent 33.5, Red Cell Distribution Width 14.3, Platelet Count 318, Mean Platelet Volume 7.1, Neutrophils (%) (Auto) 56.9, Lymphocytes (%) (Auto) 33.8, Monocytes (%) (Auto) 8.4, Eosinophils (%) (Auto) 0.1, Basophils (%) (Auto ) 0.9, Sodium Level 143, Potassium Level 4.1, Chloride Level 105, Carbon Dioxide Level 33H, Anion Gap 5, Blood Urea Nitrogen 27H, Creatinine 0.8, Estimat Glomerular Filtration Rate , Glucose Level 179H, Calcium Level 9.5, Troponin I 0.023 Height (Feet): 5 Height (Inches): 6.00 Weight (Pounds): 135 General Appearance: no apparent distress Neurologic: depressed affect Maryann Henley M.D. Nov 21, 2017 11:37
--- NOTE | 2017-11-21 14:15 | General Progress Note ---
Assessment/Plan Problem List: (1) Diabetes ICD Codes: E11.9 - Type 2 diabetes mellitus without complications SNOMED: 03830023 (2) Edema ICD Codes: R60.9 - Edema, unspecified SNOMED: 321741468, 639404325 (3) Shortness of breath ICD Codes: R06.02 - Shortness of breath SNOMED: 838025440 (4) CHF exacerbation ICD Codes: I50.9 - Heart failure, unspecified SNOMED: 27571699 Qualifiers: Qualified Codes: I50.9 - Heart failure, unspecified (5) Malnutrition ICD Codes: E46 - Unspecified protein-calorie malnutrition SNOMED: 17408387 (6) HTN (hypertension) ICD Codes: I10 - Essential (primary) hypertension SNOMED: 82154996 (7) Gastrostomy tube in place ICD Codes: Z93.1 - Gastrostomy status SNOMED: 193846924, 860100669 Status: unchanged Assessment/Plan ot pt diet bp bs control psyc tx dc plan snf Subjective Constitutional: Reports: weakness Allergies: Coded Allergies: No Known Allergies (Unverified , 01/13/15) All Systems: reviewed and negative except above Subjective calm confused Objective Last 24 Hour Vital Signs Date Time Temp Pulse Resp B/P (MAP) Pulse Ox O2 Delivery O2 Flow Rate FiO2 11/21/17 12:15 97.1 69 20 92/48 94 Room Air 97.1 11/21/17 08:08 97.8 83 22 92/50 94 Room Air 97.8 11/21/17 08:03 85 106/75 11/21/17 06:30 83 17 Room Air 11/21/17 04:00 97.1 85 19 106/75 95 Room Air 97.1 11/21/17 00:00 97.7 66 20 119/66 98 Room Air 97.7 11/20/17 20:18 79 18 Room Air 11/20/17 20:14 97.9 78 20 116/65 96 Room Air 97.9 11/20/17 16:02 98.0 85 21 101/68 97 Room Air 98.0 Intake and Output 11/20/17 11/21/17 19:00 07:00 Intake Total 80 ml 610 ml Balance 80 ml 610 ml Free Water 30 ml 60 ml Tube Feeding 50 ml 550 ml # Voids 1 2 Laboratory Tests 11/21/17 06:40: White Blood Count 6.9, Red Blood Count 4.27, Hemoglobin 13.0, Hematocrit 38.7, Mean Corpuscular Volume 91, Mean Corpuscular Hemoglobin 30.4, Mean Corpuscular Hemoglobin Concent 33.5, Red Cell Distribution Width 14.3, Platelet Count 318, Mean Platelet Volume 7.1, Neutrophils (%) (Auto) 56.9, Lymphocytes (%) (Auto) 33.8, Monocytes (%) (Auto) 8.4, Eosinophils (%) (Auto) 0.1, Basophils (%) (Auto ) 0.9, Sodium Level 143, Potassium Level 4.1, Chloride Level 105, Carbon Dioxide Level 33H, Anion Gap 5, Blood Urea Nitrogen 27H, Creatinine 0.8, Estimat Glomerular Filtration Rate , Glucose Level 179H, Calcium Level 9.5, Troponin I 0.023 Height (Feet): 5 Height (Inches): 6.00 Weight (Pounds): 135 General Appearance: lethargic, confused EENT: normal ENT inspection Neck: normal alignment Cardiovascular: normal peripheral pulses, normal rate, regular rhythm Respiratory/Chest: chest wall non-tender, lungs clear, normal breath sounds Abdomen: normal bowel sounds, non tender, soft Extremities: normal inspection Edema: no edema noted Arm (L), no edema noted Arm (R), no edema noted Leg (L), no edema noted Leg (R), no edema noted Pedal (L), no edema noted Pedal (R), no edema noted Generalized Neurologic: motor weakness Skin: normal pigmentation, warm/dry XAVI LOPEZ Nov 21, 2017 14:15
[2017-11-21] MEDS ORDERED: LORazepam 1mg tab ORAL PRN (15:30)
--- NOTE | 2017-11-21 16:42 | Pulmonology Progress Note ---
Assessment/Plan Problems: (1) Diabetes (2) HTN (hypertension) (3) Nausea and vomiting in adult patient (4) Gastrostomy tube in place Assessment/Plan symptomatic treatment echo reviewed respiratory treatment titrate fio2 to sat of 92% dvt prophylaxis psych evaluation Subjective ROS Limited/Unobtainable: No Constitutional: Reports: no symptoms HEENT: Repors: no symptoms Respiratory: Reports: no symptoms Allergies: Coded Allergies: No Known Allergies (Unverified , 01/13/15) Objective Last 24 Hour Vital Signs Date Time Temp Pulse Resp B/P (MAP) Pulse Ox O2 Delivery O2 Flow Rate FiO2 11/21/17 16:00 98.5 85 22 92/56 97 Room Air 98.5 11/21/17 12:15 97.1 69 20 92/48 94 Room Air 97.1 11/21/17 08:08 97.8 83 22 92/50 94 Room Air 97.8 11/21/17 08:03 85 106/75 11/21/17 06:30 83 17 Room Air 11/21/17 04:00 97.1 85 19 106/75 95 Room Air 97.1 11/21/17 00:00 97.7 66 20 119/66 98 Room Air 97.7 11/20/17 20:18 79 18 Room Air 11/20/17 20:14 97.9 78 20 116/65 96 Room Air 97.9 Intake and Output 11/20/17 11/21/17 19:00 07:00 Intake Total 80 ml 610 ml Balance 80 ml 610 ml Free Water 30 ml 60 ml Tube Feeding 50 ml 550 ml # Voids 1 2 Objective General Appearance: no apparent distress, awake, not communicating Lines, tubes and drains: peripheral HEENT: normocephalic, atraumatic, anicteric Neck: non-tender, supple Respiratory/Chest: decreased breath sounds Cardiovascular/Chest: normal rate, regular rhythm - SR with PVC Abdomen: normal bowel sounds, non tender, Gtube in place Neurologic: no motor/sensory deficits, alert, responsive Musculoskeletal: normal muscle bulk Microbiology Date/Time Source Procedure Growth Status 11/18/17 23:30 Nasal Nares MRSA Culture - Final NO METHICILLIN RESISTANT STAPH AUREUS... Complete 11/18/17 23:30 Rectum VRE Culture - Final Enterococcus Faecalis - Vre Complete Laboratory Tests 11/21/17 06:40: White Blood Count 6.9, Red Blood Count 4.27, Hemoglobin 13.0, Hematocrit 38.7, Mean Corpuscular Volume 91, Mean Corpuscular Hemoglobin 30.4, Mean Corpuscular Hemoglobin Concent 33.5, Red Cell Distribution Width 14.3, Platelet Count 318, Mean Platelet Volume 7.1, Neutrophils (%) (Auto) 56.9, Lymphocytes (%) (Auto) 33.8, Monocytes (%) (Auto) 8.4, Eosinophils (%) (Auto) 0.1, Basophils (%) (Auto ) 0.9, Sodium Level 143, Potassium Level 4.1, Chloride Level 105, Carbon Dioxide Level 33H, Anion Gap 5, Blood Urea Nitrogen 27H, Creatinine 0.8, Estimat Glomerular Filtration Rate , Glucose Level 179H, Calcium Level 9.5, Troponin I 0.023 Current Medications Medications (Trade) Dose Ordered Sig/Cami Route PRN Reason Start Time Stop Time Status Last Admin Dose Admin Acetaminophen (Tylenol) 650 mg Q4H PRN ORAL Fever 11/19/17 22:00 12/19/17 21:59 Albuterol/ Ipratropium (Albuterol/ Ipratropium) 3 ml Q4H PRN HHN Shortness of Breath 11/19/17 21:30 11/24/17 21:29 Amlodipine Besylate (Norvasc) 5 mg DAILY GT 11/20/17 09:00 12/19/17 08:59 11/21/17 08:03 Atorvastatin Calcium (Lipitor) 20 mg BEDTIME GT 11/19/17 22:00 12/19/17 21:59 11/20/17 21:29 Dextrose (Dextrose 50%) STAT PRN IV Hypoglycemia 11/19/17 21:30 12/19/17 21:29 Haloperidol Decanoate (Haldol) 50 mg ONCE ONCE IM 11/22/17 13:00 11/22/17 13:01 Haloperidol Lactate (Haldol) 10 mg Q6H PRN IM Agitation 11/19/17 21:30 12/19/17 21:29 Heparin Sodium (Porcine) (Heparin 5000 units/ml) 5,000 units EVERY 12 HOURS SUBQ 11/19/17 21:30 12/19/17 21:29 11/21/17 08:07 Insulin Aspart (NovoLOG) BEFORE MEALS AND HS SUBQ 11/19/17 22:30 12/19/17 22:29 11/21/17 11:58 Lorazepam (Ativan) 1 mg Q6H PRN ORAL For Anxiety 11/21/17 15:30 11/28/17 15:29 Mirtazapine (Remeron) 7.5 mg BEDTIME GT 11/19/17 22:00 12/19/17 21:59 11/20/17 21:28 Ondansetron HCl (Zofran) 4 mg Q6H PRN IVP Nausea & Vomiting 11/19/17 21:30 12/19/17 21:29 Polyethylene Glycol (Miralax) 17 gm DAILYPRN PRN ORAL Constipation 11/19/17 21:30 12/19/17 21:29 Risperidone (RisperDAL) 2 mg BEDTIME GT 11/21/17 21:00 12/19/17 17:59 Temazepam (Restoril) 15 mg HSPRN PRN ORAL Insomnia 11/19/17 21:30 11/26/17 21:29 BURAK RUANO Nov 21, 2017 16:42
[2017-11-21] MEDS: Atorvastatin 20mg tab GT SCH (20:29)
[2017-11-22] VITALS: BP 106/56
[2017-11-22 04:00] VITALS: BP 102/61
[2017-11-22] MEDS: NovoLOG Insulin Flexpen SUBQ SCH ×2 (06:13→13:07)
[2017-11-22 08:00] VITALS: BP 104/63
[2017-11-22] MEDS: Heparin 5000 units/ml inj SUBQ SCH (08:22)
[2017-11-22 12:00] VITALS: BP 108/66
--- NOTE | 2017-11-22 12:11 | General Progress Note ---
Assessment/Plan Problem List: (1) Diabetes ICD Codes: E11.9 - Type 2 diabetes mellitus without complications SNOMED: 51982617 (2) Edema ICD Codes: R60.9 - Edema, unspecified SNOMED: 790433611, 025436666 (3) Shortness of breath ICD Codes: R06.02 - Shortness of breath SNOMED: 366416760 (4) CHF exacerbation ICD Codes: I50.9 - Heart failure, unspecified SNOMED: 43688324 Qualifiers: Qualified Codes: I50.9 - Heart failure, unspecified (5) Malnutrition ICD Codes: E46 - Unspecified protein-calorie malnutrition SNOMED: 17384367 (6) HTN (hypertension) ICD Codes: I10 - Essential (primary) hypertension SNOMED: 97744923 (7) Gastrostomy tube in place ICD Codes: Z93.1 - Gastrostomy status SNOMED: 231629719, 998274028 Status: unchanged Assessment/Plan ot pt diet bp bs control psyc tx cbc bmp am dc plan snf Subjective Constitutional: Reports: weakness Allergies: Coded Allergies: No Known Allergies (Unverified , 01/13/15) All Systems: reviewed and negative except above Subjective calm confused Objective Last 24 Hour Vital Signs Date Time Temp Pulse Resp B/P (MAP) Pulse Ox O2 Delivery O2 Flow Rate FiO2 11/22/17 08:14 74 104/63 11/22/17 08:00 97.8 74 18 104/63 93 97.8 11/22/17 07:19 79 18 Room Air 21 11/22/17 04:00 97.3 67 19 102/61 94 Room Air 97.3 11/22/17 04:00 96 Room Air 11/22/17 00:00 97.2 74 19 106/56 96 Room Air 97.2 11/22/17 00:00 96 Room Air 11/21/17 20:09 79 17 Room Air 11/21/17 20:00 97.6 78 19 97/64 97 Room Air 97.6 11/21/17 20:00 97 Room Air 11/21/17 16:00 98.5 85 22 92/56 97 Room Air 98.5 11/21/17 12:15 97.1 69 20 92/48 94 Room Air 97.1 Intake and Output 11/21/17 11/22/17 19:00 07:00 Intake Total 580 ml 950 ml Balance 580 ml 950 ml Free Water 130 ml 350 ml Tube Feeding 450 ml 600 ml # Voids 2 Height (Feet): 5 Height (Inches): 6.00 Weight (Pounds): 135 General Appearance: lethargic EENT: normal ENT inspection Neck: normal alignment Cardiovascular: normal peripheral pulses, normal rate, regular rhythm Respiratory/Chest: chest wall non-tender, lungs clear, normal breath sounds Abdomen: normal bowel sounds, non tender, soft Extremities: normal inspection Edema: no edema noted Arm (L), no edema noted Arm (R), no edema noted Leg (L), no edema noted Leg (R), no edema noted Pedal (L), no edema noted Pedal (R), no edema noted Generalized Neurologic: responsive, motor weakness Skin: normal pigmentation, warm/dry XAVI LOPEZ Nov 22, 2017 12:11
[2017-11-22] MEDS ORDERED: Haloperidol Decanoate 50mg Inj IM ONE (13:00)
--- NOTE | 2017-11-22 14:19 | Pulmonology Progress Note ---
Assessment/Plan Problems: (1) Shortness of breath (2) Diabetes (3) HTN (hypertension) (4) Nausea and vomiting in adult patient (5) Gastrostomy tube in place (6) Malnutrition Assessment/Plan symptomatic treatment echo reviewed respiratory treatment titrate fio2 to sat of 92% dvt prophylaxis psych evaluation dc planning in process Subjective ROS Limited/Unobtainable: No Interval Events: doing better Allergies: Coded Allergies: No Known Allergies (Unverified , 01/13/15) Objective Last 24 Hour Vital Signs Date Time Temp Pulse Resp B/P (MAP) Pulse Ox O2 Delivery O2 Flow Rate FiO2 11/22/17 12:00 98.0 78 18 108/66 94 98.0 11/22/17 08:14 74 104/63 11/22/17 08:00 97.8 74 18 104/63 93 97.8 11/22/17 07:19 79 18 Room Air 21 11/22/17 04:00 97.3 67 19 102/61 94 Room Air 97.3 11/22/17 04:00 96 Room Air 11/22/17 00:00 97.2 74 19 106/56 96 Room Air 97.2 11/22/17 00:00 96 Room Air 11/21/17 20:09 79 17 Room Air 11/21/17 20:00 97.6 78 19 97/64 97 Room Air 97.6 11/21/17 20:00 97 Room Air 11/21/17 16:00 98.5 85 22 92/56 97 Room Air 98.5 Intake and Output 11/21/17 11/22/17 19:00 07:00 Intake Total 580 ml 950 ml Balance 580 ml 950 ml Free Water 130 ml 350 ml Tube Feeding 450 ml 600 ml # Voids 2 Objective General Appearance: no apparent distress, awake, not communicating Lines, tubes and drains: peripheral HEENT: normocephalic, atraumatic, anicteric Neck: non-tender, supple Respiratory/Chest: decreased breath sounds Cardiovascular/Chest: normal rate, regular rhythm - SR with PVC Abdomen: normal bowel sounds, non tender, Gtube in place Neurologic: no motor/sensory deficits, alert, responsive Musculoskeletal: normal muscle bulk Current Medications Medications (Trade) Dose Ordered Sig/Cami Route PRN Reason Start Time Stop Time Status Last Admin Dose Admin Acetaminophen (Tylenol) 650 mg Q4H PRN ORAL Fever 11/19/17 22:00 12/19/17 21:59 Albuterol/ Ipratropium (Albuterol/ Ipratropium) 3 ml Q4H PRN HHN Shortness of Breath 11/19/17 21:30 11/24/17 21:29 Amlodipine Besylate (Norvasc) 5 mg DAILY GT 11/20/17 09:00 12/19/17 08:59 11/21/17 08:03 Atorvastatin Calcium (Lipitor) 20 mg BEDTIME GT 11/19/17 22:00 12/19/17 21:59 11/21/17 20:29 Dextrose (Dextrose 50%) STAT PRN IV Hypoglycemia 11/19/17 21:30 12/19/17 21:29 Haloperidol Lactate (Haldol) 10 mg Q6H PRN IM Agitation 11/19/17 21:30 12/19/17 21:29 Heparin Sodium (Porcine) (Heparin 5000 units/ml) 5,000 units EVERY 12 HOURS SUBQ 11/19/17 21:30 12/19/17 21:29 11/22/17 08:22 Insulin Aspart (NovoLOG) BEFORE MEALS AND HS SUBQ 11/19/17 22:30 12/19/17 22:29 11/22/17 13:07 Lorazepam (Ativan) 1 mg Q6H PRN ORAL For Anxiety 11/21/17 15:30 11/28/17 15:29 Mirtazapine (Remeron) 7.5 mg BEDTIME GT 11/19/17 22:00 12/19/17 21:59 11/21/17 20:29 Ondansetron HCl (Zofran) 4 mg Q6H PRN IVP Nausea & Vomiting 11/19/17 21:30 12/19/17 21:29 Polyethylene Glycol (Miralax) 17 gm DAILYPRN PRN ORAL Constipation 11/19/17 21:30 12/19/17 21:29 Risperidone (RisperDAL) 2 mg BEDTIME GT 11/21/17 21:00 12/19/17 17:59 11/21/17 20:30 Temazepam (Restoril) 15 mg HSPRN PRN ORAL Insomnia 11/19/17 21:30 11/26/17 21:29 BURAK RUANO Nov 22, 2017 14:19
[2017-11-22 16:00] VITALS: BP 121/67
[2017-11-22] MEDS ORDERED: Sterile Water Irrig 1000ml IRRIG ONE (17:01)
--- NOTE | 2017-11-22 19:41 | General Progress Note ---
Assessment/Plan Assessment/Plan encephalopathy agitation schizophrenia risperdal haldol IM ativan po haldol dec Subjective Date patient seen: Nov 22, 2017 Allergies: Coded Allergies: No Known Allergies (Unverified , 01/13/15) Subjective asleep the pt has. sitter no agitation calm no catatonia Objective Last 24 Hour Vital Signs Date Time Temp Pulse Resp B/P (MAP) Pulse Ox O2 Delivery O2 Flow Rate FiO2 11/22/17 16:00 97.2 71 20 121/67 100 97.2 11/22/17 12:00 98.0 78 18 108/66 94 98.0 11/22/17 08:14 74 104/63 11/22/17 08:00 97.8 74 18 104/63 93 97.8 11/22/17 07:19 79 18 Room Air 21 11/22/17 04:00 97.3 67 19 102/61 94 Room Air 97.3 11/22/17 04:00 96 Room Air 11/22/17 00:00 97.2 74 19 106/56 96 Room Air 97.2 11/22/17 00:00 96 Room Air 11/21/17 20:09 79 17 Room Air 11/21/17 20:00 97.6 78 19 97/64 97 Room Air 97.6 11/21/17 20:00 97 Room Air Intake and Output 11/21/17 11/22/17 19:00 07:00 Intake Total 580 ml 950 ml Balance 580 ml 950 ml Free Water 130 ml 350 ml Tube Feeding 450 ml 600 ml # Voids 2 Height (Feet): 5 Height (Inches): 6.00 Weight (Pounds): 135 Maryann Henley M.D. Nov 22, 2017 19:41
--- NOTE | 2017-11-25 09:18 | Discharge Summary ---
Discharge Summary Hospital Course Date of Admission Nov 18, 2017 at 21:50 Date of Discharge Nov 22, 2017 at 17:02 Admitting Diagnosis CHF EXACERBATION HPI Miri Cm is a 72 year old female who was admitted on Nov 18, 2017 at 21:50 for Congestive Heart Failure Exacerbation Hospital Course dc summary #[id number] Discharge Medications Continued Medications: Acetaminophen* (Acetaminophen 325MG Tablet*) 325 Mg Tablet 650 MG ORAL Q6H PRN for Fever/Headache/Mild Pain, TAB Amlodipine Besylate* (Amlodipine Besylate*) 5 Mg Tablet 5 MG GT DAILY, TAB Aspirin* (Aspirin*) 81 Mg Tab.chew 81 MG GT DAILY, TAB Atorvastatin Calcium* (Lipitor*) 20 Mg Tablet 20 MG GT BEDTIME, TAB Benztropine Mesylate* (Benztropine Mesylate*) 1 Mg Tablet 1 MG GT BID, TAB Insulin Aspart* (Novolog*) 100 Unit/1 Ml Insuln.pen 0 SUBQ AC+HS, #1 EA 0 Refills Lorazepam* (Lorazepam*) 1 Mg Tablet 1 MG GT Q6HR, TAB Metformin Hcl* (Metformin Hcl*) 1,000 Mg Tablet 1000 MG GT BID, TAB Mirtazapine* (Mirtazapine*) 7.5 Mg Tablet 7.5 MG GT BEDTIME, TAB Multivitamin with Minerals (Multivitamins with Minerals) 1 Each Tablet 1 TAB GT DAILY, TAB Nut.tx.gluc.intoler,Lac-Fr,Soy (Glucerna 1.5 Yo) 237 Ml Liquid 237 ML GT FIVE TIMES A DAY, ML Ondansetron (Zofran) 4 Mg Tablet 4 MG GT Q4HR PRN for Nausea & Vomiting, TAB Polyethylene Glycol 3350* (Miralax*) 17 Gm Powd.pack 17 GM ORAL BEDTIME PRN for Constipation, PACKET Temazepam (Temazepam*) 7.5 Mg Capsule 7.5 MG GT BEDTIME, #30 CAP 0 Refills Discharge Discharge Disposition Patient was discharged to SNF/Subacute Facility(03) Discharge Diagnoses: Kayode (Vancshankar)Cesilia NP Nov 25, 2017 09:18
--- NOTE | 2017-11-26 00:15 | Discharge Summary 2 SIG ---
DATE OF ADMISSION: 11/18/2017 DATE OF DISCHARGE: 11/22/2017 REASON FOR ADMISSION: 72-year-old female with a past medical history of COPD, diabetes, hypertension, CHF, dysphagia, G-tube, psychiatric history, and failure to thrive, was sent for evaluation due to dyspnea and edema of bilateral lower extremities. Troponin was negative. Vital signs were stable. EKG revealed no acute ischemic changes. Pro BNP was within normal limits. Laboratories were unremarkable. Chest x-ray revealed elevated left hemidiaphragm with resultant left basilar atelectasis. No acute process otherwise. Venous duplex of bilateral lower extremities was negative. Pulse oximetry was stable on the room air.Dyspnea apparently was at the halfway facility. At the hospital, the patient's pulse oximetry was stable on room air and no tachypnea. The patient was admitted for further management with diagnosis of possible CHF exacerbation , recent dyspnea, acute toxic metabolic encephalopathy on chronic schizophrenia HOSPITAL COURSE: The patient was admitted to telemetry floor. Cardiology, Pulmonology and Psychiatry consults were requested. Science Tutor seen and evaluated the patient. According to business specialist, the patient did not appear to be in congestive heart failure. Clinically, the patient had no jugular vein distention. There was no evidence of tachypnea. Pulse oximetry was stable on room air. ProBNP was within normal limits. Science Tutor stopped IV Lasix in view of clinical evidence of dehydration. Serial troponin were negative. EKG revealed no acute ischemic changes. Echocardiogram revealed preserved ejection fraction of 55% to 60%. Normal left ventricular chamber size, systolic function and wall motion. Blood pressure was managed with calcium channel lore. Statin was continued. DVT prophylaxis provided. Hemodynamics were closely monitored. COPD appeared to be stable. No evidence of exacerbation. Blood sugar was managed with current regimen and remained stable. The patient was working with physical and occupational therapists. The patient was admitted with altered level of consciousness, which could be due to the metabolic encephalopathy. Electrolytes were closely monitored and corrected as needed. Initial dyspnea was possibly due to either psychiatric condition/ anxiety, or due to dehydration, brought by diuretic. The patient was started on G-tube feeding with strict aspiration and reflux precautions, and able to tolerate tube feeding. Blood sugar was managed with sliding scale of insulin. Bowel regimen instituted. Supportive care provided. Psychiatrist seen and evaluated the patient, optimized psychiatric medication regimen, which resulted in improvement in the patient's overall condition. Psychiatrist diagnosed the patient with schizophrenia, encephalopathy, and agitation. The patient was stable for discharge. FINAL DIAGNOSES: 1. Dyspnea, resolved. 2. Acute toxic metabolic encephalopathy on chronic schizophrenia. 3. Dehydration. 4. Malnutrition. 5. Dysphagia, gastrostomy tube. 6. Failure to thrive. 7. Diabetes. 8. Hypertension. 9. Chronic obstructive pulmonary disease. DISCHARGE MEDICATIONS: See medication reconciliation list. DISCHARGE INSTRUCTIONS: The patient discharged to halfway facility. FOLLOWUP: Follow up with medical doctor at the facility. Sukh Chu D.O. Cesilia MaceRochester General HospitalAvinash N.PGhada DR: PORSHA JOB#: [id number] CC: TIM
== END 2017-11-22 17:02 | DRG 422 ==
LOC: EDBD 19:32 → EMR 20:25 → 2E 21:50 → EDBEDREQ 22:03 → 4E 11-19 21:22
DX: E86.0 Dehydration (principal); G92 Toxic encephalopathy; E46 Unspecified protein-calorie malnutrition; I11.0 Hypertensive heart disease with heart failure; I50.9 Heart failure, unspecified; Z43.1 Encounter for attention to gastrostomy; J44.9 Chronic obstructive pulmonary disease, unspecified; R13.10 Dysphagia, unspecified; E11.9 Type 2 diabetes mellitus without complications; I10 Essential (primary) hypertension; R45.1 Restlessness and agitation; E78.5 Hyperlipidemia, unspecified; F20.0 Paranoid schizophrenia; R62.7 Adult failure to thrive; F41.9 Anxiety disorder, unspecified
CPT/HCPCS: 36415; 71045; 80048; 80053; 82550; 82553; 82962; 83690; 83880; 84484; 85025; 85610; 85730; 87081; 93005; 93306; 93970; 94664; 99285; J1815

== ENCOUNTER 2018-12-28 23:35 | Emergency (ER) | payer MEDICAID, MEDICARE ==
[~2018-12-28] VITALS: Ht 157.5 cm; Wt 54.4 kg
[~2018-12-28 23:35] MED LIST changes: +ZYPREXA2.5 MG ORAL; +ZYPREXA5 MG ORAL
[2018-12-28 23:45] VITALS: BP 130/70
--- NOTE | 2018-12-28 23:46 | NUR ---
ED Nurse Note: pt brought in by ambulance from [facility] c/c fall, unwitnessed, pain c/o nose, per EMS report, pt was found on the floor. noted contusion on pt's nasal bone area with abrasion and contusion on right upper eyebrow area. Pt nicolas pain at this time. noted dried blood on nasal canal, per EMS report, pt was bleeding on scene. unable to assess A&o status, pt is not responding to questions but A&ox1. gcs=15. skin warm and dry, resp even and unlabored on RA, will cont monitor. VSS.
[2018-12-29] MEDS ORDERED: Tetanus/Diptheria/Pertussis Vaccine 0.5ml Syr IM ONE
--- NOTE | 2018-12-29 01:24 | NUR ---
ED Nurse Note: [facility] sn[facility] called by ER charge nurse, pending transport.
--- NOTE | 2018-12-29 01:39 | NUR ---
ED Nurse Note: pt report given to ambulance personnel and endorsed care, pt VSS. all belongings left w/ pt.
[2018-12-29 01:43] VITALS: BP 130/70
--- NOTE | 2018-12-29 04:58 | Emergency Room Report ---
History of Present Illness General Chief Complaint: Multiple Trauma/Fall Source: Patient, Medical Record, EMS Present Illness HPI 73-year-old female presents ED for evaluation. Brought in by EMS from custodial facility. Patient had a mechanical fall tonight. Hit her head. Presenting with nosebleed. Tetanus unknown. Patient denies pain at this time. Patient is at baseline mentation. Denies nausea or vomiting. Denies photophobia. Denies any other injuries. No other aggravating relieving factors. Denies any other associated symptoms Allergies: Coded Allergies: No Known Allergies (Unverified , 01/13/15) Patient History Past Medical History: DM, HTN, COPD Past Surgical History: none Pertinent Family History: none Social History: Denies: smoking, alcohol use, drug use Last Menstrual Period: menopause Now: No Immunizations: UTD Reviewed Nursing Documentation: PMH: Agreed; PSxH: Agreed Nursing Documentation-PMH Hx Cardiac Problems: Yes - hyperlipidemia Hx Hypertension: Yes Hx COPD: Yes Hx Diabetes: Yes - DM2 Hx Cancer: No Hx Gastrointestinal Problems: Yes - Failure to Thrive, gtube Hx Neurological Problems: Yes - extrapyramidal and movement disorder. Hx Weakness: Yes Review of Systems All Other Systems: negative except mentioned in HPI Physical Exam Vital Signs Date Time Temp Pulse Resp B/P (MAP) Pulse Ox O2 Delivery O2 Flow Rate FiO2 12/28/18 23:37 97.3 83 14 105/70 96 Room Air Sp02 EP Interpretation: reviewed, normal General Appearance: no apparent distress, alert, GCS 15, non-toxic Head: normocephalic Eyes: bilateral eye normal inspection, bilateral eye PERRL ENT: hearing grossly normal, normal pharynx, no angioedema, normal voice, TMs + canals normal, other - dried blood in bilateral nares Neck: full range of motion, no bony tend, supple/symm/no masses Respiratory: normal inspection Cardiovascular #1: normal inspection Gastrointestinal: normal inspection Rectal: deferred Genitourinary: no CVA tenderness Musculoskeletal: normal inspection Neurologic: alert, oriented x3, responsive, motor strength/tone normal, sensory intact, speech normal Psychiatric: judgement/insight normal, memory normal, mood/affect normal, no suicidal/homicidal ideation Skin: normal inspection Lymphatic: normal inspection Medical Decision Making Diagnostic Impression: Primary Impression: Epistaxis Additional Impressions: Nasal bone fracture Qualified Codes: S02.2XXA - Fracture of nasal bones, initial encounter for closed fracture Head injury Qualified Codes: S09.90XA - Unspecified injury of head, initial encounter ER Course Hospital Course 73-year-old female presents with bruising and nosebleed status post mechanical fall. No LOC Differential diagnoses include: skull fx, intracranial injury, concussion Clinical course Patient placed on stretcher. After initial history and physical I ordered Tdap , CT head and CT C spine CT head shows no acute process. CT C-spine shows mildly displaced nasal bone fracture During ED course is been no active epistaxis. There is dried blood in bilateral nares. No further intervention at this time. Patient at baseline mentation. Can be safely discharged back to custodial facility. PMD Dr. Lopez made aware i'll provide ENT referrals Diagnosis - epistaxis, nasal bone fracture, head injury Stable and discharged to SNF. Followup with PMD. Return to ED if symptoms recur or worsen CT/MRI/US Diagnostic Results CT/MRI/US Diagnostic Results #1: Imaging Test Ordered: CT Head Impression no acute process CT/MRI/US Diagnostic Results #2: Imaging Test Ordered: CT Facial Bones Impression mildly displaced R nasal bone fx Last Vital Signs Date Time Temp Pulse Resp B/P (MAP) Pulse Ox O2 Delivery O2 Flow Rate FiO2 12/29/18 01:43 97.3 84 14 130/70 96 Room Air Status: improved Disposition: XFER SNF Condition: Stable Referrals: Renee Salinas MD Patient Instructions: Nasal Fracture, Uyio-la-Kdyo Dimitry Huang MD Dec 29, 2018 04:58
--- NOTE | 2018-12-29 09:07 | Diagnostic Imaging Report ---
Indications: Status post fall with pain in the nasal area Technique: Spiral images obtained through the facial bones. No IV contrast utilized. Multiplanar reconstructions were generated.Total dose length product 697 mGycm. CTDIvol(s) 28 mGy. Dose reduction achieved using automated exposure control Comparison: none Findings: Slight deformity of the right side of the nasal bone is of doubtful significance but could represent a minimal nondisplaced fracture. Tiny calcification projects adjacent to the nasal spine of the maxilla, of doubtful significance but tiny fracture fragment possible. Otherwise, no evidence of acute fracture. No worrisome sinus opacification. There is mild mucosal disease of the bilateral maxillary and ethmoid sinuses. The optic globes and retroseptal orbits are intact. The facial soft tissues are unremarkable. There is mild anterior nasal septal deviation. Impression: Doubt acute bony trauma; minimal nondisplaced fracture of the right nasal bone and of the nasal process of the maxilla possible however. Correlate with clinical findings No acute process otherwise Minimal sinus disease This agrees with the preliminary interpretation provided overnight by [facility] service. The CT scanner at [facility] is accredited by the [employer] and the scans are performed using protocols designed to limit radiation exposure to as low as reasonably achievable to attain images of sufficient resolution adequate for diagnostic evaluation.
--- NOTE | 2018-12-29 11:37 | Diagnostic Imaging Report ---
Indications: Head trauma, patient fell and hit head and face Technique: Spiral acquisitions obtained through the brain. Angled axial and coronal 5 x 5 mm slices were reconstructed. Total dose length product 1270.52 mGycm. CTDI vol(s) 70.38 mGy. Dose reduction achieved using automated exposure control Comparison: 10/30/2017 Findings: No acute intracranial hemorrhage or edema. There is age-related enlargement of the ventricles and extra-axial CSF spaces. There is minimal periventricular deep white matter low-attenuation. Old lacunar infarct is again demonstrated in the left basal ganglia. Visualized orbits and sinuses are unremarkable. Mastoids are clear. The calvarium is intact there no significant interim change Impression: Chronic and age-related changes Negative for acute intracranial bleed or mass effect. This agrees with the preliminary interpretation provided overnight by [facility] service. The CT scanner at [facility] is accredited by the [employer] and the scans are performed using protocols designed to limit radiation exposure to as low as reasonably achievable to attain images of sufficient resolution adequate for diagnostic evaluation.
== END 2018-12-29 01:30 ==
LOC: EDBD 23:35 → EMR 23:59
DX: R04.0 Epistaxis (principal); S02.2XXA Fracture of nasal bones, initial encounter for closed fracture; W19.XXXA Unspecified fall, initial encounter; Y92.129 Unspecified place in nursing home as the place of occurrence of the external cause; Z23 Encounter for immunization; E11.9 Type 2 diabetes mellitus without complications; I10 Essential (primary) hypertension; J44.9 Chronic obstructive pulmonary disease, unspecified; R62.7 Adult failure to thrive
CPT/HCPCS: 70450; 70486; 90471; 90715; 99284

== ENCOUNTER 2019-01-27 20:08 | Emergency (ER) | payer MEDICARE ==
[~2019-01-27] VITALS: Ht 160 cm; Wt 54.4 kg
[2019-01-27 20:15] VITALS: BP 113/63
--- NOTE | 2019-01-27 20:15 | NUR ---
ED Nurse Note: Pt was brought by ambulance in ED from SNF. C/o right forehead laceration after fell today. Pt is awake, confused. Vital signs stable at this time, waiting for orders.
[2019-01-27] MEDS ORDERED: Neosporin Oint Ud Pkt TOP ONE (21:00)
[2019-01-27] MEDS ORDERED: Lidocaine 1% 10mg/ml/Epi 0.005mg/ml 30ml vial INJ ONE (21:00)
[2019-01-27] MEDS ORDERED: Tetanus/Diptheria/Pertussis IM ONE (21:00)
--- NOTE | 2019-01-27 22:00 | NUR ---
ED Nurse Note: Meds given as ordered.
--- NOTE | 2019-01-27 22:10 | NUR ---
ED Nurse Note: SUTURE DONE BY
--- NOTE | 2019-01-27 22:16 | Emergency Room Report ---
History of Present Illness General Chief Complaint: Multiple Trauma/Fall Source: Medical Record, EMS Present Illness HPI Patient fell and hit her head. From SNF. Non-verbal. She has a cut on the right forehead. The patient is unable to give history. She is nonverbal. Had fall 12/29 with nasal fx. Evaluated here. Admitted D/C dx" 1. Dyspnea, resolved. 2. Acute toxic metabolic encephalopathy on chronic schizophrenia. 3. Dehydration. 4. Malnutrition. 5. Dysphagia, gastrostomy tube. 6. Failure to thrive. 7. Diabetes. 8. Hypertension. 9. Chronic obstructive pulmonary disease. Allergies: Coded Allergies: No Known Allergies (Unverified , 01/13/15) Patient History Past Medical History: see triage record, old chart reviewed Past Surgical History: other - Gastrostomy tube Social History [facility]ative [facility] Reviewed Nursing Documentation: PMH: Agreed; PSxH: Agreed Nursing Documentation-PMH Past Medical History: No History, Except For Hx Cardiac Problems: Yes - hyperlipidemia Hx Hypertension: Yes Hx COPD: Yes Hx Diabetes: Yes - DM2 Hx Cancer: No Hx Gastrointestinal Problems: Yes - Failure to Thrive, gtube Hx Neurological Problems: Yes - extrapyramidal and movement disorder. Hx Weakness: Yes Review of Systems All Other Systems: limited Physical Exam Vital Signs Date Time Temp Pulse Resp B/P (MAP) Pulse Ox O2 Delivery O2 Flow Rate FiO2 01/27/19 20:10 68 20 111/68 95 Sp02 EP Interpretation: reviewed, normal General Appearance: thin, other - Eyes open but nonverbal and not responding to commands, Chronically Ill Eyes: bilateral eye normal inspection, bilateral eye PERRL, bilateral eye other - Unable toDetermine extraocular motions as she is staring straightforward ENT: moist mucus membranes Neck: supple Respiratory: lungs clear, normal breath sounds Cardiovascular #1: regular rate, rhythm Cardiovascular #2: 2+ radial (L) Gastrointestinal: normal bowel sounds, non tender, other - Gastrostomy tube, scaphoid Musculoskeletal: other - Moving upper extremities randomly, atrophy, small reddened area left knee with out ligament instability no effusion Neurologic: motor weakness - Lower extremities, other - Eyes open, nonverbal, moving upper extremities Psychiatric: depressed affect Skin: normal color, laceration - Right forehead Procedures Laceration/Wound Repair Laceration/Wound Repair : Consent: Other Wound Location: face Wound's Depth, Shape: superficial Wound Length (cm): 2 - 1.7 Wound Explored: clean Irrigated w/ Saline (ccs): 5 Betadine Prep?: Yes Anesthesia: Lidocaine w/ Epi Volume Anesthetic (ccs): 1 Wound Debrided: none Wound Repaired With: sutures Suture Size/Type: 6:0, proline Patient Tolerated: Well Complications: None Medical Decision Making Diagnostic Impression: Primary Impression: Fall Qualified Codes: W19.XXXA - Unspecified fall, initial encounter Additional Impressions: Facial laceration Qualified Codes: S01.81XA - Laceration without foreign body of other part of head, initial encounter Contusion of left knee Qualified Codes: S80.02XA - Contusion of left knee, initial encounter Schizophrenia Qualified Codes: F20.9 - Schizophrenia, unspecified ER Course Patient presents post head injury. There is a laceration. She has a abnormal neurologic exam that apparently is baseline. CT the head is indicated. An EKG will be obtained. Also sutures are indicated. She is a diabetic and Accu-Chek will be performed. CT with atrophy o bleed or fracture. Accu-Chek normal. EKG without injury See procedure note for laceration repair. Dr. Lopez notified patient returning to alf facility. Patient stable for outpatient observation and treatment. EKG Diagnostic Results Rate: normal Rhythm: NSR ST Segments: no acute changes Rhythm Strip Diag. Results EP Interpretation: yes Rhythm: NSR, no PVC's, no ectopy CT/MRI/US Diagnostic Results CT/MRI/US Diagnostic Results : Imaging Test Ordered: head Impression atrophy Last Vital Signs Date Time Temp Pulse Resp B/P (MAP) Pulse Ox O2 Delivery O2 Flow Rate FiO2 01/28/19 00:03 97.8 68 20 114/61 95 Room Air Status: improved Disposition: XFER SNF Condition: Improved Scripts Bacitracin (Bacitracin) 28.4 Gm Oint...g. 1 APPLIC TOPIC BID, #10 GM Prov: Lenny Cheng MD 01/27/19 Acetaminophen (Tylenol) 325 Mg Tablet 650 MG ORAL Q6H PRN for Prn Pain/Headache/Temp > 101, #30 TAB 0 Refills Prov: Lenny Cheng MD 01/27/19 Lenny Cheng MD Jan 27, 2019 22:16
[2019-01-27] MEDS ORDERED: TYLENOL325 MG ORAL (23:05)
[2019-01-27] MEDS ORDERED: BACITRACIN15 GM TOPIC (23:05)
[2019-01-28 00:03] VITALS: BP 114/61
--- NOTE | 2019-01-28 00:21 | NUR ---
ED Nurse Note: Spoke with Vanita at [facility], report given.
--- NOTE | 2019-01-28 01:03 | NUR ---
TRANSFER TO [facility]: Patient transferred back to [facility] as ordered . Report given to EMS at bed side. Belongings sent with pt. Pt is awake, VSS.
--- NOTE | 2019-01-28 09:57 | Diagnostic Imaging Report ---
Indications: Right forehead trauma, laceration on forehead, status post fall Technique: Spiral acquisitions obtained through the brain. Angled axial and coronal 5 x 5 mm slices were reconstructed. Total dose length product 1386.64 mGycm. CTDI vol(s) 70.38 mGy. Dose reduction achieved using automated exposure control Comparison: 12/29/2018 Findings: There is a small right supraorbital scalp contusion. There is age-related enlargement of the ventricles and extra axial CSF spaces. There is mild periventricular deep white matter low-attenuation, consistent with chronic microvascular ischemic changes. There is an old lacunar infarct in the left basal ganglia. This is also evident previously. The piedra-white differentiation is otherwise normal. Visualized orbits are unremarkable. The included sinuses demonstrate ethmoid and maxillary mucosal thickening. The mastoids are clear. The calvarium is intact. Impression: Evidence of mild right supraorbital scalp soft tissue injury Negative for acute intracranial bleed or mass effect Chronic and age-related changes, as described Old left basal ganglia lacunar infarct, also previously demonstrated. This agrees with the preliminary interpretation provided overnight by Dr. Estrada The CT scanner at [facility] is accredited by the [employer] and the scans are performed using protocols designed to limit radiation exposure to as low as reasonably achievable to attain images of sufficient resolution adequate for diagnostic evaluation.
--- NOTE | 2019-01-29 14:23 | Cardiology Report ---
APPROVED REPORT EKG Measurement Heart [id number] P52 [id number] Sinus rhythm Normal ECG
== END 2019-01-28 01:03 ==
LOC: EDSEX 20:08 → EDBD 20:08 → EMR 23:16
DX: S01.81XA Laceration without foreign body of other part of head, initial encounter (principal); S80.02XA Contusion of left knee, initial encounter; W19.XXXA Unspecified fall, initial encounter; Y92.9 Unspecified place or not applicable; F20.9 Schizophrenia, unspecified; Z23 Encounter for immunization; I10 Essential (primary) hypertension; J44.9 Chronic obstructive pulmonary disease, unspecified; E11.9 Type 2 diabetes mellitus without complications; E78.5 Hyperlipidemia, unspecified; Z86.73 Personal history of transient ischemic attack (TIA), and cerebral infarction without residual deficits; Z93.1 Gastrostomy status; R62.7 Adult failure to thrive
CPT/HCPCS: 70450; 82962; 90471; 90715; 93005; 99284